=== PATIENT | female | born 1945 | race Caucasian/White ===

== ENCOUNTER 2018-03-18 20:49 | Emergency (ER) | payer OTHER ==
--- OUTSIDE RECORDS SUMMARY | 2018-03-18 20:52 | XMS REPORT | Clinical Summary ---
:1945 Author Organization [facility] Address [address] [place] [address] Care Team Providers Name Role Phone Asked, None Given Primary Care Provider Unavailable Allergies No Known Allergies Current Medications Prescription Sig. Disp. Refills Start Date End Date Status dicyclomine (BENTYL) 06/28/2015 Active 10 MG capsule HYDROcodone-acetamin Take 1 tablet by Active ophen (NORCO) 10-325 mouth 2 (two) mg per tablet times a day as needed for moderate pain. DULoxetine Take 30 mg by Active (CYMBALTA) 30 MG mouth daily. capsule pregabalin (LYRICA) Take 30 mg by Active 25 MG capsule mouth nightly. traMADol (ULTRAM) 50 Take 1 tablet 120 tablet 0 02/18/2017 03/20/2017 mg tablet (50 mg total) by mouth every 6 (six) hours for 30 days. HEPARIN Inject 1 mL 60 mL 0 02/18/2017 03/20/2017 SODIUM,PORCINE (5,000 Units (HEPARIN, PORCINE,) total) under the 5,000 unit/mL skin every 12 injection (twelve) hours for 30 days. furosemide (LASIX) Take 0.5 tablets 15 tablet 0 02/18/2017 03/20/2017 20 mg tablet (10 mg total) by mouth daily for 30 days. nystatin Apply topically 15 g 02/18/2017 03/20/2017 (MYCOSTATIN) 100,000 2 (two) times a unit/gram powder day for 30 days. Active Problems Problem Noted Date Fracture of knee prosthesis (HCC) 02/11/2017 Immunizations Name Dates Previously Given Next Due FLUCELVAX QUAD PF (0.5mL syringe) 02/18/2017 Social History Tobacco Use Types Packs/Day Years Used Date Never Smoker Alcohol Use Drinks/Week oz/Week Comments No Sex Assigned at Date Recorded Not on file Last Filed Vital Signs Not on file Plan of Treatment Health Maintenance Due Date Last Done Comments BREAST CANCER SCREENING 11/09/1997 COLON CANCER SCREENING 11/09/1997 SHINGRIX VACCINE (#1) 11/09/1997 ZOSTER VACCINE 2007 PNEUMOCOCCAL POLYSACCHARIDE VACCINE AGE 65 AND OVER 11/09/2012 PNEUMOCOCCAL-13 11/09/2012 INFLUENZA VACCINE 12/09/2017 02/18/2017 Implants Implanted Type Area Geophysical Laboratory Chief Device Expiration Model / Identifier Date Serial / Lot T2 Supracondylar Nail [id number] - [id number] IMPLANT Right: RADHA [id number] / Implanted: Qty: 1 on 02/12/2017 by Lyssa Limon MD DEVICES Knee ORTHOPEDICS / [id number] T2 F/T Locking Screw [id number] - [id number] IMPLANT Right: RADHA 1896 [id number] / Implanted: Qty: 1 on 02/12/2017 by Lyssa Limon MD DEVICES Knee ORTHOPEDICS / [id number] T2 F/T Locking Screw 5mmx42.5mm - [id number] IMPLANT Right: RADHA 1896 [id number] / Implanted: Qty: 1 on 02/12/2017 by Lyssa Limon MD DEVICES Knee ORTHOPEDICS / [id number] Cap End For T2 Scn Sys 8x4mm - [id number] Orthopedic Right: RADHA 2021 [id number] / Implanted: Qty: 1 on 02/12/2017 by Lyssa Limon MD Trauma Knee ORTHOPEDICS / Implants [id number] Screw Bone Lkng Fulthrd Ti 5x85mm - [id number] Orthopedic Right: RADHA 11/07/2021 1896 [id number] / Implanted: Qty: 1 on 02/12/2017 by Lyssa Limon MD Trauma Knee ORTHOPEDICS / Implants [id number] Screw Bone Lkng Fulthrd Ti 5x80mm - [id number] Orthopedic Right: RADHA 10/08/2021 1896 [id number] / Implanted: Qty: 1 on 02/12/2017 by Lyssa Limon MD Trauma Knee ORTHOPEDICS / Implants [id number] Screw Bone Lkng Fulthrd Ti 5x85mm - [id number] Orthopedic Right: RADHA 08/08/2021 1896 [id number] / Implanted: Qty: 1 on 02/12/2017 by Lyssa Limon MD Trauma Knee ORTHOPEDICS / Implants [id number] Screw Bone Lkng Fulthrd Ti 5x80mm - [id number] Orthopedic Right: RADHA 03/10/2021 1896 [id number] / Implanted: Qty: 1 on 02/12/2017 by Lyssa Limon MD Trauma Knee ORTHOPEDICS / Implants [id number] Immobilizer Knee Tripnl Dlx W/ Patl Strp Univl Canvas 24in - [id number] Surgical N/A: [id number] [id number] / Implanted: Qty: 1 on 02/12/2017 by Lyssa Limon MD Implants; N/A [employer] / Expanders; Extenders; Surgical Wires Wire K Optnl [id number] Strl - [id number] Temporary Right: RADHA 2021 1806 [id number] / Implanted: Qty: 1 on 02/12/2017 by Lyssa Limon MD Fixation Pin Knee ORTHOPEDICS / or Wire [id number] Procedures Procedure Name Priority Date/Time Associated Diagnosis Comments TRANSFUSE RED BLOOD Routine 01/13/2018 5:42 PM CDT CELLS TRANSFUSE RED BLOOD Routine 01/13/2018 5:42 PM CDT CELLS after 03/17/2017 Results Transfuse RBC (01/13/2018 5:42 PM)Only the most recent of2 resultswithin the time period is included.after 03/17/2017 Insurance Payer Benefit Plan / Group Subscriber ID Type Phone Address MEDICARE MEDICARE PART A AND B xxxxxxxxxx Medicare [place], [place]
--- OUTSIDE RECORDS SUMMARY | 2018-03-18 20:52 | XMS REPORT ---
:1945 Author Organization [facility] Address [address] [place] [address] Dr. Benavides[address] [place] [id number] Care Team Providers Name Role Phone Unavailable Unavailable Unavailable Problems This patient has no known problems. Allergies, Adverse Reactions, Alerts This patient has no known allergies or adverse reactions. Medications This patient has no known medications.
[2018-03-18] MEDS ORDERED: FENTANYL CITR 100 MCG/2 ML ONE (21:47)
--- NOTE | 2018-03-18 22:18 | RAD REPORT ---
EXAM DESCRIPTION: CT - Stone Protocol - 03/18/2018 9:58 pm CLINICAL HISTORY: Abdominal pain. Lower abdominal pain. Hematuria COMPARISON: 2014 TECHNIQUE: Computed axial tomography of the abdomen pelvis was obtained without oral or IV contrast. Lack of IV and oral contrast limits evaluation of solid organs, bowel, and vessels. Coronal reformat pina images were obtained and reviewed. All CT scans are performed using dose optimization technique as appropriate and may include automated exposure control or mA/KV adjustment according to patient size. FINDINGS: Bilateral ureteral stents are present. No hydronephrosis is noted. A 6 millimeter right re nal calculus is seen. Several small cystic structures are present within the right kidney. A 10 centimeter heterogeneous mass abuts the upper and mid aspect of the left kidney. Several left re nal calculi are noted. An air bubble is suspected within the bladder. Cortical thinning of the right kidney likely secondary to prior inflammation. The liver, spleen, pancreas and adrenals appear grossly normal There is no evidence of diverticulitis. A 6 x 3 centimeter fluid collection is present within the subcutaneous tissues of the left posterolat eral abdomen A stimulator device is in place IMPRESSION: 10 centimeter heterogeneous mass abutting the left kidney most likely represents a subca psular hematoma. This should be followed with ultrasounds to assess stability/resolution. 6 centimeter fluid collection within the subcutaneous tissues of the left posterolateral abdomen prob ably represents a hematoma. An abscess is another consideration but probably is less likely. Bilateral ureteral stents in place without hydronephrosis
[2018-03-18 22:59] LABS: Absolute Lymphocytes (CBC) 0.8 K/uL (0.7-4.9); Absolute Monocytes 0.5 K/uL (0.1-1.3); Absolute Neutrophil 8.5 K/uL (1.8-8.0); Basophils % 0.3 % (0-1.3); Hematocrit 26.8 % (36.0-45.0); Lymphocytes % 7.9 % (15.3-44.8); MCH 31.6 pg (27.0-35.0); MCV 94.6 fL (80-100); MPV 8.8 fL (7.6-11.3); Monocytes % 5.1 % (3.3-12.3); RBC Red Blood Cell Count 2.83 M/uL (3.86-4.86)
[2018-03-18 23:29] LABS: Blood Morphology Comment NOT SEEN (NOT SEEN); Platelet Estimate ADEQ
--- NOTE | 2018-03-18 23:45 | ER ---
Nurse's Notes [facility] Name: Dagmar Flores Age: 72 yrs Sex: Female : 1945 Arrival Date: 03/18/2018 Time: 20:52 Bed 16 Private MD: Diagnosis: Other slipping, tripping and stumbling and falls;Subcapsular Hematoma Left Kidney;Left Posterolateral Intraabdominal Hematoma Presentation: 03/18 20:54 Presenting complaint: Patient states: Lower back pain and blood in her urine since aj1 Thursday. States that she had some kidney stones broken up on Thursday. Reports chills. Reports urinary frequency. Transition of care: patient was not received from another setting of care. Onset of symptoms was March 2018. Risk Assessment: Do you want to hurt yourself or someone else? Patient reports no desire to harm self or others. Initial Sepsis Screen: Does the patient meet any 2 criteria? No. Patient's initial sepsis screen is negative. Does the patient have a suspected source of infection? Yes: Dysuria/Frequency/Urgency/UTI. Care prior to arrival: None. 20:54 Method Of Arrival: Wheelchair aj1 20:54 Acuity: JOSUE 3 aj1 Triage Assessment: 21:01 General: Appears in no apparent distress. uncomfortable, Behavior is calm, cooperative, aj1 appropriate for age. Pain: Complains of pain in back Pain currently is 9 out of 10 on a pain scale. Neuro: Level of Consciousness is awake, alert, obeys commands. Cardiovascular: Patient's skin is warm and dry. Respiratory: Airway is patent Respiratory effort is even, unlabored, Respiratory pattern is regular, symmetrical. Historical: - Allergies: 21:01 No Known Allergies; aj1 - Home Meds: 21:01 Bactrim DS Oral [Active]; Anaspaz 0.125 mg oral TbDL 1 tab 4 times per day [Active]; aj1 tramadol 50 mg Oral tab 1 tab every 6 hours [Active]; - PMHx: 21:01 Kidney stones; "Kidney problems"; Fibromyalgia; aj1 - Immunization history:: Flu vaccine is not up to date. - Social history:: Smoking status: Patient/guardian denies using tobacco. - Ebola Screening: : Patient denies travel to an Ebola-affected area in the 21 days before illness onset. Screenin:00 Abuse screen: Denies threats or abuse. Denies injuries from another. Nutritional rr5 screening: No deficits noted. Tuberculosis screening: No symptoms or risk factors identified. Fall Risk Fall in past 12 months (25 points). IV access (20 points). Ambulatory Aid- None/Bed Rest/Nurse Assist (0 pts). Gait- Weak (10 pts.). Total Alexandra Fall Scale indicates High Risk Score (45 or more points). Fall prevention measures have been instituted. Side Rails Up X 2 Family Present and informed to notify staff if the need to leave the bedside As available patient and family educated on Fall Prevention Program and Strategies. Assessment: 21:00 General: Appears in no apparent distress. uncomfortable, Behavior is calm, cooperative, rr5 appropriate for age. Pain: Complains of pain in back Pain does not radiate. Pain currently is 6 out of 10 on a pain scale. Quality of pain is described as aching, Pain began suddenly, Is intermittent, Aggravated by increased activity, repositioning. Neuro: Level of Consciousness is awake, alert, obeys commands, Oriented to person, place, time, situation. Cardiovascular: Capillary refill < 3 seconds Patient's skin is warm and dry. Respiratory: Airway is patent. GI: No signs and/or symptoms were reported involving the gastrointestinal system. Abdomen is round obese. : Reports pain on urination. EENT: No signs and/or symptoms were reported regarding the EENT system. Derm: No signs and/or symptoms reported regarding the dermatologic system. Skin is healthy with good turgor, Skin is dry, Skin is pink, warm \\T\\ dry. Musculoskeletal: Capillary refill < 3 seconds, Range of motion: intact in all extremities. 21:00 Injury Description: Bruise sustained to left lower back. rr5 22:30 Reassessment: Patient appears in no apparent distress at this time. No changes from rr5 previously documented assessment. 03/19 00:20 Reassessment: report given to EMS patient vitally stable agreed for transfer and no rr5 complaints made. Vital Signs: 03/18 21:01 BP 128 / 47; Pulse 88; Resp 18; Temp 97.5; Pulse Ox 100% on R/A; Weight 100.24 kg (R); aj1 Height 5 ft. 3 in. (160.02 cm) (R); Pain ; 03/19 00:00 BP 123 / 113; Pulse 85; Resp 17; Pulse Ox 98% on 3 lpm NC; Pain 3/10; rr5 03/18 21:01 Body Mass Index 39.15 (100.24 kg, 160.02 cm) aj1 ED Course: 03/18 20:52 Patient arrived in ED. es 20:59 Triage completed. aj1 21:00 Patient has correct armband on for positive identification. Bed in low position. Call rr5 light in reach. Side rails up X2. environmental monitoring specialist on. Pulse ox on. NIBP on. Door closed. Noise minimized. 21:01 Arm band placed on Patient placed in an exam room. aj1 21:28 Facundo Arce PA is PHCP. cp 21:28 Jerod Huffman MD is Attending Physician. cp 21:36 Maximilian Myers RN is Primary Nurse. rr5 21:[address] via wheelchair. vr 21:58 CT completed. Patient moved back from CT. nj 21:58 CT Stone Protocol In Process Unspecified. EDMS 22:30 Missed attempt(s): 20 gauge in left forearm. rr5 22:52 Initial lab(s) drawn, by me, sent to lab. Missed attempt(s): 20 gauge in left bb antecubital area. Bleeding controlled, band aid applied, catheter tip intact. 23:10 Inserted saline lock: 20 gauge in left EJ, using aseptic technique. Blood collected. by rr5 sherita BRADY. 23:34 X-ray completed. Portable x-ray completed in exam room. Patient tolerated procedure sg4 well. 23:36 XRAY Chest (1 view) In Process Unspecified. EDMS 03/19 00:00 No provider procedures requiring assistance completed. Renee cath inserted, using rr5 sterile technique, 16 Fr., by me, balloon inflated, urine specimen collected. other bloody urine drain 100ml. returned Patient tolerated well. 00:29 Patient transferred, IV remains in place. rr5 Administered Medications: 03/18 23:10 Drug: fentaNYL (PF) 50 mcg Route: IVP; Site: left jugular; rr5 03/19 00:26 Follow up: Response: No adverse reaction rr5 03/18 23:25 CANCELLED (Other Intervention Used): fentaNYL (PF) 50 mcg IM once rr5 23:26 Not Given (Other Intervention Used): fentaNYL (PF) 25 mcg IVP once rr5 03/19 00:10 Drug: NS 0.9% 250 ml Route: IV; Rate: bolus; Site: left jugular; rr5 00:25 Follow up: IV Status: Infusion continued upon transfer; IV Intake: 100ml rr5 00:26 Not Given (ongoing 250 bolus. patient is for transfer): NS 0.9% 1000 ml IV at 75 ml/hr rr5 continuous Intake: 00:25 IV: 100ml; Total: 100ml. rr5 Outcome: 03/18 23:45 ER care complete, transfer ordered by MD. briceno 03/19 00:24 Patient left the ED. rr5 00:25 Transferred by ground EMS to [facility], Transfer form completed. Note: rr5 Beryl KUO 00:25 Condition: stable 00:25 Instructed on the need for transfer, Demonstrated understanding of instructions, follow-up care. 00:35 Discharge instructions given to patient. rr5 Signatures: Dispatcher [employer] Toya Thomas, RN RN ajPatricia Leiva Brenda, RN Sandy Aleman Corey, PA PA cp Jordan, Nathan nj Garcia, Susana sgMaximilian Eli, RN RN rr5 Corrections: (The following items were deleted from the chart) 00:33 00:25 Transferred by ground EMS to [facility], Transfer form completed. rr5 rr5 00:33 00:25 Instructed on the need for transfer, Demonstrated understanding of instructions, rr5 follow-up care, rr5
--- NOTE | 2018-03-18 23:45 | EDPHYS ---
Physician Documentation [facility] Name: Dagmar Flores Age: 72 yrs Sex: Female : 1945 Arrival Date: 03/18/2018 Time: 20:52 Bed 16 Private MD: ED Physician Jerod Huffman HPI: 03/18 21:45 This 72 yrs old Female presents to ER via Wheelchair with complaints of cp Bladder pain. 21:45 The patient presents with abdominal pain in the lower abdomen. cp 21:45 Onset: The symptoms/episode began/occurred 3 day(s) ago. cp 21:45 Associated signs and symptoms: Pertinent positives: dysuria, low back pain, Pertinent cp negatives: anorexia, blood in stools, fever, headache. The symptoms are described as constant. Daughter reports patient having lithotripsy surgery for kidney stones 3 days ago. Reports stents were placed in bilateral kidneys. Daughter also reports patient fell backward onto buttocks this morning and EMS was called to assist patient back into bed. Patient has not been seen in Ed since fall. Historical: - Allergies: 21:01 No Known Allergies; aj1 - Home Meds: 21:01 Bactrim DS Oral [Active]; Anaspaz 0.125 mg oral TbDL 1 tab 4 times per day [Active]; aj1 tramadol 50 mg Oral tab 1 tab every 6 hours [Active]; - PMHx: 21:01 Kidney stones; "Kidney problems"; Fibromyalgia; aj1 - Immunization history:: Flu vaccine is not up to date. - Social history:: Smoking status: Patient/guardian denies using tobacco. - Ebola Screening: : Patient denies travel to an Ebola-affected area in the 21 days before illness onset. ROS: 22:00 Constitutional: Negative for body aches, fever, poor PO intake. cp 22:00 Eyes: Negative for injury, pain, redness, and discharge. cp 22:00 ENT: Negative for drainage from ear(s), ear pain, sore throat, difficulty swallowing, difficulty handling secretions. 22:00 Neck: Negative for pain with movement, pain at rest, stiffness, tenderness, bony tenderness. 22:00 Cardiovascular: Negative for chest pain, edema, palpitations. 22:00 Respiratory: Negative for cough, shortness of breath, wheezing. 22:00 Abdomen/GI: Positive for abdominal pain, Negative for vomiting, diarrhea, constipation, black/tarry stool, rectal bleeding. 22:00 Back: Positive for pain at rest, pain with movement, of the left flank. 22:00 : Positive for urinary symptoms. 22:00 Skin: Negative for cellulitis, rash. 22:00 Neuro: Negative for altered mental status, headache, weakness. Exam: 22:05 Constitutional: The patient appears in no acute distress, alert, awake, cp non-diaphoretic, non-toxic, well developed, well nourished, obese. 22:05 Head/Face: Normocephalic, atraumatic. Eyes: Pupils equal round and reactive to light, cp extra-ocular motions intact. Lids and lashes normal. Conjunctiva and sclera are non-icteric and not injected. Cornea within normal limits. Periorbital areas with no swelling, redness, or edema. ENT: Nares patent. No nasal discharge, no septal abnormalities noted. Tympanic membranes are normal and external auditory canals are clear. Oropharynx with no redness, swelling, or masses, exudates, or evidence of obstruction, uvula midline. Mucous membranes moist. 22:05 Neck: External neck: is normal, ROM/movement: is normal, is supple, without pain, no range of motions limitations, no nuchal rigidity. 22:05 Chest/axilla: Inspection: normal, Palpation: is normal, no crepitus, no tenderness. 22:05 Cardiovascular: Rate: normal, Rhythm: regular, Edema: is not appreciated, JVD: is not appreciated. 22:05 Respiratory: the patient does not display signs of respiratory distress, Respirations: normal, no use of accessory muscles, no retractions, no splinting, no tachypnea, labored breathing, is not present, Breath sounds: are clear throughout, no decreased breath sounds, no stridor, no wheezing. 22:05 Abdomen/GI: Inspection: obese Bowel sounds: active, all quadrants, Palpation: soft, in all quadrants, moderate abdominal tenderness, in the left upper quadrant, right lower quadrant and left lower quadrant, rebound tenderness, is not appreciated, voluntary guarding, is elicited in the left upper quadrant, right lower quadrant and left lower quadrant, involuntary guarding, is not appreciated. 22:05 Back: pain, that is moderate, of the left mid back, noted bruising and ecchymosis to left flank. 22:05 Musculoskeletal/extremity: Exam is negative for decreased range of motion, deformity. 22:05 Neuro: Orientation: to person, place \\T\\ time. Mentation: is normal, Cerebellar function: is grossly normal, Motor: moves all fours, strength is normal, Sensation: is normal. 23:59 ECG was reviewed by the Attending Physician. cp Vital Signs: 21:01 BP 128 / 47; Pulse 88; Resp 18; Temp 97.5; Pulse Ox 100% on R/A; Weight 100.24 kg (R); aj1 Height 5 ft. 3 in. (160.02 cm) (R); Pain 8/10; 03/19 00:00 BP 123 / 113; Pulse 85; Resp 17; Pulse Ox 98% on 3 lpm NC; Pain 3/10; rr5 03/18 21:01 Body Mass Index 39.15 (100.24 kg, 160.02 cm) aj1 Procedures: 03/18 23:30 Peripheral line: by aseptic technique a peripheral line was placed in the left external cp jugular vein. MDM: 21:28 Patient medically screened. cp 23:45 Data reviewed: vital signs, nurses notes, radiologic studies, CT scan, and as a result, cp I will transfer patient. 23:45 Counseling: I had a detailed discussion with the patient and/or guardian regarding: the cp historical points, exam findings, and any diagnostic results supporting the discharge/admit diagnosis, radiology results, the need to transfer to another facility, for higher level of care. 03/18 21:35 Order name: Basic Metabolic Panel; Complete Time: 23:16 cp 03/18 21:35 Order name: CBC with Diff; Complete Time: 23:30 cp 03/18 23:13 Interpretation: Normal except: RBC 2.83; HGB 8.9; HCT 26.8; MCV 94.6; MCH 31.6; PLT cp 151; RDW 16.2; CATALINA% 85.7; LYM% 7.9; NEUT A 8.5. 03/18 21:35 Order name: Creatinine for Radiology; Complete Time: 23:16 cp 03/18 21:35 Order name: Hepatic Function; Complete Time: 23:16 cp 03/18 21:35 Order name: Lipase; Complete Time: 23:16 cp 03/18 21:36 Order name: CT Stone Protocol; Complete Time: 22:20 cp 03/18 23:00 Order name: Manual Differential; Complete Time: 23:30 EDMS 03/18 23:30 Interpretation: Normal except: SEGS 81; BANDS [F] 4; LYM 9; MYELO 1. 03/18 23:12 Order name: PT-INR; Complete Time: 23:16 cp 03/18 23:54 Interpretation: Reviewed. 03/18 23:12 Order name: Ptt, Activated; Complete Time: 23:54 cp 03/18 23:54 Interpretation: Reviewed. 03/18 23:17 Order name: Type And Screen; Complete Time: 23:16 cp 03/18 23:18 Order name: XRAY Chest (1 view); Complete Time: 23:16 cp 03/19 00:15 Order name: Urine Dipstick--Ancillary (enter results); Complete Time: 23:16 mw2 03/18 21:35 Order name: IV Saline Lock; Complete Time: 23:26 03/18 21:35 Order name: Labs collected and sent; Complete Time: 23:26 cp 03/18 21:35 Order name: Urine Dipstick-Ancillary (obtain specimen); Complete Time: 00:14 cp 03/18 23:12 Order name: EKG; Complete Time: 23:12 03/18 23:12 Order name: EKG - Nurse/Tech; Complete Time: 00:12 cp 03/18 23:30 Order name: Renee; Complete Time: 00:12 cp EC:59 Rate is 87 beats/min. Rhythm is regular. AR interval is normal. QRS interval is cp prolonged at 118 msec. QT interval is normal. Interpreted by me. Reviewed by me. Administered Medications: 23:10 Drug: fentaNYL (PF) 50 mcg Route: IVP; Site: left jugular; rr5 11 00:26 Follow up: Response: No adverse reaction rr5 03/18 23:25 CANCELLED (Other Intervention Used): fentaNYL (PF) 50 mcg IM once rr5 23:26 Not Given (Other Intervention Used): fentaNYL (PF) 25 mcg IVP once rr5 03/19 00:10 Drug: NS 0.9% 250 ml Route: IV; Rate: bolus; Site: left jugular; rr5 00:25 Follow up: IV Status: Infusion continued upon transfer; IV Intake: 100ml rr5 00:26 Not Given (ongoing 250 bolus. patient is for transfer): NS 0.9% 1000 ml IV at 75 ml/hr rr5 continuous Disposition: 03/18/18 23:45 Transfer ordered to [facility]. Diagnosis are Other slipping, tripping and stumbling and falls, Subcapsular Hematoma Left Kidney, Left Posterolateral Intraabdominal Hematoma. - Reason for transfer: Higher level of care. - Accepting physician is DR Conway. - Condition is Stable. - Problem is new. - Symptoms have improved. Addendum: 03/20/2018 04:05 Co-signature as Attending Physician, Jerod Huffman MD I agree with the assessment and w a plan of care. Signatures: Dispatcher [employer] EDToya Crump RN RN aj1 Facundo Arce PA PA Jerod Loredo MD MD wa Roque, Raymond RN RN rr5 Corrections: (The following items were deleted from the chart) 03/18 23:25 22:56 fentaNYL (PF) 50 mcg IM once ordered. cp rr5 23:47 23:45 03/18/2018 23:45 Transfer ordered to [facility]. cp Diagnosis is Other slipping, tripping and stumbling and falls; Subcapsular Hematoma Left Kidney. Reason for transfer: Higher level of care. Accepting physician is DR Conway. Condition is Stable. Problem is new. Symptoms have improved. cp 03/19 00:24 03/18 23:47 03/18/2018 23:45 Transfer ordered to [facility]. rr5 Diagnosis is Other slipping, tripping and stumbling and falls; Subcapsular Hematoma Left Kidney; Left Posterolateral Intraabdominal Hematoma. Reason for transfer: Higher level of care. Accepting physician is DR Conway. Condition is Stable. Problem is new. Symptoms have improved. cp
[2018-03-18 23:53] LABS: Protime INR 1.08
[2018-03-19 00:01] LABS: Albumin 2.4 g/dL (3.4-5.0); Bilirubin Direct 0.1 mg/dL (0-0.2); Bilirubin Total 0.4 mg/dL (0.2-1.0); Protein, Total 6.6 g/dL (6.4-8.2)
[2018-03-19] MEDS ORDERED: NA CHLORIDE 0.9% 250 ML ONE (00:02)
[2018-03-19 00:59] VITALS: BP 128/47; TEMP 97.5; O2SAT 100
[2018-03-19 01:46] LABS: Urine Blood 3+ (NEG); Urine Glucose NEGATIVE (NEG); Urine Protein 3+ (NEG); Urine Specific Gravity 1.025 (1.005-1.030); Urine pH 6.5 (5.0-7.0)
--- NOTE | 2018-03-19 07:07 | EKG ---
Test Date: 2018-03-18 Test Time: 23:55:37 Spool Carrier: RR MEASUREMENT RESULTS: Intervals: Rate: 87 KS: 170 QRSD: 118 QT: 378 QTc: 454 [place]: P: 27 KS: 170 QRS: -28 T: 59 INTERPRETIVE STATEMENTS: Normal sinus rhythm Left ventricular hypertrophy with QRS widening Nonspecific T wave abnormality Abnormal ECG Compared to ECG 01/08/2015 19:30:13 T-wave abnormality now present Incomplete right bundle-branch block no longer present Electronically Signed On 03-19-18 07:06:56 [employer] by Mo Brooks
--- NOTE | 2018-03-19 08:13 | RAD REPORT ---
EXAM DESCRIPTION: Lio Single View03/18/2018 11:36 pm CLINICAL HISTORY: Chest pain COMPARISON: 2014 FINDINGS: The lungs appear clear of acute infiltrate. The heart is normal size IMPRESSION: No acute abnormalities displayed
== END 2018-03-19 00:24 | disposition short-term general hospital (02) ==
LOC: ER 20:49
PROC: 05HQ33Z Insertion of Infusion Device into Left External Jugular Vein, Percutaneous Approach (ICD-10-PCS; principal; 2018-03-19)
DX: S37.092A Other injury of left kidney, initial encounter (principal); S30.1XXA Contusion of abdominal wall, initial encounter; W01.0XXA Fall on same level from slipping, tripping and stumbling without subsequent striking against object, initial encounter; Y93.9 Activity, unspecified; Y92.9 Unspecified place or not applicable; Z87.442 Personal history of urinary calculi; Z98.890 Other specified postprocedural states
CPT/HCPCS: 36415; 36556; 51702; 71045; 74176; 76377; 80048; 80076; 81003; 83690; 85025; 85610; 85730; 86850; 86900; 86901; 93005; 96374; 96375; 99285; J3010

== ENCOUNTER 2020-03-29 05:13 | Inpatient (IN) | payer OTHER ==
--- OUTSIDE RECORDS SUMMARY | 2020-03-29 05:15 | XMS REPORT | Clinical Summary ---
:1945 Author Organization [facility] Address [address] [place] [address] Care Team Providers Name Role Phone Asked, Given Primary Care Provider Unavailable Allergies No Known Active Allergies Medications Medication Sig Dispensed Refills Start Date End Date Status dicyclomine (BENTYL) 0 06/28/2015 Active 10 MG capsule HYDROcodone-acetaminop Take 1 tablet by 0 Active hen (NORCO) 10-325 mg mouth 2 (two) per tablet times a day as needed for moderate pain. DULoxetine (CYMBALTA) Take 30 mg by 0 Active 30 MG capsule mouth daily. pregabalin (LYRICA) 25 Take 30 mg by 0 Active MG capsule mouth nightly. Active Problems Problem Noted Date Fracture of knee prosthesis 02/11/2017 Immunizations Name Administration Dates Next Due FLUCELVAX QUAD PF 02/18/2017 Surgical History Surgery Date Site/Laterality Comments SUPRAPUBIC CATHETER 2015 INSERTION ARTHROPLASTY, HIP, TOTAL 02/12/2017 Hip/Right Procedu re: ORIF RIGHT SUPRACONDYLAR AN D INRACONDYLAR FCM FX VS RIGHT TOTAL KNEE ARTHROPLASTY REV SERGIO POLY EXCHANGE) ; Hunter geon: Lyssa Limon MD; Location: [facility] 19 OR; Service: Orthopedics; La terality: Right; Medical devices from this surgery are in t he Implants section. Medical History Medical History Date Comments Joint pain UTI (urinary tract infection) Neurogenic bladder Pelvic pain in female Incomplete bladder emptying Renal insufficiency Bladder spasms Social History Tobacco Use Types Packs/Day Years Used Date Never Smoker Alcohol Use Drinks/Week oz/Week Comments No Sex Assigned at Date Recorded Not on file Last Filed Vital Signs Not on file Plan of Treatment Health Maintenance Due Date Last Done Comments BREAST CANCER SCREENING 11/09/1997 COLONOSCOPY SCREENING 11/09/1997 SHINGLES VACCINES (#1) 11/09/1997 65+ PNEUMOCOCCAL VACCINE (1 of 1 - PPSV23) 11/09/2012 INFLUENZA VACCINE 12/10/2019 02/18/2017 Implants Implanted Type Area Methods Specialist Engineer Device Shelf Model / Identifier Expiration Serial / Date Lot T2 Supracondylar Nail [id number] - [id number] IPM IMPLANT Right: STR FatimahKER 11/07/2021 [id number] / Implanted: Qty: 1 on 02/12/2017 by Lyssa Limon MD at [facility] DEVICES Knee ORTHOPEDICS / [id number] T2 F/T Locking Screw [id number] - [id number] IPM IMPLANT Right: CARLINE SOTO 10/08/2021 1896 [id number] / Implanted: Qty: 1 on 02/12/2017 by Lyssa Limon MD at [facility] DEV[employer] Knee ORTHOPEDICS / [id number] T2 F/T Locking Screw 5mmx42.5mm - [id number] IPM IMPLANT Right: OLIVIER 10/08/2021 1896 [id number] / Implanted: Qty: 1 on 02/12/2017 by Lyssa Limon MD at [facility] DEV[employer] Knee ORTHOPEDICS / [id number] Cap End For T2 Scn Sys 8x4mm - [id number] Orthopedic Right: RADHA 10/08/2021 [id number] / Implanted: Qty: 1 on 02/12/2017 by Lyssa Limon MD at [facility] Trauma Knee ORTHOPEDICS / Implants [id number] Screw Bone Lkng Fulthrd Ti 5x85mm - [id number] Orthopedic Right: S TRYKER 11/07/2021 1896 [id number] / Implanted: Qty: 1 on 02/12/2017 by Lyssa Limon MD at [facility] Trauma Knee ORTHOPEDICS / Implants [id number] Screw Bone Lkng Fulthrd Ti 5x80mm - [id number] Orthopedic Right: S TRYKER 10/08/2021 1896 [id number] / Implanted: Qty: 1 on 02/12/2017 by Lyssa Limon MD at [facility] Trauma Knee ORTHOPEDICS / Implants [id number] Screw Bone Lkng Fulthrd Ti 5x85mm - [id number] Orthopedic Right: S TRYKER 08/08/2021 1896 [id number] / Implanted: Qty: 1 on 02/12/2017 by Lyssa Limon MD at [facility] Trauma Knee ORTHOPEDICS / Implants [id number] Screw Bone Lkng Fulthrd Ti 5x80mm - [id number] Orthopedic Right: S TRYKER 03/10/2021 1896 [id number] / Implanted: Qty: 1 on 02/12/2017 by Lyssa Limon MD at [facility] Trauma Knee ORTHOPEDICS / Implants [id number] Immobilizer Knee Tripnl Dlx W/ Patl Strp Univl Canvas 24in - [id number] Surgical N/A: DEROYAL [id number] / Implanted: Qty: 1 on 02/12/2017 by Lyssa Limon MD at [facility] Implants; N/A [employer] / Expanders; Extenders; Surgical Wires Wire K Optnl [id number] Strl - [id number] Temporary Right: RADHA 12/08/2021 1806 [id number] / Implanted: Qty: 1 on 02/12/2017 by Lyssa Limon MD at [facility] Fixation Pin Knee ORTHOPEDICS / or Wire [id number] Results Not on fileafter 03/29/2019 Insurance Payer Benefit Plan / Subscriber ID Effective Dates Phone Addre ss Type Group MEDICARE MEDICARE PART A [id number] 2001-Present [facility], [place] Medicare AND B Advance Directives For more information, please contact: [phone] Type Date Recorded Patient Regulatory Attorney Explanati on Advance Directives, Living Will and Medical Power of Procedures Nurse Code Status Date Activated Date Inactivated Comments Full Code 02/14/2017 7:39 PM 02/19/2017 8:57 PM Code Status decision reached by: Patient
--- OUTSIDE RECORDS SUMMARY | 2020-03-29 05:16 | XMS REPORT | Continuity of Care Document ---
:1945 Author Organization [employer] Care Team Providers Name Role Phone [employer] Unavailable Un available Problems Problem Status Onset Classification Date Comments Sourc e Date Reported Minor contusion of 04/01/20 10/11/2018 [facility] left kidney, 18 Medical initial encounter Ce nter SUBCAPSULAR Active 03/18/20 [facility] HEMATOMA ON LEFT 18 [facility] CLOSED HEMATOMA ON Active 03/18/20 [facility] LEFT KIDNEY 18 Medical Center Metabolic 10/11/2018 [facility] encephalopathy Medic al Center Acute kidney 10/11/2018 [place] failure, Medical unspecified Center Unspecified fall, 10/11/2018 [facility] initial encounter Wy dical Center Hyperkalemia 10/11/2018 [place] [facility] Gross hematuria 10/11/2018 [facility] Center Chronic kidney 10/11/2018 [facility] [place] disease, Medical unspecified Center Adverse effect of 10/11/2018 [facility] other drugs, Medical medicaments and Cent er biological substances, initial encounter Type 2 diabetes 10/11/2018 [facility] mellitus with Medica l hyperglycemia Center Personal history 10/11/2018 [facility] of urinary (tract) edical infections 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 10/11/2018 [facility] (current) use of [facility] insulin Center MINOR CONTUSION OF Active [facility] LEFT KIDNEY, Medical INITIAL Center Medications Medication Details Route Status Patient Ordering Order Source Instructions Provider Date polyethylene PO, Daily, 0 Active [place] glycol 3350 oral Refill(s) 2018 Medic al powder for Center reconstitution Menthol 0.0044 0 Refill(s) [place] MG/MG / Zinc 2018 Medical Oxide 0.2 MG/MG [place] Topical Ointment Lidocaine 1 patch, TOP, Active [place] Hydrochloride Q24H, 0 2018 Medical 0.05 MG/MG Refill(s) [place] Transdermal Patch [Lidoderm] heparin 5,000 unit = 1 Active [facility] mL, SUB-Q, Q8H, 2018 Medical 0 Refill(s) Center Docusate Sodium 100 mg = 1 cap, Active [place] 100 MG Oral PO, BID, PRN 2018 Medical Capsule Constipation, 0 Center Refill(s) Acetaminophen 1,000 mg = 2 Active [place] 500 MG Oral tab, PO, Q6H, 0 2018 Medi kristel Tablet Refill(s) Center Tramadol Notes: Not to [place] exceed Active 2017 Medical 400mg/day. Center (Same As: Ultram) Dilaudid Notes: Same as [place] Dilaudid 2018 [facility] Center Calmoseptine Notes: (Same No Longer [place] as: Active 2017 [facility] Calmoseptine) Center heparin Notes: porcine No Longer s heparin Active [address] [place] [address] cefepime Notes: (Same No Longer [facility] As: Maxipime) Active 2017 Medical MEDICATION Center WASTE Product Size: 1000 mg Product Wasted: ___ mg Neurontin Notes: (Same No Longer [place] as: Neurontin) Active 2017 [facility] Naproxen 500 mg, Route: No Longer [place] PO, Q12H, kg, Active 2017 Medical Start date: [place] 03/21/18 9:00:00 DRAWING TENDER, Duration: 30 day, Stop date: 04/19/18 21:00:00 DRAWING TENDER Kayexalate Notes: (sodium Inactive [place] polystyrene 2017 [facility] sulfonate 15 Center gm/60 ml ROCKY) Shake well before use. (Same as: Kayexalate, SPS) gabapentin 300 mg, Route: No Longer [place] PO, Q8H, kg, Active 2017 Medical Start date: Center 03/21/18 8:00:00 DRAWING TENDER, Duration: 30 day, Stop date: 04/20/18 0:00:00 DRAWING TENDER Ciprofloxacin Notes: May Inactive [place] interfere 2018 Medical w/enteral Center feedings - Take 1 hr before or 2 hrs after antacids, dairy pdt & minerals. On empty stomach. Enoxaparin Notes: (Same No Longer [place] as: Lovenox) Active 2018 Medical Center Insulin regular 60 units) Inactive [facility] WASTE: F/P - 2018 Medical Black; E - Center Municipal Trash Bin Stable for 28 days at room temperature Expires in days from D ate d50 syringe 25 gm, 50 mL, Inactive [place] Route: IV, Drug 2017 Medical Form: INJ, Center Dosing Weight 104.091, kg, ONCE, Start date: 03/20/18 10:30:00 DRAWING TENDER, Stop date: 03/20/18 10:30:00 DRAWING TENDER Insulin regular 10 unit, Route: Inactive [facility] SUB-Q, ONCE, 2018 Medical Dosing Weight Center 104.091, kg, Start date: 03/20/18 10:30:00 DRAWING TENDER, Stop date: 03/20/18 10:30:00 DRAWING TENDER Miralax Notes: Dissolve No Longer [place] in 8 oz of Active 2018 Medical water or juice. Center (Same as: Miralax) Calcium Notes: WASTE: Inactive [place] Gluconate F/P - Sink; E - 2018 Medica l [facility] Trash Center Bin Ciprofloxacin Notes: Do not Inactive [facility] refrigerate 2018 [facility] remove patch 1 patch, Route: No Longer [facility] TOP, Q24H, Drug Active 2018 Medical form: ERFILM, Center Start date: 03/19/18 17:00:00 DRAWING TENDER, Duration: 30 day, Stop date: 04/17/18 17:00:00 DRAWING TENDER celecoxib 200 mg, Route: Inactive [place] PO, Q12H, kg, 2018 Medical For patients Center LESS than 75 years old. Hold in all patients if CrCl < 30 mL/min, Start date: 03/19/18 9:00:00 DRAWING TENDER, Duration: 48 hr, Stop date: 03/20/18 21:00:00 DRAWING TENDER Streptococcus Notes: Shake No Longer [place] pneumoniae well prior to Active 2018 Medical serotype 1 use (Same as: [place] capsular antigen Prevnar 13) diphtheria [id number] protein conjugate vaccine / Streptococcus pneumoniae serotype 14 capsular antigen diphtheria [id number] protein conjugate vaccine / Streptococcus pneumoniae serotype 18C capsular antigen d influenza virus Notes: (Same No Longer [facility] vaccine, as: Fluzone Active 2017 Medical inactivated High-Dose) For Cent er high-dose 65 years of age preservative-herson of older (0.5 e intramuscular ml IM) Shake suspension well before use Lyrica Notes: (Same No Longer [place] as: Lyrica) Active 2017 Medical Center Acetaminophen Notes: Max [place]er [place] acetaminophen Active 2017 Medical 4000 mg/day (4 Center gm/day). (Same as: Tylenol Extra Strength) Insulin regular 60 units) No Longer [place] WASTE: F/P - Active 2017 Medical Black; E - Center Municipal Trash Bin Stable for 28 days at room temperature Expires in days from D ate Dextrose 50% 25 gm, 50 mL, No Longer [place] Syringe Route: IVP, Active 2017 Medical Drug Form: INJ, Center kg, PRN, PRN Blood Glucose Results, Start date: 03/19/18 5:19:00 DRAWING TENDER, Duration: 30 day, Stop date: 04/18/18 5:18:00 DRAWING TENDER Glucagon 1 mg, Route: No Longer [place] IM, Drug form: Active 2017 Medical PDR/INJ, PRN, Center kg, PRN Blood Glucose Results, Start date: 03/19/18 5:19:00 DRAWING TENDER, Duration: 30 day, Stop date: 04/18/18 5:18:00 DRAWING TENDER PlasmaLyte A Notes: (Same No Longer [place] PH-7.4 1,000 mL as: Isolyte S Active 2017 Wy dical PH 7.4) Center Lidocaine Notes: Apply [place] Longer [place] Hydrochloride only once for Active 2017 Medi kristel 0.05 MG/MG up to 12 hours Center Transdermal in a 24-hour Patch [Lidoderm] period (12 hours on and 12 hours off). (Same as: Lidoderm) "Remove old patch before application of new patch" Zofran 4 mg, Route: Inactive [place] IVP, Drug form: 2017 Medical INJ, ONCE, kg, Center Priority: STAT, Start date: 03/19/18 4:28:00 DRAWING TENDER, Stop date: 03/19/18 4:28:00 DRAWING TENDER Morphine 4 mg, Route: Inactive [facility] IVP, ONCE, kg, 2017 Medical Priority: STAT, Center Start date: 03/19/18 4:28:00 DRAWING TENDER, Stop date: 03/19/18 4:28:00 DRAWING TENDER PlasmaLyte A Notes: (Same Inactive [facility] [place] PH-7.4 1,000 mL as: Isolyte S 2018 Me dical PH 7.4) Center Bisacodyl Notes: [facility]: Dulcolax, Active 2017 Medical Correctol) (Do Center Not Crush) "Do Not Crush" Docusate Notes: (Same No Longer [facility] as: Colace) (Do Active 2017 Medical Not Crush) Center Oxycodone Notes: (Same No Longer [facility] Hydrochloride 5 as: Roxicodone) Active 2017 Medical MG Oral Tablet Center Tramadol Notes: Not to No Longer [facility] s exceed Active 2017 Medical 400mg/day. Center (Same As: Ultram) pregabalin 100 mg, Route: Inactive [facility] [place] PO, Q8H, kg, 2017 Medical Priority: NOW, Center Start date: 03/19/18 4:06:00 DRAWING TENDER, Duration: 48 hr, Stop date: 03/21/18 0:00:00 DRAWING TENDER Allergies, Adverse Reactions, Alerts Substance Category Reaction Severity Reaction Status Date Comments S ource type Reported No Known Assertion Drug [place] Medication allergy Medic al Allergies Center Immunizations No Data Provided for This Section Results Order Name Results Value Reference Date Interpretation Comments Kami rce Range ELECTROLYTES CO2 25 24 - 32 03/24 [facility] ELECTROLYTES Calcium Lvl 7.7 8.5 - 10.5 03/[address] [place] [address] [facility] ELECTROLYTES AGAP 12.4 10.0 - 03/24 [facility] 20.[address] [facility] ELECTROLYTES eGFR 42 03/24 Result Comment: The Medical eGFR is Center calculated using the CKD-EPI formula. In most young, healthy individuals the eGFR will be >90 mL/min/1.73m2 . The eGFR declines with age. An eGFR of 60-89 may be normal in some populations, particularly the elderly, for whom the CKD-EPI formula has not been extensively validated. Use of the eGFR is not recommended in the following populations:< br/>
Isabel viduals with unstable creatinine concentration s, including patients and those with serious co-morbid conditions.<b r/>
Patie nts with extremes in muscle mass or diet.

The data above are obtained from the National Kidney Disease Education Program (NKDEP) which additionally recommends that when the eGFR is used in patients with extremes of body mass index for purposes of drug dosing, the eGFR should be multiplied by the estimated BMI. ELECTROLYTES Glucose Lvl 191 70 - 99 03/[address] [facility] ELECTROLYTES BUN 19 7 - 22 03/[address] ELECTROLYTES Creatinine 1.28 0.50 - 03/24 [facility] Lvl 1.40 [facility] ELECTROLYTES Sodium Lvl 139 135 - 145 03/24 [facility] [address] [place] [address] ELECTROLYTES Potassium Lvl 4.4 3.5 - 5.1 03/[address] ELECTROLYTES Chloride Lvl 106 95 - 109 03/24 [facility] xa [address] [place] [address] CHEM PANEL eGFR 48 03/23 [facility] Comment: The Medical eGFR is Center calculated using the CKD-EPI formula. In most young, healthy individuals the eGFR will be >90 mL/min/1.73m2 . The eGFR declines with age. An eGFR of 60-89 may be normal in some populations, particularly the elderly, for whom the CKD-EPI formula has not been extensively validated. Use of the eGFR is not recommended in the following populations:< br/>
Isabel viduals with unstable creatinine concentration s, including patients and those with serious co-morbid conditions.<b r/>
Patie nts with extremes in muscle mass or diet.

The data above are obtained from the National Kidney Disease Education Program (NKDEP) which additionally recommends that when the eGFR is used in patients with extremes of body mass index for purposes of drug dosing, the eGFR should be multiplied by the estimated BMI. CHEM PANEL BUN 21 7 - 22 03/[address] CHEM PANEL Glucose Lvl 152 70 - 99 03/[address] CHEM PANEL Sodium Lvl 138 135 - 145 03/[address] CHEM PANEL Calcium Lvl 8.1 8.5 - 10.5 03/23 [facility] CHEM PANEL CO2 27 24 - 32 03/23 [facility] CHEM PANEL AGAP 10.3 10.0 - 03/[address] [facility] CHEM PANEL Creatinine 1.16 0.50 - 03/[address] [place] [address] [facility] CHEM PANEL Potassium Lvl 4.3 3.5 - 5.1 03/23 [facility] CHEM PANEL Chloride Lvl 105 95 - 109 03/23 [facility] ELECTROLYTES AGAP 13.7 10.0 - 03/[address] [facility] ELECTROLYTES eGFR 48 03/23 [facility] Comment: The [facility] eGFR is Center calculated using the CKD-EPI formula. In most young, healthy individuals the eGFR will be >90 mL/min/1.73m2 . The eGFR declines with age. An eGFR of 60-89 may be normal in some populations, particularly the elderly, for whom the CKD-EPI formula has not been extensively validated. Use of the eGFR is not recommended in the following populations:< br/>
Isabel viduals with unstable creatinine concentration s, including patients and those with serious co-morbid conditions.<b r/>
Patie nts with extremes in muscle mass or diet.

The data above are obtained from the National Kidney Disease Education Program (NKDEP) which additionally recommends that when the eGFR is used in patients with extremes of body mass index for purposes of drug dosing, the eGFR should be multiplied by the estimated BMI. ELECTROLYTES Calcium Lvl 8.4 8.5 - 10.5 03/[address] [place] [facility] ELECTROLYTES Chloride Lvl 106 95 - 109 03/23 [facility] ELECTROLYTES CO2 23 24 - 32 03/23 [facility] ELECTROLYTES BUN 22 7 - 22 03/23 [facility] ELECTROLYTES Glucose Lvl 110 70 - 99 03/23 [facility] ELECTROLYTES Creatinine 1.16 0.50 - 03/[address] [place] [address] [facility] ELECTROLYTES Potassium Lvl 4.7 3.5 - 5.1 03/23 [facility] ELECTROLYTES Sodium Lvl 138 135 - 145 03/[address] [facility] HEMATOLOGY RBC 2.81 4.20 - 03/23 [place] 5.40 /2017 [facility] HEMATOLOGY WBC 4.3 3.7 - 10.4 03/23 [facility] HEMATOLOGY Hgb 8.8 12.0 - 03/23 [place] 16.0 Medical [place] HEMATOLOGY MCH 31.3 27.0 - 03/[address] [place] [address] [facility] HEMATOLOGY MCV 94.1 80.0 - 03/[address] [place] [address] [facility] HEMATOLOGY MCHC 33.2 32.0 - 03/[address] [place] [address] [facility] HEMATOLOGY Platelet 206 133 - 450 03/23 [facility] HEMATOLOGY RDW 16.4 11. - 03/[address] [facility] HEMATOLOGY MPV 7.3 7.4 - 10.4 03/23 [facility] HEMATOLOGY Hct 26.4 36.0 - 03/[address] [facility] HEMATOLOGY Segs 60.0 45.0 - 03/[address] [place] [address] [facility] HEMATOLOGY Lymphocytes 28.1 20.0 - 03/[address] [place] [address] [facility] HEMATOLOGY Monocytes 7.9 2.0 - 12.0 03/23 [facility] HEMATOLOGY Eosinophils 3.7 0.0 - 4.0 03/23 [facility] HEMATOLOGY Eosinophils # 0.2 0.0 - 0.5 03/[address] [facility] HEMATOLOGY Monocytes # 0.3 0.0 - 0.8 03/23 [facility] HEMATOLOGY Anisocyte 1+ None Seen 03/23 [facility] *ABN* [facility] (03/23/18 5:19 AM) Cente r HEMATOLOGY Neutrophils # 2.6 1.5 - 8.1 03/23 [facility] [facility] HEMATOLOGY Lymphocytes # 1.2 1.0 - 5.5 03/23 [facility] [facility] HEMATOLOGY Basophils 0.3 0.0 - 1.0 03/23 [facility] HEMATOLOGY RDW 16.2 11.5 - 03/[address] [facility] HEMATOLOGY Platelet 204 133 - 450 03/22 [facility] HEMATOLOGY MPV 7.6 7.4 - 10.4 03/22 [facility] HEMATOLOGY MCV 95.8 80.0 - 03/[address] [place] [address] [facility] HEMATOLOGY MCHC 32.6 32.0 - 03/[address] [place] [address] [facility] HEMATOLOGY MCH 31.2 27.0 - 03/[address] [place] [address] [facility] HEMATOLOGY Hgb 8.9 12.0 - 03/[address] [place] [address] [facility] HEMATOLOGY RBC 2.87 4.20 - 03/22 [place] 5.40 /2017 [facility] HEMATOLOGY Hct 27.5 36.0 - 03/[address] [place] [address] [facility] HEMATOLOGY WBC 5.7 3.7 - 10.4 03/22 [facility] BLOOD BANK Antibody Scrn Negative 03/21 [place] RESULTS (03/21/18 11:05 AM) /2017 [facility] BLOOD BANK ABO/Rh B POS 03/21 [place] RESULTS /2017 [facility] HEMATOLOGY Macrocyte 1+ None Seen 03/21 [place] *ABN* /2017 Medical (03/21/18 5:53 AM) Cente r HEMATOLOGY Monocytes # 0.4 0.0 - 0.8 03/[address] [place] [address] [facility] HEMATOLOGY Eosinophils # 0.2 0.0 - 0.5 03/[address] [facility] HEMATOLOGY Lymphocytes # 1.2 1.0 - 5.5 03/[address] [place] [facility] HEMATOLOGY Neutrophils # 3.6 1.5 - 8.1 03/[address] [place] [facility] HEMATOLOGY Basophils 0.4 0.0 - 1.0 03/21 [facility] HEMATOLOGY Eosinophils 3.8 0.0 - 4.0 03/[address] [place] [address] [facility] HEMATOLOGY Lymphocytes 21.9 20.0 - 03/[address] [place] [address] [facility] HEMATOLOGY Monocytes 8.2 2.0 - 12.0 03/21 [facility] HEMATOLOGY Segs 65.7 45.0 - 03/[address] [place] [address] [facility] HEMATOLOGY MPV 7.8 7.4 - 10.4 03/21 [facility] HEMATOLOGY RDW 17.0 11.5 - 03/[address] [place] [address] [facility] HEMATOLOGY Platelet 156 133 - 450 03/21 [facility] HEMATOLOGY MCHC 31.1 32.0 - 03/[address] [place] [address] [facility] HEMATOLOGY MCH 31.6 27.0 - 03/[address] [place] [address] [facility] HEMATOLOGY MCV 101.8 80.0 - 03/[address] [place] [address] [facility] HEMATOLOGY Hct 31.1 36.0 - 03/[address] [place] [address] [facility] HEMATOLOGY Hgb 9.7 12.0 - 03/[address] [place] [address] [facility] HEMATOLOGY RBC 3.05 4.20 - 03/21 [place] 5.40 /2017 [facility] HEMATOLOGY WBC 5.5 3.7 - 10.4 03/21 [facility] CHEM PANEL Phosphorus 4.0 2.5 - 4.5 03/[address] [facility] CHEM PANEL Magnesium Lvl 3.3 1.8 - 2.4 03/20 [facility] HEMATOLOGY Polychrom Slight 03/[address] [facility] HEMATOLOGY Eosinophils # 0.2 0.0 - 0.5 03/20 [facility] HEMATOLOGY Monocytes # 0.8 0.0 - 0.8 03/[address] [facility] HEMATOLOGY Lymphocytes # 1.1 1.0 - 5.5 03/20 [facility] HEMATOLOGY Eosinophils 3.2 0.0 - 4.0 03/[address] [facility] HEMATOLOGY Monocytes 10.0 2.0 - 12.0 03/20 [facility] HEMATOLOGY Neutrophils # 5.6 1.5 - 8.1 03/20 [facility] HEMATOLOGY Basophils 0.6 0.0 - 1.0 03/20 [facility] HEMATOLOGY Lymphocytes 14.1 20.0 - 03/[address] [place] [address] [facility] HEMATOLOGY Segs 72.1 45.0 - 03/[address] [place] [address] [facility] HEMATOLOGY Plt Morph Normal 03/20 [facility] (03/20/18 4:37 AM) [facility] CHEM PANEL Phosphorus 3.4 2.5 - 4.5 03/[address] [place] [address] CHEM PANEL Magnesium Lvl 3.4 1.8 - 2.4 03/19 [place] /2018 Medical Center CHEM PANEL Lactic Acid 0.7 0.5 - 2.2 03/[address] [place] [address] [facility] HEMATOLOGY G-value Rapid 10.7 5.0 - 11.6 03/[address] [place] [address] [facility] HEMATOLOGY ACT (TEG) 105 86 - 118 03/19 [facility] HEMATOLOGY [place] 0.5 03/[address] [place] [address] [facility] HEMATOLOGY R-time Rapid 0.6 0.4 - 0.7 03/[address] [place] [address] [facility] HEMATOLOGY K-time Rapid 0.8 0.6 - 2.3 03/[address] [place] [address] [facility] HEMATOLOGY Angle Rapid 80 64 - 80 03/19 [facility] HEMATOLOGY Max Amplitude 68 52 - 71 03/[address] [place] [address] [facility] HEMATOLOGY Estimated % 0.3 0.0 - 7.5 03/[address] [facility] Culture: 10,000 - 03/19 [facility] Urine 50,000 [facility] CFU/mL Center Skin [place] URINE AND UA Turbidity Slight Cloudy Clear 03/19 [facility] STOOL (03/19/18 2:33 AM) /[facility] [place] URINE AND UA Color Yellow Yellow 03/19 [facility] STOOL *NA* /2017 [facility] (03/19/18 2:33 AM) [place] URINE AND UA Spec Grav 1.020 <=1.030 03/19 [facility] URINE AND UA Nitrite Negative Negative 03/19 [facility] STOOL (03/19/18 2:33 AM) [facility] URINE AND UA pH 6.0 5.0 - 8.0 03/19 [facility] URINE AND UA Trans Epi 0-2 03/19 [facility] STOOL *ABN* /2017 Medical (03/19/18 2:33 AM) Center URINE AND UA Bacteria Few /HPF None Seen 03/19 [place] ST[place] /HPF /2017 [facility] Center URINE AND UA Sq Epi Few /LPF Few /LPF 03/19 [facility] STOOL [facility] Center URINE AND UA WBC 51-100 None Seen 03/19 [facility] STOOL /HPF /HPF /2017 [facility] URINE AND UA RBC 21-50 0 - 2 03/19 [place] STOOL /HPF /2017 Medical Center URINE AND UA WBC Cast 0-2 /LPF None Seen 03/19 [place] ST[place] /LPF /2017 [facility] URINE AND UA Ketones Trace Negative 03/19 [facility] *ABN* [facility] (03/19/18 2:33 AM) [place] URINE AND UA Glucose Negative Negative 03/19 [facility] (03/19/18 2:33 AM) /2017 Medica l Center URINE AND UA Blood Large Negative 03/19 [facility] *ABN* [facility] (03/19/18 2:33 AM) [place] URINE AND UA Bili Negative Negative 03/19 [facility] *NA* [facility] (03/19/18 2:33 AM) [place] URINE AND UA Protein 100 mg/dL Negative 03/19 [facility] mg/dL [facility] URINE AND UA Leuk Est Large Negative 03/19 [facility] *ABN* [facility] (03/19/18 2:33 AM) [place] URINE AND UA 0.2 0.1 - 1.0 03/19 [facility] Urobilinogen /2018 [facility] Pathology Reports No Data Provided for This Section Diagnostic Reports Report Value Date Source Abdomen/Pelvis wo IV EXAM: CT ABDOMEN AND PELVIS WITHOUT CONTRAS T 03/22/2018 [facility] contrast CT DATE: 03/22/2018 11:47 AM DRAWING TENDER Ce nter INDICATION: - diffuse abd pain, possible kidney stones ADDITIONAL INFORMATION: None. COMPARISON: CT chest abdomen and pelvis TECHNIQUE: Volumetric CT of the abdomen and pelvis is acquired without intravenous contrast. Axial, coronal and sagittal images are provided. IV contrast: None. Enteric contrast: None. DLP: 1340 mGy-cm FINDINGS: Lines, tubes and hardware: B ilateral double-J ureteral stents are seen in place. Lower thorax: Bibasilar subsegmental dependent a telectasis. Liver: Normal. Biliary tree: No intra- or extrahepatic biliary ductal dilation. Gallbladder: Surgically absent. Pancreas: Fatty atrophy Spleen: Normal. Adrenals: Normal. Kidneys and ureters: Redemon stration of a subcapsular hematoma of the left kidney, stable in size. Atrophic appearance of the right kidney with multiple cysts are again seen. A small calcifications are s een in the cortex of the left kidney. These are not completely characterized due to lack of IV contrast. Bladder: Normal. Reproductive organs: Uterus is surgically absent . No adnexal abnormalities. Gastrointestinal tract: Stomach: Normal. Small bowel: Small bowel oumar stomotic sutures are seen in the right lower quadrant. Colon: Uninflamed diverticula. Appendix: Not seen. No inflammation. Peritoneum, mesentery and re troperitoneum: No free air, ascites or loculated fluid. Lymph nodes: Normal. Vasculature: Aorta and branches: Vascular calcifications of the abdominal aorta is distal branches. IVC and veins: Normal. Portal vasculature: Normal. Bones: No acute abnormality. Redemonstration of intramedullary nailing of the right femur, partially visualized. Age-related degenerative findings. Soft tissues: Interval decrease in size of left flank hematoma. IMPRESSION: 1. Limited evaluation due t o lack of IV contrast. Within these limitations, no acute abnormality identified in the abdomen and pelvis. 2. No significant change to subcapsular hematom a of the left kidney. 3. Bilateral double-J urete ral stents in situ. There are small calcifications in the cortex of the left kidney which are not completely characterized due to lack of IV contrast. 4. Interval decrease in size of left flank katy stephanie. 5. Diverticulosis without CT evidence of divert iculitis. Shoulder series DX EXAM: XR RIGHT SHOULDER 3 VIEWS 03/19/2018 [facility] DATE: 03/19/2018 at 1050 hours Ce nter INDICATION: - s/p trauma with tenderness COMPARISON: Partial visualiz ation of the shoulder on the CT chest of 03/19/2018. TECHNIQUE: AP views in inter nal and external rotation, and an axillary view of the shoulder FINDINGS: A right reverse gl enohumeral arthroplasty is again identified, and unchanged in alignment, without glenohumeral dislocation. A 3.9 cm ossific fragment adjacent to the glenosphere is unchanged. No widening or offset of th e acromioclavicular joint. No new or superimposed bony abnormality is identified. IMPRESSION: Unchanged appea luann of a right reverse glenohumeral arthroplasty without acute bony abnormality. Pelvis AP DX EXAM: XR PELVIS 1 VIEW 03/19/2018 [facility] DATE: 03/19/2018 1026 hours Cente r INDICATION: - s/p trauma with tenderness COMPARISON: CT chest, abdomen, pelvis of 03/19/20 18 at 0434 hours. TECHNIQUE: Frontal pelvis, 2 images FINDINGS: No acute fracture or malalignment is identified. Intramedullary santosh is partially visualized at the right femur. Double-J ureteral stents, right- sided sacral plexus stimulator and right lower q uadrant surgical suture are again noted. Chronic deformity of the right lateral iliac wing may be posttraumatic or postsurgical in nature. No soft tissue abnormality is identified. IMPRESSION: No acute abnorm ality of the pelvis. No change compared with the CT examination. Elbow 3 views DX EXAM: XR RIGHT ELBOW 3 VIEWS 03/19/2018 [facility] DATE: 03/19/2018 at 1041 hours Ce nter INDICATION: s/p trauma with tenderness COMPARISON: None. TECHNIQUE: AP, lateral and oblique radiographs of the elbow FINDINGS: No acute fracture or malalignment is identified. A chronic, ununited right radial neck fracture is present, with the radial head remains articulating with the capitellum, and without offset o f the radial neck. The ulnotrochlear joint remai ns aligned. No elbow joint effusion is p resent. 0.3 cm metallic radiopaque foreign body is identified overlying the humerus on the lateral view, associated with the shoulder arthroplasty. Soft tissues are otherwise unremarkable. 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 No acute abnormality. Elbow 3 views DX EXAM: XR LEFT ELBOW 3 VIEWS 03/19/2018 [facility] DATE: 03/19/2018 at 1033 hours Ce nter INDICATION: - s/p trauma with tenderness COMPARISON: None. TECHNIQUE: AP, lateral and oblique radiographs of the elbow FINDINGS: No acute fracture or malalignment is identified. A chronic ununited radial neck fracture is present with the radial head fragment remaining articulating with the capitellum, and an approximat alberto 0.7 cm osseous defect. The ulnotrochlear david nt remains aligned. No elbow joint effusion is present. No soft tiss ue abnormality is identified. IMPRESSION: Chronic, ununit ed left radial neck fracture without displacement. No acute abnormality identified. Wrist complete DX EXAM: XR RIGHT WRIST 4 VIEWS 03/19/2018 [facility] DATE: 03/19/2018 at 1039 hours Ce nter INDICATION: - s/p trauma with tenderness COMPARISON: None available TECHNIQUE: PA, scaphoid, lateral and oblique ra diographs of the wrist FINDINGS: No acute fracture or malalignment is identified. An old, healed transverse right distal radius fracture is present, with residual neutral angulation of the articular surface. An ulnar styloid fracture has also healed. No widening of the di stal radioulnar joint. No soft tissue abnormality is identified. IMPRESSION: No acute abnormality. Old, healed r ight distal radius fracture. Chest/Abdomen/Pelvis EXAM: CT CHEST WITHOUT CONTRAST 03/19/2018 [facility] IV contrast CT EXAM: CT ABDOMEN AND PELVIS WITHOUT CONTRAST Center DATE: 03/19/2018 at 0434 hours INDICATION: - post chest bruising COMPARISON: Outside CT abdomen pelvis without co ntrast 03/18/2018 TECHNIQUE: Volumetric CT of the chest, abdomen and pelvis is acquired without intravenous administration of contrast. Axial, coronal and sagittal images are provided. IV contrast: None Oral contrast: None. DLP: 2215 mGy-cm UT SECTION: ER FINDINGS: Lines and tubes: Bilateral u reteral stents are again noted. Cervical spine fusion hardware is partially visualized. The patient has undergone prior intramedullary santosh fixation of right femur with hardwa re partially visualized.. A nerve stimulator seen in the right gluteal soft tissues. The patient has undergone reverse right shoulder arthroplasty. Lower Neck: Supraclavicular soft tissues are unr emarkable. Thoracic Aorta and Mediastin um: No mediastinal hematoma or thoracic aortic injury. Normal heart and pericardium. Lungs, Pleura, Diaphragm: No pulmonary contusions. The lungs are clear. No pleural effusion or pneumothorax. No diaphragmatic injury. Liver and biliary tree: Normal. No injury. No bi liary abnormality. Gallbladder: Surgically absent. Pancreas: Normal. No injury. Spleen: Normal. No injury. Adrenals: Normal. No injury. Kidneys and ureters: Again n oted is a subcapsular hematoma of the left kidney which is unchanged. The right kidney is atrophic with multiple cysts. Double-J ureteral stents are in place, unchanged. Bladder: Decompressed Renee catheter in place Reproductive organs: Uterus and adnexa are not v isualized. Gastrointestinal tract: Normal. No bowel injury. Peritoneum and retroperitoneum: No fluid collect ions or free air. Lymph nodes: Normal. Vasculature: No vascular inj ury. Atherosclerotic calcifications are present in the aorta and segmental branches. Spine/ Bones: No acute abnor mality of the spine. Degenerative disc disease is present from T7 through L3 No other bony injury. The patient has undergone prior intramedullary santosh fixation of the right fe mur with hardware partially visualized. The patient has undergone previous reverse right shoulder arthroplasty. Healed prior fracture of left seventh rib. Soft tissues: A soft tissue hematoma in the left flank is not significantly changed. IMPRESSION: 1. Stable left subcapsular perinephric hematoma . 2. The right kidney is atrophic and contain cys ts. 3. Bilateral double-J ureteral stents are in pl griffin, unchanged. 4. Stable soft tissue hemat quirino over the left flank with subcutaneous fat contusion also unchanged. 5. The patient has undergon e prior intramedullary santosh fixation of the right femur. 6. The patient has undergone prior reverse righ t shoulder arthroplasty. 7. Uterus and adnexa are not visualized. 8. There is no acute osseous abnormality identi fied. Torso-Outside Consult EXAM: CT ABDOMEN AND PELVIS WITHOUT CONTRA ST 03/19/[address] [facility] [address] DATE: 03/19/2018 2:18 AM DRAWING TENDER Cent er INDICATION: Following trauma transfer request for outside film interpretation of the abdomen and pelvis without contrast performed on 03/18/2018 at 2159 hours from [facility]. COMPARISON: None TECHNIQUE: Volumetric CT of the abdomen and pelvis is acquired without intravenous administration of contrast. Axial, coronal and sagittal images are provided. DLP: Not provided mGy-cm UT SECTION: ER FINDINGS: Lines and tubes: A battery p ack is seen at right gluteal region with a lead traversing the right hemisacrum. Lower chest: Unremarkable. Liver and biliary tree: Normal. No injury. No bi liary abnormality. Gallbladder: Surgically absent. Pancreas: Normal. No injury. Spleen: Normal. No injury. Adrenals: Normal. No injury. Kidneys and ureters: A left subcapsular renal hematoma is noted. Bilateral ureteral stents are noted. The right kidney is atrophic with multiple cysts. Bladder: Normal. No injury. Reproductive organs: No injury. Gastrointestinal tract: Normal. No bowel injury. Peritoneum and retroperitoneum: No fluid collect ions or free air. Lymph nodes: Normal. Vasculature: No vascular injury. Spine/ Bones: No acute abnor mality of the spine. Degenerative disc disease is present at T10-L2. Cortical deformities are noted of the bilateral posterior lateral 7th ribs. The patient has undergone gerri or intramedullary santosh fixati on of the right femur with a portion of the hardware seen at the inferior portion of the study. Soft tissues: A a 3.5 x 5.6 x 11.2 cm cm soft tissue hematoma is noted in the left flank with surrounding soft tissue stranding. A short segment of mesh is present at the right abdominal wall. IMPRESSION: 1. Evaluation for solid org an injury is limited due to the lack of intravenous contrast. 2. Left subcapsular renal hematoma. 3. Left flank soft tissue h ematoma measuring 3.5 x 5.6 x 11.2 cm is associated with surrounding fat contusion 4. Healed prior fractures o f the posterior lateral borders of the seventh ribs bilaterally. 5. Prior intramedullary santosh fixation of the right femur partially visualized. 6. A battery pack is presen t at right gluteal region with a lead traversing the right hemisacrum. 7. Prior cholecystectomy an d probable hernia repair by mesh at right anterior abdominal wall. 8. Degenerative disc disease at T10-L2. Consultation Notes No Data Provided for This Section Discharge Summaries No Data Provided for This Section History and Physicals No Data Provided for This Section Vital Signs Vital Sign Value Date Comments Source Systolic (mm Hg) 130 03/24/2018 [facility] Diastolic (mm Hg) 74 03/24/2018 [facility] Respitory Rate 18 03/24/2018 [facility] Heart Rate 80 03/24/2018 [facility] Respitory Rate 18 03/24/2018 [facility] Heart Rate 81 03/24/2018 [facility] Systolic (mm Hg) 123 03/24/2018 [facility] Diastolic (mm Hg) 70 03/24/2018 [facility] Temperature Oral (F) 98.1 F 03/24/2018 [facility] Heart Rate 72 03/24/2018 [facility] Systolic (mm Hg) 131 03/24/2018 [facility] Diastolic (mm Hg) 76 03/24/2018 [facility] Respitory Rate 18 03/24/2018 [facility] Temperature Oral (F) 98.2 F 03/24/2018 [facility] Temperature Oral (F) 99.2 F 03/24/2018 [facility] Weight 104.091 03/19/2018 [facility] Height 160.02 cm 03/19/2018 [facility] BMI Calculated 40.65 03/19/2018 [facility] Encounters Location Location Encounter Encounter Reason Attending ADM DC Stat us Source Details Type Number For Provider Date Date Visit [facility] [id number] Raquel 03/19 03/24 Perez Callesd /2017 [facility] Procedures Procedure Code Date Perfomer Comments Source Fluoroscopy and [id number] [facility] urethral stent [facility] Implantation of [id number] [facility] joint prosthesis of Medic al shoulder joint Center Assessment and Plan Assessment and Plan Date Source Extracted from:Title: Progress Note [facility]24[facility] [facility] Author: Micah Hightower MD Date: 03/23/18 Abdominal pain Chronic issue, d/w PCP's nurse, patient mostly calls for abx, often calls the clinic crying about her chronic abd pain. ddx "recurrent UTIs" vs functional vs c hronic cystitis. i'm leaning to functional pain Gross hematuria Patient had outpatient cystoscopy last week and has hadgross hematuria since then. Dysuria is chronic. suspect some psych issue or chronic cystitis, UA drawn in the setting of hematuria, do not suspect active urine infection. UCx negative. S top cefepime. No white count, no fevers. Urine has cleared significantly. Complicated UTI see above. Chronic kidney disease Seems like the AUGUSTO is resolved at this time. Will touch base with Dr. Melgar, PCP in [place] to get baseline labs and get a sense of what this patient is like. Per them, patient comes in infrequentl y, mostly to get abx for "recurrent UTI" . They said she has been receiving most of her care over the last year at [facility] and [facility]. Cr 1.02 in 2016. Hyperkalemia Given 1 dose of Kayexalate. resolved Closed hematoma of the left kidney No surgical intervention planned, improving on repeat scan Physical debility Pt will cont to benefit from skilled PT while in house to optimize functional mobility and independence. Metabolic encephalopathy Llikely due toingestedpain meds complicated by ongoing AUGUSTO. Improved. Closed hematoma of left kidney(S37.012A) Ordered: Admit/Condition, 03/22/18 11:58:00 CS T, Status: Inpatient, Acute, Expected LOS: 3 or [facility], Micah Hightower MD, Admit MD Review/Approve Yes, Isolation: No Isolation/Standard Precautions caitlyn Extracted from:Title: Trauma H&P Author: Alejandro Conway MD Date: 03/19/18 [facility] [place] [facility] History and Physical Date of Admission: 03/19/2018 00:23 Requesting Physician: Alejandro Conway MD Trauma Surgeon: Dr. Conway Time of evaluation: 03/19/2018 03:42 Chief Complaint: "Fall" History of Present Illness: A 72 Years yo White/ Female pr esents as Level 2 trauma after Fall, Negative LOC, Via EMS Transport for left kidney subscapular hematoma. Patient reports associated left flank tenderness, denies Neck pain. Past Medical History: 1. Diabetes mellitus Past Surgical History: 1. Right shoulder implant 2. Bilateral ureteral stents Home Medications: 1. Unknown Allergies: 1. NKDA Social History: Alcohol - None Tobacco - None Drug use - None Occupation -unemployed Marital Status -single Dominant Hand - R Family History: 1. noncontributory, denies hemophilia/thrombophilia Review of Systems: Constitutional Symptoms: no fever, no w eight loss, no weight gain, no fatigue, no malaise Head: no headache, no trauma Eyes:no visual disturbance Ears, Nose, Mouth, Throat: no dysphagia, no odynophagia, no otalgia, no deafness, no rhinorrhea Cardiovascular: no chest pain, no SOB,no palpitations Respiratory: same as CVS, no cough, no hemoptysis Gastrointestinal: no NVD, no BPR, no dark stool, no abdomina l pain Genitourinary: Endorses hematuria, no dy suria, no frequency, no urgency, no nocturia, no incontinence Musculoskeletal: no arthralgia, no myalgia, no stiffness Integumentary: (skin and/or breast): no rash, no hives, no breast pain, no mass, no nipple dc, no easy bruising Neurological: no weakness, no headache, no seizure, no dizziness, no tingling, no numbness Psychiatric: no anxiety, no depression, no insomnia Endocrine: no polyuria, no polydipsia, no fatigue, no weight loss, no weight gain, no cold or heat intolerance, no palpitations Physical Examination: ED VS: BP 130/74 HR 88 RR 16 Temp 98. 7 GCS 15 Neuro: Alert&Ox3 Head: atraumatic Eyes: atraumatic TMs: clear Nose/throat: atraumatic, no discharges Neck: atraumatic Chest: atraumatic, no tenderness, no crepitus, CTAB Abdomen: Left flank ecchymosis, tenderne ss to palpation about the left flank and left lower quadrant Pelvis: stable to compression, mild right hip tenderness to palpation Genital: atraumatic Back: Left mid thoracic lower back ecchy denilson, diffuse intermittent midline tenderness to palpation about the spine; Extremities: atraumatic Vascular: 2+ DP/PT/radial/ulnar; Labs ACT (TEG) Rapid: 105 seconds (03/19/18 03:31:00) AGAP: 14.2 mEq/L (03/19/18 02:33:00) Angle Rapid: 80 degrees (03/19/18 03:31:00) Basophils: 0.4 % (03/19/18 02:33:00) BE Samuel: -6 mMol/L Low (03/19/18 03:31:00) BUN: 69 mg/dL High (03/19/18 02:33:00) Calcium Lvl: 8.5 mg/dL (03/19/18 02:33:00) Chloride Lvl: 105 mEq/L (03/19/18 02:33:00) CO2: 22 mEq/L Low (03/19/18 02:33:00) Creatinine Lvl: 3.67 mg/dL High (03/19/18 02:33:00) eGFR: 12 mL/min/1.73m2 (03/19/18 02:33:00) Eosinophils: 1 % (03/19/18 02:33:00) Eosinophils #: 0.1 K/CMM (03/19/18 02:33:00) Estimated % Lysis Rapid: 0.3 % (03/19/18 03:31:00) G-value Rapid: 10.7 K d/sc (03/19/18 03:31:00) Glucose Lvl: 144 mg/dL High (03/19/18 02:33:00) HCO3 Samuel: 21 mMol/L Low (03/19/18 03:31:00) Hct: 26.8 % Low (03/19/18 02:33:00) Hgb: 8.8 g/dL Low (03/19/18 02:33:00) K-time Rapid: 0.8 minutes (03/19/18 03:31:00) Lactic Acid WB: 0.7 mmol/L (03/19/18 03:31:00) Lymphocytes: 8.4 % Low (03/19/18 02:33:00) Lymphocytes #: 0.8 K/CMM Low (03/19/18 02:33:00) Max Amplitude Rapid: 68 mm (03/19/18 03:31:00) MCH: 31.2 pg High (03/19/18:33:00) MCHC: 32.8 g/dL (03/19/18 02:33:00) MCV: 95.1 fL (03/19/18:33:00) Monocytes: 5.9 % (03/19/18:33:00) Monocytes #: 0.6 K/CMM (03/19/18:33:00) MPV: 8.2 fL (03/19/18:33:00) O2 Sat Samuel: 78.5 % High (03/19/18:31:00) pCO2 Samuel: 45 mmHg (03/19/18 03:31:00) pH Samuel: 7.28 (03/19/18 03:31:00) Platelet: 125 K/CMM Low (03/19/18:33:00) pO2 Samuel: 49 mmHg (03/19/18 03:31:00) Potassium Lvl: 5.2 mEq/L High (03/19/18 02:33:00) R-time Rapid: 0.6 minutes (03/19/18 03:31:00) RBC: 2.82 M/CMM Low (03/19/18:33:00) RDW: 16.3 % High (03/19/18 02:33:00) Segs: 84.3 % High (03/19/18:33:00) Segs-Bands #: 8.1 K/CMM (03/19/18:33:00) Sodium Lvl: 136 mEq/L (03/19/18 02:33:00) Split Point Rapid: 0.5 minutes (03/19/18 03:31:00) Temp Samuel: 37 DegC (03/19/18 03:31:00) UA Bacteria: Few (03/19/18 02:33:00) UA Bili: cNegative (03/19/18 02:33:00) UA Blood: cLarge Abnormal (03/19/18 02:33:00) UA Color: cYellow (03/19/18 02:33:00) UA Glucose: cNegative (03/19/18 02:33:00) UA Ketones: cTrace Abnormal (03/19/18 02:33:00) UA Leuk Est: cLarge Abnormal (03/19/18 02:33:00) UA Nitrite: cNegative (03/19/18 02:33:00) UA pH: 6 (03/19/18 02:33:00) UA Protein: c100 Abnormal (03/19/18 02:33:00) UA RBC: 21-50 Abnormal (03/19/18 02:33:00) UA Spec Grav: 1.02 (03/19/18 02:33:00) UA Sq Epi: cFew (03/19/18 02:33:00) UA Trans Epi: 0-2 Abnormal (03/19/18 02:33:00) UA Turbidity: cSlight Cloudy (03/19/18 02:33:00) UA Urobilinogen: 0.2 EU/dL (03/19/18 02:33:00) UA WBC: 51-100 Abnormal (03/19/18 02:33:00) UA WBC Cast: 0-2 Abnormal (03/19/18 02:33:00) WBC: 9.6 K/CMM (03/19/18 02:33:00) Other: FAST: intact EKG: NSR Radiology: Imaging Studies (last 36 hours) (none) CT abdomen and pelvis without contrast Impression: 1. 10 cm heterogeneous mass abutting th e left kidney most likely represents a subscapular hematoma. This should be followed with ultrasound to assess stability/resolution. 2. 6 cm fluid collection within the sub cutaneous tissue of the left posterior lateral abdomen probably represents a hematoma. An abscess is another consideration but probably is less likely. 3. Bilateral ureteral stents in place without hydronephrosi s. Signed by: Eduardo Crystal MD Signed AT: 03/18/18 [id number] Assessment and Plan: Patient is a 72 Years yo White/ Female who presents to hospital as a Level 2 trauma brought in by EMS, transferred from OSH following a fall sustaining a left subscapular hematoma, with Negativ e LOC. Upon arrival, patient had a GCS o f 15, with SBP of 130, and HR of 88. Primary survey intact. FAST was not performed. CXR was not performed. Secondary survey revealed Left flank ecchymosis, tender ness to palpation about the left flank a nd left lower quadrant, mild right hip tenderness to palpation, and Left mid thoracic lower back ecchymoses, diffuse intermittent midline tenderness to palpation about the spine; Initial imaging demons trated 10 cm subscapular hematoma.6 cm fluid collection within the subcutaneous tissue of the left posterior lateral abdomen probably represents a hematoma. Labs revealed a Hgb of 8.8, lactic acid of .7, base deficit of -6. TEG was within normal limits. 72 Years year old Female status post Fall. Injuries and p bonifacio as follows: Injuries: Consults/Plans: 1. 10 cm left subscapular hematoma 1. Will admit for observation with repeat H&H and urinary a nalysis Additionally, #Admitted to Trauma: Floor #Pain control: MMPC, MAST trial 1 #DVT Ppx: SCD/KEVIN, #S/P Trauma: SW consult #PT/OT ATTENDING ATTESTATION: I HAVE SEEN AND EXAMINED THE PATIENT WITH ON 03/19. I HAVE REVIEWED THE PATIENT'S FILMS, LABORATORY VALUES, AND VITAL SIGN TRENDS. I AGREE WITH THE ABOVE ASSESSMENT AND PL AN WITH THE FOLLOWING ADDITIONS AND EDITS. CRITICAL CARE PROBLEM LIST: 1. ACUTE HYPERGLYCEMIA. BEGIN SLIDING SC ANNIKA INSULIN ADMINISTRATION. CONTINUE SERIAL BLOOD GLUCOSE MONITORING. 2. ACUTE TRAUMA PAIN. BEGIN SERIAL BEHAV IORAL PAIN SCALE ASSESSMENTS. INITIATE MULTIMODAL PAIN THERAPY. MINIMIZE OPIATES. 3. SYSTEMIC INFLAMMATORY RESPONSE SYNDRO ME. MAINTAIN EUVOLEMIA. CONTINUE SUPPORTIVE CARE. RESUSCITATION ONGOING. 4. HYPOVOLEMIC SHOCK. CONTINUE VOLUME EX PANSION. CONSIDER INVASIVE MONITORING BASED ON FOLLOW-UP LACTATE AND BASE DEFICIT. 5. ACUTE KIDNEY INJURY IN THE SETTING OF CHRONIC KIDNEY DISEASE. PMH(+)DM WITH KIDNEY DISEASE AND BILATERAL URETERAL STENTS. WILL ACCESS MED RECORDS TO DETERMINE BASELINE. CONTINUE VOLUME SUPPORT/EXPANS ION. MONITOR RENAL FUNCTION CLOSELY. AVOID NEPHROTOXIC AGEN TS. TOTAL CRITICAL CARE TIME SPENT, EXCLUSIVE OF ANY PROCEDURES, IS 35 MINUTES. REFERRING PHYSICIAN: HILARIO ELLIS Signature Line Kosta Hannah MD Electronically Signed: 03/19/18 06:58 Alejandro Conway MD Electronically Signed: 03/20/18 13:01 Plan of Care No Data Provided for This Section Social History Social History Date Source Social History TypeResponse 03/19/2018 [facility] Substance Abuse Use: None. Alcohol Never Smoking Status Never smoker; Ready to change: No; Siria rns about tobacco use in household: No; Exposure to Tobacco Smoke None; Cigarette Smoking Last 365 Days No; Reg Smoking Cessation Counseling No entered on: 03/19/18 Family History No Data Provided for This Section Advance Directives No Data Provided for This Section Functional Status No Data Provided for This Section
--- OUTSIDE RECORDS SUMMARY | 2020-03-29 05:18 | XMS REPORT | Continuity of Care Document ---
:[address] [facility] t Address [address] [place] [address] Care Team Providers Name Role Phone Asked, Given Primary Care Physician Unavailable Sherin Daly Attending Clinician Pop Amador Admitting Clinician Problems Condition Condition Condition Status Onset Resolution Last Treating Co mments Source Name Details Category Date Date Treatment Clinician Date SUBCAPSULA Diagnosis Active 2017-052018-03-19 Memoria R HEMATOMA 108 04:22:00 l ON LEFT 00:00: Kimo KIDNEY SUBCAPSULA 00 R HEMATOMA ON LEFT KIDNEY Active 03/18/2018 [facility] CLOSED Diagnosis Active 2017-052018-08-03 Mem oria HEMATOMA 08 19:57:00 l ON LEFT CLOSED 00:00: [place] KIDNEY HEMATOMA 00 ON LEFT KIDNEY Active 03/18/2018 [facility] Renal Renal Disease Active 2017-05 Overview: calculus calculus 0-19 Added Kenny o 00:00: automatic n 00 ally from request for surgery [id number] 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 Overview : iasis iasis 0-02 Added Anderso 00:00: automatic n 00 ally from request for surgery [id number] Urinary Urinary Disease Active tract tract 12-30 Anderso infection infection 00:00: n caused by caused by 00 Enterococc Enterococc us us Numbness Numbness Disease Active of face of face 12-30 Anderso 00:00: n 00 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 00:00: n of skin of of skin of 00 cheek cheek Cellulitis Cellulitis Disease Active M D of face of face 12-25 Anderso 00:00: n 00 Chronic Chronic Disease Active kidney kidney 12-04 Anderso disease disease 00:00: n 00 Pyelonephr Pyelonephr Disease Active M D itis itis 12-04 Anderso 00:00: n 00 Bladder Bladder Disease Active Overview: muscle muscle 3-16 Added Anderso dysfunctio dysfunctio 00:00: automatic n n - n - 00 ally from overactive overactive request for surgery [id number] Fracture Fracture Disease Active 2016-05 [place] of knee of knee 0-04 Methodi prosthesis prosthesis 00:00: st 00 Chronic Chronic Disease Active pain pain 9-25 Anderso 00:00: n 00 Other Other Problem Active [facility] pain [facility] Urinary Urinary Problem Active [facility] incontinen incontinen Deidre kes - ce ce [facility] Chronic Chronic Problem Active [facility] kidney kidney [facility] - disease, disease, Memori a stage III stage III l (moderate) (moderate) Ou tpati ent Clinics Gastroesop Gastroesop Problem Active [facility] hageal hageal [facility] - reflux reflux Memoria disease, disease, l esophagiti esophagiti Ou tpati s presence s presence en t not not Clinics specified specified Degenerati Degenerati Problem Active [facility] on of on of [facility] - lumbosacra lumbosacra Me moria l l l interverte interverte Ou tpati bral disc bral disc ent Clinics Frequent Frequent Problem Active [facility] UTI UTI [facility] Irritable Irritable Problem Active [facility] Frequent Frequent Problem Active [facility] Adrenal Adrenal Problem Active [facility] gland gland [facility] - neoplasm neoplasm Memori a l Outpati ent Clinics Anemia in Anemia in Problem Active [facility] chronic chronic [facility] illness illness [facility] Kidney Kidney Problem Active [facility] stones stones [facility] - Mem[facility] l [facility] Bladder Bladder Problem Active [facility] pain pain [facility] - [facility]oria l [facility] Osteoarthr Osteoarthr Problem Active [facility] itis, itis, [facility] - multiple multiple Memori a sites sites l [facility] Clinics Controlled Controlled Problem Active [facility] type 2 type 2 [facility] - diabetes diabetes Memori a mellitus mellitus l without without Outpati complicati complicati en t on, on, Clinics without without long-term long-term current current use of use of insulin insulin Symptomati Symptomati Problem Active [facility] c [facility] - postsurgic postsurgic Me moria al al l menopause menopause Outp ati ent Clinics DJD DJD Problem Active [facility] (degenerat (degenerat Deidre kes - radha joint radha joint Feng leonela disease) disease) l [facility] Clinics Obesity Obesity Problem Active [facility] Renal Renal Problem Active [facility] disease disease [facility] - [facility] l [facility] Chronic Chronic Problem Active [facility] generalize generalize Deidre kes - d pain d pain Memoria l [facility] Clinics Unsteady Unsteady Problem Active [facility] gait gait [facility] - [facility] l [facility] Acute Acute Problem Active [facility] cystitis cystitis [facility] - with with Memoria hematuria hematuria l [facility] Clin[facility] Primary Primary Problem Active [facility] osteoarthr osteoarthr Deidre kes - itis of itis of Memoria both knees both knees l [facility] Clin[facility] Hypertensi Hypertensi Problem Active [facility] ve urgency ve urgency Deidre kes - Memoria l [facility] Clin[facility] Medicare Medicare Diagnosis Active [facility] annual annual [facility] - wellness wellness Memori a visit, visit, l subsequent subsequent Ou tpati ent Clinics Metabolic Problem 2018-10-11 Me moria encephalop 17:48:14 l athy [place] Metabolic encephalop athy 9 [facility] Acute Problem 2018-10-11 Memor ia kidney 17:48:14 l failure, Acute [place] unspecifie kidney d failure, unspecifie d 10/11/2018 [facility] Unspecifie Problem 2018-10-11 M emoria d fall, 17:48:14 l initial [place] encounter Unspecifie d fall, initial encounter 10/11/2018 [facility] Hyperkalem Problem 2018-10-11 M emoria ia 17:48:14 l Kimo Hyperkalem ia 10/11/2018 [facility] Gross Problem 2018-10-11 Memor ia hematuria 17:48:14 l Gross Kimo hematuria 10/11/2018 [facility] Chronic Problem 2018-10-11 Feng leonela kidney 17:48:14 l disease, Chronic Lisa nn unspecifie kidney d disease, unspecifie d 10/11/2018 [facility] Adverse Problem 2018-10-11 Feng leonela effect of 17:48:14 l other Adverse Kimo drugs, effect of medicament other s and drugs, biological medicament substances s and , initial biological encounter substances , initial encounter 10/11/2018 [facility] Type 2 Problem 2018-10-11 Memor ia diabetes 17:48:14 l mellitus Type 2 Tim n with diabetes hyperglyce mellitus lynsey with hyperglyce lynsey 10/11/2018 [facility] Personal Problem 2018-10-11 Mem oria history of 17:48:14 l urinary Personal Lisa nn (tract) history of infections urinary (tract) infections 10/11/2018 [facility] group home Problem 2018-10-11 Me moria (current) 17:48:14 l use of Long Kimo insulin term (current) use of insulin 10/11/2018 [facility] MINOR Diagnosis Active 2018-08-03 Mem oria CONTUSION 19:57:00 l OF LEFT MINOR [place] KIDNEY, CONTUSION INITIAL OF LEFT KIDNEY, INITIAL Active [facility] Minor Problem 2017-2018-10-11 2018-10-11 M emoria contusion - 17:48:14 17:48:14 l of left Minor 04:00: [place] kidney, contusion 46 initial of left encounter kidney, initial encounter 04/01/2018 10/11/2018 [facility] Allergies, Adverse Reactions, Alerts Allergy Allergy Status Severity Reaction(s) Onset Inactive Treating Comm ents Source Name Type Date Date Clinician No Known No Known Active Memori a Medicati Medicati l on on [place] Allergie Allergie s s Family History Family Member Diagnosis Comments Start Date Stop Date Source Natural brother Lung cancer Pedro son Natural father Lung cancer Kenny on Natural son -Head and Neck [place] on Social History Social Habit Start Date Stop Date Quantity Comments Source Sex Assigned At MD [facility] Tobacco use and 2018-06-14 2018-06-14 Never used MD [facility] on exposure 00:00:00 00:00:00 Alcohol intake 2018-06-14 2018-06-14 Current MD Katharine cee 00:00:00 00:00:00 non-drinker of alcohol (finding) Social History 2018-03-19 2018-03-19 [facility] 12:15:50 12:15:50 Smoking Status Start Date Stop Date Source Never smoker MD Fry Medications Ordered Filled Start Stop Current Ordering Indication Dosage Frequency Signature Comments Components Source Medication Medication Date Date Medication? Clinician (SIG) Name Name Marcellus Zoalexi Yes Na Melgar as [facility]06 directed [facility] - 00:00: Memoria 00 [facility] Clinics Prolia Prolia Yes Na Melgar as [facility] 5-15 directed [facility] - 00:00: Memoria 00 [facility] Clinics Bactrim DS Bactrim DS Yes Na Melgar [address] 2-14 [facility] - 00:00: Memoria 00 [facility] hyoscyamine Yes Renal .125mg Dissolve 1 MD sulfate 1-31 calculus tablet Kenny o (ANASPAZ) 00:00: (0.125 mg) n 0.125 mg 00 on the sublingual/ tongue chewable every 4 tablet (four) hours as needed for bladder spasms). oxybutynin Yes Renal 5mg Take 1 MD (DITROPAN) 1-31 calculus tablet (5 Anderso 5 mg tablet 00:00: mg) by n 00 mouth 3 (three) times a day as needed for bladder spasms. sulfamethox Yes Renal 1{tbl} Take 1 M D azole-trime 1-08 calculus tablet by Anderso thoprim 00:00: mouth n (BACTRIM 00 twice DS) 800 daily. mg-160 mg Begin per tablet 06/09/18. polyethylen 2017-05 Yes PO, Daily, Memoria e glycol 1-14 0 l 3350 oral 19:18: Refill(s) Her cordoba powder for 00 reconstitut ion Menthol 2017-05 Yes 0 Memoria 0.0044 1-14 Refill(s) l MG/MG / 19:18: [place] Zinc Oxide 00 0.2 MG/MG Topical Ointment Lidocaine 2017-05 Yes 1 patch, Feng leonela Hydrochlori 14 TOP, Q24H, l de 0.05 19:18: 0 Kimo MG/MG 00 Refill(s) Transdermal Patch [Lidoderm] heparin 2017-05 Yes 5,000 unit Feng leonela 14 = 1 mL, l 19:18: SUB-Q, Kimo 00 Q8H, 0 Refill(s) Docusate 2017-05 Yes 100 mg = 1 Mem oria Sodium 100 14 cap, PO, l MG Oral 19:18: BID, PRN Tim n Capsule 00 Constipati on, 0 Refill(s) Acetaminoph 2017-05 Yes 1,000 mg = Memoria en 500 MG 05-24 2 tab, PO, l Oral Tablet 19:18: Q6H, 0 Herm gisselle 00 Refill(s) Tramadol 2017-05 No Notes: Not Mem oria 05-22 to exceed l 17:40: 400mg/day. (Same As: Ultram) Dilaudid 2017-05 No Notes: Memoria 12 Same as l 17:31: Dilaudid Calmoseptin 2017-05 No Notes: Feng leonela e 05-22 (Same as: l 08:09: Calmosepti ne) heparin 2017-05 No Notes: Memoria 05-22 porcine l 04:00: heparin cefepime 2017-05 No Notes: Memoria 05-21 (Same As: l 22:00: Maxipime) MEDICATION WASTE Product Size: 1000 mg Product Wasted: ___ mg Neurontin 2017-05 No Notes: Memori a 11 (Same as: l 15:00: Neurontin) Naproxen 2017-05 No 500 mg, Memori a 11 Route: PO, l 15:00: Q12H, kg, [place] Start date: 03/21/18 9:00:00 [employer], Duration: 30 day, Stop date: 04/19/18 21:00:00 [employer] Kayexalate 2017-05 No Notes: Memor ia 05-21 (sodium l 14:14: polystyren e sulfonate 15 gm/60 ml ROCKY) Shake well before use. (Same as: Kayexalate , SPS) gabapentin 2017-05 No 300 mg, Feng leonela 05-21 Route: PO, l 14:00: Q8H, kg, Start date: 03/21/18 8:00:00 [employer], Duration: 30 day, Stop date: 04/20/18 0:00:00 [employer] Ciprofloxac 2017-05 No Notes: May Memoria in 05-21 interfere l 12:00: w/enteral feedings - Take 1 hr before or 2 hrs after antacids, dairy pdt & minerals. On empty stomach. Enoxaparin 2017-05 No Notes: Memor ia 05-21 (Same as: l 03:00: Lovenox) Insulin 2017-05 No 60 Memoria regular 1-10 units) l 17:20: WASTE: F/P [place] - Black; E - Municipal Trash Bin Stable for 28 days at room temperatur e Expires in days from ____Date d50 syringe 2017-05 No 25 gm, 50 M emoria 1-10 mL, Route: l 16:30: IV, Drug Form: INJ, Dosing Weight 104.091, kg, ONCE, Start date: 03/20/18 10:30:00 [employer], Stop date: 03/20/18 10:30:00 [employer] Insulin 2017-05 No 10 unit, Memori a regular 10 Route: l 16:30: SUB-Q, ONCE, Dosing Weight 104.091, kg, Start date: 03/20/18 10:30:00 [employer], Stop date: 03/20/18 10:30:00 [employer] Miralax 2017-05 No Notes: Memoria -10 Dissolve l 15:00: in 8 oz of water or juice. (Same as: Miralax) Calcium 2017-05 No Notes: Memoria Gluconate 05-20 WASTE: F/P l 14:40: - Sink; E - Municipal Trash Bin Ciprofloxac 2017-05 No Notes: Do M emoria in 1-10 not l 10:10: refrigerat [place] e remove 2017-05 No 1 patch, Memoria patch 05-19 Route: l 23:00: TOP, Q24H, [place] Drug form: ERFILM, Start date: 03/19/18 17:00:00 [employer], Duration: 30 day, Stop date: 04/17/18 17:00:00 [employer] celecoxib 2017-05 No 200 mg, Memor ia 05-19 Route: PO, l 15:00: Q12H, kg, Kimo For patients LESS than 75 years old. Hold in all patients if CrCl < 30 mL/min, Start date: 03/19/18 9:00:00 [employer], Duration: 48 hr, Stop date: 03/20/18 21:00:00 [employer] Streptococc 2017-05 No Notes: Feng leonela us 05-19 Shake well l pneumoniae 12:24: prior to Her cordoba serotype 1 45 use (Same capsular as: antigen Prevnar diphtheria 13) [id number] protein conjugate vaccine / Streptococc us pneumoniae serotype 14 capsular antigen diphtheria [id number] protein conjugate vaccine / Streptococc us pneumoniae serotype 18C capsular antigen d influenza 2017-05 No Notes: Memori a virus 05-19 (Same as: l vaccine, 12:24: Fluzone Tim n inactivated 28 High-Dose) high-dose For 65 preservativ years of e-free age of intramuscul older (0.5 ar ml IM) suspension Shake well before use Lyrica 2017-05 No Notes: Memoria 05-19 (Same as: l 12:21: Lyrica) Kimo Acetaminoph 2017-05 No Notes: Max Memoria en 05-19 acetaminop l 12:00: hen 4000 mg/day (4 gm/day). (Same as: Tylenol Extra Strength) Insulin 2017-05 No 60 Memoria regular 05-19 units) l 11:19: WASTE: F/P [place] - Black; E - Municipal Trash Bin Stable for 28 days at room temperatur e Expires in days from ____Date Dextrose 2017-05 No 25 gm, 50 Feng leonela 50% Syringe 05-19 mL, Route: l 11:19: IVP, Drug Form: INJ, kg, PRN, PRN Blood Glucose Results, Start date: 03/19/18 5:19:00 [employer], Duration: 30 day, Stop date: 04/18/18 5:18:00 [employer] Glucagon 2017-05 No 1 mg, Memoria 05-19 Route: IM, l 11:19: Drug form: Kimo 00 PDR/INJ, PRN, kg, PRN Blood Glucose Results, Start date: 03/19/18 5:19:00 [employer], Duration: 30 day, Stop date: 04/18/18 5:18:00 [employer] PlasmaLyte 2017-05 No Notes: Memor ia A PH-7.4 05-19 (Same as: l 1,000 mL 11:18: Isolyte S Herm gisselle 00 PH 7.4) Lidocaine 2017-05 No Notes: Memori a Hydrochlori 05-19 Apply only l de 0.05 11:00: once for Tim n MG/MG 00 up to 12 Transdermal hours in a Patch 24-hour [Lidoderm] period (12 hours on and 12 hours off). (Same as: Lidoderm) "Remove old patch before applicatio n of new patch" Zofran 2017-05 No 4 mg, Memoria 05-19 Route: l 10:28: IVP, Drug form: INJ, ONCE, kg, Priority: STAT, Start date: 03/19/18 4:28:00 [employer], Stop date: 03/19/18 4:28:00 [employer] Morphine 2017-05 No 4 mg, Memoria 05-19 Route: l 10:28: IVP, ONCE, [place] 00 kg, Priority: STAT, Start date: 03/19/18 4:28:00 [employer], Stop date: 03/19/18 4:28:00 [employer] PlasmaLyte 2017-05 No Notes: Memor ia A PH-7.4 05-19 (Same as: l 1,000 mL 10:10: Isolyte S Herm gisselle 00 PH 7.4) Bisacodyl 2017-05 No Notes: Memori a 05-19 (Same As: l 10:08: Dulcolax, [place] 00 Correctol) (Do Not Crush) "Do Not Crush" Docusate 2017-05 No Notes: Memoria 05-19 (Same as: l 10:08: Colace) Kimo (Do Not Crush) Oxycodone 2017-05 No Notes: Memori a Hydrochlori 05-19 (Same as: l de 5 MG 10:06: Roxicodone Herm gisselle Oral Tablet ) Tramadol 2017-05 No Notes: Not Mem oria 05-19 to exceed l 10:06: 400mg/day. Kimo (Same As: Ultram) pregabalin 2017-05 No 100 mg, Feng leonela 05-19 Route: PO, l 10:06: Q8H, kg, [place] Priority: NOW, Start date: 03/19/18 4:06:00 [employer], Duration: 48 hr, Stop date: 03/21/18 0:00:00 [employer] traMADol 2017-05 Yes Renal 50mg Take 1 MD (ULTRAM) 50 1-05 calculus tablet (50 Anderso mg tablet 00:00: mg) by n 00 mouth every 6 (six) hours as needed for moderate pain. HYDROcodone 2017-05 Yes Nephrolithi 1{tbl} Take 1 MD -acetaminop 0-11 asis tablet by And erso roseann (NORCO) 00:00: mouth n 5 mg-325 mg 00 every 6 per tablet (six) hours as needed for moderate pain. miconazole Yes Candidiasis Apply MD (MICOTIN) 8-22 of skin topically An derso 2% cream 00:00: to n 00 affected area(s) twice daily. polyethylen Yes Nausea 17g Take 17 g MD e glycol 8-04 by mouth Anderso (MIRALAX) 00:00: daily. n 17 g packet 00 HYDROcodone 2016-05 Yes 1{tbl} Q.5D Take 1 [place] -acetaminop 0-12 tablet by Met hodi hen (NORCO) 16:52: mouth 2 st 10-325 mg 22 (two) per tablet times a day as needed for moderate pain. DULoxetine 2016-05 Yes 30mg QD Take 30 mg [place] (CYMBALTA) 0-12 by mouth Metho di 30 MG 16:52: daily. st capsule 22 pregabalin 2016-05 Yes 30mg QD Take 30 mg [place] (LYRICA) 25 0-12 by mouth Meth sharda MG capsule 16:52: nightly. st 22 dicyclomine 2016-0 Yes [place] n (BENTYL) 10 2-18 Methodi MG capsule 00:00: st 00 Pantoprazol Pantoprazol Yes Na Melgar [address] [facility] e Sodium e Sodium [facility] Nystatin Nystatin Yes Na Melgar [address] [facility] [facility] applicatio [facility] - n to Memoria affected l area [facility]ics HydrALAZINE HydrALAZINE Yes Na Melgar [address] HCl [facility] Pyridium Pyridium Yes Na Melgar [address] [facility] Methocarbam Methocarbam Yes Na Melgar [address] [facility] [facility] ol ol [facility] Immunizations Ordered Immunization Filled Immunization Date Status Commen ts Source Name Name JODI US 2017-02-18 [facility] 00:00:00 Christian Vital Signs Vital Name Observation Time Observation Value Comments Source Systolic (mm Hg) 2018-03-24 18:37:00 Feng rial Kimo Diastolic (mm Hg) 2018-03-24 18:37:00 Mem orial Kimo Respitory Rate 2018-03-24 18:37:00 Memori al Kiom Heart Rate 2018-03-24 18:37:00 Memorial [place] Respitory Rate 2018-03-24 14:41:00 Memori al Kimo Heart Rate 2018-03-24 14:41:00 [facility] [place] Systolic (mm Hg) 2018-03-24 14:41:00 Feng rial [place] Diastolic (mm Hg) 2018-03-24 14:41:00 Mem orial [place] Temperature Oral (F) 2018-03-24 09:36:00 98.1 F [facility] [place] Heart Rate 2018-03-24 09:36:00 [facility] [place] Systolic (mm Hg) 2018-03-24 09:36:00 Feng rial Kimo Diastolic (mm Hg) 2018-03-24 09:36:00 Mem orial Kimo Respitory Rate 2018-03-24 09:36:00 Memori al [place] Temperature Oral (F) 2018-03-24 05:54:00 98.2 F Memorial Kimo Temperature Oral (F) 2018-03-24 01:54:00 99.2 F [facility] [place] Weight 2018-03-19 12:13:00 Catherine Malin Height 2018-03-19 12:13:00 [facility] Calculated 2018-03-19 12:13:00 [place] Procedures Procedure Date / Time Performed Performing Clinician Whitley e Fluoroscopy and urethral Nubia l Kimo stent Implantation of joint Catherine Martinez ermann prosthesis of shoulder joint Plan of Care Planned Activity Planned Date Details Comments Source Future Scheduled 2019-12-10 INFLUENZA VACCINE [place] Christian Test 00:00:00 [code = INFLUENZA VACCINE] Future Scheduled 2012-11-09 65+ PNEUMOCOCCAL [place] Christian Test 00:00:00 VACCINE (1 of 1 - PPSV23) [code = 65+ PNEUMOCOCCAL VACCINE (1 of 1 - PPSV23)] Future Scheduled 1997-11-09 BREAST CANCER [facility] thodist Test 00:00:00 SCREENING [code = BREAST CANCER SCREENING] Future Scheduled 1997-11-09 COLONOSCOPY SCREENING [facility] Christian Test 00:00:00 [code = COLONOSCOPY SCREENING] Future Scheduled 1997-11-09 SHINGLES VACCINES (#1) H bo[place]a Christian Test 00:00:00 [code = SHINGLES VACCINES (#1)] Encounters Start End Encounter Admission Attending Care Care Encounter Source Date/Time Date/Time Type Type Clinicians Facility Department ID 2019-11-18 2019-11-18 [facility] [id number] [facility] 09:00:00 09:00:00 [employer] [facility] Medicine l Medicine Outpati ent Clinics 2019-06-20 2019-06-20 [facility] [id number] 09:35:00 09:35:00 t [employer] [facility] Family Medicine l Medicine Outpati ent Clinics 2019-04-04 2019-04-04 [facility] [id number] 15:33:00 15:33:00 t [employer] [facility] Family Medicine l Medicine Outpati ent Clinics 2018-12-14 2018-12-14 [facility] [id number] 13:40:00 13:40:00 [employer] [facility] Medicine l Medicine Outpati ent Clinics 2018-09-21 2018-09-21 [facility] [id number] 10:11:00 10:11:00 t [place] [employer] - Vocab [facility] Medicine Outpati ent Clinics 2018-08-18 2018-08-18 [facility] [id number] 10:46:00 10:46:00 t [place] [employer] - Drive [facility] Medicine Outpati ent Clinics 2018-08-13 2018-08-13 [facility] [id number] 16:20:00 16:20:00 t [place] [employer] - Drive [facility] Medicine Outpati ent Clinics 2018-06-24 2018-06-24 [facility] [id number] 09:56:00 09:56:00 t [place] [employer] - Vocab [facility] Outpati ent Clinics 2018-05-06 2018-05-06 [facility] [id number] 08:30:00 08:30:00 t [facility] [employer] [facility] s - Vocab [facility] Outpati ent Clinics 2018-04-22 2018-04-22 [facility] [id number] 10:15:00 10:15:00 t [facility] Your Office Agent [facility] Outpati ent Clinics 2018-03-19 2018-03-24 Outpatient Addy [facility] [id number] 01:25:00 14:45:00 Emmy Duff Results Test Description Test Time Test Comments Results Result Comments Source ELECTROLYTES 2018-03-24 25 Memorial Her cordoba 14:50:00 ELECTROLYTES 2018-03-24 7.7 [facility] Her [place] 14:50:00 ELECTROLYTES 2018-03-24 12.4 [facility] Her [place] 14:50:00 ELECTROLYTES 2018-03-24 42 [facility] Her [place] 14:50:00 ELECTROLYTES 2018-03-24 191 [facility] Her [place] 14:50:00 ELECTROLYTES 2018-03-24 19 [facility] Her [place] 14:50:00 ELECTROLYTES 2018-03-24 1.28 [facility] Her [place] 14:50:00 ELECTROLYTES 2018-03-24 139 [facility] Her [place] 14:50:00 ELECTROLYTES 2018-03-24 4.4 [facility] Her [place] 14:50:00 ELECTROLYTES 2018-03-24 106 [facility] Her [place] 14:50:00 CHEM PANEL 2018-03-23 48 Memorial Lisa nn 15:43:00 CHEM PANEL 2018-03-23 21 Memorial Lisa nn 15:43:00 CHEM PANEL 2018-03-23 152 Memorial Lisa nn 15:43:00 CHEM PANEL 2018-03-23 138 Memorial Lisa nn 15:43:00 CHEM PANEL 2018-03-23 8.1 Memorial Lisa nn 15:43:00 CHEM PANEL 2018-03-23 27 Memorial Lisa nn 15:43:00 CHEM PANEL 2018-03-23 10.3 Memorial Lisa nn 15:43:00 CHEM PANEL 2018-03-23 1.16 Memorial Lisa nn 15:43:00 CHEM PANEL 2018-03-23 4.3 Memorial Lisa nn 15:43:00 CHEM PANEL 2018-03-23 105 Memorial Lisa nn 15:43:00 ELECTROLYTES 2018-03-23 13.7 Memorial Her [place] 11:19:00 ELECTROLYTES 2018-03-23 48 Memorial Her [place] 11:19:00 ELECTROLYTES 2018-03-23 8.4 Memorial Her [place] 11:19:00 ELECTROLYTES 2018-03-23 106 Memorial Her [place] 11:19:00 ELECTROLYTES 2018-03-23 23 Memorial Her [place] 11:19:00 ELECTROLYTES 2018-03-23 22 Memorial [facility] 11:19:00 ELECTROLYTES 2018-03-23 110 [facility] 11:19:00 ELECTROLYTES 2018-03-23 1.16 [facility] 11:19:00 ELECTROLYTES 2018-03-23 4.7 [facility] [place] 11:19:00 ELECTROLYTES 2018-03-23 138 [facility] [place] 11:19:00 HEMATOLOGY 2018-03-23 2.81 [facility] nn 11:19:00 HEMATOLOGY 2018-03-23 4.3 [facility] 11:19:00 HEMATOLOGY 2018-03-23 8.8 [facility] nn 11:19:00 HEMATOLOGY 2018-03-23 11:19:00 Test Item Value Reference Range Interpretation Comme nts MCH (test code = MCH) 31.3 pg 27.0-31.0 [facility] NtuxgfrJOMLPTDPKA8608-25-15 11:19:0094.1[facility]Y 2018-03-23 11:19:0033.2[facility] LggrjwnTNSSKHBEUD8930-92-54 11:19:84965Lyzlattr NwpgpnwVJPUFMGCAD6444-55-93 11:19:0016.4[facility] EibpivkWVAOUTGYGA8364-72-02 11:19:007.3[facility] DqbytteRGNNOPKMEZ9382-45-21 11:19:0026.4[facility] Ikmo ZHQGIYIKOL6234-43-24 11:19:0060.0[facility] RykpqaqLDXAMAKOEM9054-55-60 11:19:00 28.1[facility] FttqkuoJWGIGMDEFU4957-19-71 11:19:007.9[facility]annHEMATOLOGY 2018-03-23 11:19:003.7[facility] NwfhuqmKTIWUQWAVY3542-10-68 11:19:000.2[facility] OxsaoddHKIEXASKHG2609-06-90 11:19:000.3[facility] SmrgogoJFJLMWFOQK9236-08-70 11:19:001+ *ABN*(03/23/18 5:19 AM)[facility] QzbdewhJPBLKXAVER2275-56-05 11:19:00 2.6[facility] CtwgbubFPJZGAXOZS4256-75-44 11:19:001.2[facility]annHEMATOLOGY 2018-03-23 11:19:000.3[facility] TnnvtuzVOAXMYOAAB9892-32-85 12:58:0016.2[facility] HaqoyeiOMUURGOAWQ4977-97-61 12:58:45463Oaeuyrfo LcsjeqpUZMFKALRRQ4703-35-13 12:58:007.6[facility] McolyjqTNRBXYEZKM3817-47-88 12:58:0095.8[facility] UMTVOXOREJ8653-56-95 12:58:0032.6[facility] FxiboemIXZHESPFHH9095-34-75 12:58:00 Test Item Value Reference Range Interpretation Comments MCH (test code = MCH) 31.2 pg 27.0-31.0 [facility] MhyvcttIBFJUGABKB1983-50-60 12:58:008.9[facility]Y 2018-03-22 12:58:002.87[facility] OjdzcvfRZQSSQUNCO0731-90-08 12:58:0027.5[facility] GhwvcojWPSESIFOKU7727-61-29 12:58:005.7[facility]annBLOOD BANK RESULTS 2018-03-21 17:05:00Negative (03/21/18 11:05 AM)[facility] 2018-03-21 11:53:001+ *ABN*(03/21/18 5:53 AM)[facility] 2018-03-21 11:53:000.4[facility] ImycmkrRMPQFUMAWA7626-62-88 11:53:000.2[facility] MlnstglEDMLCEXYHA9188-51-45 11:53:001.2[facility] AxlgdjjDMFYMQNZBZ5444-15-27 11:53:003.6[facility] LktjddoXPPPHDZYWI9336-54-47 11:53:000.4[facility] DGYMHYZVGS0977-51-14 11:53:003.8[facility] NvythkyIBJMJDTDGI7135-46-93 11:53:00 21.9[facility] JzrjhgeLHAZNPUHCG1150-00-13 11:53:008.2[facility]annHEMATOLOGY 2018-03-21 11:53:0065.7[facility] YxyjovtWBFNSIRJDI2265-84-47 11:53:007.8[facility] RlozkwyEKUOKTXWOF9599-74-92 11:53:0017.0[facility] TtvveirMBNPUFUULM8268-42-61 11:53:11584Skpbkuve VrdtgldADLUTCQVOH4609-80-85 11:53:0031.1[facility] VDDHNWUFUW9825-43-46 11:53:00 Test Item Value Reference Range Interpretation Comments MCH (test code = MCH) 31.6 pg 27.0-31.0 [facility] VwstkyhFLRNJVFLVW3085-13-53 11:53:12314.8[facility]annHEMATOLOGY 2018-03-21 11:53:0031.1[facility] IszowgwJYLLMOHZQG6771-90-17 11:53:009.7[facility] ZtjoftyMOBIXEGAGD7537-97-80 11:53:003.05[facility] EjocddkNAVFUXVRCH5562-09-88 11:53:005.5[facility] HermannCHEM PLOWY7632-86-40 10:37:004.0[facility] HermannCHEM ZUDAT0236-54-87 10:37:003.3[facility] WuwyuotCKOONHKMAG2413-23-68 10:37:000.2 [facility] BhbgushTGLQZSVJZD1613-09-03 10:37:000.8[facility]annHEMATOLOGY 2018-03-20 10:37:001.1[facility] FwwewtbJEPXWSTCTD8260-76-54 10:37:003.2[facility] JklajhvZUVWAHMKVQ8628-11-00 10:37:0010.0[facility] EgtsyelCLQSCANDWY8321-07-96 10:37:005.6[facility] ZstzlxeKXAWSWHRSU3537-68-32 10:37:000.6[facility] LCLIMIZDNM9345-64-39 10:37:0014.1[facility] AtpevjcMPFEQWFYEH8430-14-50 10:37:00 72.1[facility] KxmjviqDWTELDMUVE9163-34-12 10:37:00Normal (03/20/18 4:37 AM) [facility] HermannCHEM LFKGQ8271-74-23 17:45:003.4[facility] HermannCHEM PANEL 2018-03-19 17:45:003.4[facility] HermannCHEM HYVVE7915-99-49 09:31:000.7[facility] RkdxjppUURSRYQLAB5705-06-41 09:31:0010.7[facility] VvavqrsZAJCUSJXBA2097-98-25 09:31:00 Test Item Value Reference Range Interpretation Comments ACT (TEG) Rapid (test code = ACT (TEG) 105 s 86-118 Rapid) [facility]uezbmRWNJQJSVCQ6020-19-35 09:31:00 Test Item Value Reference Range Interpretation Comments Split Point Rapid (test code = Split 0.5 min Point Rapid) [facility] RegionLwknrfvMSHOFSIVWB3717-28-45 09:31:00 Test Item Value Reference Range Interpretation Comments R-time Rapid (test code = R-time 0.6 min 0.4-0.7 Rapid) [facility] RegionUyeqcjcFFSCAXLCLI7557-54-10 09:31:00 Test Item Value Reference Range Interpretation Comments K-time Rapid (test code = K-time 0.8 min 0.6-2.3 Rapid) [facility] RegionPwmjsofXLCCXBHDNE0482-91-13 09:31:00 Test Item Value Reference Range Interpretation Comments Angle Rapid (test code = Angle 80 degrees 64-80 Rapid) [facility] RegionAqgizdnMKLUJGIFJV1978-01-75 09:31:00 Test Item Value Reference Range Interpretation Comments Max Amplitude Rapid (test code = Max 68 mm 52-71 Amplitude Rapid) [facility] OkfwugjCAJYEUMPOT4576-05-56 09:31:000.3[facility]annURINE AND STOOL 2018-03-19 08:33:00Slight Cloudy (03/19/18 2:33 AM)[facility] AQILX1871-51-29 08:33:00Yellow *NA*(03/19/18 2:33 AM)[facility] IDPFD2454-69-63 08:33:00 Test Item Value Reference Range Interpretation Comments UA Spec Grav (test code = UA Spec 1.020 1 Grav) [facility] LZUHO5989-70-53 08:33:00Negative (03/19/18 2:33 AM) [facility] ITKBU4313-43-47 08:33:00 Test Item Value Reference Range Interpretation Comments UA pH (test code = UA pH) 6.0 1 5.0-8.0 [facility] KJHYX3839-12-56 08:33:000-2 *ABN*(03/19/18 2:33 AM) [facility] HQURE2362-30-27 08:33:00Trace *ABN*(03/19/18 2:33 AM) [facility] ZNZSM7177-43-18 08:33:00Negative (03/19/18 2:33 AM) [facility] RYAZD7175-97-51 08:33:00Large *ABN*(03/19/18 2:33 AM) [facility] SFJKK8735-69-20 08:33:00Negative *NA*(03/19/18 2:33 AM) [facility] JLHBU7953-07-20 08:33:00Large *ABN*(03/19/18 2:33 AM) [facility] BTPPV7863-73-67 08:33:000.2[facility]
[2020-03-29 06:03] LABS: Absolute Lymphocytes (CBC) 1.7 K/uL (0.7-4.9); Basophils % 0.5 % (0-1.3); Hematocrit 37.7 % (36.0-45.0); Lymphocytes % 27.8 % (15.3-44.8); RBC Red Blood Cell Count 3.92 M/uL (3.86-4.86)
[2020-03-29 06:05] LABS: Protime INR 1.03
[2020-03-29] MEDS ORDERED: ONDANSETRON 4 MG (ODT) TAB ONE (06:06)
[2020-03-29 06:22] LABS: ALT/SGPT 20 U/L (12-78); AST/SGOT 14 U/L (15-37); Alkaline Phosphatase 84 U/L (45-117); BUN Blood Urea Nitrogen 30 mg/dL (7-18); Bicarbonate 19 mmol/L (21-32); Bilirubin Direct < 0.1 mg/dL (0-0.2); Bilirubin Total 0.5 mg/dL (0.2-1.0); Glucose Level 252 mg/dL (74-106); Lipase 94 U/L (73-393); Magnesium 1.8 mg/dL (1.8-2.4); NT PRO-BNP 939 pg/mL (<125); Potassium 3.9 mmol/L (3.5-5.1); Protein, Total 8.4 g/dL (6.4-8.2); Sodium Level 138 mmol/L (136-145); Troponin (Emerg Dept Use Only) < 0.02 ng/mL (0.0-0.045)
[2020-03-29 06:27] LABS: Urine Bacteria >50 /HPF (<20); Urine RBC 20-50 /HPF (NONE SEEN)
[2020-03-29] MEDS ORDERED: NA CHLORIDE 0.9% 1,000 ML ONE (06:27)
[2020-03-29] MEDS ORDERED: METHYLPREDNISOLONE 125 MG INJ ONE (06:27)
[2020-03-29 06:28] LABS: Urine Blood 2+ (NEG); Urine Glucose NEGATIVE (NEG); Urine Protein 2+ (NEG); Urine Specific Gravity 1.015 (1.005-1.030); Urine Urothelial Cells <5 /HPF (NONE SEEN)
--- NOTE | 2020-03-29 07:48 | RAD REPORT ---
EXAM DESCRIPTION: RAD - Chest Single View - 03/29/2020 6:07 am CLINICAL HISTORY: CHEST PAIN COMPARISON: Portable March 2018 TECHNIQUE: AP portable chest image was obtained 03/29/2020 6:07 am . FINDINGS: Lung volumes are low. No focal lung parenchymal process. Heart and vasculature are normal. No measurable pleural effusion and no pneumothorax. No acute bone process. Right shoulder joint pros thesis in place. No acute aortic findings suspected. IMPRESSION: No acute cardiopulmonary process. No significant change from comparison study.
--- NOTE | 2020-03-29 08:13 | ER ---
Nurse's Notes [facility] Name: Dagmar Flores Age: 74 yrs Sex: Female : 1945 Arrival Date: 03/29/2020 Time: 05:16 Bed 6 Private MD: Diagnosis: Urinary tract infection, site not specified;Acute tubulo-interstitial nephritis;Influenza due to other identified influenza virus-influenza b;Weakness;Unspecified kidney failure-chronic Presentation: 03/29 05:35 Chief complaint: Patient states: chest tightness, nausea, lower back pain and pain on rr5 urination started yesterday. Coronavirus screen: cough unrelated to allergies, fever, Client presents with at least one sign or symptom that may indicate coronavirus-19. Ebola Screen: Patient negative for fever greater than or equal to 101.5 degrees Fahrenheit, and additional compatible Ebola Virus Disease symptoms Patient denies exposure to infectious person. Patient denies travel to an Ebola-affected area in the 21 days before illness onset. Initial Sepsis Screen: Does the patient meet any 2 criteria? No. Patient's initial sepsis screen is negative. Does the patient have a suspected source of infection? Yes: Dysuria/Frequency/Urgency/UTI. Risk Assessment: Do you want to hurt yourself or someone else? Patient reports no desire to harm self or others. Onset of symptoms was March 28, 2020. 05:35 Method Of Arrival: Wheelchair rr5 05:35 Acuity: JOSUE 3 rr5 Historical: - Allergies: 05:38 No Known Allergies; rr5 - Home Meds: 05:38 hemp oil [Active]; rr5 - PMHx: 05:38 "Kidney problems"; Fibromyalgia; Kidney stones; rr5 - PSHx: 05:38 Hysterectomy; bladder surgery; intestine surgery; back surgery; rr5 - Immunization history:: Adult Immunizations up to date. - Social history:: Smoking status: unknown Patient/guardian denies using alcohol, street drugs, tobacco products. Screenin:39 Abuse screen: Denies threats or abuse. Denies injuries from another. Nutritional rr5 screening: No deficits noted. Tuberculosis screening: No symptoms or risk factors identified. Fall Risk IV access (20 points). Total Alexandra Fall Scale indicates No Risk (0-24 pts). Assessment: 05:59 General: Appears uncomfortable, Behavior is appropriate for age. Pain: Complains of ea pain in pain with urination. Neuro: Level of Consciousness is awake, alert, obeys commands, Oriented to person, place, time, situation. Cardiovascular: Patient's skin is warm and dry. Derm: Skin is dry, Skin is pale, Skin temperature is warm. 07:00 Reassessment: Patient and/or family updated on plan of care and expected duration. Pain ll2 level reassessed. Patient is alert, oriented x 3, equal unlabored respirations, skin warm/dry/pink. 22g in Rt AC iv inserted by AYAAN solis. 08:14 Reassessment: Patient and/or family updated on plan of care and expected duration. Pain ll2 level reassessed. Patient is alert, oriented x 3, equal unlabored respirations, skin warm/dry/pink. 10:09 Reassessment: Patient and/or family updated on plan of care and expected duration. Pain ll2 level reassessed. Patient is alert, oriented x 3, equal unlabored respirations, skin warm/dry/pink. pt states nausea returned, ERD notified, verbal order obtained for meds. 11:00 Reassessment: pt states she is less nauseated and not in any pain currently. updated on ll2 wait time. 12:00 Reassessment: Patient and/or family updated on plan of care and expected duration. Pain ll2 level reassessed. Patient is alert, oriented x 3, equal unlabored respirations, skin warm/dry/pink. 12:53 Reassessment: lab results received and family updated on wait time. ll2 13:07 Reassessment: report given to AYAAN Bocanegra. ll2 Vital Signs: 05:35 BP 182 / 59; Pulse 99; Resp 19; Temp 98.5; Pulse Ox 99% ; Weight 102.06 kg; Height 5 rr5 ft. 3 in. (160.02 cm); 06:10 BP 173 / 78; Pulse 89; Resp 18; Pulse Ox 99% ; rr5 08:00 BP 161 / 69; Pulse 73; Resp 18; Pulse Ox 100% on R/A; ll2 09:00 BP 101 / 69; Pulse 72; Resp 18; Pulse Ox 100% ; ll2 10:00 BP 123 / 78; Pulse 76; Resp 22; Pulse Ox 100% on R/A; ll2 11:00 BP 157 / 84; Pulse 78; Resp 17; Pulse Ox 95% on R/A; ll2 05:35 Body Mass Index 39.86 (102.06 kg, 160.02 cm) rr5 ED Course: 05:16 Patient arrived in ED. cl3 05:26 Alexander Knapp MD is Attending Physician. pkl 05:27 Yvrose Piedra, AYAAN is Primary Nurse. ea 05:37 Triage completed. rr5 05:39 Arm band placed on right wrist. rr5 05:39 Patient has correct armband on for positive identification. Bed in low position. Call rr5 light in reach. Side rails up X2. surveillance monitor on. Pulse ox on. NIBP on. 06:00 EKG done, by ED staff, reviewed by Alexander Knapp MD. rr5 06:08 XRAY Chest (1 view) In Process Unspecified. EDMS 06:35 Missed attempt(s): 22 gauge in left forearm. rr5 06:35 Flu and/or RSV swab sent to lab. covid. rr5 07:08 Notified ED physician of a critical lab result(s). Flu B positive per Guilherme in outside sg lab. 07:11 Attending Physician role handed off by Alexander Knapp MD roderick 07:11 Facundo Fry MD is Attending Physician. roderick 08:00 Initial lab(s) drawn, by az, sent to lab. Inserted saline lock: 22 gauge in left iw forearm, using aseptic technique. 08:11 Cam Galvin MD is Hospitalizing Provider. roderick 13:41 No provider procedures requiring assistance completed. Patient admitted, IV remains in ll2 place. Administered Medications: 05:58 Drug: Zofran (Ondansetron) 4 mg Route: PO; ea 07:00 Follow up: Response: No adverse reaction ll2 08:00 Drug: SOLU-Medrol 125 mg Route: IVP; Site: left forearm; ll2 08:30 Follow up: Response: No adverse reaction ll2 08:45 Drug: NS 0.9% 1000 ml Route: IV; Rate: 100 ml/hr; Site: left forearm; ll2 10:00 Follow up: Response: No adverse reaction; IV Status: Completed infusion; IV Intake: ll2 1000ml 10:01 Drug: Tamiflu 75 mg Route: PO; ll2 10:28 Follow up: Response: No adverse reaction ll2 10:01 Drug: Lovenox 1 mg/kg Route: Sub-Q; Site: abdomen; ll2 10:19 Follow up: Response: No adverse reaction ll2 10:02 Drug: Rocephin 1 grams Route: IV; Rate: per protocol; Site: right antecubital; ll2 10:19 Follow up: Response: No adverse reaction; IV Intake: 10ml ll2 10:06 Drug: Zofran (Ondansetron) 4 mg Route: IVP; Site: right antecubital; ll2 10:19 Follow up: Response: No adverse reaction; Nausea is decreased ll2 Intake: 10:00 IV: 1000ml; Total: 1000ml. ll2 10:19 IV: 10ml; Total: 1010ml. ll2 Outcome: 08:12 Decision to Hospitalize by Provider. roderick 13:41 Admitted to Med/surg accompanied by tech, via stretcher, Report called to AYAAN bocanegra ll2 13:41 Condition: stable 13:41 Instructed on the need for admit. 13:42 Patient left the ED. ll2 Signatures: Dispatcher [employer] EDMS Hero Serna RN RN sg Anderson, Corey, MD MD cha Lam, Pin, MD MD pkl Williams, Irene, RN RN iw Antunez, Elena, RN RN ea Roque, Raymond, RN RN rr5 Lewis, Charde cl3 Bertha Cruz RN RN ll2 Corrections: (The following items were deleted from the chart) 10:29 10:02 Response: No adverse reaction; IV Status: Completed infusion ll2 ll2 13:27 08:50 Response: No adverse reaction ll2 ll2 13:30 13:27 Response: No adverse reaction; IV Status: Completed infusion; IV Intake: 1000ml ll2 ll2
--- NOTE | 2020-03-29 08:13 | EDPHYS ---
Physician Documentation [facility] Name: Dagmar Flores Age: 74 yrs Sex: Female : 1945 Arrival Date: 03/29/2020 Time: 05:16 Bed 6 Private MD: YANELIS Physician Facundo Fry HPI: 03/29 06:00 This 74 yrs old Female presents to ER via Wheelchair with complaints of Chest pkl Congestion, Pain With Urination. 06:00 The patient or guardian reports chest pain that is located primarily in the substernal pkl area. Onset: yesterday. The pain does not radiate. Associated signs and symptoms: Pertinent positives: cough, nausea, back pain, dysuria. The chest pain is described as tightness. Historical: - Allergies: 05:38 No Known Allergies; rr5 - Home Meds: 05:38 hemp oil [Active]; rr5 - PMHx: 05:38 "Kidney problems"; Fibromyalgia; Kidney stones; rr5 - PSHx: 05:38 Hysterectomy; bladder surgery; intestine surgery; back surgery; rr5 - Immunization history:: Adult Immunizations up to date. - Social history:: Smoking status: unknown Patient/guardian denies using alcohol, street drugs, tobacco products. ROS: 06:03 Eyes: Negative for injury, pain, redness, and discharge, ENT: Negative for injury, pkl pain, and discharge, Neck: Negative for injury, pain, and swelling. 06:03 Cardiovascular: Positive for chest pain, of the substernal. 06:03 Respiratory: Positive for cough, with white sputum, shortness of breath. 06:03 Abdomen/GI: Negative for nausea. 06:03 Back: Positive for pain at rest, of the lower back. 06:03 : Positive for urinary symptoms, burning with urination. 06:03 MS/extremity: Negative for acute changes. 06:03 Skin: Negative for rash. 06:03 Neuro: Negative for altered mental status, loss of consciousness. Exam: 06:03 Head/Face: Normocephalic, atraumatic. Eyes: Pupils equal round and reactive to light, pkl extra-ocular motions intact. Lids and lashes normal. Conjunctiva and sclera are non-icteric and not injected. Cornea within normal limits. Periorbital areas with no swelling, redness, or edema. ENT: Nares patent. No nasal discharge, no septal abnormalities noted. Tympanic membranes are normal and external auditory canals are clear. Oropharynx with no redness, swelling, or masses, exudates, or evidence of obstruction, uvula midline. Mucous membranes moist. Neck: Trachea midline, no thyromegaly or masses palpated, and no cervical lymphadenopathy. Supple, full range of motion without nuchal rigidity, or vertebral point tenderness. No Meningismus. Chest/axilla: Normal chest wall appearance and motion. Nontender with no deformity. No lesions are appreciated. Cardiovascular: Regular rate and rhythm with a normal S1 and S2. No gallops, murmurs, or rubs. Normal PMI, no JVD. No pulse deficits. 06:03 ECG was reviewed by the Attending Physician. 06:03 Respiratory: the patient does not display signs of respiratory distress, Respirations: normal, Breath sounds: bronchial sounds, that are mild, are scattered, rhonchi, that are mild, are scattered. 06:03 Abdomen/GI: Bowel sounds: normal, Palpation: abdomen is soft and non-tender, in all quadrants. 06:03 Back: pain, that is moderate, of the lower back, Straight leg raises: of both lower extremities does not illicit pain. 06:03 Musculoskeletal/extremity: Exam is negative for acute changes. pkl 06:03 Skin: Exam negative for rash. 06:03 Neuro: Orientation: is normal, Mentation: is normal, Cranial nerves: grossly normal, Motor: is normal. 08:15 ECG was reviewed by the Attending Physician. roderick Vital Signs: 05:35 BP 182 / 59; Pulse 99; Resp 19; Temp 98.5; Pulse Ox 99% ; Weight 102.06 kg; Height 5 rr5 ft. 3 in. (160.02 cm); 06:10 BP 173 / 78; Pulse 89; Resp 18; Pulse Ox 99% ; rr5 08:00 BP 161 / 69; Pulse 73; Resp 18; Pulse Ox 100% on R/A; ll2 09:00 BP 101 / 69; Pulse 72; Resp 18; Pulse Ox 100% ; ll2 10:00 BP 123 / 78; Pulse 76; Resp 22; Pulse Ox 100% on R/A; ll2 11:00 BP 157 / 84; Pulse 78; Resp 17; Pulse Ox 95% on R/A; ll2 05:35 Body Mass Index 39.86 (102.06 kg, 160.02 cm) rr5 MDM: 05:26 Patient medically screened. pkl 08:09 Differential diagnosis: abnormal EKG, costochondritis, pericarditis, pneumonia, stable roderick angina, unstable angina. HEART Score: History: Slightly Suspicious (0), ECG: Normal (0), Age: > or = 65 years (2), Risk Factors: 1 or 2 risk factors (1), [Hypertension] [Obesity] Troponin: < or = 1 x Normal Limit (0). The patient was given aspirin in the Emergency Department. The patient's deep vein thrombosis risk score was calculated as follows: Total Score: 0. This patient was found to be at low risk for a deep vein thrombosis by using the Well's assessment criteria. The patient's pulmonary embolism risk score was calculated as follows: Total Score: 0-2 points. This patient was found to be at low risk for a pulmonary embolism by using the Well's assessment criteria. MADYSON Risk Score: 1 - patient's age is greater or equal to 65 years, TOTAL SCORE = 1. Data reviewed: vital signs, nurses notes, lab test result(s), EKG, radiologic studies, plain films. Data interpreted: shelter monitor: rate is 89 beats/min, rhythm is regular, Pulse oximetry: on room air is 99 %. Test interpretation: by ED physician or midlevel provider: ECG, plain radiologic studies. 03/29 05:40 Order name: Basic Metabolic Panel; Complete Time: 06:24 rr5 03/29 05:40 Order name: CBC with Diff; Complete Time: 06:24 rr5 03/29 05:40 Order name: LFT's; Complete Time: 06:24 rr5 03/29 05:40 Order name: Magnesium; Complete Time: 06:24 rr5 03/29 05:40 Order name: NT PRO-BNP; Complete Time: 06:24 rr5 03/29 05:40 Order name: PT-INR; Complete Time: 06:24 rr5 03/29 05:40 Order name: Troponin (emerg Dept Use Only); Complete Time: 06:24 rr5 03/29 05:53 Order name: COVID-19 pkl 03/29 05:53 Order name: Blood Culture Adult (2) pk 03/29 05:53 Order name: Lactate; Complete Time: 09:55 pkl 03/29 05:57 Order name: Flu; Complete Time: 08:06 pkl 03/29 05:59 Order name: Urine Microscopic Only; Complete Time: 06:47 ds4 03/29 06:00 Order name: Lipase; Complete Time: 06:24 EDMS 03/29 05:40 Order name: XRAY Chest (1 view); Complete Time: 08:06 5 03/29 06:00 Order name: Urine Dipstick--Ancillary (enter results); Complete Time: 06:47 ds4 03/29 06:03 Order name: D-Dimer; Complete Time: 09:55 pkl 03/29 06:06 Order name: Urine Culture 03/29 08:34 Order name: Comprehensive Metabolic Panel [facility] 03/29 08:34 Order name: Comprehensive Metabolic Panel [facility] 03/29 08:34 Order name: Lactate [facility] 03/29 08:34 Order name: Lactate [facility] 03/29 08:34 Order name: Procalcitonin [facility] 03/29 08:34 Order name: Procalcitonin; Complete Time: 09:55 EDMS 03/29 08:35 Order name: CBC with Automated Diff [facility] 03/29 08:35 Order name: CBC with Automated Diff [facility] 03/29 12:40 Order name: SARS-COV-2 RT PCR; Complete Time: 19:06 [facility] 03/29 05:40 Order name: EKG; Complete Time: 05:41 5 03/29 05:40 Order name: Cardiac monitoring; Complete Time: 05:59 [facility] 03/29 05:40 Order name: EKG - Nurse/Tech; Complete Time: 05:58 5 03/29 05:40 Order name: IV Saline Lock; Complete Time: 11:15 5 03/29 05:40 Order name: Labs collected and sent; Complete Time: 05:59 5 03/29 05:40 Order name: O2 Per Protocol; Complete Time: 11:15 5 03/29 05:40 Order name: O2 Sat Monitoring; Complete Time: 13:28 5 03/29 08:34 Order name: CONS Pharmacy Consult [facility] 03/29 08:35 Order name: Regular EDMS EC:15 Rate is 89 beats/min. Rhythm is regular. QRS [place] is Normal. MI interval is normal. QRS roderick interval is normal. QT interval is normal. No Q waves. T waves are Normal. No ST changes noted. Clinical impression: NSR w/ Non-specific ST/T Changes and No evidence of ischemia. Interpreted by me. Reviewed by me. Administered Medications: 05:58 Drug: Zofran (Ondansetron) 4 mg Route: PO; ea 07:00 Follow up: Response: No adverse reaction ll2 08:00 Drug: SOLU-Medrol 125 mg Route: IVP; Site: left forearm; ll2 08:30 Follow up: Response: No adverse reaction ll2 08:45 Drug: NS 0.9% 1000 ml Route: IV; Rate: 100 ml/hr; Site: left forearm; ll2 10:00 Follow up: Response: No adverse reaction; IV Status: Completed infusion; IV Intake: ll2 1000ml 10:01 Drug: Tamiflu 75 mg Route: PO; ll2 10:28 Follow up: Response: No adverse reaction ll2 10:01 Drug: Lovenox 1 mg/kg Route: Sub-Q; Site: abdomen; ll2 10:19 Follow up: Response: No adverse reaction ll2 10:02 Drug: Rocephin 1 grams Route: IV; Rate: per protocol; Site: right antecubital; ll2 10:19 Follow up: Response: No adverse reaction; IV Intake: 10ml ll2 10:06 Drug: Zofran (Ondansetron) 4 mg Route: IVP; Site: right antecubital; ll2 10:19 Follow up: Response: No adverse reaction; Nausea is decreased ll2 Disposition: 03/29/20 08:12 Hospitalization ordered by Cam Galvin for Inpatient Admission. Preliminary diagnosis are Urinary tract infection, site not specified, Acute tubulo-interstitial nephritis, Influenza due to other identified influenza virus - influenza b, Weakness, Unspecified kidney failure - chronic. - Bed requested for Telemetry/MedSurg (Inpatient). - Status is Inpatient Admission. ll2 - Condition is Stable. - Problem is new. - Symptoms have improved. Signatures: Dispatcher [employer] Deepa Reynaga RN RN dw Anderson, Corey, MD MD cha Lam, Pin, MD MD pkl Williams, Irene, RN RN iw Antunez, Elena, RN RN ea Roque, Maximilian, RN RN rr5 Bertha Cruz, RN RN ll2 Corrections: (The following items were deleted from the chart) 05:59 05:54 LIPASE+C.LAB.BRZ ordered. EDRI EDRI 08:14 08:12 Hospitalization Ordered by Cam Galvin MD for Inpatient Admission. Preliminary roderick diagnosis is Urinary tract infection, site not specified; Acute tubulo-interstitial nephritis; Influenza due to other identified influenza virus - influenza b; Weakness. Bed requested for Telemetry/MedSurg (Inpatient). Status is Inpatient Admission. Condition is Stable. Problem is new. Symptoms have improved. roderick 12:59 08:14 03/29/2020 08:12 Hospitalization Ordered by Cam Galvin MD for Inpatient dw Admission. Preliminary diagnosis is Urinary tract infection, site not specified; Acute tubulo-interstitial nephritis; Influenza due to other identified influenza virus - influenza b; Weakness; Unspecified kidney failure - chronic. Bed requested for Telemetry/MedSurg (Inpatient). Status is Inpatient Admission. Condition is Stable. Problem is new. Symptoms have improved. roderick 13:42 12:59 03/29/2020 08:12 Hospitalization Ordered by Cam Galvin MD for Inpatient ll2 Admission. Preliminary diagnosis is Urinary tract infection, site not specified; Acute tubulo-interstitial nephritis; Influenza due to other identified influenza virus - influenza b; Weakness; Unspecified kidney failure - chronic. Bed requested for Telemetry/MedSurg (Inpatient). Status is Inpatient Admission. Condition is Stable. Problem is new. Symptoms have improved. dw
[2020-03-29] MEDS ORDERED: ACETAMINOPHEN 500 MG TAB PO PRN (08:29)
[2020-03-29] MEDS ORDERED: IPRATROPIUM BROM 0.5MG/2.5ML NEB PRN (08:47)
[2020-03-29] MEDS ORDERED: HYDROCODONE/CHLORPHEN 5 ML/OSYR PO PRN (08:47)
[2020-03-29] MEDS ORDERED: ALBUTEROL 2.5 MG/3 ML NEB SOL NEB PRN (08:47)
[2020-03-29] MEDS ORDERED: BENZONATATE 100 MG CAP PO PRN (08:47)
[2020-03-29] MEDS ORDERED: CEFTRIAXONE 1 GM/NS 50 ML 1 GM/50 ML BAG IV SCH (09:00)
[2020-03-29] MEDS ORDERED: NA CHLORIDE 0.9% 1,000 ML IV SCH (09:00)
[2020-03-29] MEDS ORDERED: CEFTRIAXONE/SWI 1gm 1 GM/10 ML SYR IV SCH (09:00)
[2020-03-29] MEDS: METHYLPREDNISOLONE 40 MG INJ IV SCH ×2 (09:00→16:55)
[2020-03-29] MEDS ORDERED: CEFTRIAXONE/SWI 1gm 1 GM/10 ML SYR ONE (09:37)
[2020-03-29] MEDS ORDERED: OSELTAMIVIR 75 MG CAP ONE (09:37)
[2020-03-29] MEDS ORDERED: ENOXAPARIN 100 MG/ML SYR SQ ONE (09:37)
[2020-03-29] MEDS ORDERED: ONDANSETRON 4 MG/2 ML VIAL ONE (10:04)
[2020-03-29 13:59] VITALS: BMI 42.9
--- NOTE | 2020-03-29 17:17 | P.HP ---
Certification for Inpatient Patient admitted to: Observation With expected LOS: <2 Midnights Patient will require the following post-hospital care: None Practitioner: I am a practitioner with admitting privileges, knowledge of patient current condition, hospital course, and medical plan of care. Services: Services provided to patient in accordance with Admission requirements found in Title 42 Section 412.3 of the Code of Federal Regulations Patient History Date of Service: 03/29/20 Reason for admission: Shortness of breath History of Present Illness: Patient is a 74-year-old female came in with shortness of breath. Patient was slightly hypoxic in came into the emergency room because she was having a hard time taking a deep breath. She has a family history of family members who have smoked including her mother and father and her and son. She is been around secondhand smoke her whole life. She came into the ER and there was concern that she may have COPD. She also has history of chronic kidney disease. She has had elevated BNPs. She lives at home with family member. She was evaluated in the emergency room and she was actually found to be positive for the influenza pneumonia. She will be admitted to the hospital for further evaluation. Allergies No Known Drug Allergies Allergy (Verified 06/07/14 15:02) Unknown Home Medications: NK [No Home Meds] 03/29/20 - Past Medical/Surgical History Has patient received pneumonia vaccine in the past: No Diabetic: Yes -: Chronic UTI's -: Nephrolithiasis -: DM -: Arthritis -: Dehydration -: malnutrition -: Neurogenic bladder -: Renal Failure -: Right shoulder prosthesis -: Back surgery -: bladder augmentation -: appendectomy -: cholecystectomy -: hysterectomy -: kidney stents -: suprapubic catheter - Family History Sister Medical History: Cancer Notes: - colon cancer Father Medical History: Cancer Notes: Lung cancer, heavy smoker Mother Medical History: Lung disease Notes: Heavy smoker; Emphysema Brother Medical History: Cancer Notes: 3 Brothers of lung cancer - Social History Smoking Status: Never smoker Alcohol use: No CD- Drugs: No Caffeine use: No Place of Residence: Home Review of Systems 10-point ROS is otherwise unremarkable Physical Examination - Vital Signs Temperature: 97.7 F Blood Pressure: 161/71 Pulse: 72 Respirations: 18 Pulse Ox (%): 94 - Physical Exam General: Alert, In no apparent distress, Oriented x3 HEENT: Atraumatic, PERRLA, Mucous membr. moist/pink, EOMI, Sclerae nonicteric Neck: Supple, 2+ carotid pulse no bruit, No LAD, Without JVD or thyroid abnormality Respiratory: Diminished, Crackles/rales, Expiratory wheezes Cardiovascular: Regular rate/rhythm, Normal S1 S2, No murmurs Gastrointestinal: Normal bowel sounds, Soft and benign, Non-distended, No tenderness Musculoskeletal: No clubbing, No tenderness, Swelling Integumentary: No rashes Neurological: Normal speech, Normal tone, Sensation intact, Cranial nerves 3-12 intact, Normal affect, Abnormal gait, Abnormal strength Lymphatics: No axilla or inguinal lymphadenopathy - Studies Laboratory Data (last 24 hrs) 03/29/20 05:53: Lipase Cancelled 03/29/20 05:40: PT 12.2, INR 1.03 03/29/20 05:40: WBC 6.1, Hgb 12.4, Hct 37.7, Plt Count 220 03/29/20 05:40: Sodium 138, Potassium 3.9, BUN 30 H, Creatinine 1.75 H, Glucose 252 H, Magnesium 1.8, Total Bilirubin 0.5, AST 14 L, ALT 20, Alkaline Phosphatase 84, Lipase 94 Microbiology Data (last 24 hrs): 03/29/20 06:30 Nasopharnyx Influenza Type A Antigen Screen - Final 03/29/20 06:30 Nasopharnyx Influenza Type B Antigen Screen - Final Assessment & Plan - Problems (Diagnosis) (1) Influenzal pneumonia Current Visit: Yes Status: Acute (2) History of chronic kidney disease Current Visit: Yes Status: Acute (3) History of second hand smoke exposure Current Visit: Yes Status: Acute (4) Morbid obesity with BMI of 40.0-44.9, adult Current Visit: Yes Status: Acute (5) Debility Onset Date: 06/08/14 Current Visit: No Status: Acute (6) Diabetes mellitus type II, non insulin dependent Onset Date: 06/08/14 Current Visit: No Status: Acute - Plan 1. Continue with IV anti viral therapy 2. Cough medication and monitor respiratory status closely 3. Continue with nebs as needed 4. O2 per protocol 5. Continue with gentle hydration 6. Repeat labs including CBC and renal function in a.m. 7. GI and DVT prophylaxis Discharge Plan: Home Plan to discharge in: 24 Hours - Advance Directives Does patient have a Living Will: No Does patient have a Durable POA for Healthcare: Yes - Code Status/Comfort Care Code Status Assessed: Yes Code Status: Full Code Critical Care: No Time Spent Managing PTS Care (In Minutes): 45
[2020-03-29] MEDS: OSELTAMIVIR 75 MG CAP PO SCH ×2 (17:28→23:20)
[2020-03-29] MEDS: ONDANSETRON 4 MG/2 ML VIAL IV PRN (17:37)
[2020-03-29] MEDS ORDERED: FUROSEMIDE 40 MG/4 ML VIAL IV ONE (18:00)
[2020-03-30] MEDS: ONDANSETRON 4 MG/2 ML VIAL IV PRN ×2 (00:21→16:04)
[2020-03-30] MEDS: METHYLPREDNISOLONE 40 MG INJ IV SCH (00:21)
[2020-03-30] MEDS: MORPHINE 2 MG/ML SYR IV PRN (04:19)
[2020-03-30 06:09] LABS: Absolute Lymphocytes (CBC) 0.5 K/uL (0.7-4.9); Basophils % 0.3 % (0-1.3); Lymphocytes % 12.6 % (15.3-44.8); MPV 8.7 fL (7.6-11.3); RBC Red Blood Cell Count 3.84 M/uL (3.86-4.86)
[2020-03-30 06:58] LABS: Albumin 3.1 g/dL (3.4-5.0); Bilirubin Total 0.3 mg/dL (0.2-1.0); Potassium 5.2 mmol/L (3.5-5.1); Protein, Total 8.5 g/dL (6.4-8.2)
[2020-03-30] MEDS ORDERED: NA CHLORIDE 0.9% 500 ML IV ONE ×2 (07:23→12:30)
[2020-03-30] MEDS ORDERED: D50W 25 GM/50 ML SYRINGE IV PRN ×3 (07:23→18:17)
[2020-03-30] MEDS ORDERED: GLUCAGON 1 MG/VIAL IM PRN ×3 (07:23→18:17)
[2020-03-30] MEDS ORDERED: INSULIN 70/30 100 UNITS/ML SQ ONE ×2 (07:24→10:23)
[2020-03-30] MEDS: NA CHLORIDE 0.9% 1,000 ML IV SCH ×2 (07:31→16:09)
[2020-03-30 08:21] LABS: Blood Morphology Comment NOT SEEN (NOT SEEN); Platelet Estimate ADEQ; White Blood Cell Scan OK (OK)
[2020-03-30] MEDS: OSELTAMIVIR 75 MG CAP PO SCH (08:23)
[2020-03-30] MEDS ORDERED: PNEUMOCOCCAL VACCINE 0.5 ML IMVAC ONE (10:00)
[2020-03-30] MEDS: INSULIN -REGULAR HUMAN 50 UNIT/0.5 ML ML SQ SCH ×2 (18:36→20:44)
[2020-03-31] MEDS: ONDANSETRON 4 MG/2 ML VIAL IV PRN ×2 (00:42→23:30)
[2020-03-31] MEDS: MORPHINE 2 MG/ML SYR IV PRN ×2 (00:52→07:57)
[2020-03-31] MEDS: NA CHLORIDE 0.9% 1,000 ML IV SCH (06:27)
[2020-03-31] MEDS: INSULIN -REGULAR HUMAN 50 UNIT/0.5 ML ML SQ SCH ×4 (07:30→21:03)
[2020-03-31] MEDS: CEFTRIAXONE/SWI 1gm 1 GM/10 ML SYR IV SCH ×2 (08:03→21:03)
--- NOTE | 2020-03-31 08:52 | P.PN ---
Subjective Date of Service: 03/31/20 Patient blood sugars are better. Patient abdominal pain is still present. CT of the abdomen without contrast pending. CT scan becomes unremarkable then possible discharge home later today or possibly in the morning. Review of Systems 10-point ROS is otherwise unremarkable Physical Examination - Vital Signs Temperature: 96.9 F Blood Pressure: 147/65 Pulse: 56 Respirations: 17 Pulse Ox (%): 96 - Physical Exam General: Alert, In no apparent distress, Oriented x3, Obese Respiratory: Clear to auscultation bilaterally, Normal air movement Cardiovascular: Regular rate/rhythm, Normal S1 S2, No murmurs Gastrointestinal: Normal bowel sounds, Soft and benign, Non-distended, No tenderness Musculoskeletal: No clubbing, No swelling, No tenderness Neurological: Sensation intact, Cranial nerves 3-12 intact Lymphatics: No axilla or inguinal lymphadenopathy - Studies Laboratory Data (last 24 hrs) 03/30/20 10:31: Glucose 766 H* Microbiology Data (last 24 hrs): 03/29/20 06:00 Clean Catch Urine [place] Count - Final >100,000 CFU/ML. 03/29/20 06:00 Clean Catch Urine - Final Klebsiella Pneumoniae Medications List Reviewed: Yes Assessment & Plan - Problems (Diagnosis) (1) Influenzal pneumonia Status: Acute (2) History of chronic kidney disease Status: Acute (3) History of second hand smoke exposure Status: Acute (4) Morbid obesity with BMI of 40.0-44.9, adult Status: Acute (5) Debility Onset Date: 06/08/14 Status: Acute (6) Diabetes mellitus type II, non insulin dependent Onset Date: 06/08/14 Status: Acute (7) Diabetic hyperosmolar non-ketotic state Status: Acute (8) Acute kidney injury Status: Acute - Plan 1. Continue with Tamiflu b.i.d. 2. Normal saline and strict blood sugar monitoring 3. Continue with nebs as needed 4. O2 per protocol 5. Continue with gentle hydration 6. Check hemoglobin A1c level 7. CT scan of the abdomen and pelvis are pending 8. The knee for oral hypoglycemics at this time. Blood sugars are better without IV steroids 9. GI and DVT prophylaxis Discharge Plan: Home - Advance Directives Does patient have a Living Will: No Does patient have a Durable POA for Healthcare: Yes - Code Status/Comfort Care Code Status: Full Code Critical Care: No Time Spent Managing PTS Care (In Minutes): 35
--- NOTE | 2020-03-31 08:52 | P.PN ---
Subjective Date of Service: 03/30/20 Patient became more hyperglycemic yesterday and had blood sugars of 700. This was probably related somewhat to the steroids but also concern that this could be related to poorly-controlled diabetes. Will check a hemoglobin A1c level. Renal function has also worsened. Will repeat renal function in a.m.. Continue encouraging patient to get out of bed and ambulate. Respiratory status is somewhat improved. Review of Systems 10-point ROS is otherwise unremarkable Physical Examination - Vital Signs Temperature: 96.9 F Blood Pressure: 147/65 Pulse: 56 Respirations: 17 Pulse Ox (%): 96 - Physical Exam General: Alert, In no apparent distress, Oriented x3 Respiratory: Clear to auscultation bilaterally, Normal air movement Cardiovascular: Regular rate/rhythm, Normal S1 S2, No murmurs Gastrointestinal: Normal bowel sounds, Soft and benign, Non-distended, No tenderness Musculoskeletal: No clubbing, No swelling, No tenderness Integumentary: No rashes Neurological: Normal strength at 5/5 x4 extr, Normal tone, Sensation intact, Cranial nerves 3-12 intact - Studies Laboratory Data (last 24 hrs) 03/30/20 10:31: Glucose 766 H* Microbiology Data (last 24 hrs): 03/29/20 06:00 Clean Catch Urine [place] Count - Final >100,000 CFU/ML. 03/29/20 06:00 Clean Catch Urine - Final Klebsiella Pneumoniae Medications List Reviewed: Yes Assessment & Plan - Problems (Diagnosis) (1) Influenzal pneumonia Current Visit: Yes Status: Acute (2) History of chronic kidney disease Current Visit: Yes Status: Acute (3) History of second hand smoke exposure Current Visit: Yes Status: Acute (4) Morbid obesity with BMI of 40.0-44.9, adult Current Visit: Yes Status: Acute (5) Debility Onset Date: 06/08/14 Current Visit: No Status: Acute (6) Diabetes mellitus type II, non insulin dependent Onset Date: 06/08/14 Current Visit: No Status: Acute (7) Diabetic hyperosmolar non-ketotic state Current Visit: Yes Status: Acute (8) Acute kidney injury Current Visit: Yes Status: Acute - Plan 1. Continue with Tamiflu b.i.d. 2. Normal saline and strict blood sugar monitoring 3. Continue with nebs as needed 4. O2 per protocol 5. Continue with gentle hydration 6. Check hemoglobin A1c level 7. GI and DVT prophylaxis Discharge Plan: Home Plan to discharge in: Greater than 2 days - Advance Directives Does patient have a Living Will: No Does patient have a Durable POA for Healthcare: Yes - Code Status/Comfort Care Code Status: Full Code Critical Care: No Time Spent Managing PTS Care (In Minutes): 35
[2020-03-31] MEDS ORDERED: CEFTRIAXONE 1 GM/NS 50 ML 1 GM/50 ML BAG IV SCH (09:00)
[2020-03-31] MEDS: OSELTAMIVIR PHOSPHATE 30 MG/5 ML SUSPENSION UD PO SCH (09:35)
[2020-03-31] MEDS ORDERED: PHENAZOPYRIDINE 100MG TAB PO ONE (11:55)
[2020-03-31 14:29] LABS: Absolute Lymphocytes (CBC) 2.6 K/uL (0.7-4.9); Basophils % 0.7 % (0-1.3); Hematocrit 37.9 % (36.0-45.0); MPV 8.5 fL (7.6-11.3); RBC Red Blood Cell Count 3.89 M/uL (3.86-4.86)
[2020-03-31 14:55] LABS: Blood Morphology Comment NOT SEEN (NOT SEEN); Platelet Estimate ADEQ; White Blood Cell Scan OK (OK)
[2020-03-31 15:13] LABS: Albumin 2.4 g/dL (3.4-5.0); Bilirubin Total 0.1 mg/dL (0.2-1.0); Folic Acid, (Folate) 5.2 ng/mL (3.1-17.5); Phosphorus 3.4 mg/dL (2.5-4.9); Protein, Total 6.8 g/dL (6.4-8.2)
[2020-03-31 15:34] LABS: Magnesium 1.7 mg/dL (1.8-2.4); Potassium 4.5 mmol/L (3.5-5.1)
--- NOTE | 2020-03-31 17:13 | RAD REPORT ---
EXAM DESCRIPTION: CT - Abdomen Pelvis Wo Contrast - 03/31/2020 4:34 pm CLINICAL HISTORY: Abdominal pain COMPARISON: 2018 TECHNIQUE: Computed axial tomography of the abdomen and pelvis was obtained. IV and oral contrast we re not requested. All CT scans are performed using dose optimization technique as appropriate and may include automated exposure control or mA/KV adjustment according to patient size. FINDINGS: The evaluation of solid organs, vessels, appendix and bowel is limited secondary to the l ack of contrast administration. 22 millimeter calculus left kidney. 5 millimeter calculus right kidney. No hydronephrosis. Small righ t renal cysts. A ureteral calculus is not seen. No bladder calculus. Renal cortical thinning likely r elated to prior inflammation The liver, spleen, pancreas, and adrenal appear grossly normal. Hysterectomy. No adnexal mass. There is no evidence of diverticulitis. Neurostimulator device in place IMPRESSION: Nonobstructing renal calculi
[2020-04-01] MEDS: CEFTRIAXONE/SWI 1gm 1 GM/10 ML SYR IV SCH (08:16)
[2020-04-01] MEDS: OSELTAMIVIR PHOSPHATE 30 MG/5 ML SUSPENSION UD PO SCH (08:17)
[2020-04-01] MEDS: INSULIN -REGULAR HUMAN 50 UNIT/0.5 ML ML SQ SCH ×2 (08:17→11:52)
[2020-04-01 08:24] VITALS: O2SAT 95
--- NOTE | 2020-04-01 10:47 | P.DS ---
Discharge Date: 04/01/20 Disposition: ROUTINE DISCHARGE Discharge Condition: GOOD Reason for Admission: Shortness of breath - Problems (1) Influenzal pneumonia Status: Acute (2) History of chronic kidney disease Status: Acute (3) History of second hand smoke exposure Status: Acute (4) Morbid obesity with BMI of 40.0-44.9, adult Status: Acute (5) Debility Onset Date: 06/08/14 Status: Acute (6) Diabetes mellitus type II, non insulin dependent Onset Date: 06/08/14 Status: Acute (7) Diabetic hyperosmolar non-ketotic state Status: Acute (8) Acute kidney injury Status: Acute Brief History of Present Illness: Patient is a 74-year-old female came in with shortness of breath. Patient was slightly hypoxic in came into the emergency room because she was having a hard time taking a deep breath. She has a family history of family members who have smoked including her mother and father and her and son. She is been around secondhand smoke her whole life. She came into the ER and there was concern that she may have COPD. She also has history of chronic kidney disease. She has had elevated BNPs. She lives at home with family member. She was evaluated in the emergency room and she was actually found to be positive for the influenza pneumonia. She will be admitted to the hospital for further evaluation. Hospital Course: Patient did well during hospital stay. Patient respiratory status improved. However patient did develop some abdominal pain in her blood sugars became elevated. Which Dr. PITTS steroids her blood sugars came back to normal. She will check her blood sugars at home with a with cava under in if her blood sugars remain elevated she will notify her PCP. I have also asked her to call me and we can get her started on on oral hypoglycemic agent until she follows up. He is to continue to monitor her weight. She does have nephrolithiasis on her CT scan. Cultures are positive as well for Klebsiella pneumonia. With her having nephrolithiasis she could have persistent infection. She needs to follow with her urologist in [facility]. Patient will continue Tamiflu for 3 more days. Patient will follow-up with PCP and Urology in 1-2 weeks. Vital Signs/Physical Exam: Temp Pulse Resp BP Pulse Ox 97.0 F 63 18 134/75 99 04/01/20 08:00 04/01/20 08:00 04/01/20 08:00 04/01/20 08:00 04/01/20 08:00 General: Alert, In no apparent distress, Oriented x3 Laboratory Data at Discharge: WBC 7.9 K/uL (4.3-10.9) D 03/31/20 13:53 Hgb 12.2 g/dL (12.0-15.0) 03/31/20 13:53 Hct 37.9 % (36.0-45.0) 03/31/20 13:53 Plt Count 183 K/uL (152-406) 03/31/20 13:53 PT 12.2 SECONDS (9.5-12.5) 03/29/20 05:40 INR 1.03 03/29/20 05:40 Sodium 136 mmol/L (136-145) 03/31/20 13:53 Potassium 4.5 mmol/L (3.5-5.1) 03/31/20 13:53 BUN 39 mg/dL (7-18) H 03/31/20 13:53 Creatinine 1.83 mg/dL (0.55-1.3) H 03/31/20 13:53 Glucose 261 mg/dL (74-106) H 03/31/20 13:53 Phosphorus 3.4 mg/dL (2.5-4.9) 03/31/20 13:53 Magnesium 1.7 mg/dL (1.8-2.4) L 03/31/20 13:53 Total Bilirubin 0.1 mg/dL (0.2-1.0) L 03/31/20 13:53 AST 20 U/L (15-37) 03/31/20 13:53 ALT 17 U/L (12-78) 03/31/20 13:53 Alkaline Phosphatase 69 U/L (45-117) 03/31/20 13:53 Lipase Cancelled 03/29/20 05:53 Home Medications: Benzonatate [Tessalon Perle*] 200 mg PO TID PRN #20 cap 04/01/20 Cefdinir [Omnicef] 300 mg PO BID #24 capsule 04/01/20 Oseltamivir Phosphate [Tamiflu] 75 mg PO BID #6 capsule 04/01/20 Phenazopyrididine [Pyridium] 100 mg PO TID PRN #30 tab 04/01/20 New Medications: Cefdinir [Omnicef] 300 mg PO BID #24 capsule Phenazopyrididine [Pyridium] 100 mg PO TID PRN #30 tab PRN Reason: DYSURIA Oseltamivir Phosphate [Tamiflu] 75 mg PO BID #6 capsule Benzonatate [Tessalon Perle*] 200 mg PO TID PRN #20 cap PRN Reason: Cough Patient Discharge Instructions: OK TO DC IV AND DC HOME. FOLLOW-UP WITH PRIMARY CARE PROVIDER IN 1-2 WEEKS. FOLLOW-UP WITH UROLOGY IN 1-2 WEEKS. RETURN TO THE ER IF SYMPTOMS WORSEN. CALL or TEXT DR. ACEVES AT [phone] IF ANY QUESTIONS REGARDING HOSPITAL STAY. PLEASE CALL THE FLOOR AT [phone] IF ANY MEDICATION OR NURSING QUESTIONS. Diet: ADA Activity: Fall precautions Followup: Farideh Melgar DO [Primary Care Provider] - Time spent managing pt's care (in minutes): 35
[2020-04-01 12:35] VITALS: TEMP 96.9
[2020-04-01 16:25] VITALS: BP 147/65
== END 2020-04-01 12:50 | disposition home or self-care (01) | DRG 193 ==
LOC: ER 05:13 → ERHOLD 08:31 → 4TH 13:15 → OBSVTOIN 03-30 14:15
PROVIDERS: ADMIT Hospitalist; ATTEND Hospitalist
DX: J10.00 Influenza due to other identified influenza virus with unspecified type of pneumonia (principal); E11.00 Type 2 diabetes mellitus with hyperosmolarity without nonketotic hyperglycemic-hyperosmolar coma (NKHHC); Z68.41 Body mass index [BMI] 40.0-44.9, adult; N17.9 Acute kidney failure, unspecified; E66.01 Morbid (severe) obesity due to excess calories; E11.65 Type 2 diabetes mellitus with hyperglycemia; N18.9 Chronic kidney disease, unspecified; E11.22 Type 2 diabetes mellitus with diabetic chronic kidney disease; N20.0 Calculus of kidney; B96.1 Klebsiella pneumoniae [K. pneumoniae] as the cause of diseases classified elsewhere; Z90.49 Acquired absence of other specified parts of digestive tract; Z90.710 Acquired absence of both cervix and uterus; Z79.899 Other long term (current) drug therapy; Z20.828 Contact with and (suspected) exposure to other viral communicable diseases
CPT/HCPCS: 36415; 71045; 74176; 80048; 80053; 80076; 81003; 81015; 82607; 82746; 82947; 83036; 83605; 83690; 83735; 83880; 84100; 84145; 84484; 85025; 85379; 85610; 87040; 87077; 87086; 87088; 87186; 87804; 93005; 96372; 99285; G0378; J0696; J1650; J1815; J1940; J2270; J2405; J2920; J2930; J7030; J7040; U0003

== ENCOUNTER 2020-04-23 12:05 | Inpatient (IN) | payer OTHER ==
--- OUTSIDE RECORDS SUMMARY | 2020-04-23 12:07 | XMS REPORT | Clinical Summary ---
:1945 Author Organization [facility] Address [address] [place] [address] Care Team Providers Name Role Phone Asked, [...] ; Hunter geon: Lyssa Limon MD; Location: [facility] 19 OR; Service: Orthopedics; La [...] VACCINE 12/10/2019 02/18/2017 Implants Implanted Type Area Analyst Business Analysis Device Shelf Model / Identifier Expiration Serial / Date Lot T2 Supracondylar Nail [id number] - [id number] IMPLANT Right: STR FatimahKER 11/07/2021 [id number] / Implanted: Qty: 1 on 02/12/2017 by Lyssa Limon MD at [facility] DEVICES Knee ORTHOPEDICS / [id number] T2 F/T Locking Screw [id number] - [id number] IMPLANT Right: CARLINE SOTO 10/08/2021 1896 [id number] / Implanted: Qty: 1 on 02/12/2017 by Lyssa Limon MD at [facility] DEVICES Knee ORTHOPEDICS / [id number] T2 F/T Locking Screw 5mmx42.5mm - [id number] [id number] IMPLANT Right: OLIVIER 10/08/2021 1896 [id number] / Implanted: Qty: 1 on 02/12/2017 by Lyssa Limon MD at [facility] DEVICES Knee ORTHOPEDICS / [id number] Cap End For T2 Scn Sys 8x4mm - [id number] Orthopedic Right: RADHA 10/08/2021 [id number] / Implanted: Qty: 1 on 02/12/2017 by Lyssa Limon MD at [facility] Trauma Knee ORTHOPEDICS / Implants [id number] Screw Bone Lkng Fulthrd Ti 5x85mm - [id number] Orthopedic Right: S TRYKER 11/07/2021 1896 [id number] / Implanted: Qty: 1 on 02/12/2017 by Lyssa Limon MD at [facility] Trauma Knee ORTHOPEDICS / Implants [id number] Screw Bone Lkng Fulthrd Ti 5x80mm - [id number] Orthopedic Right: S TRYKER 10/08/2021 1896 [id number] / Implanted: Qty: 1 on 02/12/2017 by Lyssa Limon MD at [facility] Trauma Knee ORTHOPEDICS / Implants [id number] Screw Bone Lkng Fulthrd Ti 5x85mm - [id number] Orthopedic Right: S TRYKER 08/08/2021 1896 [id number] / Implanted: Qty: 1 on 02/12/2017 by Lyssa Limon MD at [facility] Trauma Knee ORTHOPEDICS / Implants [id number] Screw Bone Lkng Fulthrd Ti 5x80mm - [id number] Orthopedic Right: S TRYKER 03/10/2021 1896 [id number] / Implanted: Qty: 1 on 02/12/2017 by Lyssa Limon MD at [facility] Trauma Knee ORTHOPEDICS / Implants [id number] Immobilizer Knee Tripnl Dlx W/ Patl Strp Univl Canvas 24in - [id number] Surgical N/A: DEROYAL [id number] / Implanted: Qty: 1 on 02/12/2017 by Lyssa Limon MD at [facility] Implants; N/A [employer] / Expanders; Extenders; Surgical Wires Wire K Optnl [id number] Strl - [id number] Temporary Right: RADHA 12/08/2021 1806 [id number] / Implanted: Qty: 1 on 02/12/2017 by Lyssa Limon MD at [facility] Fixation Pin Knee ORTHOPEDICS / or Wire [id number] Results Not on fileafter 04/23/2019 Insurance Payer Benefit Plan / Subscriber ID Effective Dates Phone Addre ss Type Group MEDICARE MEDICARE PART A [id number] 2001-Present [facility] [place] Medicare AND B Advance Directives For more information, please contact: [phone] Type Date 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
--- OUTSIDE RECORDS SUMMARY | 2020-04-23 12:08 | XMS REPORT | Continuity of Care Document ---
:1945 Author Organization [facility] Care Team Providers Name Role Phone Conergy Unavailable Un available Problems Problem Status Onset Classification Date Comments Sourc e Date Reported Minor contusion of 04/01/20 10/11/2018 [facility] left kidney, 18 Medical initial encounter Ce nter SUBCAPSULAR Active 03/18/20 [facility] HEMATOMA ON LEFT 18 [facility] CLOSED HEMATOMA ON Active 03/18/20 [facility] LEFT KIDNEY 18 Medical Center Metabolic 10/11/2018 [facility] encephalopathy Medic al Center Acute kidney 10/11/2018 [place] failure, Medical unspecified Center Unspecified fall, 10/11/2018 [facility] initial encounter Ia dical Center Hyperkalemia 10/11/2018 [place] [facility] Gross hematuria 10/11/2018 [facility] Center Chronic kidney 10/11/2018 [facility] [place] disease, Medical unspecified Center Adverse effect of 10/11/2018 [facility] other drugs, Medical medicaments and Cent er biological substances, initial encounter Type 2 diabetes 10/11/2018 [facility] mellitus with Medica l hyperglycemia Center Personal history 10/11/2018 [facility] of urinary (tract) edical infections Center long term 10/11/2018 [facility] (current) use of [facility] insulin Center MINOR CONTUSION OF Active [facility] LEFT KIDNEY, Medical INITIAL Center Medications Medication Details Route Status Patient Ordering Order Source Instructions Provider Date polyethylene PO, Daily, 0 Active [place] glycol 3350 oral Refill(s) 2018 Medic al powder for Center reconstitution Menthol 0.0044 0 Refill(s) [place] MG/MG / Zinc 2018 Medical Oxide 0.2 MG/MG [place] Topical Ointment Lidocaine 1 patch, TOP, Active [place] Hydrochloride Q24H, 0 2018 Medical 0.05 MG/MG Refill(s) [place] Transdermal Patch [Lidoderm] heparin 5,000 unit = 1 Active [facility] mL, SUB-Q, Q8H, 2018 Medical 0 [...] Same as [place] Dilaudid 2018 [facility] Calmoseptine Notes: (Same No Longer [place] as: Active 2017 [facility] Calmoseptine) Center heparin Notes: porcine No Longer s heparin Active [address] [place] [address] cefepime Notes: (Same No Longer [facility] As: Maxipime) Active 2017 Medical MEDICATION Center WASTE Product Size: 1000 mg Product Wasted: ___ mg Neurontin Notes: (Same [place] Longer [place] as: Neurontin) Active 2017 [facility] Naproxen 500 mg, Route: No Longer [place] PO, Q12H, kg, Active 2017 Medical Start date: [place] 03/21/18 9:00:00 GENERAL EDUCATION PROFESSOR, Duration: 30 day, Stop date: 04/19/18 21:00:00 GENERAL EDUCATION PROFESSOR Kayexalate Notes: (sodium Inactive [place] polystyrene 2017 [facility] sulfonate 15 Center gm/60 ml ROCKY) Shake well before use. (Same as: Kayexalate, SPS) gabapentin 300 mg, Route: No Longer [place] PO, Q8H, kg, Active 2017 Medical Start date: Center 03/21/18 8:00:00 GENERAL EDUCATION PROFESSOR, Duration: 30 day, Stop date: 04/20/18 0:00:00 GENERAL EDUCATION PROFESSOR Ciprofloxacin Notes: May Inactive [place] interfere 2018 Medical w/enteral Center feedings - Take 1 hr before or 2 hrs after antacids, dairy pdt & minerals. On empty stomach. Enoxaparin Notes: (Same No Longer [place] as: Lovenox) Active 2018 Medical Center Insulin regular 60 units) Inactive [facility] WASTE: F/P - 2018 Medical Black; E - Center Municipal Trash Bin Stable for 28 days at room temperature Expires in days from D ate d50 syringe 25 gm, 50 mL, Inactive [place] Route: IV, Drug 2017 Medical Form: INJ, Center Dosing Weight 104.091, kg, ONCE, Start date: 03/20/18 10:30:00 GENERAL EDUCATION PROFESSOR, Stop date: 03/20/18 10:30:00 GENERAL EDUCATION PROFESSOR Insulin regular 10 unit, Route: Inactive [facility] SUB-Q, ONCE, 2018 Medical Dosing Weight Center 104.091, kg, Start date: 03/20/18 10:30:00 GENERAL EDUCATION PROFESSOR, Stop date: 03/20/18 10:30:00 GENERAL EDUCATION PROFESSOR Miralax Notes: Dissolve No Longer [place] in 8 oz of Active 2018 Medical water or juice. Center (Same as: Miralax) Calcium Notes: WASTE: Inactive [place] Gluconate F/P - Sink; E - 2018 Medica l [facility] Trash Center Bin Ciprofloxacin Notes: Do not Inactive [facility] refrigerate 2018 [facility] remove patch 1 patch, Route: No Longer [facility] TOP, Q24H, Drug Active 2018 Medical form: ERFILM, Center Start date: 03/19/18 17:00:00 GENERAL EDUCATION PROFESSOR, Duration: 30 day, Stop date: 04/17/18 17:00:00 GENERAL EDUCATION PROFESSOR celecoxib 200 mg, Route: Inactive [place] PO, Q12H, kg, 2018 Medical For patients Center LESS than 75 years old. Hold in all patients if CrCl < 30 mL/min, Start date: 03/19/18 9:00:00 GENERAL EDUCATION PROFESSOR, Duration: 48 hr, Stop date: 03/20/18 21:00:00 GENERAL EDUCATION PROFESSOR Streptococcus Notes: Shake No Longer [place] pneumoniae well prior to Active 2018 Medical serotype 1 use (Same as: [place] capsular antigen Prevnar 13) diphtheria [id number] protein conjugate vaccine / Streptococcus pneumoniae serotype 14 capsular antigen diphtheria [id number] protein conjugate vaccine / Streptococcus pneumoniae serotype 18C capsular antigen d influenza virus Notes: (Same No Longer [facility] vaccine, as: Fluzone Active 2017 Medical inactivated High-Dose) For Cent er high-dose 65 years of age preservative-herson of older (0.5 e intramuscular ml IM) Shake suspension well before use Lyrica Notes: (Same No Longer [place] as: Lyrica) Active 2017 Medical Center Acetaminophen Notes: Max [place] Longer [place] acetaminophen Active 2017 Medical 4000 mg/day (4 Center gm/day). (Same as: Tylenol Extra Strength) Insulin regular 60 units) No Longer [place] WASTE: F/P - Active 2017 Medical Black; E - Center Municipal Trash Bin Stable for 28 days at room temperature Expires in days from D ate Dextrose 50% 25 gm, 50 mL, No Longer [place] Syringe Route: IVP, Active 2017 Medical Drug Form: INJ, Center kg, PRN, PRN Blood Glucose Results, Start date: 03/19/18 5:19:00 GENERAL EDUCATION PROFESSOR, Duration: 30 day, Stop date: 04/18/18 5:18:00 GENERAL EDUCATION PROFESSOR Glucagon 1 mg, Route: No Longer [place] IM, Drug form: Active 2017 Medical PDR/INJ, PRN, Center kg, PRN Blood Glucose Results, Start date: 03/19/18 5:19:00 GENERAL EDUCATION PROFESSOR, Duration: 30 day, Stop date: 04/18/18 5:18:00 GENERAL EDUCATION PROFESSOR PlasmaLyte A Notes: (Same No Longer [place] PH-7.4 1,000 mL as: Isolyte S Active 2017 Ia dical PH 7.4) Center Lidocaine Notes: Apply [place] Longer [place] Hydrochloride only once for Active 2017 Medi kristel 0.05 MG/MG up to 12 hours Center Transdermal in a 24-hour Patch [Lidoderm] period (12 hours on and 12 hours off). (Same as: Lidoderm) "Remove old patch before application of new patch" Zofran 4 mg, Route: Inactive [place] IVP, Drug form: 2017 Medical INJ, ONCE, kg, Center Priority: STAT, Start date: 03/19/18 4:28:00 GENERAL EDUCATION PROFESSOR, Stop date: 03/19/18 4:28:00 GENERAL EDUCATION PROFESSOR Morphine 4 mg, Route: Inactive [facility] IVP, ONCE, kg, 2017 Medical Priority: STAT, Center Start date: 03/19/18 4:28:00 GENERAL EDUCATION PROFESSOR, Stop date: 03/19/18 4:28:00 GENERAL EDUCATION PROFESSOR PlasmaLyte A Notes: (Same Inactive [facility] [place] PH-7.4 1,000 mL as: Isolyte S 2018 Me dical PH 7.4) Center Bisacodyl Notes: ([facility] As: Dulcolax, Active 2017 Medical Correctol) (Do Center Not Crush) "Do Not Crush" Docusate Notes: (Same No Longer [facility] as: Colace) (Do Active 2017 Medical Not Crush) Center Oxycodone Notes: (Same No Longer [facility] Hydrochloride 5 as: Roxicodone) Active 2017 Medical MG Oral Tablet Center Tramadol Notes: Not to No Longer [facility] s exceed Active 2017 Medical 400mg/day. Center (Same As: Ultram) pregabalin 100 mg, Route: Inactive [facility] [place] PO, Q8H, kg, 2017 Medical Priority: NOW, Center Start date: 03/19/18 4:06:00 GENERAL EDUCATION PROFESSOR, Duration: 48 hr, Stop date: 03/21/18 0:00:00 GENERAL EDUCATION PROFESSOR Allergies, Adverse Reactions, Alerts Substance Category Reaction Severity Reaction Status Date Comments S ource type Reported No Known Assertion Drug [place] Medication allergy Medic al Allergies Center Immunizations No Data Provided for This Section Results Order Name Results Value Reference Date Interpretation Comments Kami rce Range ELECTROLYTES CO2 25 24 - 32 03/24 [facility] ELECTROLYTES Calcium Lvl 7.7 8.5 - 10.5 03/24 [place] [facility] ELECTROLYTES AGAP 12.4 10.0 - 03/24 [facility] 20.0 [facility] ELECTROLYTES eGFR 42 03/24 Result Comment: The [...] Glucose Lvl 191 70 - 99 03/24 [facility] ELECTROLYTES BUN 19 7 - 22 03/[address] ELECTROLYTES Creatinine 1.28 0.50 - 03/24 [facility] Lvl 1.40 [facility] ELECTROLYTES Sodium Lvl 139 135 - 145 03/24 [facility] [address] [place] [address] ELECTROLYTES Potassium Lvl 4.4 3.5 - 5.1 03/[address] ELECTROLYTES Chloride Lvl 106 95 - 109 03/24 [facility] [place] [address] [place] [address] CHEM PANEL eGFR 48 03/23 [facility] Comment: The Medical eGFR is Center calculated [...] PANEL BUN 21 7 - 22 03/[address] CHEM PANEL Glucose Lvl 152 70 - 99 03/[address] CHEM PANEL Sodium Lvl 138 135 - 145 03/[address] CHEM PANEL Calcium Lvl 8.1 8.5 - 10.5 03/23 [facility] CHEM PANEL CO2 27 24 - 32 03/23 [facility] CHEM PANEL AGAP 10.3 10.0 - 03/23 . [facility] CHEM PANEL Creatinine 1.16 0.50 - 03/23 [place] Lvl 1.40 [facility] CHEM PANEL Potassium Lvl 4.3 3.5 - 5.1 03/23 [facility] CHEM PANEL Chloride Lvl 105 95 - 109 03/23 [facility] ELECTROLYTES AGAP 13.7 10.0 - 03/23 . [facility] ELECTROLYTES eGFR 48 03/23 [facility] Comment: The [facility] eGFR is Center calculated using the CKD-EPI [...] 8.4 8.5 - 10.5 03/23 [place] [facility] ELECTROLYTES Chloride Lvl 106 95 - 109 03/23 [facility] ELECTROLYTES CO2 23 24 - 32 03/23 [facility] ELECTROLYTES BUN 22 7 - 22 03/23 [facility] ELECTROLYTES Glucose Lvl 110 70 - 99 03/23 [facility] ELECTROLYTES Creatinine 1.16 0.50 - 03/23 [place] Lvl 1.40 [facility] ELECTROLYTES Potassium Lvl 4.7 3.5 - 5.1 03/23 [facility] ELECTROLYTES Sodium Lvl 138 135 - 145 03/23 as [facility] HEMATOLOGY RBC 2.81 4.20 - 03/23 [place] 5.40 /2017 [facility] HEMATOLOGY WBC 4.3 3.7 - 10.4 03/23 [facility] HEMATOLOGY Hgb 8.8 12.0 - 03/23 [place] 16.0 Medical [place] HEMATOLOGY MCH 31.3 27.0 - 03/23 [place] 31.0 [facility] HEMATOLOGY MCV 94.1 80.0 - 03/23 [place] 98.0 [facility] HEMATOLOGY MCHC 33.2 32.0 - 03/23 [place] 36.0 [facility] HEMATOLOGY Platelet 206 133 - 450 03/23 [facility] HEMATOLOGY RDW 16.4 11. - 03/23 14. [facility] HEMATOLOGY MPV 7.3 7.4 - 10.4 03/23 [facility] HEMATOLOGY Hct 26.4 36.0 - 03/23 48.0 [facility] HEMATOLOGY Segs 60.0 45.0 - 03/23 [place] 75.0 [facility] HEMATOLOGY Lymphocytes 28.1 20.0 - 03/23 [place] 40.0 [facility] HEMATOLOGY Monocytes 7.9 2.0 - 12.0 03/23 [facility] HEMATOLOGY Eosinophils 3.7 0.0 - 4.0 03/23 [facility] HEMATOLOGY Eosinophils # 0.2 0.0 - 0.5 03/23 [facility] HEMATOLOGY Monocytes # 0.3 0.0 - 0.8 03/23 [facility] HEMATOLOGY Anisocyte 1+ None Seen 03/23 [facility] *ABN* [facility] (03/23/18 5:19 AM) Cente r HEMATOLOGY Neutrophils # 2.6 1.5 - 8.1 03/23 [facility] [place] [facility] HEMATOLOGY Lymphocytes # 1.2 1.0 - 5.5 03/23 [facility] [place] [facility] HEMATOLOGY Basophils 0.3 0.0 - 1.0 03/23 [facility] HEMATOLOGY RDW 16.2 11.5 - 03/22 14.5 [facility] HEMATOLOGY Platelet 204 133 - 450 03/22 [facility] HEMATOLOGY MPV 7.6 7.4 - 10.4 03/22 [facility] HEMATOLOGY MCV 95.8 80.0 - 03/22 [place] 98.0 [facility] HEMATOLOGY MCHC 32.6 32.0 - 03/22 [place] 36.0 [facility] HEMATOLOGY MCH 31.2 27.0 - 03/22 [place] 31.0 [facility] HEMATOLOGY Hgb 8.9 12.0 - 03/22 [place] 16.0 [facility] HEMATOLOGY RBC 2.87 4.20 - 03/22 [place] 5.40 /2017 [facility] HEMATOLOGY Hct 27.5 36.0 - 03/22 [place] 48.0 [facility] HEMATOLOGY WBC 5.7 3.7 - 10.4 03/22 [facility] BLOOD BANK Antibody Scrn Negative 03/21 [place] RESULTS (03/21/18 11:05 AM) /2017 [facility] BLOOD BANK ABO/Rh B POS 03/21 [place] RESULTS /2017 [facility] HEMATOLOGY Macrocyte 1+ None Seen 03/21 [place] *ABN* /2017 Medical (03/21/18 5:53 AM) Cente r HEMATOLOGY Monocytes # 0.4 0.0 - 0.8 03/21 [place] [facility] HEMATOLOGY Eosinophils # 0.2 0.0 - 0.5 03/21 [place] [facility] HEMATOLOGY Lymphocytes # 1.2 1.0 - 5.5 03/21 [place] [facility] HEMATOLOGY Neutrophils # 3.6 1.5 - 8.1 03/21 [place] [facility] HEMATOLOGY Basophils 0.4 0.0 - 1.0 03/21 [facility] HEMATOLOGY Eosinophils 3.8 0.0 - 4.0 03/21 [place] [facility] HEMATOLOGY Lymphocytes 21.9 20.0 - 03/21 [place] 40.0 [facility] HEMATOLOGY Monocytes 8.2 2.0 - 12.0 03/21 [facility] HEMATOLOGY Segs 65.7 45.0 - 03/21 [place] 75.0 [facility] HEMATOLOGY MPV 7.8 7.4 - 10.4 03/21 [facility] HEMATOLOGY RDW 17.0 11.5 - 03/21 [place] 14.5 [facility] HEMATOLOGY Platelet 156 133 - 450 03/21 [facility] HEMATOLOGY MCHC 31.1 32.0 - 03/21 [place] 36.0 [facility] HEMATOLOGY MCH 31.6 27.0 - 03/21 [place] 31.0 [facility] HEMATOLOGY MCV 101.8 80.0 - 03/21 [place] 98.0 [facility] HEMATOLOGY Hct 31.1 36.0 - 03/21 [place] 48.0 [facility] HEMATOLOGY Hgb 9.7 12.0 - 03/21 [place] 16.0 [facility] HEMATOLOGY RBC 3.05 4.20 - 03/21 [place] 5.40 /2017 [facility] HEMATOLOGY WBC 5.5 3.7 - 10.4 03/21 [facility] CHEM PANEL Phosphorus 4.0 2.5 - 4.5 03/20 2017 [facility] CHEM PANEL Magnesium Lvl 3.3 1.8 - 2.4 03/20 [facility] HEMATOLOGY Polychrom Slight 03/20 [facility] HEMATOLOGY Eosinophils # 0.2 0.0 - 0.5 03/20 [facility] HEMATOLOGY Monocytes # 0.8 0.0 - 0.8 03/20 [facility] HEMATOLOGY Lymphocytes # 1.1 1.0 - 5.5 03/20 [facility] HEMATOLOGY Eosinophils 3.2 0.0 - 4.0 03/20 [facility] HEMATOLOGY Monocytes 10.0 2.0 - 12.0 03/20 [facility] HEMATOLOGY Neutrophils # 5.6 1.5 - 8.1 03/20 [facility] HEMATOLOGY Basophils 0.6 0.0 - 1.0 03/20 [facility] HEMATOLOGY Lymphocytes 14.1 20.0 - 03/20 [place] 40.0 [facility] HEMATOLOGY Segs 72.1 45.0 - 03/20 [place] 75.0 [facility] HEMATOLOGY Plt Morph Normal 03/20 [facility] (03/20/18 4:37 AM) [facility] CHEM PANEL Phosphorus 3.4 2.5 - 4.5 03/[address] [place] [address] CHEM PANEL Magnesium Lvl 3.4 1.8 - 2.4 03/19 [facility] [place] /2018 [facility] CHEM PANEL Lactic Acid 0.7 0.5 - 2.2 03/19 [place] [facility] HEMATOLOGY G-value Rapid 10.7 5.0 - 11.6 03/19 [place] [facility] HEMATOLOGY ACT (TEG) 105 86 - 118 03/19 [facility] Rapid [facility] HEMATOLOGY [place] 0.5 03/19 [place] Rapid [facility] HEMATOLOGY R-time Rapid 0.6 0.4 - 0.7 03/19 [place] [facility] HEMATOLOGY K-time Rapid 0.8 0.6 - 2.3 03/19 [place] [facility] HEMATOLOGY Angle Rapid 80 64 - 80 03/19 [facility] HEMATOLOGY Max Amplitude 68 52 - 71 03/19 [place] Rapid [facility] HEMATOLOGY Estimated % 0.3 0.0 - 7.5 03/19 [place] L[place] [facility] Culture: 10,000 - 03/19 [facility] Urine 50,000 [facility] CFU/mL Center Skin [place] URINE AND UA Turbidity Slight Cloudy Clear 03/19 [facility] STOOL (03/19/18 2:33 AM) /[facility] [place] URINE AND UA Color Yellow Yellow 03/19 [facility] STOOL *NA* /2017 [facility] (03/19/18 2:33 AM) [place] URINE AND UA Spec Grav 1.020 <=1.030 03/19 [facility] STOOL [facility] URINE AND UA Nitrite Negative Negative 03/19 [facility] STOOL (03/19/18 2:33 AM) [facility] URINE AND UA pH 6.0 5.0 - 8.0 03/19 [facility] STOOL [facility] URINE AND UA Trans Epi 0-2 03/19 [facility] STOOL *ABN* /2017 Medical (03/19/18 2:33 AM) Center URINE AND UA Bacteria Few /HPF None Seen 03/19 [place] ST[place]OL /HPF /2017 [facility] Center URINE AND UA Sq Epi Few /LPF Few /LPF 03/19 [facility] STOOL [facility] Center URINE AND UA WBC 51-100 None Seen 03/19 [facility] STOOL /HPF /HPF /2017 [facility] URINE AND UA RBC 21-50 0 - 2 03/19 [place] STOOL /HPF /2017 Medical Center URINE AND UA WBC Cast 0-2 /LPF None Seen 03/19 [place] ST[place]OL /LPF /2017 [facility] URINE AND UA Ketones Trace Negative 03/19 [facility] *ABN* [facility] (03/19/18 2:33 AM) [place] URINE AND UA Glucose Negative Negative 03/19 [facility] (03/19/18 2:33 AM) /2017 Medica l Center URINE AND UA Blood Large Negative 03/19 [facility] *ABN* [facility] (03/19/18 2:33 AM) [place] URINE AND UA Bili Negative Negative 03/19 [facility] *NA* [facility] (03/19/18 2:33 AM) [place] URINE AND UA Protein 100 mg/dL Negative 03/19 [facility] mg/dL [facility] URINE AND UA Leuk Est Large Negative 03/19 [facility] *ABN* [facility] (03/19/18 2:33 AM) [place] URINE AND UA 0.2 0.1 - 1.0 03/19 [facility] Urobilinogen /2018 [facility] Pathology Reports No Data Provided for This Section Diagnostic Reports Report Value Date Source Abdomen/Pelvis wo IV EXAM: CT ABDOMEN AND PELVIS WITHOUT CONTRAS T 03/22/2018 [facility] [place] [facility] contrast CT DATE: 03/22/2018 11:47 AM GENERAL EDUCATION PROFESSOR Ce nter INDICATION: - diffuse abd pain, [...] EXAM: XR RIGHT SHOULDER 3 VIEWS 03/19/2018 [facility] [place] [facility] DATE: 03/19/2018 at 1050 hours Ce [...] DX EXAM: XR PELVIS 1 VIEW 03/19/2018 [facility] [place] [facility] DATE: 03/19/2018 1026 hours Cente r [...] EXAM: XR RIGHT ELBOW 3 VIEWS 03/19/2018 [facility] DATE: 03/19/2018 at 1041 hours Ce [...] EXAM: XR LEFT ELBOW 3 VIEWS 03/19/2018 [facility] [place] [facility] DATE: 03/19/2018 at 1033 hours Ce [...] EXAM: XR RIGHT WRIST 4 VIEWS 03/19/2018 [facility] DATE: 03/19/2018 at 1039 hours Ce nter [...] Chest/Abdomen/Pelvis EXAM: CT CHEST WITHOUT CONTRAST 03/19/2018 [facility] IV contrast CT EXAM: CT ABDOMEN AND [...] ABDOMEN AND PELVIS WITHOUT CONTRA ST 03/19/2018 [facility] CT DATE: 03/19/2018 2:18 AM GENERAL EDUCATION PROFESSOR Cent er INDICATION: Following trauma transfer request for outside film interpretation of the abdomen and pelvis without contrast performed on 03/18/2018 at 2159 hours from [facility]. COMPARISON: None TECHNIQUE: Volumetric CT of the [...] Comments Source Systolic (mm Hg) 130 03/24/2018 [facility] Diastolic (mm Hg) 74 03/24/2018 [facility] Respitory Rate 18 03/24/2018 [facility] Heart Rate 80 03/24/2018 [facility] Respitory Rate 18 03/24/2018 [facility] Heart Rate 81 03/24/2018 [facility] Systolic (mm Hg) 123 03/24/2018 [facility] Diastolic (mm Hg) 70 03/24/2018 [facility] Temperature Oral (F) 98.1 F 03/24/2018 [facility] [place] Heart Rate 72 03/24/2018 [facility] Systolic (mm Hg) 131 03/24/2018 [facility] Diastolic (mm Hg) 76 03/24/2018 [facility] Respitory Rate 18 03/24/2018 [facility] Temperature Oral (F) 98.2 F 03/24/2018 [facility] [place] Temperature Oral (F) 99.2 F 03/24/2018 [facility] [place] Weight 104.091 03/19/2018 [facility] Height 160.02 cm 03/19/2018 [facility] BMI Calculated 40.65 03/19/2018 [facility] Encounters Location Location Encounter Encounter Reason Attending ADM DC Stat us Source Details Type Number For Provider Date Date Visit [facility] [id number] Raquel 03/19 03/24 Perez Callesd /2017 [facility] Procedures Procedure Code Date Perfomer Comments Source Fluoroscopy and [id number] [facility] urethral stent [facility] Implantation of [id number] [facility] joint prosthesis of Medic al shoulder joint Center Assessment and Plan Assessment and Plan Date Source Extracted from:Title: Progress Note [facility] Author: Micah Hightower MD Date: 03/23/18 Abdominal [...] touch base with Dr. Melgar, PCP in [place] to get baseline labs and get a sense of what this patient is like. Per them, patient comes in infrequentl y, mostly to get abx for "recurrent UTI" . They said she has been receiving most of her care over the last year at [facility] and [facility]. Cr 1.02 in 2016. Hyperkalemia Given 1 [...] H&P Author: Alejandro Conway MD Date: 03/19/18 [facility] History and Physical Date of [...] by: Eduardo Crystal MD Signed AT: 03/18/18 6407 Assessment and Plan: Patient is a 72 [...] History Date Source Social History TypeResponse 03/19/2018 [facility] Substance Abuse Use: None. Alcohol Never Smoking [...]
--- OUTSIDE RECORDS SUMMARY | 2020-04-23 12:09 | XMS REPORT ---
:1945 Author Organization [facility] Address [address] [place] [place] [address] Care Team Providers Name Role Phone Melgar Unavailable [phone] PROBLEMS Type Condition ICD9-CM [id number] Onset Condition SNOMED Code Notes Code Code Dates Status Problem Anemia in chronic D63.8 Active 617283091 illness Problem Unsteady gait R26.81 Active 37479103 Problem Renal disease N28.9 Active 15173167 Problem Osteoarthritis, M15.9 Active 609430867 multiple sites Problem Adrenal gland D49.7 Active 714052644 neoplasm Problem Degeneration of M51.37 Active 59497751 lumbosacral intervertebral disc Problem Other chronic pain G89.29 Active 53979327 Problem DJD (degenerative M19.90 Active 686558773 joint disease) Problem Urinary R32 Active 668311474 incontinence Problem Chronic kidney N18.3 Active 579921103 disease, stage III (moderate) Problem Symptomatic E89.41 Active 354235751 postsurgical menopause Problem Controlled type 2 E11.9 Active 967586189 diabetes mellitus without complication, without long-term current use of insulin Problem Irritable bladder N32.89 Active 444719004 Problem Bladder pain R39.89 Active 53551470 Problem Kidney stone N20.0 Active 96725521 Problem Frequent UTI N39.0 Active 877135517 Problem Kidney stones N20.0 Active 76706500 Problem Acute cystitis with N30.01 Active 24372917 hematuria Problem Obesity E66.9 Active 674997152 Problem Nephrolithiasis N20.0 Active 15397834 Problem Chronic generalized R52 Active 17726521 pain Problem Diabetes E11.9 Active 551114152 Problem Frequent falls R29.6 Active 646202261 Problem Gastroesophageal K21.9 Active 292913774 reflux disease, esophagitis presence not specified Problem Hypertensive I16.0 Active 054199043 urgency Problem Primary M17.0 Active 318035403 osteoarthritis of both knees ALLERGIES No Known Allergies ENCOUNTERS from 1945 to 2020-04-22 Encounter Location Date Provider Diagnosis [facility] [address] [facility] Apr, Farideh Ortiz pital discharge Family Medicine [address], follow- up Z09 ; [place] [id number] Influenzal pne umonia J11.00 ; Acute bronchitis due to other sp ecified organisms J20.8 ; Nephrolithiasis N20.0 and Chronic kidney disease, stage III (mode rate) N18.3 IMMUNIZATIONS No Information SOCIAL HISTORY Tobacco Use: Social History Observation Description Date Details (start date - stop date) Never Smoker Sex Assigned At : Social History Observation Description Sex Assigned At Unknown Tobacco Use/Smoking Question Answer Notes Are you a never smoker REASON FOR REFERRAL No Information VITAL SIGNS No information MEDICATIONS Medication SIG (Take, Route, Notes Start Date End Date Status Frequency, Duration) Pantoprazole Sodium 40 1 tablet Orally Once a Active MG day for 90 day(s) Pyridium 100 MG 2 tablets Orally Three Active times a day after meals for 2 day(s) Nystatin 384797 UNIT/GM 1 application to Unknown affected area Externally Twice a day Methocarbamol 500 MG 1 tablet Orally every Unknown 8 hrs Bactrim DS 800-160 MG 1 tablet Orally Twice 14 Jun, 2018 Active a day for 7 days Benzonatate 200 MG 1 capsule as needed Apr,Apr Active Orally two times a day prn cough for 15 days HydrALAZINE HCl 25 MG 1 tablet with food Active Orally Three times a day ( hold if BP less 150/90 for 30 day(s) Albuterol Sulfate HFA 2 puffs Inhalation Apr, Active 108 (90 Base) MCG/ACT every 6 hours prn sob for 30 days Zofran 4 MG as directed Orally Dec, Act radha Twice a day for 10 days Pantoprazole Sodium 40 1 tablet Orally Once a Active day for 30 days HydrALAZINE HCl 25 1 tablet with food Active Orally Three times a day ( hold if BP less 150/90 for 30 Prolia 60 MG/ML as directed September, Active Subcutaneous every 6 months PROCEDURES No Information RESULTS No Results REASON FOR VISIT Hospital f/u. [facility]. [phone]. , Telephone Only Visit MEDICAL (GENERAL) HISTORY Type Description Date Medical History Diabetes Medical History Obesity Medical History Osteoarthritis, multiple sites Medical History Chronic generalized pain Medical History DJD (degenerative joint disease) Medical History Degeneration of lumbosacral intervertebr al disc Medical History Anemia in chronic illness Medical History Symptomatic postsurgical menopause Medical History Bladder pain Medical History Renal disease Medical History Urinary incontinence Medical History Irritable bladder Medical History UTI (lower urinary tract infection) Surgical History back surgery Surgical History breast augmentation Surgical History appendectomy Surgical History cholecystectomy Surgical History hysterectomy Surgical History complicated bladder surgery Goals Section No Information Health Concerns No Information MEDICAL EQUIPMENT No Information MENTAL STATUS No Information FUNCTIONAL STATUS No Information ASSESSMENTS Encounter Date Diagnosis Assessment Treatment Notes Treatment Notes Clinical Notes Apr, Hospital discharge hospital /previous follow-up (ICD-10 - labs/ records Z09) reviewed labs imaging and plan discussed with patient all questions answered to best of my knowledge. medications reviewed, documented and reconciled. Apr, Influenzal pneumonia -The flu is very (ICD-10 - J11.00) contagiuos so take every precaution to prevent the spread of illnes s. - You remain contagious until you start geting better and if you have fever you are still contagious until is is gone for 24 hours no on tylenol or ibuprofen. As you are getting better, your immune systems has cleared the virus , and the rest is your body healing. The last symptoms to resolve are cough and fatigue. -Make sure to take Tamiflu as prescribed. Treat your symptoms or any fever with otc medications as directed. Get plenty of rest and stay well hydrated with fluids. . - recommend annual flu vaccine in --- completed course of tamiflu if any worsening symptoms or dev of sob please go to ER, wear a mask, social distancing and good hand washing hygiene Apr, Acute bronchitis due Take any cough to other specified medications given organisms (ICD-10 - as prescribed. J20.8) Take otc mucinex to help loosen an chest congestion and take with plenty of water. Use cool mist vaporizer/inhaler/ or nebulizer as directed. See educational handout . Apr, Nephrolithiasis increase water (ICD-10 - N20.0) intake stay hydrated continue f/u with urology / nephrology Apr, Chronic kidney will monitor disease, stage III kidney function. - (moderate) (ICD-10 - Avoid NSAIDs ( N18.3) such as ibuprofen, motrin, aleive) - Hydrate your kidneys by drinking plenty of water. Apr, Other -- Medications Total time sp ent reviewed and by provider updated. -- during this Dietary and telephone visit Lifestyle was 21 minutes . modifications Also, time was discussed with spent group counselor ing patient regarding and coordi nating low fat low salt care includ ing diet diet, but not limited exercise and to discussion o f weight management. test resu lts, -- Treatment diagnostic or options, risks and treatment benefits, side recommendatio ns, effects reviewed prognosis, risks in detail. Patient and benef its of accepts risk. -- management Advised on options, signs/symptoms to instructio ns, monitor and when education, to call clinic compliance an d or and/or visit the risk reduct ion. nearest ER. Patient verbalized understanding and agreed with plan. counseling and coordinating care including but not limited to discussion of test results, diagnostic or treatment recommendations, prognosis, risks and benefits of management options, instructions, education, compliance and or risk reduction. PLAN OF TREATMENT Medication Medication Name Sig Start Date Stop Date Benzonatate 200 MG 1 capsule as needed Orally Apr, Apr, two times a day prn cough for 15 days Albuterol Sulfate HFA 108 (90 2 puffs Inhalation every 6 Apr, Base) MCG/ACT hours prn sob for 30 days Treatment Notes Assessment Notes Clinical Notes Hospital discharge follow-up hospital /previous labs/ record s reviewed labs imaging and plan discussed with patient all questions answered to best of my knowledge. medications reviewed, documented and reconciled. Influenzal pneumonia -The flu is very contagiuos so take every precaution to prevent the spread of illness.- You remain contagious until you start geting better and if you have fever you are still contagious until is is gone for 24 hours no on tylenol or ibuprofen. As you are getting better, your immune systems has cleared the virus , and the rest is your body healing. The last symptoms to resolve are cough and fatigue.-Make sure to take Tamiflu as prescribed.Treat your symptoms or any fever with otc medications as directed. Get plenty of rest and stay well hydrated with fluids. .- recommend annual flu vaccine in --- completed course of tamiflu if any worsening symptoms or dev of sob please go to ER, wear a mask, social distancing and good hand washing hygiene Acute bronchitis due to other Take any cough medications giv en specified organisms as prescribed. Take otc mucinex to help loosen an chest congestion and take with plenty of water. Use cool mist vaporizer/inhaler/or nebulizer as directed.See educational handout . Nephrolithiasis increase water intake stay hydrated continue f/u with urology / nephrology Chronic kidney disease, stage III will monitor kidney functi on. - (moderate) Avoid NSAIDs ( such as ibuprofen, motrin, aleive) - Hydrate your kidneys by drinking plenty of water. Next Appt Details 2 Weeks prn TA visit Reason: Insurance Providers Payer Name Payer Address Payer Insured Patient Coverage Cover age End Phone Name Relationship to Start Date Ricardo e Insured [employer] [address] [address] [phone] Parisa Flores self 2019 [employer] [address] [phone]
--- OUTSIDE RECORDS SUMMARY | 2020-04-23 12:09 | XMS REPORT | Continuity of Care Document ---
:1945 Author Organization [facility] t Address [address] [place] [address] Care Team Providers Name Role Phone Asked, Given Primary Care Physician Unavailable Sherin Daly Attending Clinician Pop Amador Admitting Clinician Problems Condition Condition Condition Status Onset Resolution Last Treating Co mments Source Name Details Category Date Date Treatment Clinician Date SUBCAPSULA Diagnosis Active 2017-052018-03-19 Memoria R HEMATOMA 08 04:22:00 l ON LEFT 00:00: Kimo KIDNEY SUBCAPSULA 00 R HEMATOMA ON LEFT KIDNEY Active 03/18/2018 [facility] CLOSED Diagnosis Active 2017-052018-08-03 Mem oria HEMATOMA 08 19:57:00 l ON LEFT CLOSED 00:00: [place] KIDNEY HEMATOMA 00 ON LEFT KIDNEY Active 03/18/2018 [facility] Renal Renal Disease Active 2017-05 Overview: calculus calculus 0-19 Added Kenny o 00:00: automatic n 00 ally from request for surgery [id number] 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 Overview : iasis iasis 0-02 Added Anderso 00:00: automatic n 00 ally from request for surgery [id number] Urinary Urinary Disease Active tract tract 8-22 Anderso infection infection 00:00: n caused by caused by 00 Enterococc Enterococc us us Numbness Numbness Disease Active MD of face of face 8-22 Anderso 00:00: n 00 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 00:00: n of skin of of skin of 00 cheek cheek Cellulitis Cellulitis Disease Active M D of face of face 8-17 Anderso 00:00: n 00 Chronic Chronic Disease Active kidney kidney 7-27 Anderso disease disease 00:00: n 00 Pyelonephr Pyelonephr Disease Active M D itis itis 7- Anderso 00:00: n 00 Bladder Bladder Disease Active Overview: muscle muscle 3-16 Added Anderso dysfunctio dysfunctio 00:00: automatic n n - n - 00 ally from overactive overactive request for surgery [id number] Fracture Fracture Disease Active 2016-05 [place] on of knee of knee 0-04 Methodi prosthesis prosthesis 00:00: st 00 Chronic Chronic Disease Active pain pain 9-25 Anderso 00:00: n 00 Metabolic Problem 2018-10-11 Me moria encephalop 17:48:14 l athy [place] Metabolic encephalop athy 9 [facility] Acute Problem 2018-10-11 Memor ia kidney 17:48:14 l failure, Acute Kimo unspecifie kidney d failure, unspecifie d 10/11/2018 [facility] Unspecifie Problem 2018-10-11 M emoria d fall, 17:48:14 l initial [place] encounter Unspecifie d fall, initial encounter 10/11/2018 [facility] Hyperkalem Problem 2018-10-11 M emoria ia 17:48:14 l Kimo Hyperkalem ia 10/11/2018 [facility] Gross Problem 2018-10-11 Memor ia hematuria 17:48:14 l Gross [place] hematuria 10/11/2018 [facility] Chronic Problem 2018-10-11 Feng leonela kidney 17:48:14 l disease, Chronic Lisa nn unspecifie kidney d disease, unspecifie d 10/11/2018 [facility] Adverse Problem 2018-10-11 Feng leonela effect of 17:48:14 l other Adverse [place] drugs, effect of medicament other s and drugs, biological medicament substances s and , initial biological encounter substances , initial encounter 10/11/2018 [facility] Type 2 Problem 2018-10-11 Memor ia diabetes 17:48:14 l mellitus Type 2 Tim n with diabetes hyperglyce mellitus lynsey with hyperglyce lynsey 10/11/2018 [facility] Personal Problem 2018-10-11 Mem oria history of 17:48:14 l urinary Personal Lisa nn (tract) history of infections urinary (tract) infections 10/11/2018 [facility] 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 Me moria (current) 17:48:14 l use of Long Kimo insulin term (current) use of insulin 10/11/2018 [facility] MINOR Diagnosis Active 2018-08-03 Mem oria CONTUSION 19:57:00 l OF LEFT MINOR [place] KIDNEY, CONTUSION INITIAL OF LEFT KIDNEY, INITIAL Active [facility] Minor Problem 2017-052018-10-11 2018-10-11 M emoria contusion 06-01 17:48:14 17:48:14 l of left Minor 04:00: Kimo kidney, contusion 46 initial of left encounter kidney, initial encounter 04/01/2018 10/11/2018 [facility] Allergies, Adverse Reactions, Alerts Allergy Allergy Status Severity Reaction(s) Onset Inactive Treating Comm ents Source Name Type Date Date Clinician No Known No Known Active Memori a Medicati Medicati l on on Kimo Allergie Allergie s s Family History Family Member Diagnosis Comments Start Date Stop Date Source Natural brother Lung cancer MD Vasquez son Natural father Lung cancer MD Cox on Natural son -Head and Neck MD Cox on Social History Social Habit Start Date Stop Date Quantity Comments Source Sex Assigned At MD [facility] on Tobacco use and 2018-06-14 2018-06-14 Never used MD Cox on exposure 00:00:00 00:00:00 Alcohol intake 2018-06-14 2018-06-14 Current MD Katharine cee 00:00:00 00:00:00 non-drinker of alcohol (finding) Social History 2018-03-19 2018-03-19 [facility] 12:15:50 12:15:50 Smoking Status Start Date Stop Date Source Never smoker MD Fry Medications Ordered Filled Start Stop Current Ordering Indication Dosage Frequency Signature Comments Components Source Medication Medication Date Date Medication? Clinician (SIG) Name Name Marcellus Germain Yes Na Melgar [facility] l [facility] Clinics Prolia Prolia Yes Na Melgar as [facility] 00:[facility]: Memoria 00 l [facility] Clinics Bactrim DS Bactrim DS Yes Na Melgar [address] [facility]14 [facility] - 00:00: Memoria 00 l [facility] hyoscyamine Yes Renal .125mg Dissolve 1 MD [...] 2017-05 Yes PO, Daily, Memoria e glycol 14 0 l 3350 oral 19:18: Refill(s) Her cordoba powder for 00 reconstitut ion Menthol 2017-05 Yes 0 Memoria 0.0044 14 Refill(s) l MG/MG / 19:18: Kimo Zinc Oxide 00 0.2 MG/MG Topical Ointment Lidocaine 2017-05 Yes 1 patch, Feng leonela Hydrochlori 14 TOP, Q24H, l de 0.05 19:18: 0 Kimo MG/MG 00 Refill(s) Transdermal Patch [Lidoderm] heparin 2017-05 Yes 5,000 unit Feng leonela 14 = 1 mL, l 19:18: SUB-Q, [place] 00 Q8H, 0 Refill(s) Docusate 2017-05 Yes 100 mg = 1 Mem oria Sodium 100 05-24 cap, PO, l MG Oral 19:18: BID, PRN Tim n Capsule 00 Constipati on, 0 Refill(s) Acetaminoph 2017-05 Yes 1,000 mg = Memoria en 500 MG 05-24 2 tab, PO, l Oral Tablet 19:18: Q6H, 0 Herm gisselle 00 Refill(s) Tramadol 2017-05 No Notes: Not Mem oria 05-22 to exceed l 17:40: 400mg/day. [place] 00 (Same As: Ultram) Dilaudid 2017-05 No Notes: Memoria 05-22 Same as l 17:31: Dilaudid Calmoseptin 2017-05 No Notes: Feng leonela e 05-22 (Same as: l 08:09: Calmosepti ne) heparin 2017-05 No Notes: Memoria 05-22 porcine l 04:00: heparin cefepime 2017-05 No Notes: Memoria 05-21 (Same As: l 22:00: Maxipime) MEDICATION WASTE Product Size: 1000 mg Product Wasted: ___ mg Neurontin 2017-05 No Notes: Memori a 05-21 (Same as: l 15:00: Neurontin) Naproxen 2017-05 No 500 mg, Memori a 05-21 Route: PO, l 15:00: Q12H, kg, [place] 00 Start date: 03/21/18 9:00:00 RESEARCH AND DEVELOPMENT TECHNICIAN, Duration: 30 day, Stop date: 04/19/18 21:00:00 RESEARCH AND DEVELOPMENT TECHNICIAN Kayexalate 2017-05 No Notes: Memor ia 05-21 (sodium l 14:14: polystyren e sulfonate 15 gm/60 ml ROCKY) Shake well before use. (Same as: Kayexalate , SPS) gabapentin 2017-05 No 300 mg, Feng leonela 05-21 Route: PO, l 14:00: Q8H, kg, Start date: 03/21/18 8:00:00 RESEARCH AND DEVELOPMENT TECHNICIAN, Duration: 30 day, Stop date: 04/20/18 0:00:00 RESEARCH AND DEVELOPMENT TECHNICIAN Ciprofloxac 2017-05 No Notes: May Memoria in 1-11 interfere l 12:00: w/enteral feedings - Take 1 hr before or 2 hrs after antacids, dairy pdt & minerals. On empty stomach. Enoxaparin 2017-05 No Notes: Memor ia 05-21 (Same as: l 03:00: Lovenox) Insulin 2017-05 No 60 Memoria regular 1-10 units) l 17:20: WASTE: F/P Kimo 00 - Black; E - Municipal Trash Bin Stable for 28 days at room temperatur e Expires in days from ____Date d50 syringe 2017-05 No 25 gm, 50 M emoria 1-10 mL, Route: l 16:30: IV, Drug Form: INJ, Dosing Weight 104.091, kg, ONCE, Start date: 03/20/18 10:30:00 RESEARCH AND DEVELOPMENT TECHNICIAN, Stop date: 03/20/18 10:30:00 RESEARCH AND DEVELOPMENT TECHNICIAN Insulin 2017-05 No 10 unit, Memori a regular 05-20 Route: l 16:30: SUB-Q, ONCE, Dosing Weight 104.091, kg, Start date: 03/20/18 10:30:00 RESEARCH AND DEVELOPMENT TECHNICIAN, Stop date: 03/20/18 10:30:00 RESEARCH AND DEVELOPMENT TECHNICIAN Miralax 2017-05 No Notes: Memoria -10 Dissolve l 15:00: in 8 oz of water or juice. (Same as: Miralax) Calcium 2017-05 No Notes: Memoria Gluconate 05-20 WASTE: F/P l 14:40: - Sink; E - Municipal Trash Bin Ciprofloxac 2017-05 No Notes: Do M emoria in -10 not l 10:10: refrigerat Kimo 00 e remove 2017-05 No 1 patch, Memoria patch 05-19 Route: l 23:00: TOP, Q24H, Drug form: ERFILM, Start date: 03/19/18 17:00:00 RESEARCH AND DEVELOPMENT TECHNICIAN, Duration: 30 day, Stop date: 04/17/18 17:00:00 RESEARCH AND DEVELOPMENT TECHNICIAN celecoxib 2017-05 No 200 mg, Memor ia 05-19 Route: PO, l 15:00: Q12H, kg, [place] For patients LESS than 75 years old. Hold in all patients if CrCl < 30 mL/min, Start date: 03/19/18 9:00:00 RESEARCH AND DEVELOPMENT TECHNICIAN, Duration: 48 hr, Stop date: 03/20/18 21:00:00 RESEARCH AND DEVELOPMENT TECHNICIAN Streptococc 2017-05 No Notes: Feng leonela us 05-19 Shake well l pneumoniae 12:24: prior to Her cordoba serotype 1 45 use (Same capsular as: antigen Prevnar diphtheria 13) [id number] protein conjugate vaccine / Streptococc us pneumoniae serotype 14 capsular antigen diphtheria [id number] protein conjugate vaccine / Streptococc us pneumoniae serotype 18C capsular antigen d influenza 2017-05 No Notes: Memori a virus 05-19 (Same as: l vaccine, 12:24: Fluzone Tim n inactivated 28 High-Dose) high-dose For 65 preservativ years of e-free age of intramuscul older (0.5 ar ml IM) suspension Shake well before use Lyrica 2017-05 No Notes: Memoria 05-19 (Same as: l 12:21: Lyrica) [place] 00 Acetaminoph 2017-05 No Notes: Max Memoria en 05-19 acetaminop l 12:00: hen 4000 [place] 00 mg/day (4 gm/day). (Same as: Tylenol Extra Strength) Insulin 2017-05 No 60 Memoria regular 05-19 units) l 11:19: WASTE: F/P [place] 00 - Black; E - Municipal Trash Bin Stable for 28 days at room temperatur e Expires in days from ____Date Dextrose 2017-05 No 25 gm, 50 Feng leonela 50% Syringe 05-19 mL, Route: l 11:19: IVP, Drug Kimo 00 Form: INJ, kg, PRN, PRN Blood Glucose Results, Start date: 03/19/18 5:19:00 RESEARCH AND DEVELOPMENT TECHNICIAN, Duration: 30 day, Stop date: 04/18/18 5:18:00 RESEARCH AND DEVELOPMENT TECHNICIAN Glucagon 2017-05 No 1 mg, Memoria 05-19 Route: IM, l 11:19: Drug form: Kimo 00 PDR/INJ, PRN, kg, PRN Blood Glucose Results, Start date: 03/19/18 5:19:00 RESEARCH AND DEVELOPMENT TECHNICIAN, Duration: 30 day, Stop date: 04/18/18 5:18:00 RESEARCH AND DEVELOPMENT TECHNICIAN PlasmaLyte 2017-05 No Notes: Memor ia A [...] Memoria 05-19 Route: l 10:28: IVP, Drug [place] form: INJ, ONCE, kg, Priority: STAT, Start date: 03/19/18 4:28:00 RESEARCH AND DEVELOPMENT TECHNICIAN, Stop date: 03/19/18 4:28:00 RESEARCH AND DEVELOPMENT TECHNICIAN Morphine 2017-05 No 4 mg, Memoria 05-19 Route: l 10:28: IVP, ONCE, [place] 00 kg, Priority: STAT, Start date: 03/19/18 4:28:00 RESEARCH AND DEVELOPMENT TECHNICIAN, Stop date: 03/19/18 4:28:00 RESEARCH AND DEVELOPMENT TECHNICIAN PlasmaLyte 2017-05 No Notes: Memor ia A PH-7.4 05-19 (Same as: l 1,000 mL 10:10: Isolyte S Herm gisselle 00 PH 7.4) Bisacodyl 2017-05 No Notes: Memori a 05-19 (Same As: l 10:08: Dulcolax, [place] 00 Correctol) (Do Not Crush) "Do Not Crush" Docusate 2017-05 No Notes: Memoria 05-19 (Same as: l 10:08: Colace) Kimo 00 (Do Not Crush) Oxycodone 2017-05 No Notes: Memori a Hydrochlori 05-19 (Same as: l de 5 MG 10:06: Roxicodone Herm gisselle Oral Tablet 00 ) Tramadol 2017-05 No Notes: Not Mem oria 05-19 to exceed l 10:06: 400mg/day. Kimo 00 (Same As: Ultram) pregabalin 2017-05 No 100 mg, Fegn leonela 05-19 Route: PO, l 10:06: Q8H, kg, [place] 00 Priority: NOW, Start date: 03/19/18 4:06:00 RESEARCH AND DEVELOPMENT TECHNICIAN, Duration: 48 hr, Stop date: 03/21/18 0:00:00 RESEARCH AND DEVELOPMENT TECHNICIAN traMADol 2017-05 Yes Renal 50mg Take 1 MD (ULTRAM) 50 1-05 calculus tablet (50 Anderso mg tablet 00:00: mg) by n 00 mouth every 6 (six) hours as needed for moderate pain. HYDROcodone 2017-05 Yes Nephrolithi 1{tbl} Take 1 MD -acetaminop 0-11 asis tablet by And erso roseann (LoopMe) 00:00: mouth n 5 mg-325 mg 00 [...] [place] -acetaminop 0-12 tablet by Met hodi roseann (LoopMe) 16:52: mouth 2 st 10-325 mg 22 [...] MG capsule 16:52: nightly. st 22 dicyclomine Yes [place] (BENTYL) 10 2-18 Methodi MG capsule 00:00: st 00 Pantoprazol Pantoprazol Yes Na Melgar [address] [facility] e Sodium e Sodium [facility] Nystatin Nystatin Yes Na Melgar [address] [facility] affected [facility] HydrALAZINE HydrALAZINE Yes Na Melgar [address] [facility] [facility] HCl HCl with food [facility] Pyridium Pyridium Yes Na Melgar [address] [facility] Methocarbam Methocarbam Yes Na Melgar [address] [facility] Immunizations Ordered Immunization Filled Immunization Date Status Commen ts Source Name Name JODI GARDNER 2017-02-18 Completed [place] 00:00:00 [facility] Vital Signs Vital Name Observation Time Observation Value Comments Source Systolic (mm Hg) 2018-03-24 18:37:00 Feng rial Kim[place] Diastolic (mm Hg) 2018-03-24 18:37:00 Mem orial [place] Respitory Rate 2018-03-24 18:37:00 Memori al [place] Heart Rate 2018-03-24 18:37:00 [facility] [place] Respitory Rate 2018-03-24 14:41:00 Memori al [place] Heart Rate 2018-03-24 14:41:00 Memorial [place] Systolic (mm Hg) 2018-03-24 14:41:00 Feng rial [place] Diastolic (mm Hg) 2018-03-24 14:41:00 Mem orial [place] Temperature Oral (F) 2018-03-24 09:36:00 98.1 F Memorial [place] Heart Rate 2018-03-24 09:36:00 [facility] [place] Systolic (mm Hg) 2018-03-24 09:36:00 Feng rial [place] Diastolic (mm Hg) 2018-03-24 09:36:00 Mem orial [place] Respitory Rate 2018-03-24 09:36:00 Memori al [place] Temperature Oral (F) 2018-03-24 05:54:00 98.2 F Memorial Kim[place] Temperature Oral (F) 2018-03-24 01:54:00 99.2 F [facility] [place] Weight 2018-03-19 12:13:00 [facility] [place] Height 2018-03-19 12:13:00 160.02 cm Memorial [place] BMI Calculated 2018-03-19 12:13:00 Memori al [place] Procedures Procedure Date / Time Performed Performing Clinician [facility] e Fluoroscopy and urethral Memoria l [place] stent Implantation of joint [facility] ermann prosthesis of shoulder joint Plan of Care Planned Activity Planned Date Details Comments Source Future Scheduled 2019-12-10 INFLUENZA VACCINE [place] [facility] Test 00:00:00 [code = INFLUENZA VACCINE] Future Scheduled 2012-11-09 65+ PNEUMOCOCCAL [place] [facility] Test 00:00:00 VACCINE (1 of 1 - PPSV23) [code = 65+ PNEUMOCOCCAL VACCINE (1 of 1 - PPSV23)] Future Scheduled 1997-11-09 BREAST CANCER [place] Al [facility]odist Test 00:00:00 SCREENING [code = BREAST CANCER SCREENING] Future Scheduled 1997-11-09 COLONOSCOPY SCREENING [place] [facility] Test 00:00:00 [code = COLONOSCOPY SCREENING] Future Scheduled 1997-11-09 SHINGLES VACCINES (#1) H bozena [facility] Test 00:00:00 [code = SHINGLES VACCINES (#1)] Encounters Start End Encounter Admission Attending Care Care Encounter Source Date/Time Date/Time Type Type Clinicians Facility Department ID 2020-04-18 2020-04-18 Outpatient [facility] [id number] [facility]00 [facility] Outpat[facility] ent Clinics 2019-11-18 2019-11-18 [facility] [id number] [address] 09:00:00 09:00:00 t Biomonde s - [facility] l Medicine Outpati ent Clinics 2019-06-20 2019-06-20 [facility] [id number] 09:35:00 09:35:00 t Propeller LuSunrise s - [facility] l Medicine Outpati ent Clinics 2019-04-04 2019-04-04 [facility] [id number] 15:33:00 15:33:00 t [place]ames[place] [employer] Smart[employer] Physical Luke s - [facility] Family [facility] l Medicine Outpati ent Clinics 2018-12-14 2018-12-14 [facility] [id number] 13:40:00 13:40:00 t [place] [employer] Smart[employer] Physical LuSunrise s - Drive [facility] Family [facility] l Medicine Outpati ent Clinics 2018-09-21 2018-09-21 [facility] [id number] 10:11:00 10:11:00 t [place] [employer] Smartphone Physical LuSunrise s - [facility] Medicine l Medicine Outpati ent Clinics 2018-08-18 2018-08-18 [facility] [id number] 10:46:00 10:46:00 t [place] [employer] Smartphone Physical LuSunrise s - Drive [facility] Family Medicine l Medicine Outpati ent Clinics 2018-08-13 2018-08-13 [facility] [id number] 16:20:00 16:20:00 t [place] SkyeTek s - Drive [facility] Medicine Outpati ent Clinics 2018-06-24 2018-06-24 [facility] [id number] 09:56:00 09:56:00 t [place] [employer]ek s - Drive [facility] Medicine Outpati ent Clinics 2018-05-06 2018-05-06 [facility] [id number] 08:30:00 08:30:00 t Biomonde s - Drive [facility] l Medicine Outpati ent Clinics 2018-04-22 2018-04-22 [facility] [id number] 10:15:00 10:15:00 t Biomonde s - Drive [facility] Medicine Outpati ent Clinics 2018-03-19 2018-03-24 Outpatient [facility] [id number] 01:25:00 14:45:00 Emmy Duff Results Test [...] code = MCH) 31.3 pg 27.0-31.0 Memorial NzlutsdLYEXVJMVZL2244-44-95 11:19:0094.1[facility] HermannHEMATOLOGY 2018-03-23 11:19:0033.2[facility] VnfxluqATCWQSXUKN7100-48-27 11:19:40360Yakjowgs OeymapkNYESVOLKOM2046-16-28 11:19:0016.4[facility] TwcmilcKDXZQGVFPK6546-36-19 11:19:007.3[facility] XffocvqGCRDXWIWZZ8491-10-28 11:19:0026.4[facility] Kimo AMYNQTHXPY9580-95-46 11:19:0060.0[facility] PxsjmsbITQTEHXVDL8609-79-63 11:19:00 28.1[facility] ZydfxehKHOWHWRCKD1677-62-95 11:19:007.9[facility] HermannHEMATOLOGY 2018-03-23 11:19:003.7[facility] ZmgppqhUAOBXSNIDT7948-07-87 11:19:000.2[facility] XuaqdyiZYWFBKUGWY3339-10-36 11:19:000.3[facility] McfkvxfEKLEKYMAVU8820-96-46 11:19:001+ *ABN*(03/23/18 5:19 AM)[facility] BgjzmtsCKUVUMULCI4816-34-90 11:19:00 2.6[facility] KuheowrXJNTGCVMWZ2074-45-73 11:19:001.2[facility] HermannHEMATOLOGY 2018-03-23 11:19:000.3[facility] VfyuasnQMBZGXCHOY2423-96-72 12:58:0016.2[facility] UzmvoltLVRBTTELYT5899-63-28 12:58:83594Jxgmtrtd BpbwajqUCXRTXOUGC2316-78-00 12:58:007.6[facility] OwpbowaZQAHWFUTCE3331-41-89 12:58:0095.8[facility] Kimo FPUHKIHTDZ2126-04-45 12:58:0032.6[facility] QbuqxscIYIEUOPVIL6657-91-00 12:58:00 Test Item Value Reference Range Interpretation Comments MCH (test code = MCH) 31.2 pg 27.0-31.0 Memorial HqelbfgTEINMOPITB5035-85-99 12:58:008.9[facility] HermannHEMATOLOGY 2018-03-22 12:58:002.87[facility] CkikghbFRZHYGTSOT1954-51-57 12:58:0027.5[facility] OwesdwgBKPXBXMDLZ0404-50-38 12:58:005.7[facility] HermannBLOOD BANK RESULTS 2018-03-21 17:05:00Negative (03/21/18 11:05 AM)[facility]annHEMATOLOGY 2018-03-21 11:53:001+ *ABN*(03/21/18 5:53 AM)[facility]ann[facility]MATOLOGY 2018-03-21 11:53:000.4[facility] ZnjanksYZUJNMQXDS5829-35-15 11:53:000.2[facility] AplgglkMDDNSOMWOD0860-95-86 11:53:001.2[facility] BleauulOZWZUYTRYE4473-85-73 11:53:003.6[facility] NynpyxeCSJQSZHMOE3274-39-87 11:53:000.4[facility] [place] VBWNDKQSIQ9691-71-68 11:53:003.8[facility] HimipjaUSBOYVZNUZ9898-96-80 11:53:00 21.9[facility] MdhclamFENTGCUVWG6908-96-61 11:53:008.2[facility] HermannHEMATOLOGY 2018-03-21 11:53:0065.7[facility] QbvxisgHADJGGYHBH9639-06-46 11:53:007.8[facility] AbydahsZDLWHNUGSA7544-86-32 11:53:0017.0[facility] MiqsgudIVXIYUFLQC0034-66-66 11:53:31157Hbhkcvcg WqemzgsJYCKDKPWPG7448-06-27 11:53:0031.1[facility] [place] THBLMZCWUM0621-51-25 11:53:00 Test Item Value Reference Range Interpretation Comments MCH (test code = MCH) 31.6 pg 27.0-31.0 Memorial AfpxayeMULTWJNWSA2900-37-28 11:53:11416.8[facility] HermannHEMATOLOGY 2018-03-21 11:53:0031.1[facility] RegowriSOXRTXJTCS8782-62-37 11:53:009.7[facility] RkehnmeWMTRAIICAQ3668-09-22 11:53:003.05[facility] VqgxyvyDCAUAOESTZ2520-70-60 11:53:005.5[facility] HermannCHEM LTZMH6357-19-87 10:37:004.0[facility] HermannCHEM NNZRT3692-88-05 10:37:003.3[facility] TmldqadOHBHWOEIQZ1688-60-03 10:37:000.2 Memorial HafbgihHBZRAPEPKV5344-18-71 10:37:000.8[facility] HermannHEMATOLOGY 2018-03-20 10:37:001.1[facility] FnmlabmQMVAHPVKZM4710-15-42 10:37:003.2[facility] UagsccrCJNSUICGJO1188-85-87 10:37:0010.0[facility] HdyazaeKOKVPDSQCG9975-52-50 10:37:005.6[facility] HnugozaKWLJFHOQID4330-71-61 10:37:000.6[facility]o TEDBZWKMXM7427-56-96 10:37:0014.1[facility] TdwmjshIRNFMQDQFI4123-21-48 10:37:00 72.1[facility] DlmtofdIAVJPYDMRK7037-85-30 10:37:00Normal (03/20/18 4:37 AM) [facility] HermannCHEM JQCQC8678-97-41 17:45:003.4[facility] HermannCHEM PANEL 2018-03-19 17:45:003.4[facility] HermannCHEM QFXVY6349-23-82 09:31:000.7[facility] NunnbllMUWQRYPKTH3788-04-96 09:31:0010.7[facility] SzhbrkgLNWNRSVZKZ6739-05-27 09:31:00 Test Item Value Reference Range Interpretation Comments ACT (TEG) Rapid (test code = ACT (TEG) 105 s 86-118 Rapid) [facility]hcmffnGGVXTTOIBK0076-18-76 09:31:00 Test Item Value Reference Range Interpretation Comments Split Point Rapid (test code = Split 0.5 min Point Rapid) [facility] SouthZbjylpyHFORTSGJCE2658-39-92 09:31:00 Test Item Value Reference Range Interpretation Comments R-time Rapid (test code = R-time 0.6 min 0.4-0.7 Rapid) [facility] SouthUzygtfjSNGAIOHCVC8907-73-50 09:31:00 Test Item Value Reference Range Interpretation Comments K-time Rapid (test code = K-time 0.8 min 0.6-2.3 Rapid) [facility] SouthXxyeazcNCPLEHSZFS4987-53-18 09:31:00 Test Item Value Reference Range Interpretation Comments Angle Rapid (test code = Angle 80 degrees 64-80 Rapid) [facility] SouthNvkewxmWPOAFIWYZH3763-76-61 09:31:00 Test Item Value Reference Range Interpretation Comments Max Amplitude Rapid (test code = Max 68 mm 52-71 Amplitude Rapid) [facility] SouthVowoxwmQQGNBDUXLR2486-32-34 09:31:000.3[facility] HermannURINE AND STOOL 2018-03-19 08:33:00Slight Cloudy (03/19/18 2:33 AM)[facility]annURINE AND GLUVN0433-91-40 08:33:00Yellow *NA*(03/19/18 2:33 AM)[facility]ann[facility] AND UFWTA4101-96-08 08:33:00 Test Item Value Reference Range Interpretation Comments UA Spec Grav (test code = UA Spec 1.020 1 Grav) [facility] [id number] 08:33:00Negative (03/19/18 2:33 AM) [facility] EGEMM0844-00-06 08:33:00 Test Item Value Reference Range Interpretation Comments UA pH (test code = UA pH) 6.0 1 5.0-8.0 [facility] AND GHXWF7426-87-84 08:33:000-2 *ABN*(03/19/18 2:33 AM) [facility] AND BOGZR7726-76-84 08:33:00Trace *ABN*(03/19/18 2:33 AM) [facility] MUISE1022-76-32 08:33:00Negative (03/19/18 2:33 AM) [facility] LFGTV8149-69-26 08:33:00Large *ABN*(03/19/18 2:33 AM) [facility] AAYTB8057-65-30 08:33:00Negative *NA*(03/19/18 2:33 AM) [facility] OGWFH1323-43-56 08:33:00Large *ABN*(03/19/18 2:33 AM) [facility]ann[facility] AND NPOTL2031-07-03 08:33:000.2[facility] Kimo
[2020-04-23 14:13] LABS: Absolute Lymphocytes (CBC) 1.7 K/uL (0.7-4.9); Basophils % 0.9 % (0-1.3); Hematocrit 39.9 % (36.0-45.0); Lymphocytes % 21.9 % (15.3-44.8); MPV 8.3 fL (7.6-11.3); RBC Red Blood Cell Count 4.18 M/uL (3.86-4.86)
[2020-04-23 14:16] LABS: Arterial Blood Carboxyhemoglob 1.4 % (0-1.5)
[2020-04-23 14:23] LABS: Urine Blood 2+ (NEG); Urine Glucose 1+ (NEG); Urine Protein 2+ (NEG); Urine Specific Gravity 1.015 (1.005-1.030)
[2020-04-23] MEDS ORDERED: NA CHLORIDE 0.9% 500 ML ONE ×2 (14:24→16:12)
--- NOTE | 2020-04-23 14:47 | RAD REPORT ---
EXAM DESCRIPTION: RAD - Chest Single View - 04/23/2020 2:34 pm CLINICAL HISTORY: weakness Chest pain. COMPARISON: Chest Single View dated 03/29/2020; Chest Single View dated 03/18/2018; CHEST SINGLE VIEW dated 01/08/2015; CHEST SINGLE VIEW dated 09/01/2014 FINDINGS: Portable technique limits examination quality. The lungs are grossly clear. The heart is normal in size. Right total shoulder arthroplasty. Hardware plate is present in the cervical spine. IMPRESSION: No acute intrathoracic process suspected.
[2020-04-23 15:57] LABS: ALT/SGPT 10 U/L (12-78); AST/SGOT 9 U/L (15-37); Albumin 2.8 g/dL (3.4-5.0); Alkaline Phosphatase 90 U/L (45-117); BUN Blood Urea Nitrogen 52 mg/dL (7-18); Bicarbonate 21 mmol/L (21-32); Bilirubin Direct 0.1 mg/dL (0-0.2); Bilirubin Total 0.3 mg/dL (0.2-1.0); Glucose Level 373 mg/dL (74-106); Magnesium 2.2 mg/dL (1.8-2.4); NT PRO-BNP 891 pg/mL (<125); Potassium 3.9 mmol/L (3.5-5.1); Protein, Total 8.5 g/dL (6.4-8.2); Sodium Level 133 mmol/L (136-145); Troponin (Emerg Dept Use Only) < 0.02 ng/mL (0.0-0.045)
[2020-04-23 16:05] LABS: Protime INR 1.03
[2020-04-23] MEDS ORDERED: ONDANSETRON 4 MG/2 ML VIAL ONE ×2 (16:12→17:46)
[2020-04-23] MEDS ORDERED: CEFTRIAXONE/SWI 1gm 1 GM/10 ML SYR ONE (17:46)
--- NOTE | 2020-04-23 18:06 | EDPHYS ---
Physician Documentation [facility] Name: Dagmar Flores Age: 74 yrs Sex: Female : 1945 Arrival Date: 04/23/2020 Time: 12:07 Bed 13 Private MD: ED Physician Lui Vanegas HPI: 04/23 13:07 This 74 yrs old Female presents to ER via Wheelchair with complaints of High jmm Blood Sugar. 13:07 The patient or guardian reports hyperglycemia, polydipsia, polyuria. Onset: The jmm symptoms/episode began/occurred gradually. Associated signs and symptoms: Pertinent positives:. Current symptoms: In the emergency department the patient's symptoms are unchanged from the initial presentation. This is a 74 year old female with a history of ckd, fibromyalgia that presents to the ED with complaints of nausea, vomiting, dysuria. Patient was recently discharged for similar symptoms. . Historical: - Allergies: 12:51 No Known Allergies; em - PMHx: 12:51 "Kidney problems"; Fibromyalgia; Kidney stones; em - PSHx: 12:51 Hysterectomy; bladder surgery; intestine surgery; back surgery; right shoulder; em - Immunization history:: Adult Immunizations up to date. - Social history:: Smoking status: Patient denies any tobacco usage or history of. ROS: 13:07 Cardiovascular: Negative for chest pain, palpitations, and edema, Respiratory: Negative jmm for shortness of breath, cough, wheezing, and pleuritic chest pain. 13:07 Back: Negative for injury and pain, MS/Extremity: Negative for injury and deformity, Skin: Negative for injury, rash, and discoloration, Neuro: Negative for headache, weakness, numbness, tingling, and seizure, Psych: Negative for depression, anxiety, suicide ideation, homicidal ideation, and hallucinations. 13:07 Constitutional: Positive for body aches, chills, fatigue. 13:07 Abdomen/GI: Positive for nausea and vomiting. 13:07 All other systems are negative. Exam: 13:07 Head/Face: atraumatic. Eyes: EOMI, no conjunctival erythema appreciated ENT: Moist jmm Mucus Membranes Neck: Trachea midline, Supple Chest/axilla: Normal chest wall appearance and motion. Cardiovascular: Regular rate and rhythm. No edema appreciated Respiratory: Normal respirations, no respiratory distress appreciated Abdomen/GI: Non distended, soft Back: Normal ROM Skin: General appearance color normal 13:07 Constitutional: The patient appears alert, awake, anxious, uncomfortable. 13:07 Musculoskeletal/extremity: ROM: intact in all extremities. 13:07 Skin: Appearance: Color: normal in color. 13:07 Neuro: Orientation: is normal, Mentation: is normal, Memory: is normal. 13:07 Psych: Behavior/mood is pleasant, cooperative. Vital Signs: 12:48 BP 144 / 68; Pulse 77; Resp 18; Temp 97.9; Pulse Ox 99% on R/A; Weight 99.79 kg; Height em 5 ft. 3 in. (160.02 cm); Pain 0/10; 16:00 BP 116 / 65; Pulse 75; Resp 20; Pulse Ox 97% on R/A; zb 17:00 BP 125 / 65; Pulse 74; Resp 18; Pulse Ox 98% on R/A; zb 18:16 BP 159 / 89; Pulse 74; Resp 20; Pulse Ox 97% on R/A; zb 12:48 Body Mass Index 38.97 (99.79 kg, 160.02 cm) em MDM: 13:07 Patient medically screened. [facility] 18:00 Data reviewed: vital signs, nurses notes. Counseling: I had a detailed discussion with [facility] the patient and/or guardian regarding: the historical points, exam findings, and any diagnostic results supporting the discharge/admit diagnosis, lab results, the need for further work-up and treatment in the hospital. ED course: I discussed the patient with Omar Bruno whom accepted the patient to Dr. Diez's service. . 04/23 13:17 Order name: Basic Metabolic Panel; Complete Time: 16:24 iw 04/23 13:17 Order name: CBC with Diff; Complete Time: 14:33 iw 04/23 13:17 Order name: LFT's; Complete Time: 16:24 iw 04/23 13:17 Order name: Magnesium; Complete Time: 16:24 iw 04/23 13:17 Order name: NT PRO-BNP; Complete Time: 16:24 iw 04/23 13:17 Order name: PT-INR; Complete Time: 16:24 iw 04/23 13:17 Order name: Troponin (emerg Dept Use Only); Complete Time: 16:24 iw 04/23 13:17 Order name: XRAY Chest (1 view); Complete Time: 14:48 iw 04/23 13:17 Order name: ABG; Complete Time: 16:24 iw 04/23 14:09 Order name: Urine Dipstick--Ancillary (enter results); Complete Time: 14:33 bd 04/23 14:11 Order name: Urine Culture bd 04/23 18:40 Order name: Lactate; Complete Time: 20:52 [facility] 04/23 19:20 Order name: COVID-19 jr8 04/23 13:17 Order name: EKG; Complete Time: 13:17 iw 04/23 13:17 Order name: Cardiac monitoring; Complete Time: 14:47 iw 04/23 13:17 Order name: EKG - Nurse/Tech; Complete Time: 14:47 iw 04/23 13:17 Order name: IV Saline Lock; Complete Time: 14:11 iw 04/23 13:17 Order name: Labs collected and sent; Complete Time: 14:11 iw 04/23 13:17 Order name: O2 Per Protocol; Complete Time: 15:13 iw 04/23 18:52 Order name: CONS Physician Consult [facility] 04/23 13:17 Order name: O2 Sat Monitoring; Complete Time: 15:13 iw 04/23 14:26 Order name: Labs - recollect needed: all labs; Complete Time: 16:55 iw Administered Medications: 14:15 Drug: NS 0.9% 500 ml Route: IV; Rate: calculated rate; Site: left forearm; zb 16:07 Drug: Zofran (Ondansetron) 4 mg Route: IVP; Site: left forearm; zb 16:45 Follow up: Response: No adverse reaction; Nausea is decreased zb 16:07 Drug: NS 0.9% 500 ml Route: IV; Rate: bolus; Site: left forearm; zb 17:07 Follow up: Response: No adverse reaction; IV Status: Completed infusion; IV Intake: zb 500ml 17:44 Drug: Rocephin 1 grams Route: IV; Rate: calculated rate; Site: left hand; zb 19:45 Follow up: Response: No adverse reaction; IV Status: Completed infusion zb 17:45 Drug: Zofran (Ondansetron) 4 mg Route: IVP; Site: left forearm; zb 18:00 Follow up: Response: No adverse reaction zb 18:09 Drug: NS 0.9% 250 ml Route: IV; Rate: calculated rate; Site: left forearm; zb 19:00 Follow up: Response: No adverse reaction; IV Status: Completed infusion; IV Intake: zb 250ml 18:09 Drug: Pepcid 20 mg Route: IVP; Site: left forearm; zb 19:45 Follow up: Response: No adverse reaction zb 18:10 Drug: Reglan 10 mg Route: IVP; Site: left femoral; zb 19:44 Follow up: Response: No adverse reaction zb 19:37 Drug: NS 0.9% 1000 ml Route: IV; Rate: 75 ml/hr; Site: right wrist; ll2 19:51 Drug: Potassium Chloride 20 mEq Route: PO; ll2 Disposition: 04/23/20 18:05 Hospitalization ordered by Maximilian Diez for Observation. Preliminary diagnosis are Hyperglycemia, unspecified, Acute Kidney Injury, Urinary tract infection, site not specified. - Bed requested for Telemetry/MedSurg (observation). - Status is Observation. dm5 - Condition is Stable. - Problem is new. - Symptoms are unchanged. Addendum: 05/12/2020 13:30 Co-signature as Attending Physician, Lui Vanegas MD Available for consultation at p s1 all times. Did not see patient unless otherwise noted. Signature is for administrative purposes and not an endorsement of care. . Signatures: Dispatcher [employer] Nathaly Paredes RN RN dm5 Rakesh Vitale PA PA Iván Bell RN RN Jackie Pollard RN RN Omar Bruno PA PA jr8 Lui Vanegas MD MD ps1 [place], MyKena mw2 Bertha Cruz RN RN ll2 Desiree Vargas RN RN zb Corrections: (The following items were deleted from the chart) 04/23 20:39 18:05 Hospitalization Ordered by Maximilian Diez MD for Observation. Preliminary mw2 diagnosis is Hyperglycemia, unspecified; Acute Kidney Injury; Urinary tract infection, site not specified. Bed requested for Telemetry/MedSurg (observation). Status is Observation. Condition is Stable. Problem is new. Symptoms are unchanged. sherry 21:07 20:39 04/23/2020 18:05 Hospitalization Ordered by Maximilian Diez MD for Observation. dm5 Preliminary diagnosis is Hyperglycemia, unspecified; Acute Kidney Injury; Urinary tract infection, site not specified. Bed requested for Telemetry/MedSurg (observation). Status is Observation. Condition is Stable. Problem is new. Symptoms are unchanged. mw2
--- NOTE | 2020-04-23 18:06 | ER ---
Nurse's Notes [facility] Name: Dagmar Flores Age: 74 yrs Sex: Female : 1945 Arrival Date: 04/23/2020 Time: 12:07 Bed 13 Private MD: Diagnosis: Hyperglycemia, unspecified;Acute Kidney Injury;Urinary tract infection, site not specified Presentation: 04/23 12:48 Chief complaint: Patient's son or daughter states: was here 3 weeks ago for the flu, em they gave her steroids for her symptoms, today at 1130 BGL 412 today, called PCP and was told to come to the ER, denies any other symptoms. Coronavirus screen: Client denies travel out of the [place] in the last 14 days. Ebola Screen: Patient negative for fever greater than or equal to 101.5 degrees Fahrenheit, and additional compatible Ebola Virus Disease symptoms Patient denies exposure to infectious person. Patient denies travel to an Ebola-affected area in the 21 days before illness onset. No symptoms or risks identified at this time. Initial Sepsis Screen: Does the patient meet any 2 criteria? No. Patient's initial sepsis screen is negative. Does the patient have a suspected source of infection? No. Patient's initial sepsis screen is negative. Risk Assessment: Do you want to hurt yourself or someone else? Patient reports no desire to harm self or others. Onset of symptoms was April 23, 2020. 12:48 Method Of Arrival: Wheelchair em 12:48 Acuity: JOSUE 3 em Historical: - Allergies: 12:51 No Known Allergies; em - PMHx: 12:51 "Kidney problems"; Fibromyalgia; Kidney stones; em - PSHx: 12:51 Hysterectomy; bladder surgery; intestine surgery; back surgery; right shoulder; em - Immunization history:: Adult Immunizations up to date. - Social history:: Smoking status: Patient denies any tobacco usage or history of. Screenin:17 Abuse screen: Denies threats or abuse. Denies injuries from another. Nutritional iw screening: No deficits noted. Tuberculosis screening: No symptoms or risk factors identified. Fall Risk None identified. Assessment: 13:16 General: Appears in no apparent distress. uncomfortable, Behavior is calm, cooperative, iw appropriate for age. Pain: Denies pain. Neuro: Level of Consciousness is awake, alert, obeys commands, Oriented to person, place, time, situation. Cardiovascular: Heart tones S1 S2 present Capillary refill < 3 seconds in bilateral Patient's skin is warm and dry. Respiratory: Airway is patent Respiratory effort is even, unlabored, Respiratory pattern is regular. GI: Abdomen is non-distended, obese, Bowel sounds present X 4 quads. Abd is soft and non tender in left upper quadrant, right lower quadrant and left lower quadrant Abdomen is tender to palpation in epigastric area and right upper quadrant Reports nausea. : No signs and/or symptoms were reported regarding the genitourinary system. EENT: No signs and/or symptoms were reported regarding the EENT system. Derm: Skin is intact, is healthy with good turgor, Skin is normal. Musculoskeletal: Capillary refill < 3 seconds, in bilateral Range of motion: intact in all extremities. 14:16 Reassessment: Patient appears in no apparent distress at this time. Patient and/or zb family updated on plan of care and expected duration. Pain level reassessed. family at bedside. pt resting in bed. denies pain. states that she still feels weak, but pt is able to ambulated to the restroom with assistance. 15:55 Reassessment: pt actively vomiting notified ECP. medication ordered/given . covers zb changed. pt reposition. 17:48 Reassessment: pt c/o nausea. alert ECP, medication order. Reassessment: Patient appears zb in no apparent distress at this time. Patient and/or family updated on plan of care and expected duration. Pain level reassessed. family at the bedside. 18:31 Reassessment: Patient appears in no apparent distress at this time. Patient and/or zb family updated on plan of care and expected duration. Pain level reassessed. hospitalist discussing POC w/ patient . pt states she still experiencing some nausea. 19:20 Reassessment: Patient and/or family updated on plan of care and expected duration. Pain ll2 level reassessed. Patient is alert, oriented x 3, equal unlabored respirations, skin warm/dry/pink. aided pt to bedpan. 20:45 Reassessment: Patient and/or family updated on plan of care and expected duration. Pain ll2 level reassessed. Patient is alert, oriented x 3, equal unlabored respirations, skin warm/dry/pink. pt notified of room number assignment attempted to give report, placed on hold for greater than 5 minutes. 20:49 Reassessment: report given to AYAAN Luong. ll2 Vital Signs: 12:48 BP 144 / 68; Pulse 77; Resp 18; Temp 97.9; Pulse Ox 99% on R/A; Weight 99.79 kg; Height em 5 ft. 3 in. (160.02 cm); Pain 0/10; 16:00 BP 116 / 65; Pulse 75; Resp 20; Pulse Ox 97% on R/A; zb 17:00 BP 125 / 65; Pulse 74; Resp 18; Pulse Ox 98% on R/A; zb 18:16 BP 159 / 89; Pulse 74; Resp 20; Pulse Ox 97% on R/A; zb 12:48 Body Mass Index 38.97 (99.79 kg, 160.02 cm) em ED Course: 12:07 Patient arrived in ED. as 12:50 Triage completed. em 12:51 Arm band placed on. em 12:52 Rakesh Vitale PA is PHCP. [facility] 12:52 Lui Vanegas MD is Attending Physician. jmm 13:06 Jackie Pollard RN is Primary Nurse. iw 13:18 Patient has correct armband on for positive identification. Bed in low position. Call iw light in reach. Side rails up X 1. Adult w/ patient. Pulse ox on. NIBP on. Door closed. Noise minimized. Warm blanket given. 13:20 Missed attempt(s): 22 gauge in left antecubital area. zb 14:05 Inserted saline lock: 22 gauge in left wrist, using aseptic technique. ,using aseptic sv technique. diffusics Blood collected. Flushed left with 5 ml normal saline. 14:34 XRAY Chest (1 view) In Process Unspecified. EDMS 16:26 Desiree Vargas, AYAAN is Primary Nurse. zb 18:02 Maximilian Diez MD is Hospitalizing Provider. m 20:49 COVID-19 Sent. ll2 Administered Medications: 14:15 Drug: NS 0.9% 500 ml Route: IV; Rate: calculated rate; Site: left forearm; zb 16:07 Drug: Zofran (Ondansetron) 4 mg Route: IVP; Site: left forearm; zb 16:45 Follow up: Response: No adverse reaction; Nausea is decreased zb 16:07 Drug: NS 0.9% 500 ml Route: IV; Rate: bolus; Site: left forearm; zb 17:07 Follow up: Response: No adverse reaction; IV Status: Completed infusion; IV Intake: zb 500ml 17:44 Drug: Rocephin 1 grams Route: IV; Rate: calculated rate; Site: left hand; zb 19:45 Follow up: Response: No adverse reaction; IV Status: Completed infusion zb 17:45 Drug: Zofran (Ondansetron) 4 mg Route: IVP; Site: left forearm; zb 18:00 Follow up: Response: No adverse reaction zb 18:09 Drug: NS 0.9% 250 ml Route: IV; Rate: calculated rate; Site: left forearm; zb 19:00 Follow up: Response: No adverse reaction; IV Status: Completed infusion; IV Intake: zb 250ml 18:09 Drug: Pepcid 20 mg Route: IVP; Site: left forearm; zb 19:45 Follow up: Response: No adverse reaction zb 18:10 Drug: Reglan 10 mg Route: IVP; Site: left femoral; zb 19:44 Follow up: Response: No adverse reaction zb 19:37 Drug: NS 0.9% 1000 ml Route: IV; Rate: 75 ml/hr; Site: right wrist; ll2 19:51 Drug: Potassium Chloride 20 mEq Route: PO; ll2 Intake: 17:07 IV: 500ml; Total: 500ml. zb 19:00 IV: 250ml; Total: 750ml. zb Outcome: 18:05 Decision to Hospitalize by Provider. [facility] 21:07 Patient left the ED. dm5 Signatures: Dispatcher [employer] Nathaly Paredes RN RN dm5 Marah Swanson RN Rakesh Grant PA PA [facility] Iván Mullen, Valencia Orellana RN, Irene, RN RN iw [place], Lacie, RN RN ll2 Desiree Vargas RN RN zb Corrections: (The following items were deleted from the chart) 17:50 15:55 Reassessment: pt actively vomiting notified ECP. medication ordered/given . zb covers changed. pt reposition. malcolm :[birth year] 19:00 Response: No adverse reaction; IV Intake: 250ml malcolm fowler 19:48 18:31 Reassessment: hospitalist discussing POC w/ patient malcolm fowler
[2020-04-23] MEDS ORDERED: METOCLOPRAMIDE 10 MG/2mL INJ ONE (18:14)
[2020-04-23] MEDS ORDERED: NA CHLORIDE 0.9% 250 ML ONE (18:15)
[2020-04-23] MEDS ORDERED: FAMOTIDINE 20 MG/2 ML VIAL IV ONE (18:15)
[2020-04-23] MEDS ORDERED: POTASSIUM CL SA 10 MEQ TAB PO ONE (19:58)
[2020-04-23] MEDS ORDERED: GLUCAGON 1 MG/VIAL IM PRN (21:42)
[2020-04-23] MEDS: NA CHLORIDE 0.9% 1,000 ML IV SCH (21:42)
[2020-04-23] MEDS ORDERED: MORPHINE 2 MG/ML SYR IV PRN (21:42)
[2020-04-23] MEDS ORDERED: D50W 25 GM/50 ML SYRINGE IV PRN (21:42)
[2020-04-23 22:03] VITALS: BMI 42.5
[2020-04-23] MEDS: INSULIN -REGULAR HUMAN 50 UNIT/0.5 ML ML SQ SCH (22:09)
--- NOTE | 2020-04-24 00:04 | P.HP ---
Certification for Inpatient Patient admitted to: Inpatient With expected LOS: >2 Midnights Patient will require the following post-hospital care: None Practitioner: I am a practitioner with admitting privileges, knowledge of patient current condition, hospital course, and medical plan of care. Services: Services provided to patient in accordance with Admission requirements found in Title 42 Section 412.3 of the Code of Federal Regulations <Bobo Bruno - Last Filed: 04/23/20 23:59> Patient History Date of Service: 04/23/20 Primary Care Provider: Dr. Melgar Reason for admission: Acute Renal Failure, Acidosis, Dehydration History of Present Illness: This is a 74-year-old female with presenting symptoms of polydipsia, polyuria, general weakness, nausea and vomiting that has been gradual but progressive over the last week. Patient stated that she is also having urinary complaints. Patient was recently admitted and discharged about 3 weeks ago or less for similar symptoms. Patient was brought in to the emergency room for further evaluation today and was worked up and found to have another urinary tract infection with increased glucose at 373 and impaired renal function worse than what she has had in the past with a be you and of 52 and a creatinine of 2.43. Patient also was found to have a bicarb of 17.6 and a pH is 7.28 on ABG. Medicine was consulted at that time for admission. Upon further assessment in the emergency room patient clinically does look dehydrated and appears very weak. Home medications list reviewed: Yes - Past Medical/Surgical History Has patient received pneumonia vaccine in the past: Yes Diabetic: Yes -: Chronic UTI's -: Nephrolithiasis -: DM -: Arthritis -: Dehydration -: malnutrition -: Neurogenic bladder -: Renal Failure Past Surgical History: Reviewed- Non-Contributory -: Right shoulder prosthesis -: Back surgery -: bladder augmentation -: appendectomy -: cholecystectomy -: hysterectomy -: kidney stents -: suprapubic catheter - Family History Family History: Reviewed- Non-Contributory - Family History Sister -: Cancer Notes: - colon cancer Father -: Cancer Notes: Lung cancer, heavy smoker Mother -: Lung disease Notes: Heavy smoker; Emphysema Brother -: Cancer Notes: 3 Brothers of lung cancer - Social History Smoking Status: Never smoker Smoking therapy provided: No Alcohol use: No CD- Drugs: No Caffeine use: No Place of Residence: Home <Bobo Bruno - Last Filed: 04/23/20 23:59> Date of Service: 04/24/20 <chase pollard - Last Filed: 04/24/20 14:56> Allergies No Known Drug Allergies Allergy (Verified 06/07/14 15:02) Unknown Home Medications: Albuterol Sulfate [Albuterol Sulfate Hfa] 2 puff IH Q6HP PRN 04/23/20 Benzonatate [Tessalon Perle*] 200 mg PO BID PRN 04/23/20 Cholecalciferol (Vitamin D3) [Vitamin D 400 IU TAB] 400 unit PO DAILY 04/23/20 Nystatin Powder [Mycostatin (Powder)*] 1 pretty TOP BID 04/23/20 Vitamin B Complex [B-Complex Vitamin] 1 cap PO DAILY 04/23/20 Review of Systems General: Weakness, Malaise Eyes: Unremarkable ENT: Unremarkable Respiratory: SOB with Excertion Cardiovascular: Unremarkable Gastrointestinal: Nausea, Vomiting Genitourinary: Dysuria, Frequency, Urgency Musculoskeletal: Unremarkable Integumentary: Unremarkable Neurological: Weakness Lymphatics: Unremarkable Other: polyuria, polydipsia <Bobo Bruno - Last Filed: 04/23/20 23:59> Physical Examination - Vital Signs Temperature: 96.9 F Blood Pressure: 128/71 Pulse: 67 Respirations: 18 Pulse Ox (%): 98 - Physical Exam General: Alert, In no apparent distress, Oriented x3, Cooperative HEENT: PERRLA, Other (mucous membranes dry), EOMI Neck: Supple, 2+ carotid pulse no bruit, JVD not distended, No Thyromegaly Respiratory: Clear to auscultation bilaterally, Normal air movement Cardiovascular: No edema, Normal pulses, Regular rate/rhythm, Normal S1 S2, No gallops, No rubs, No murmurs Capillary refill: <2 Seconds Gastrointestinal: Normal bowel sounds, Soft and benign, Non-distended, No ascites, No tenderness, No masses, No rebound, No guarding Musculoskeletal: No clubbing, No swelling, No contractures, No erythema, No tenderness, No warmth Integumentary: No rashes, No breakdown, No significant lesion, No tenderness/swelling, No erythema, No warmth, No cyanosis Neurological: Normal speech, Normal strength at 5/5 x4 extr, Normal tone, Sensation intact, Cranial nerves 3-12 intact, Normal affect Lymphatics: No axilla or inguinal lymphadenopathy - Studies Laboratory Data (last 24 hrs) 04/23/20 15:25: PT 12.1, INR 1.03 04/23/20 15:25: Sodium 133 L, Potassium 3.9, BUN 52 H, Creatinine 2.43 H, Glucose 373 H, Magnesium 2.2 D, Total Bilirubin 0.3, AST 9 L, ALT 10 L, Alkaline Phosphatase 90 04/23/20 14:05: WBC 7.7, Hgb 13.0, Hct 39.9, Plt Count 295 <Bobo Bruno - Last Filed: 04/23/20 23:59> - Studies Laboratory Data (last 24 hrs) 04/23/20 15:25: PT 12.1, INR 1.03 04/23/20 15:25: Sodium 133 L, Potassium 3.9, BUN 52 H, Creatinine 2.43 H, Glucose 373 H, Magnesium 2.2 D, Total Bilirubin 0.3, AST 9 L, ALT 10 L, Alkaline Phosphatase 90 <chase pollard - Last Filed: 04/24/20 14:56> Assessment and Plan - Problems (Diagnosis) (1) Acidosis Onset Date: ~04/24/20 Current Visit: Yes Status: Acute Plan: The patient had a pH is 7.28 with a bicarb of 17.6. This is most likely secondary to dehydration. Will continue to hydrate patient and check an ABG tomorrow along with her other chemistries to ensure that things are moving in the right direction and that she is not getting more acidotic. (2) Dehydration Onset Date: ~04/24/20 Current Visit: Yes Status: Active Plan: Patient will continue on hydration at 100 mL/hour of normal saline. We will continue to monitor electrolytes and renal function. (3) Diabetes mellitus type 2 Onset Date: Unknown Current Visit: Yes Status: Chronic Plan: Patient has been put on a sliding scale for her diabetes to control blood sugars. Will adjust as needed. Will check A1c is well. (4) Morbid obesity Onset Date: Unknown Current Visit: Yes Status: Chronic (5) Urinary tract infectious disease Onset Date: ~04/24/20 Current Visit: Yes Status: Acute Plan: Patient appears to have another urinary tract infection upon admission. Will culture her urine for sensitivity. In the meantime will be placed on antibiotics Rocephin twice daily will adjust as needed. Will continue to monitor for signs of sepsis or worsening in condition. (6) Acute kidney injury Onset Date: ~04/24/20 Current Visit: Yes Status: Acute Plan: Patient has impaired renal function but worse upon this admission with a creatinine of 2.43 and a BUN of 52. This is most likely secondary to dehydration from her nausea vomiting that she has had along with being slightly acidotic. We will continue to hydrate this patient via IV and will monitor can miss trees for improvement. Nephrology has also been consulted and agrees with the current plan. We will wait further orders by nephrology. Discharge Plan: Home Plan to discharge in: Greater than 2 days - Advance Directives Does patient have a Living Will: No Does patient have a Durable POA for Healthcare: No - Code Status/Comfort Care Code Status Assessed: No Critical Care: No Time Spent Managing Pts Care (In Minutes): 80 <Bobo Bruno - Last Filed: 04/23/20 23:59> - Problems (Diagnosis) (1) Urinary tract infection Current Visit: Yes Status: Acute (2) GERD (gastroesophageal reflux disease) Current Visit: Yes Status: Acute (3) Acute renal failure Current Visit: Yes Status: Acute (4) Metabolic acidosis Current Visit: Yes Status: Acute (5) Morbid obesity Onset Date: Unknown Current Visit: Yes Status: Chronic (6) Diabetes mellitus type II, non insulin dependent Onset Date: 06/08/14 Current Visit: No Status: Acute Physician Review: Patient Assessed, Agree with Above Assessment and Plan Physician Review Additional Text: UTI Metabolic acidosis DM with hyperglycemia Plan: IV Rocephin IV hydration Follow urine culture Anticipating metabolic acidosis resolved with IV hydration. <chase pollard - Last Filed: 04/24/20 14:56>
[2020-04-24] MEDS: ACETAMINOPHEN 500 MG TAB PO PRN ×2 (01:19→19:43)
[2020-04-24] MEDS: ONDANSETRON 4 MG/2 ML VIAL IV PRN ×2 (01:19→21:49)
[2020-04-24 03:55] LABS: Absolute Lymphocytes (CBC) 1.6 K/uL (0.7-4.9); Basophils % 0.6 % (0-1.3); Hematocrit 33.5 % (36.0-45.0); Lymphocytes % 21.2 % (15.3-44.8); MPV 7.9 fL (7.6-11.3); RBC Red Blood Cell Count 3.54 M/uL (3.86-4.86)
[2020-04-24] MEDS: INSULIN -REGULAR HUMAN 50 UNIT/0.5 ML ML SQ SCH ×4 (08:57→21:58)
[2020-04-24] MEDS: CEFTRIAXONE/SWI 1gm 1 GM/10 ML SYR IV SCH ×2 (08:57→19:43)
[2020-04-24] MEDS ORDERED: CEFTRIAXONE 1 GM/NS 50 ML 1 GM/50 ML BAG IV SCH (09:00)
[2020-04-24 10:54] LABS: Arterial Blood Carboxyhemoglob 1.4 % (0-1.5); Blood Gas Oxyhemoglobin 94.2 % (94-97); Blood O2 Saturation 96.6 % (92-98.5)
[2020-04-24] MEDS ORDERED: MAGNES/ALUMIN/SIMET 30ML UCUP PO PRN (11:35)
[2020-04-24] MEDS ORDERED: NA CHLORIDE 0.9% 500 ML IV ONE ×2 (12:59→14:00)
--- NOTE | 2020-04-24 14:47 | P.PN ---
Date of Service: 04/24/20 Advanced directive discussed with the patient. Patient stated she has completed therapy for MPOA. She was encouraged to complete documentation for POLST. She is currently full code. Daughter is the medical power of catering truck driver. Time spent discussing advanced directive was about 18 minutes.
--- NOTE | 2020-04-24 14:54 | P.PN ---
Subjective Date of Service: 04/24/20 Primary Care Provider: Dr. Melgar Chief Complaint: Acute Renal Failure, Acidosis, Dehydration Patient is complaining of heartburn, loss of appetite and reduced oral intake. She also complains of intermittent epigastric pain. Blood sugar readings are high. Physical Examination - Vital Signs Temperature: 97.2 F Blood Pressure: 133/75 Pulse: 73 Respirations: 16 Pulse Ox (%): 94 - Physical Exam General: Alert, In no apparent distress, Obese HEENT: Mucous membr. moist/pink, Sclerae nonicteric Neck: Supple, JVD not distended Respiratory: Clear to auscultation bilaterally, Normal air movement Cardiovascular: No edema, Regular rate/rhythm, Normal S1 S2 Capillary refill: <2 Seconds Gastrointestinal: Normal bowel sounds, Soft and benign, Non-distended, Tenderness (Epigastrium) Musculoskeletal: No swelling, No tenderness Integumentary: No rashes, No erythema Neurological: Normal speech, Normal strength at 5/5 x4 extr - Studies Laboratory Data (last 24 hrs) 04/23/20 15:25: PT 12.1, INR 1.03 04/23/20 15:25: Sodium 133 L, Potassium 3.9, BUN 52 H, Creatinine 2.43 H, Glucose 373 H, Magnesium 2.2 D, Total Bilirubin 0.3, AST 9 L, ALT 10 L, Alkaline Phosphatase 90 Assessment And Plan - Current Problems (Diagnosis) (1) Urinary tract infection Current Visit: Yes Status: Acute (2) GERD (gastroesophageal reflux disease) Current Visit: Yes Status: Acute (3) Acute renal failure Current Visit: Yes Status: Acute (4) Metabolic acidosis Current Visit: Yes Status: Acute (5) Morbid obesity Onset Date: Unknown Current Visit: Yes Status: Chronic (6) Diabetes mellitus type II, non insulin dependent Onset Date: 06/08/14 Current Visit: No Status: Acute - Plan Urine culture is growing Gram negative rods. Continue IV hydration. Continue IV Rocephin Follow urine culture Patient started on Protonix and Maalox for GERD. Metabolic acidosis has improved with IV hydration. Renal function is improving with IV fluid. Hemoglobin A1c is 11. Was start Lantus insulin. Continue insulin sliding scale.
--- NOTE | 2020-04-24 15:13 | CON ---
Date of Consultation: 04/24/2020 Reason For Consultation: Elevated BUN and creatinine. History Of Present Illness: This is a pleasant 74-year-old female, well known to me from the office with significant past medical history of diabetes complicated with neuropathy and nephropathy, hypertension, hyperlipidemia, nephrolithiasis status post lithotripsy, chronic kidney disease, baseline creatinine of 1.8 with GFR off 27 secondary to diabetes nephropathy, hypertension, hyperlipidemia, neurogenic bladder, the patient came to the hospital that for the last 3 weeks started feeling weak, nausea, decreased intake, upon arrival to the hospital found elevation in creatinine 2.4 with acidotic and contraction alkalosis. For that reason, the patient was admitted. The patient also found to have UTI. The patient denied taking any nonsteroidal, no recent change in her medications. The patient recently was admitted to the hospital also. Past Medical History: Includes; 1. Recurrent UTI. 2. Nephrolithiasis. 3. Diabetes complicated with neuropathy and neurogenic bladder. 4. Malnourished. 5. Chronic kidney disease, stage 3. Baseline creatinine 1.8. Past Surgical History: Includes right shoulder surgery, back surgery, bladder augmentation, appendectomy, cholecystectomy, hysterectomy, kidney stents, suprapubic catheter. Allergies: NO KNOWN DRUGS ALLERGY. Home Medications: Include ergocalciferol, nystatin, B complex, albuterol. Family History: Positive for hypertension. Social History: Lives with family. Denied smoking. Denied drinking. Denied drug abuse. Review of Systems: Head and Neck: No red eye. No ear pain. GI: Has nausea. No vomiting. : No polyuria. No dysuria. Has nocturia. Editor Book: No vaginal discharge. Respiratory: No shortness of breath. Cardiovascular: No chest pain. Endocrine: No polydipsia. Skin: No rash. Neuro: Has generalized fatigue and weakness. Musculoskeletal: Low back pain. Physical Examination: General: When I saw the patient, patient lying in bed, feeling weak. Vital Signs: Blood pressure 122/55, pulse of 77, afebrile. No documentation of significant low blood pressure. Chest: Clear to auscultation. Heart: S1, S2. Regular. Abdomen: Soft. Tenderness on the right flank. Extremities: Trace edema. Neurologic: Alert. No focality. Laboratory Data: Sodium 140, potassium 4, bicarb 20, BUN 46, creatinine 1.9, GFR 25, calcium 8.6. Lactic acid 0.9. TSH 3.6. WBC 7.4, H and H 11.1/33.5. ABG; pH 7.29, CO2 35, O2 78, base access -8. Upon arrival to the hospital yesterday; creatinine 2.4, GFR of 20, blood sugar 373. Urinalysis positive for infection, specific gravity 1.015, +2 protein. Current Medications: In the hospital include; 1. IV fluid. 2. Lovenox. 3. Ceftriaxone. 4. Zofran. 5. Pantoprazole. 6. Insulin. Assessment And Plan: 1. Acute kidney injury secondary to prerenal, secondary to diuresis, superimposed with toxic acute tubular necrosis secondary to the urinary tract infection. I agree with hydration. I am going to give the patient extra dose of bolus of normal saline and we will follow up the patient. I agree with insulin sliding scale for the time being and hold all blood pressure medications. 2. Urinary tract infection. Continue ceftriaxone. We will follow up culture. 3. Acidosis. High anion gap metabolic acidosis with contraction alkalosis, on the recovery. We will continue aggressive hydration. 4. hyper NA secondary to hyperglycemia. Corrected sodium within normal limit. 5. Urinary tract infection as by primary. 6. Diabetes as by primary. Thank you Dr. Smiley for allowing us to participate in the care of your patient. time spend exam the patient face to face , place order , discussed the case with other garment steamer hospitalist and other consulatant 45 min. RACHEL Voice ID: [id number] Report ID: [id number] KRISTIE
[2020-04-24] MEDS: NA CHLORIDE 0.9% 1,000 ML IV SCH ×2 (16:33→17:42)
[2020-04-24] MEDS: PANTOPRAZOLE 40MG TABLET PO SCH (16:33)
[2020-04-24] MEDS: ENOXAPARIN 30 MG/0.3 ML SQ SCH (16:33)
[2020-04-24] MEDS ORDERED: ENOXAPARIN 40 MG/0.4 ML SQ SCH (17:00)
[2020-04-24 18:57] LABS: Urine Protein/Creatinine Ratio 1.18 ratio (<0.15)
--- NOTE | 2020-04-24 19:34 | EKG ---
Test Date: 2020-04-23 Test Time: 14:20:56 Surgical Aide: TINO MEASUREMENT RESULTS: Intervals: Rate: 74 SD: 188 QRSD: 124 QT: 406 QTc: 450 [place]: P: 58 SD: 188 QRS: -30 T: 92 INTERPRETIVE STATEMENTS: Normal sinus rhythm Left axis deviation Left ventricular hypertrophy with QRS widening and repolarization abnormality Abnormal ECG Compared to ECG 03/29/2020 05:37:31 No significant changes Electronically Signed On 04-24-20 19:32:33 [facility] by Mo Brooks
[2020-04-25] MEDS: PROMETHAZINE INJ 25 MG/ML AMP IV PRN ×3 (01:05→20:41)
[2020-04-25] MEDS: NA CHLORIDE 0.9% 1,000 ML IV SCH ×3 (02:11→23:42)
[2020-04-25] MEDS: ONDANSETRON 4 MG/2 ML VIAL IV PRN (03:42)
[2020-04-25 03:50] LABS: Albumin 2.2 g/dL (3.4-5.0); Phosphorus 2.7 mg/dL (2.5-4.9); Potassium 4.3 mmol/L (3.5-5.1)
[2020-04-25] MEDS: PANTOPRAZOLE 40MG TABLET PO SCH ×2 (08:56→17:06)
[2020-04-25] MEDS: CEFTRIAXONE/SWI 1gm 1 GM/10 ML SYR IV SCH ×2 (08:56→20:41)
[2020-04-25] MEDS: INSULIN -REGULAR HUMAN 50 UNIT/0.5 ML ML SQ SCH ×4 (08:56→21:00)
[2020-04-25] MEDS: INSULIN GLARGINE 100 UNITS/ML SQ SCH (08:59)
--- NOTE | 2020-04-25 13:04 | P.PN ---
Subjective Date of Service: 04/25/20 Primary Care Provider: Dr. Melgar Chief Complaint: Acute Renal Failure, Acidosis, Dehydration Patient states she feels better today. She gave a history decreased mobility over months. Also reports history of intermittent diarrhea. Physical Examination - Vital Signs Temperature: 97.6 F Blood Pressure: 142/65 Pulse: 60 Respirations: 18 Pulse Ox (%): 97 - Physical Exam General: Alert, In no apparent distress HEENT: Mucous membr. moist/pink Respiratory: Clear to auscultation bilaterally, Normal air movement Cardiovascular: No edema, Regular rate/rhythm, Normal S1 S2 Gastrointestinal: Normal bowel sounds, Soft and benign, No tenderness Musculoskeletal: No swelling, No tenderness Integumentary: No rashes, No erythema Neurological: Normal speech, Normal strength at 5/5 x4 extr - Studies Microbiology Data (last 24 hrs): 04/23/20 13:45 Clean Catch Urine [place] Count - Final >100,000 CFU/ML. 04/23/20 13:45 Clean Catch Urine - Final Klebsiella Pneumoniae Assessment And Plan - Current Problems (Diagnosis) (1) Urinary tract infection Current Visit: Yes Status: Acute (2) GERD (gastroesophageal reflux disease) Current Visit: Yes Status: Acute (3) Acute renal failure Current Visit: Yes Status: Acute (4) Metabolic acidosis Current Visit: Yes Status: Acute (5) Morbid obesity Onset Date: Unknown Current Visit: Yes Status: Chronic (6) Diabetes mellitus type II, non insulin dependent Onset Date: 06/08/14 Current Visit: No Status: Acute - Plan Urine culture is growing Klebsiella Continue IV hydration. Continue IV Rocephin Continue Protonix and Maalox for GERD. Nephrology is following. Hemoglobin A1c is 11. Titrate Lantus insulin. Continue insulin sliding scale. PT to evaluate.
[2020-04-25] MEDS ORDERED: ENSURE HIGH PROTEIN 237 ML CAN PO PRN (16:58)
[2020-04-25] MEDS: ENOXAPARIN 30 MG/0.3 ML SQ SCH (17:06)
[2020-04-25] MEDS ORDERED: LIDOCAINE 1% MPF 5 ML VIAL ONE (17:48)
--- NOTE | 2020-04-26 00:25 | PN ---
Date of Progress Note: 04/25/2020 Subjective: The patient was admitted with acute kidney injury secondary to glucose diuresis, prerenal. The patient is still feeling dehydrated. The patient is with poor intake. Objective: Vital Signs: When I saw the patient, blood pressure 135/55, pulse of 66, afebrile. The patient had urine output of 500. Chest: Central to bilateral base. Heart: S1, S2. Regular. Systolic murmur. Abdomen: Soft, nontender. Extremities: No edema. Neurologic: Alert. No focal. Laboratory Data: WBC 7.4, H and H 11.1/35.5, platelets 250. Sodium 140, potassium 4.3 bicarb 18, chloride 114, BUN 36, creatinine 2.2, GFR of 21, blood sugar still elevated on the 200, calcium 7.5, phosphorus 2.7, albumin 2.2. Current Medications: The patient on include; 1. Ceftriaxone. 2. Promethazine. 3. Lovenox. 4. Tylenol. 5. Zofran. 6. Insulin. 7. Normal saline. Assessment And Plan: 1. Acute kidney injury, secondary to prerenal, secondary to glucose diuresis, still on the dry side. I am going to continue hydration for the patient and we will continue to monitor. 2. Hypertension, controlled, optimal. Keep holding any MIL inhibitor or ARB. 3. Acidosis, high anion gap metabolic acidosis, currently normal. Anion gap metabolic acidosis, mostly induced with hyperchloremic IV fluid. I am going to continue hydration. 4. Continue sliding scale. 5. Contraction alkalosis with non-anion gap metabolic acidosis. Continue IV fluid. I am going to send for urine electrolytes to evaluate if there is any renal tubular acidosis. 6. Diabetes, not controlled. Continue sliding scale. 7. Bronchitis/pneumonia. Continue current antibiotic. time spend exam the patient face to face , place order , discussed the case with other cylinder steamer hospitalist and other consulatant 45 min. RACHEL Voice ID: [id number] Report ID: [id number] KRISTIE
[2020-04-26 01:29] LABS: Urine Appearance CLEAR; Urine Bilirubin NEGATIVE (NEG); Urine Blood TRACE (NEG); Urine Color YELLOW; Urine Glucose NEGATIVE (NEG); Urine Protein TRACE (NEG); Urine Urobilinogen 0.2 mg/dL (0.2-1.0); Urine pH 6.5 (5.0-7.0)
[2020-04-26 01:37] LABS: Urine Microscopic Reflex ORDER UMIC
[2020-04-26 02:07] LABS: Urine Bacteria <20 /HPF (<20); Urine RBC <5 /HPF (NONE SEEN)
[2020-04-26] MEDS: NA CHLORIDE 0.9% 1,000 ML IV SCH ×3 (03:48→19:42)
[2020-04-26 04:53] LABS: Albumin 2.2 g/dL (3.4-5.0); Potassium 4.8 mmol/L (3.5-5.1)
[2020-04-26] MEDS: CEFTRIAXONE/SWI 1gm 1 GM/10 ML SYR IV SCH ×2 (08:32→20:25)
[2020-04-26] MEDS: INSULIN GLARGINE 100 UNITS/ML SQ SCH (08:33)
[2020-04-26] MEDS: PANTOPRAZOLE 40MG TABLET PO SCH ×2 (08:33→16:15)
[2020-04-26] MEDS: INSULIN -REGULAR HUMAN 50 UNIT/0.5 ML ML SQ SCH ×4 (09:08→20:25)
--- NOTE | 2020-04-26 11:41 | PN ---
Date of Progress Note: 04/26/2020 Subjective: The patient was admitted with acute kidney injury secondary to glucose diuresis, dehydration, prerenal. The patient was maintained on IV fluid. Today, the patient is much better. Objective: Vital Signs: Blood pressure 123/65, pulse of 69, afebrile. The patient had good urine output, voiding 4 times. Chest: Clear to auscultation. Heart: S1, S2. Systolic murmur. Abdomen: Obese, could not appreciate any organomegaly. Extremities: No edema. Neurologic: Alert, oriented x3. No focal. Laboratory Data: WBC 7.4, H and H 11.1/33.5. Sodium 140, potassium 4.8, bicarb 15, chloride 19, BUN 31, creatinine of 2, calcium of 8, phosphorus 3, albumin 2.2, corrected calcium 9.6. Urinalysis; specific gravity of 1.010. Urine sodium of 100, urine potassium of 14, PC ratio 1.1. Medications: Current medications the patient is on includes: 1. Ceftriaxone. 2. Promethazine. 3. Tylenol. 4. Ensure. 5. Pantoprazole. 6. Insulin. 7. Normal saline at 100 per hour. Assessment And Plan: 1. Acute kidney injury secondary to prerenal, on the recovery phase. This looked to me still on the dry side. I am going to continue hydration for another 24 hours. 2. Non-anion gap metabolic acidosis, mostly secondary to RTA. Still waiting for the urine electrolyte and followup serum protein electrophoresis. 3. Proteinuria, nonnephrotic secondary to diabetes. Follow up serum protein electrophoresis. 4. Diabetes, not controlled. The patient currently blood sugar on the 200. I am going to go ahead and adjust her Lantus to 14 and we will follow up with primary. Continue sliding scale. 5. Urinary tract infection. Continue current antibiotic. Culture is growing Klebsiella pneumonia. Okay from the renal standpoint to switch the patient to Levaquin upon discharge given the kidney function. The appropriate dose is going to be 500 daily to complete full 2 weeks. time spend exam the patient face to face , place order , discussed the case with other produce service team member hospitalist and other consulatant 45 min. MITCHEL/EZIO Voice ID: [id number] Report ID: [id number] [facility]
--- NOTE | 2020-04-26 11:41 | P.PN ---
Subjective Date of Service: 04/26/20 Primary Care Provider: Dr. Melgar Chief Complaint: Acute Renal Failure, Acidosis, Dehydration Patient seen up in a chair. She reports feeling much better today. Physical Examination - Vital Signs Temperature: 98.2 F Blood Pressure: 123/65 Pulse: 69 Respirations: 20 Pulse Ox (%): 99 - Physical Exam General: Alert, In no apparent distress Neck: JVD not distended Respiratory: Clear to auscultation bilaterally, Normal air movement Cardiovascular: No edema, Regular rate/rhythm, Normal S1 S2 Gastrointestinal: Normal bowel sounds, Soft and benign, No tenderness Musculoskeletal: No swelling, No tenderness Integumentary: No rashes, No erythema Neurological: Normal strength at 5/5 x4 extr - Studies Microbiology Data (last 24 hrs): 04/23/20 13:45 Clean Catch Urine [place] Count - Final >100,000 CFU/ML. 04/23/20 13:45 Clean Catch Urine - Final Klebsiella Pneumoniae Assessment And Plan - Current Problems (Diagnosis) (1) Urinary tract infection Current Visit: Yes Status: Acute (2) GERD (gastroesophageal reflux disease) Current Visit: Yes Status: Acute (3) Acute renal failure Current Visit: Yes Status: Acute (4) Metabolic acidosis Current Visit: Yes Status: Acute (5) Morbid obesity Onset Date: Unknown Current Visit: Yes Status: Chronic (6) Diabetes mellitus type II, non insulin dependent Onset Date: 06/08/14 Current Visit: No Status: Acute - Plan Continue IV Rocephin. Renal function is improving with IV hydration. Nephrology is following Continue Protonix and Maalox for GERD. Titrate Lantus insulin. Continue insulin sliding scale. Continue PT. Disposition to home with home health.
[2020-04-26] MEDS: ONDANSETRON 4 MG/2 ML VIAL IV PRN (12:36)
[2020-04-26] MEDS: ENOXAPARIN 30 MG/0.3 ML SQ SCH (17:38)
[2020-04-27] MEDS: NA CHLORIDE 0.9% 1,000 ML IV SCH (05:25)
[2020-04-27 06:09] LABS: Albumin 2.2 g/dL (3.4-5.0); Phosphorus 2.6 mg/dL (2.5-4.9); Potassium 4.6 mmol/L (3.5-5.1)
[2020-04-27] MEDS: PANTOPRAZOLE 40MG TABLET PO SCH (07:54)
[2020-04-27] MEDS: CEFTRIAXONE/SWI 1gm 1 GM/10 ML SYR IV SCH (07:55)
[2020-04-27] MEDS: INSULIN -REGULAR HUMAN 50 UNIT/0.5 ML ML SQ SCH ×2 (07:55→11:30)
[2020-04-27] MEDS ORDERED: INSULIN GLARGINE 100 UNITS/ML SQ SCH (09:00)
--- NOTE | 2020-04-27 10:55 | P.DS ---
Admission Date: 04/23/20 Discharge Date: 04/27/20 Primary Care Provider: Dr. Melgar Disposition: DC HOME/HOME HEALTH CARE Discharge Condition: FAIR Reason for Admission: Acute Renal Failure, Acidosis, Dehydration - Problems (1) Urinary tract infection Current Visit: Yes Status: Acute (2) GERD (gastroesophageal reflux disease) Current Visit: Yes Status: Acute (3) Acute renal failure Current Visit: Yes Status: Acute (4) Metabolic acidosis Current Visit: Yes Status: Acute (5) Morbid obesity Onset Date: Unknown Current Visit: Yes Status: Chronic (6) Diabetes mellitus type II, non insulin dependent Onset Date: 06/08/14 Current Visit: No Status: Acute Brief History of Present Illness: 74-year-old woman with a history of diabetes mellitus type 2 presented to the emergency department with a complaint of progressive polyuria and polydipsia. Workup in the emergency department with revealed urinary tract infection, acute renal failure and metabolic acidosis. Patient was admitted for further management. Hospital Course: Patient admitted to the medical floor and treated for UTI with IV Rocephin. She was put on IV fluids to treat acute renal failure. Her urine culture grew Klebsiella pneumoniae which is sensitive to fluoroquinolones and cephalosporins. Her serum creatinine gradually improved with treatment. Serum creatinine level on the day of discharge was 1.8. She was complaining of heartburn and acid reflux which was managed with protonix. Her blood sugar was elevated during the hospital stay. Her hemoglobin A1c was 11. Blood glucose was managed with Lantus insulin and insulin sliding scale. She is discharged with insulin therapy for glucose management. She was seen by physical therapy. Patient was able to ambulate with minimal assistance. Patient has clinically improved with treatment and deemed clinically stable for discharge. She is discharged with Levaquin to continue treatment for the UTI. Vital Signs/Physical Exam: Temp Pulse Resp BP Pulse Ox 97.0 F 63 16 125/64 95 04/27/20 08:00 04/27/20 10:18 04/27/20 08:00 04/27/20 10:18 04/27/20 08:00 General: Alert, In no apparent distress, Obese Neck: JVD not distended Respiratory: Clear to auscultation bilaterally, Normal air movement Cardiovascular: No edema, Regular rate/rhythm, Normal S1 S2 Gastrointestinal: Normal bowel sounds, Soft and benign, No tenderness Musculoskeletal: No swelling Integumentary: No rashes Neurological: Normal strength at 5/5 x4 extr Laboratory Data at Discharge: WBC 7.4 K/uL (4.3-10.9) 04/24/20 03:08 Hgb 11.1 g/dL (12.0-15.0) L 04/24/20 03:08 Hct 33.5 % (36.0-45.0) L D 04/24/20 03:08 Plt Count 250 K/uL (152-406) 04/24/20 03:08 PT 12.1 SECONDS (9.5-12.5) 04/23/20 15:25 INR 1.03 04/23/20 15:25 Sodium 145 mmol/L (136-145) 04/27/20 05:14 Potassium 4.6 mmol/L (3.5-5.1) 04/27/20 05:14 BUN 25 mg/dL (7-18) H 04/27/20 05:14 Creatinine 1.85 mg/dL (0.55-1.3) H 04/27/20 05:14 Glucose 223 mg/dL (74-106) H 04/27/20 05:14 Phosphorus 2.6 mg/dL (2.5-4.9) 04/27/20 05:14 Magnesium 2.2 mg/dL (1.8-2.4) D 04/23/20 15:25 Total Bilirubin 0.3 mg/dL (0.2-1.0) 04/23/20 15:25 AST 9 U/L (15-37) L 04/23/20 15:25 ALT 10 U/L (12-78) L 04/23/20 15:25 Alkaline Phosphatase 90 U/L (45-117) 04/23/20 15:25 Home Medications: Albuterol Sulfate [Albuterol Sulfate Hfa] 2 puff IH Q6HP PRN 04/23/20 Cholecalciferol (Vitamin D3) [Vitamin D 400 IU TAB*] 400 unit PO DAILY 04/23/20 Nystatin Powder [Mycostatin (Powder)*] 1 pretty TOP BID 04/23/20 Vitamin B Complex [Vitamin B Complex*] 1 cap PO DAILY 04/23/20 Alcohol Antiseptic Pads [Alcohol Prep Pads] 1 each TP TID #100 med..pad 04/27/20 Blood-Glucose Meter [Contour] 1 each MC TID #1 kit 04/27/20 Insulin Glargine Human [Lantus*] 14 units SQ DAILY #10 ml 04/27/20 Lancets [Lancets Thin] 1 each MC TID #100 each 04/27/20 Pantoprazole [Protonix Tab*] 40 mg PO BIDAC #60 tab 04/27/20 Syring-Needl,Disp,Insul,0.3 ml [Insulin Syringe] 1 each MC TID #100 disp.syrin 04/27/20 levoFLOXacin [Levaquin] 500 mg PO DAILY #10 tab 04/27/20 New Medications: Alcohol Antiseptic Pads [Alcohol Prep Pads] 1 each TP TID #100 med..pad Blood-Glucose Meter [Contour] 1 each MC TID #1 kit Syring-Needl,Disp,Insul,0.3 ml [Insulin Syringe] 1 each MC TID #100 disp.syrin Lancets [Lancets Thin] 1 each MC TID #100 each Insulin Glargine Human [Lantus*] 14 units SQ DAILY #10 ml levoFLOXacin [Levaquin] 500 mg PO DAILY #10 tab Pantoprazole [Protonix Tab*] 40 mg PO BIDAC #60 tab Diet: ADA Activity: Ad akash Followup: Mary Lau MD [ACTIVE - CAN ADMIT] - 1-2 Weeks (Call to make an appointment. ) Farideh Melgar DO [Primary Care Provider] - Time spent managing pt's care (in minutes): 40
--- NOTE | 2020-04-27 11:03 | P.PN ---
Subjective Date of Service: 04/27/20 Primary Care Provider: Dr. Melgar Chief Complaint: Acute Renal Failure, Acidosis, Dehydration Subjective Ptr with Hx of DM, CKD , nephrology consulted for AUGUSTO , cr 2.3 on admission , now down to 1.8 Today Cr improving off IVF can be discharged from nephrology point of view to follow [facility] in 2-3 wsk Review of Systems: Head and Neck: No red eye. No ear pain. GI: No nausea, no vomiting. : No polyuria, no dysuria, no hematuria. Inspector Barrel: Not applicable. Respiratory: No shortness of breath, have leg swelling Cardiovascular: No chest pain. Endocrine: No polydipsia. Skin: No rash. Neuro: Has neuropathy. Musculoskeletal: No back pain . Physical exam general: AAOX3, NAD Neck; Supple, No elevated JVD hear: RRR, normal S1,2 no murmur or rub Chest: CTAB, no rlaes or wheezes Abdomen: Soft , Nt Extremities mild swelling Acute kidney injury secondary to prerenal, Cr improving can be discharged from nephrology point of view avoid NSAID HAGMA resolved due to AUGUSTO DM as per primary team HN cont current meds UTI Culture is growing Klebsiella pneumonia Cont Abx total time pent 25min Physical Examination - Vital Signs Temperature: 97.0 F Blood Pressure: 125/64 Pulse: 63 Respirations: 16 Pulse Ox (%): 95 Assessment And Plan Physician Review: Patient Assessed, Agree with Above Assessment and Plan
[2020-04-27 11:51] VITALS: O2SAT 96
[2020-04-27 14:25] VITALS: BP 130/69; TEMP 96.9
[2020-04-29 23:59] LABS: Albumin, (SPE) 2.5 g/dL (3.8-4.8); Alpha-1-Globulins 0.3 g/dL (0.2-0.3); Alpha-2-Globulins 0.8 g/dL (0.5-0.9); Gamma Globulins 1.1 g/dL (0.8-1.7); INTERPRETATION REPORT
== END 2020-04-27 14:10 | disposition home health service (06) | DRG 682 ==
LOC: ER 12:05 → ERHOLD 18:51 → 4TH 20:50 → 2ND 04-25 14:47
PROVIDERS: ADMIT Hospitalist; ATTEND Internal Medicine
DX: N17.0 Acute kidney failure with tubular necrosis (principal); J18.9 Pneumonia, unspecified organism; N39.0 Urinary tract infection, site not specified; E87.2 Acidosis; Z68.41 Body mass index [BMI] 40.0-44.9, adult; E66.01 Morbid (severe) obesity due to excess calories; E86.0 Dehydration; K21.9 Gastro-esophageal reflux disease without esophagitis; E11.65 Type 2 diabetes mellitus with hyperglycemia; J40 Bronchitis, not specified as acute or chronic; E78.5 Hyperlipidemia, unspecified; I12.9 Hypertensive chronic kidney disease with stage 1 through stage 4 chronic kidney disease, or unspecified chronic kidney disease; N18.30 Chronic kidney disease, stage 3 unspecified; E11.40 Type 2 diabetes mellitus with diabetic neuropathy, unspecified; E11.22 Type 2 diabetes mellitus with diabetic chronic kidney disease; B96.1 Klebsiella pneumoniae [K. pneumoniae] as the cause of diseases classified elsewhere; Z90.710 Acquired absence of both cervix and uterus; Z90.49 Acquired absence of other specified parts of digestive tract; Z20.828 Contact with and (suspected) exposure to other viral communicable diseases; Z79.4 Long term (current) use of insulin; Z79.899 Other long term (current) drug therapy
CPT/HCPCS: 36415; 71045; 80048; 80069; 80076; 81003; 81015; 82435; 82570; 82805; 82947; 83036; 83605; 83735; 83880; 83970; 84132; 84156; 84165; 84300; 84484; 85025; 85610; 87077; 87086; 87088; 87186; 93005; 97110; 97116; 97161; 97530; 99284; J0696; J1650; J1815; J2270; J2405; J2550; J2765; J7030; J7040; J7050; U0003

== ENCOUNTER 2021-03-04 08:38 | Emergency (ER) | payer OTHER ==
--- NOTE | 2021-03-04 09:51 | RAD REPORT ---
EXAM DESCRIPTION: CT - Abdomen Pelvis Wo Contrast - 03/04/2021 9:43 am CLINICAL HISTORY: Abdominal pain. FLANK PAIN COMPARISON: Abdomen Pelvis Wo Contrast dated 03/31/2020 TECHNIQUE: CT imaging of the abdomen and pelvis was performed without contrast. Solid organ, bowel a nd vascular assessment is limited due to lack of IV and oral contrast. All CT scans are performed using dose optimization technique as appropriate and may include automated exposure control or mA/KV adjustment according to patient size. FINDINGS: The lower lung oleary are clear. Mild fatty liver is suspected.Cholecystectomy. The spleen, pancreas and adrenal glands are normal. Calcifications involving both kidneys appear unchanged since prior study. Right renal cysts are prese nt. No bowel obstruction, free air, free fluid or abscess. Postsurgical changes are present involving the right lower quadrant bowel. Diverticulosis coli without diverticulitis. The appendix is not identifi ed as a discrete structure, however, no secondary findings of appendicitis are identified. Mild lower lumbar degenerative changes are present.Hardware is present in the right femur. IMPRESSION: No acute intra-abdominal or pelvic findings. A limited non-contrast examination was performed as detailed.
[2021-03-04 10:41] LABS: Protime INR 1.07
[2021-03-04 10:49] LABS: Absolute Lymphocytes (CBC) 1.3 K/uL (0.7-4.9); Basophils % 0.4 % (0-1.3); Hematocrit 42.9 % (36.0-45.0); Lymphocytes % 22.1 % (15.3-44.8); MPV 7.7 fL (7.6-11.3); RBC Red Blood Cell Count 4.33 M/uL (3.86-4.86)
--- NOTE | 2021-03-04 10:52 | RAD REPORT ---
EXAM DESCRIPTION: RAD - Chest Single View - 03/04/2021 9:42 am CLINICAL HISTORY: MALAISE Chest pain. COMPARISON: Chest Single View dated 04/23/2020; Chest Single View dated 03/29/2020; Chest Single Vie w dated 03/18/2018; CHEST SINGLE VIEW dated 01/08/2015 FINDINGS: Portable technique limits examination quality. The lungs are grossly clear. The heart is normal in size. No displaced fractures.Right shoulder arthr oplasty noted. Cervical spine hardware present. IMPRESSION: No acute intrathoracic process suspected.
[2021-03-04 11:17] LABS: Urine Blood 2+ (Negative); Urine Glucose 1+ (Negative); Urine Protein 2+ (Negative); Urine Specific Gravity 1.015 (1.005-1.030)
[2021-03-04 11:49] LABS: ALT/SGPT 11 U/L (12-78); AST/SGOT 9 U/L (15-37); Albumin 2.8 g/dL (3.4-5.0); Alkaline Phosphatase 102 U/L (45-117); Bicarbonate 17 mmol/L (21-32); Bilirubin Direct 0.1 mg/dL (0-0.2); Magnesium 1.9 mg/dL (1.8-2.4); Potassium 4.3 mmol/L (3.5-5.1); Protein, Total 9.1 g/dL (6.4-8.2); Sodium Level 137 mmol/L (136-145)
[2021-03-04 12:13] LABS: BUN Blood Urea Nitrogen 37 mg/dL (7-18); Bilirubin Total 0.3 mg/dL (0.2-1.0)
[2021-03-04 12:25] LABS: NT PRO-BNP 1646 pg/mL (<125); Troponin (Emerg Dept Use Only) < 0.02 ng/mL (0.0-0.045)
[2021-03-04 12:26] LABS: Urine Appearance TURBID (Clear); Urine Bilirubin NEGATIVE (Negative); Urine Blood 2+ (Negative); Urine Color YELLOW (Yellow); Urine Glucose 2+ (Negative); Urine Protein 2+ (Negative); Urine Urobilinogen 0.2 mg/dL (0.2-1.0)
[2021-03-04] MEDS ORDERED: ONDANSETRON 4 MG/2 ML VIAL ONE (12:26)
[2021-03-04 12:28] LABS: Glucose Level 410 mg/dL (74-106)
[2021-03-04 12:43] LABS: Urine Microscopic Reflex NO UMIC
[2021-03-04 12:53] LABS: Urine Bacteria >50 /HPF (<20)
--- NOTE | 2021-03-04 13:30 | EDPHYS ---
Physician Documentation [facility] Name: Dagmar Flores Age: 75 yrs Sex: Female : 1945 Arrival Date: 03/04/2021 Time: 08:40 Bed 7 Private MD: ED Physician Maged Limon HPI: 03/04 09:39 This 75 yrs old Female presents to ER via Wheelchair with complaints of sp3 Urinary Problem. 09:39 5-year-old female with history of fibromyalgia, frequent UTIs including pyelonephritis, sp3 and for multiple kidney stones in her past presents with dysuria, urinary frequency, lower abdominal pain consistent with prior UTI infections. Patient denies any flank pain at this time. Symptoms have been occurring for approximately 3 to 4 days and she also states that she has had increased diarrhea over the last few days as well which she thinks may have contaminated her urethra. On ROS, patient denies headache, fever, neck pain, chest pain, shortness of breath, upper abdominal pain, neuro symptoms, rash, any other symptoms at this time. Remainder of ROS is negative.. Historical: - Allergies: 08:55 No Known Drug Allergies; bp - PMHx: 08:55 "Kidney problems"; Fibromyalgia; Kidney stones; bp - Immunization history:: Adult Immunizations up to date, Client reports having NOT received the Covid vaccine. - Social history:: Smoking status: Patient denies any tobacco usage or history of. ROS: 09:40 Constitutional: Negative for fever, chills, and weight loss, Eyes: Negative for injury, sp3 pain, redness, and discharge, ENT: Negative for injury, pain, and discharge, Neck: Negative for injury, pain, and swelling, Cardiovascular: Negative for chest pain, palpitations, and edema, Respiratory: Negative for shortness of breath, cough, wheezing, and pleuritic chest pain, Abdomen/GI: Negative for abdominal pain, nausea, vomiting, diarrhea, and constipation, Back: Negative for injury and pain, MS/Extremity: Negative for injury and deformity, Skin: Negative for injury, rash, and discoloration, Neuro: Negative for headache, weakness, numbness, tingling, and seizure, Allergy/Immunology: Negative for hives, rash, and allergies, Endocrine: Negative for neck swelling, polydipsia, polyuria, polyphagia, and marked weight changes, Hematologic/Lymphatic: Negative for swollen nodes, abnormal bleeding, and unusual bruising. 09:40 All other systems are negative. Exam: 09:40 Constitutional: This is a well developed, well nourished patient who is awake, alert, sp3 and in no acute distress. Head/Face: Normocephalic, atraumatic. Eyes: Pupils equal round and reactive to light, extra-ocular motions intact. Lids and lashes normal. Conjunctiva and sclera are non-icteric and not injected. Cornea within normal limits. Periorbital areas with no swelling, redness, or edema. ENT: Nares patent. No nasal discharge, no septal abnormalities noted. External auditory canals are clear. Oropharynx with no redness, swelling, or masses, exudates, or evidence of obstruction, uvula midline. Mucous membranes moist. Neck: Trachea midline, no thyromegaly or masses palpated, and no cervical lymphadenopathy. Supple, full range of motion without nuchal rigidity, or vertebral point tenderness. No Meningismus. Chest/axilla: Normal chest wall appearance and motion. Nontender with no deformity. No lesions are appreciated. Cardiovascular: Regular rate and rhythm with a normal S1 and S2. No gallops, murmurs, or rubs. Normal PMI, no JVD. No pulse deficits. Respiratory: Lungs have equal breath sounds bilaterally, clear to auscultation and percussion. No rales, rhonchi or wheezes noted. No increased work of breathing, no retractions or nasal flaring. Back: No spinal tenderness. No costovertebral tenderness. Full range of motion. MS/ Extremity: Pulses equal, no cyanosis. Neurovascular intact. Full, normal range of motion. Neuro: Awake and alert, GCS 15, oriented to person, place, time, and situation. Cranial nerves II-XII grossly intact. Motor strength 5/5 in all extremities. Sensory grossly intact. Cerebellar exam normal. Normal gait. Psych: Awake, alert, with orientation to person, place and time. Behavior, mood, and affect are within normal limits. 09:40 Abdomen/GI: Inspection: Patient abdomen is soft with mild tenderness in the lower abdomen above the bladder. No rebound tenderness or guarding is noted. Bowel sounds are present. No peritoneal signs noted.. Vital Signs: 08:52 BP 160 / 80; Pulse 71; Resp 18 S; Temp 97.4(TE); Pulse Ox 100% on R/A; Weight 104.33 kg aa5 (R); Height 5 ft. 3 in. (160.02 cm) (R); 10:35 BP 151 / 54; Pulse 62; Resp 15; Pulse Ox 99% ; jl7 11:56 BP 123 / 69; Pulse 60; Resp 17; Pulse Ox 100% ; bp 13:00 BP 109 / 89; Pulse 70; Resp 16; Pulse Ox 92% ; bp 14:00 BP 125 / 81; Pulse 76; Resp 17; Temp 97.5; Pulse Ox 96% ; bp 08:52 Body Mass Index 40.74 (104.33 kg, 160.02 cm) aa5 MDM: 09:00 Patient medically screened. sp3 09:41 Data reviewed: vital signs, nurses notes. ED course: 75-year-old female with likely sp3 bladder infection with possible pyelonephritis and/or kidney stone. Will obtain labs, UA, CT scan of the abdomen pelvis and treat with antibiotics as indicated. At this time I am not suspicious of AAA, acute coronary syndrome, pulmonary embolism, sepsis, shock, any other critical findings at this time.. 13:27 ED course: Reviewed patient results with family. Patient has creatinine level of 2.6 sp3 which per family is baseline in the 2.5-3 range. She has an obvious bladder infection for which admission was offered but they elected to stay with outpatient treatment. We will give Rocephin 1 g IV and discharge patient on Bactrim p.o. which may also treat the infectious diarrhea she may have. She has been on Cipro in the past and due to likely resistance will not use that medication at this time. Patient to follow-up with her PCP and vp digital marketing as needed and they also know to return here at any time if they change her mind on admission or for further symptoms.. 03/04 09:21 Order name: Basic Metabolic Panel sp3 03/04 09:21 Order name: CBC with Diff sp3 03/04 09: Order name: LFT's; Complete Time: 13:02 sp3 03/04 09:21 Order name: Magnesium; Complete Time: 13:02 sp3 03/04 09:21 Order name: NT PRO-BNP; Complete Time: 13:02 sp3 03/04 09:21 Order name: PT-INR; Complete Time: 13:02 sp3 03/04 09:21 Order name: Troponin (emerg Dept Use Only); Complete Time: 13:02 sp3 03/04 09:21 Order name: UA; Complete Time: 13:02 sp3 03/04 09:22 Order name: Basic Metabolic Panel; Complete Time: 13:02 EDMS 03/04 09:22 Order name: CBC with Automated Diff; Complete Time: 13:02 EDMS 03/04 09:44 Order name: Urine Microscopic Only; Complete Time: 13:02 bp 03/04 11:00 Order name: Glucose, Ancillary Testing; Complete Time: 13:02 EDMS 03/04 11:17 Order name: Urine Dipstick-Ancillary; Complete Time: 13:02 EDMS 03/04 12:54 Order name: Urine Culture EDMS 03/04 09:21 Order name: XRAY Chest (1 view); Complete Time: 13:02 sp3 03/04 09:21 Order name: EKG; Complete Time: 09:23 sp3 03/04 09:21 Order name: Cardiac monitoring; Complete Time: 09:44 sp3 03/04 09:21 Order name: EKG - Nurse/Tech; Complete Time: 10:27 sp3 03/04 09:21 Order name: IV Saline Lock; Complete Time: 10:27 sp3 03/04 09:21 Order name: Labs collected and sent; Complete Time: 10:27 sp3 03/04 09:21 Order name: O2 Per Protocol; Complete Time: 09:44 sp3 03/04 09:21 Order name: O2 Sat Monitoring; Complete Time: 09:44 sp3 03/04 09:21 Order name: Urine Dipstick-Ancillary (obtain specimen); Complete Time: 11:32 sp3 03/04 09:21 Order name: CT Abd/Pelvis - Without Contrast; Complete Time: 13:02 sp3 Administered Medications: 12:03 Drug: Zofran (Ondansetron) 4 mg Route: IVP; Site: left forearm; bp 12:03 Follow up: Response: No adverse reaction bp 13:46 Drug: Rocephin - (cefTRIAXone) 1 grams Route: IVPB; Infused Over: 30 mins; Site: left jl7 forearm; 14:16 Follow up: Response: No adverse reaction; IV Status: Completed infusion jl7 14:22 Follow up: IV Status: Completed infusion; IV Intake: 100ml bp Disposition Summary: 03/04/21 13:30 Discharge Ordered Location: Home sp3 Condition: Stable sp3 Diagnosis - UTI/ Urinary tract infection, site not specified sp3 Followup: sp3 - With: Private Physician - When: - Reason: Continuance of care Discharge Instructions: - Discharge Summary Sheet sp3 - Urinary Tract Infection, Adult sp3 Forms: - Medication Reconciliation Form sp3 - Thank You Letter sp3 - Antibiotic Education sp3 - Prescription Opioid Use sp3 Prescriptions: - Bactrim DS 800-160 mg Oral Tablet - take 1 tablet by ORAL route every 12 hours for 10 days; 20 tablet; Refills: 0, sp3 Product Selection Permitted Signatures: Dispatcher [employer] Deisi Mai, RN RN aa5 Katie Easton RN RN jl7 Donnell Finn, RN RN Maged Maria MD MD sp3
--- NOTE | 2021-03-04 13:30 | ER ---
Nurse's Notes [facility] Name: Dagmar Flores Age: 75 yrs Sex: Female : 1945 Arrival Date: 03/04/2021 Time: 08:40 Bed 7 Private MD: Diagnosis: UTI/ Urinary tract infection, site not specified Presentation: 03/04 08:52 Chief complaint: diarrhea x 2 weeks ago, burning with urination, and back pain. Pt aa5 states "I've been taking antibiotics for a UTI for like 4 months now". 08:52 Coronavirus screen: At this time, the client does not indicate any symptoms associated aa5 with coronavirus-19. Ebola Screen: No symptoms or risks identified at this time. Initial Sepsis Screen: Does the patient meet any 2 criteria? No. Patient's initial sepsis screen is negative. Does the patient have a suspected source of infection? Yes: Dysuria/Frequency/Urgency/UTI. Risk Assessment: Do you want to hurt yourself or someone else? Patient reports no desire to harm self or others. Onset of symptoms was February 2021. 08:52 Acuity: JOSUE 3 aa5 08:52 Method Of Arrival: Wheelchair aa5 Triage Assessment: 09:00 General: Appears in no apparent distress. comfortable, obese, Behavior is cooperative, bp appropriate for age, anxious. Pain: Complains of pain in back Pain currently is 8 out of 10 on a pain scale. EENT: No deficits noted. Neuro: No deficits noted. Level of Consciousness is awake, alert, obeys commands, Oriented to Appropriate for age. Neuro: Moves all extremities. Cardiovascular: No deficits noted. Respiratory: No deficits noted. GI: Reports diarrhea. : Reports burning with urination. Derm: No deficits noted. Musculoskeletal: Reports CHRONIC JOINT AND BACK PAIN. Historical: - Allergies: 08:55 No Known Drug Allergies; bp - PMHx: 08:55 "Kidney problems"; Fibromyalgia; Kidney stones; bp - Immunization history:: Adult Immunizations up to date, Client reports having NOT received the Covid vaccine. - Social history:: Smoking status: Patient denies any tobacco usage or history of. Screenin:00 Abuse screen: Denies threats or abuse. Denies injuries from another. Nutritional bp screening: No deficits noted. Tuberculosis screening: No symptoms or risk factors identified. Fall Risk None identified. Assessment: 09:00 General: SEE TRIAGE NOTE. bp 11:00 Reassessment: No changes from previously documented assessment. Patient and/or family bp updated on plan of care and expected duration. Pain level reassessed. 11:57 Reassessment: No changes from previously documented assessment. ALL CURRENT ORDERS bp COMPLETE. 13:54 Reassessment: Pt will be discharged after medication is done infusing. jl7 14:20 Reassessment: PT D/C HOME VIA W/C WITH FAMILY, DX WITH UTI. bp Vital Signs: 08:52 BP 160 / 80; Pulse 71; Resp 18 S; Temp 97.4(TE); Pulse Ox 100% on R/A; Weight 104.33 kg aa5 (R); Height 5 ft. 3 in. (160.02 cm) (R); 10:35 BP 151 / 54; Pulse 62; Resp 15; Pulse Ox 99% ; jl7 11:56 BP 123 / 69; Pulse 60; Resp 17; Pulse Ox 100% ; bp 13:00 BP 109 / 89; Pulse 70; Resp 16; Pulse Ox 92% ; bp 14:00 BP 125 / 81; Pulse 76; Resp 17; Temp 97.5; Pulse Ox 96% ; bp 08:52 Body Mass Index 40.74 (104.33 kg, 160.02 cm) aa5 ED Course: 08:40 Patient arrived in ED. as 08:52 Donnell Finn, RN is Primary Nurse. bp 08:52 Arm band placed on Patient placed in an exam room, on a stretcher. aa5 08:59 Maged Limon MD is Attending Physician. sp3 09:00 Triage completed. aa5 09:00 Patient has correct armband on for positive identification. Bed in low position. Call bp light in reach. Side rails up X2. 09:42 XRAY Chest (1 view) In Process Unspecified. EDMS 09:43 CT Abd/Pelvis - Without Contrast In Process Unspecified. EDMS 10:28 Basic Metabolic Panel Sent. bp 10:28 CBC with Diff Sent. bp 11:14 Straight cath inserted, using sterile technique, 16 Fr. Specimen obtained. bp 14:21 No provider procedures requiring assistance completed. IV discontinued, intact, bp bleeding controlled, No redness/swelling at site. Pressure dressing applied. Administered Medications: 12:03 Drug: Zofran (Ondansetron) 4 mg Route: IVP; Site: left forearm; bp 12:03 Follow up: Response: No adverse reaction bp 13:46 Drug: Rocephin - (cefTRIAXone) 1 grams Route: IVPB; Infused Over: 30 mins; Site: left jl7 forearm; 14:16 Follow up: Response: No adverse reaction; IV Status: Completed infusion jl7 14:22 Follow up: IV Status: Completed infusion; IV Intake: 100ml bp Intake: 14:22 IV: 100ml; Total: 100ml. bp Outcome: 13:30 Discharge ordered by sp3 14:21 Discharged to home via wheelchair, with family. bp 14:21 Condition: stable 14:21 Discharge instructions given to patient, family, Instructed on discharge instructions, follow up and referral plans. medication usage, Demonstrated understanding of instructions, follow-up care, medications, Prescriptions given X 1. 14:23 Patient left the ED. bp Signatures: Dispatcher [employer] EDMS Valencia Mariano Audri, RN RN aa5 Katie Easton RN RN jl7 Donnell Finn, AYAAN RN bp Maged Limon MD MD sp3
[2021-03-04] MEDS ORDERED: CEFTRIAXONE 1000 MG/VIAL ONE (14:01)
[2021-03-04] MEDS ORDERED: NA CHLORIDE 0.9% 100 ML ONE (14:02)
[2021-03-04 15:03] VITALS: BP 125/81; TEMP 97.5; O2SAT 96
--- NOTE | 2021-03-05 12:16 | EKG ---
Test Date: 2021-03-04 Test Time: 10:08:23 Underground Conduit Installer: PAM MEASUREMENT RESULTS: Intervals: Rate: 68 MA: 194 QRSD: 122 QT: 424 QTc: 450 [place]: P: 66 MA: 194 QRS: -28 T: -41 INTERPRETIVE STATEMENTS: Sinus rhythm with occasional premature ventricular complexes Left ventricular hypertrophy with QRS widening Nonspecific ST and T wave abnormality Abnormal ECG Compared to ECG 04/23/2020 14:20:56 Ventricular premature complex(es) now present ST (T wave) deviation now present Left-axis deviation no longer present Early repolarization no longer present Electronically Signed On 03-05-21 12:13:09 CDT by Mo Brooks
== END 2021-03-04 14:23 | disposition home or self-care (01) ==
LOC: ER 08:38
DX: N39.0 Urinary tract infection, site not specified (principal); R10.30 Lower abdominal pain, unspecified; Z87.442 Personal history of urinary calculi
CPT/HCPCS: 96365; 93005; 87088; 85025; 87086; 80048; 36415; 83735; 85610; 82947; 80076; 84484; 83880; 74176; 71045; 51702; 96375; 99284; J2405; 81003; 81015; 87077; 87186

== ENCOUNTER 2021-03-13 16:26 | Inpatient (IN) | payer OTHER ==
[2021-03-13] MEDS ORDERED: ACETAMINOPHEN 500 MG TAB PO PRN (18:13)
[2021-03-13] MEDS ORDERED: MORPHINE 2 MG/ML SYR IV PRN (18:13)
--- NOTE | 2021-03-13 18:25 | P.HP ---
Certification for Inpatient Patient admitted to: Inpatient With expected LOS: >2 Midnights Patient will require the following post-hospital care: None Practitioner: I am a practitioner with admitting privileges, knowledge of patient current condition, hospital course, and medical plan of care. Services: Services provided to patient in accordance with Admission requirements found in Title 42 Section 412.3 of the Code of Federal Regulations Patient History History of Present Illness: Patient is a 75-year-old female who came into the hospital a week ago with dysuria up. Patient was found have lower abdominal pain and a urinary tract infection. Patient also had acute renal insufficiency with a metabolic acidosis. Patient was hydrated and given antibiotics. Patient is not really improved. Patient was seen by Nephrology and by car was down to 14. Renal function was worsening. Patient was brought into the hospital for direct admission. Patient will be admitted and we will go ahead and do a renal ultrasound and continue with aggressive IV fluids with a bicarb drip. Patient will be admitted for further evaluation. Allergies No Known Drug Allergies Allergy (Verified 06/07/14 15:02) Unknown Home Medications: Albuterol Sulfate [Albuterol Sulfate Hfa] 2 puff IH Q6HP PRN 04/23/20 Cholecalciferol (Vitamin D3) [Vitamin D 400 IU TAB*] 400 unit PO DAILY 04/23/20 Nystatin Powder [Mycostatin (Powder)*] 1 pretty TOP BID 04/23/20 Vitamin B Complex [Vitamin B Complex*] 1 cap PO DAILY 04/23/20 Alcohol Antiseptic Pads [Alcohol Prep Pads] 1 each TP TID #100 med..pad 04/27/20 Blood-Glucose Meter [Contour] 1 each MC TID #1 kit 04/27/20 Insulin Glargine Human [Lantus*] 14 units SQ DAILY #10 ml 04/27/20 Lancets [Lancets Thin] 1 each MC TID #100 each 04/27/20 Pantoprazole [Protonix Tab*] 40 mg PO BIDAC #60 tab 04/27/20 Syring-Needl,Disp,Insul,0.3 ml [Insulin Syringe] 1 each MC TID #100 disp.syrin 04/27/20 levoFLOXacin [Levaquin] 500 mg PO DAILY #10 tab 04/27/20 - Past Medical/Surgical History Diabetic: Yes -: Chronic UTI's -: Nephrolithiasis -: DM -: Arthritis -: Dehydration -: malnutrition -: Neurogenic bladder -: Renal Failure -: Right shoulder prosthesis -: Back surgery -: bladder augmentation -: appendectomy -: cholecystectomy -: hysterectomy -: kidney stents -: suprapubic catheter - Family History Sister Medical History: Cancer Notes: - colon cancer Father Medical History: Cancer Notes: Lung cancer, heavy smoker Mother Medical History: Lung disease Notes: Heavy smoker; Emphysema Brother Medical History: Cancer Notes: 3 Brothers of lung cancer - Social History Smoking Status: Never smoker Alcohol use: No CD- Drugs: No Caffeine use: No Review of Systems 10-point ROS is otherwise unremarkable Physical Examination - Vital Signs Temperature: 98 F Blood Pressure: 140/70 Pulse: 88 Respirations: 18 Pulse Ox (%): 99 - Physical Exam General: Alert, In no apparent distress, Oriented x3 HEENT: Atraumatic, PERRLA, Mucous membr. moist/pink, EOMI, Sclerae nonicteric Neck: Supple, 2+ carotid pulse no bruit, No LAD, Without JVD or thyroid abnormality Respiratory: Clear to auscultation bilaterally, Normal air movement Cardiovascular: Regular rate/rhythm, Normal S1 S2 Gastrointestinal: Normal bowel sounds, Soft and benign, Non-distended, No tenderness, No rebound, No guarding Musculoskeletal: No clubbing, No swelling, No tenderness Integumentary: No rashes Neurological: Normal gait, Normal speech, Normal strength at 5/5 x4 extr, Normal tone, Sensation intact, Cranial nerves 3-12 intact, Normal affect Lymphatics: No axilla or inguinal lymphadenopathy Assessment & Plan - Problems (Diagnosis) (1) AUGUSTO (acute kidney injury) Current Visit: Yes Status: Acute (2) Dehydration Onset Date: ~04/24/20 Current Visit: No Status: Active (3) Abdominal pain Current Visit: No Status: Acute (4) GERD (gastroesophageal reflux disease) Current Visit: No Status: Acute (5) History of chronic kidney disease Current Visit: No Status: Acute (6) Influenzal pneumonia Current Visit: No Status: Acute (7) Kidney stones Onset Date: 06/08/14 Current Visit: No Status: Acute (8) Metabolic acidosis Current Visit: No Status: Acute (9) Morbid obesity with BMI of 40.0-44.9, adult Current Visit: No Status: Acute (10) Diabetes mellitus type 2 Onset Date: Unknown Current Visit: No Status: Chronic (11) Morbid obesity Onset Date: Unknown Current Visit: No Status: Chronic - Plan Plan: 1. Continue with IV fluids 2. Monitor renal function 3. Renal ultrasound 4. Nephrology consultation 5. 1/2 normal saline with bicarb drip 6. Check lab stat 7. UA with microscopy 8. Antibiotic therapy 9. GI and DVT prophylaxis Discharge Plan: Home Plan to discharge in: Greater than 2 days - Advance Directives Does patient have a Living Will: No Does patient have a Durable POA for Healthcare: No - Code Status/Comfort Care Code Status Assessed: Yes Code Status: Full Code Critical Care: No Time Spent Managing PTS Care (In Minutes): 45
[2021-03-13] MEDS ORDERED: NA CHLORIDE 0.9% 1,000 ML IV SCH (19:00)
[2021-03-13] MEDS ORDERED: NACHLORIDE 0.45% 0 ML IV ONE (19:35)
[2021-03-13] MEDS: FAMOTIDINE 20 MG TAB PO SCH (20:13)
[2021-03-13] MEDS: NACHLORIDE 0.45% 1,000 ML with NA BICARB 8.4% 50 MEQ IV SCH ×2 (20:13)
[2021-03-13] MEDS: ONDANSETRON 4 MG/2 ML VIAL IV PRN (20:13)
[2021-03-13 20:37] LABS: Absolute Lymphocytes (CBC) 1.3 K/uL (0.7-4.9); Basophils % 0.3 % (0-1.3); Hematocrit 38.7 % (36.0-45.0); Lymphocytes % 16.2 % (15.3-44.8); MPV 6.7 fL (7.6-11.3); RBC Red Blood Cell Count 3.95 M/uL (3.86-4.86)
[2021-03-13 20:56] LABS: ALT/SGPT 14 U/L (12-78); AST/SGOT 12 U/L (15-37); Albumin 2.8 g/dL (3.4-5.0); Alkaline Phosphatase 105 U/L (45-117); BUN Blood Urea Nitrogen 37 mg/dL (7-18); Bicarbonate 18 mmol/L (21-32); Bilirubin Total 0.2 mg/dL (0.2-1.0); Glucose Level 298 mg/dL (74-106); Magnesium 2.2 mg/dL (1.8-2.4); NT PRO-BNP 537 pg/mL (<125); Potassium 4.3 mmol/L (3.5-5.1); Protein, Total 8.1 g/dL (6.4-8.2); Sodium Level 139 mmol/L (136-145); Troponin I < 0.02 ng/mL (0.0-0.045); Uric Acid 5.5 mg/dL (2.6-6.0)
[2021-03-13 21:58] VITALS: BMI 40.2
[2021-03-13] MEDS ORDERED: FAMOTIDINE 20 MG/2 ML VIAL IV ONE (23:06)
[2021-03-14] MEDS: ONDANSETRON 4 MG/2 ML VIAL IV PRN ×5 (03:05→22:46)
[2021-03-14 04:30] LABS: Urine Appearance TURBID (Clear); Urine Bilirubin NEGATIVE (Negative); Urine Blood 2+ (Negative); Urine Color YELLOW (Yellow); Urine Glucose NEGATIVE (Negative); Urine Protein 2+ (Negative); Urine Urobilinogen 0.2 mg/dL (0.2-1.0); Urine pH 6.5 (5.0-7.0)
[2021-03-14] MEDS: NACHLORIDE 0.45% 1,000 ML with NA BICARB 8.4% 50 MEQ IV SCH ×2 (05:35)
[2021-03-14 05:38] LABS: Urine Bacteria <20 /HPF (<20); Urine RBC <5 /HPF (NONE SEEN); Urine Yeast PRESENT (NONE SEEN); Urine Yeast with Hyphae PRESENT
[2021-03-14 06:00] LABS: Absolute Lymphocytes (CBC) 2.2 K/uL (0.7-4.9); Basophils % 0.4 % (0-1.3); Hematocrit 36.4 % (36.0-45.0); Lymphocytes % 35.8 % (15.3-44.8); MPV 6.9 fL (7.6-11.3); RBC Red Blood Cell Count 3.67 M/uL (3.86-4.86)
[2021-03-14 06:15] LABS: Albumin 2.6 g/dL (3.4-5.0); Bilirubin Total 0.3 mg/dL (0.2-1.0); Potassium 4.1 mmol/L (3.5-5.1); Protein, Total 7.5 g/dL (6.4-8.2)
--- NOTE | 2021-03-14 08:01 | RAD REPORT ---
EXAM DESCRIPTION: US - Renal Ultrasound-Complete - 03/14/2021 12:45 am CLINICAL HISTORY: Acute renal failure COMPARISON: February 2021 FINDINGS: Examination is limited secondary to body habitus and patient being in pain. The right kidney measures 10 cm with a normal echotexture. The left kidney measures 9 cm with a normal echotexture. Small bilateral renal cysts. Small bilateral renal calculi Hydronephrosis is not seen. No gross abnormality of bladder IMPRESSION: No acute abnormality is displayed
[2021-03-14] MEDS: FAMOTIDINE 20 MG TAB PO SCH (09:21)
[2021-03-14] MEDS ORDERED: Levofloxacin 750mg IV 750 MG/150 ML BAG IV ONE (11:00)
[2021-03-14] MEDS: NACHLORIDE 0.45% 1,000 ML with NA BICARB 8.4% 75 MEQ IV SCH ×2 (11:02)
[2021-03-14] MEDS ORDERED: NA CHLORIDE 0.9% 1,000 ML IV ONE (12:11)
--- NOTE | 2021-03-14 13:07 | CON ---
Date of Consultation: 03/14/2021 Reason For Consultation: Elevated BUN and creatinine, acidosis, UTI. History Of Present Illness: This is a pleasant 75-year-old female with significant past medical hist ory of diabetes since 1999, complicated with neuropathy and nephropathy, no retinopathy, hypertension since 2018, nephrolithiasis with multiple procedures, chronic kidney disease stage 3B/4, normal size kidney 02/18 with multiple cysts on the right side, baseline creatinine 1.4 to 1.7, status post acut e kidney injury secondary to obstructive uropathy secondary to hematoma, resolved. The patient came to the office yesterday complaining from nausea, decreased energy. Apparently, the patient visited t he ER a few days ago, at that time found to have UTI, placed on Bactrim, repeated lab. The patient s till has UTI with E coli with severe acidosis, bicarb down to the 14, and elevation in BUN and creati nine. Creatinine was 2.7 with GFR of 16. For that reason, we sent her to the hospital. The patient complaining also from nausea and vomiting with diarrhea for the last 3 weeks. The patient denied an y fever or chills. Over the night, we started her on bicarb drip. Acidosis started being improved, but the patient still has diarrhea. Her intake has still been limited. Past Medical History: Includes; 1.Hypertension. 2.Hyperlipidemia. 3.Nephrolithiasis. 4.Diabetes complicated with neuropathy and nephropathy. 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 Baseline creatinine 1.4 to 2.7. Home Medications: Include cholecalciferol, albuterol, insulin, pantoprazole, Levaquin. Allergies: NO KNOWN DRUGS ALLERGY. Family History: Positive for cancer and CAD. Social History: Denied smoking. Denied drinking. Denied drug abuse. Review of Systems: Head and Neck: No red eye. No ear pain. GI: Has nausea, vomiting. Has diarrhea. : No polyuria. No hematuria. Has dysuria. 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 Respiratory: No shortness of breath. Cardiovascular: No chest pain. Endocrine: No polydipsia. Skin: No rash. Neuro: Has neuropathy. Musculoskeletal: Has low back pain. Physical Examination: General: When I saw the patient; the patient is lying in bed. Vital Signs: Blood pressure 126/58, pulse of 71, afebrile. Chest: Clear to auscultation. Heart: S1, S2. Regular. Abdomen: Soft, nontender. No guarding or rebound. Extremities: No edema. Neurologic: Alert. No focality. Laboratory Data: WBC 6.2, H and H 11.6/36.4. Sodium 140, potassium 4.1, bicarb 18, BUN 37, creatini ne 2.3, GFR of 20, calcium 10.2, albumin 2.6. Urinalysis positive for infection. Current Medications: The patient on is sodium bicarb drip with half normal at rate of 50 with 50 mEq of bicarb, Pepcid. Assessment And Plan: 1.Acute kidney injury secondary to prerenal, looked to me still on the dry side. I am going to go a head and bolus the patient again with 1 L of normal saline. I am going to go ahead and decrease the bicarb drip with increase concentration to 75 and increase the rate to 75, and we will continue to mo nitor the patient. Mostly, the acute kidney injury is multifactorial secondary to prerenal, dehydrat ion secondary to GI loss, superimposed with toxic ATN secondary to urinary tract infection/gastroente ritis. As above, we will start hydration and we will follow up. I am going to keep holding blood pr essure medications as blood pressure on the lower side currently. 2.Acidosis, non-anion gap metabolic acidosis, mostly secondary to renal failure and GI loss. I am g oing to adjust the bicarb drip to half normal with 75 mEq to increase the rate to 75, and we will mon itor the patient closely. 3.Urinary tract infection. Given the acute kidney injury and previous renal cyst, we will repeat ul trasound to rule out any complicated urinary tract infection. We will start the patient on Levaquin. 4.Gastroenteritis. Start the patient on Flagyl, IV fluid, and Levaquin. We will send for Clostridi um difficile and we will follow up. 5.Diabetes as by primary. 6.Hypertension with the presence of acute kidney injury. We will avoid using any nonsteroidal or an y MIL inhibitor or ARB. We will hold blood pressure medications for the time being given the margina l low blood pressure and we will follow up. Time spent examining the patient, placing ordered, examining the patient [id number], reviewing the data, lab and radiology, discussing the case with the patient [id number], discussing the case with nut steamer including nursing, discussing the case with other subspecialists including hospitalist 65 minutes. RACHEL Voice ID: [id number] Report ID: [id number]
[2021-03-14] MEDS: METRONIDAZOLE 500mg IVPB 500 MG/100 ML BAG IV SCH ×2 (14:31→20:38)
[2021-03-14] MEDS ORDERED: DIPHENHYDRAMINE 25 MG TAB/CAP PO ONE (19:48)
[2021-03-15] MEDS ORDERED: D50W 25 GM/50 ML SYRINGE IV PRN (02:56)
[2021-03-15] MEDS ORDERED: GLUCAGON 1 MG/VIAL IM PRN (02:56)
--- NOTE | 2021-03-15 02:59 | P.PN ---
Subjective Date of Service: 03/14/21 Patient is feeling a little bit better. Clinically improving. Still having chronic pain. Get physical therapy evaluation as well. Review of Systems 10-point ROS is otherwise unremarkable Physical Examination - Vital Signs Temperature: 98 F Blood Pressure: 140/70 Pulse: 88 Respirations: 18 Pulse Ox (%): 99 - Physical Exam General: Alert, In no apparent distress, Oriented x3 HEENT: Atraumatic, PERRLA, EOMI Neck: Supple, JVD not distended Respiratory: Clear to auscultation bilaterally, Normal air movement Cardiovascular: Regular rate/rhythm, Normal S1 S2 Gastrointestinal: Normal bowel sounds, Soft and benign, Non-distended, No tenderness Neurological: Sensation intact, Cranial nerves 3-12 intact, Abnormal strength - Studies Laboratory Data (last 24 hrs) 03/14/21 05:36: Sodium 140, Potassium 4.1, BUN 37 H, Creatinine 2.35 H, Glucose 203 H, Total Bilirubin 0.3, AST 14 L, ALT 15, Alkaline Phosphatase 87 03/14/21 05:36: WBC 6.20 D, Hgb 11.6 L, Hct 36.4, Plt Count 283 Medications List Reviewed: Yes Assessment & Plan - Problems (Diagnosis) (1) AUGUSTO (acute kidney injury) Current Visit: Yes Status: Acute (2) Dehydration Onset Date: ~04/24/20 Current Visit: No Status: Active (3) Abdominal pain Current Visit: No Status: Acute (4) GERD (gastroesophageal reflux disease) Current Visit: No Status: Acute (5) History of chronic kidney disease Current Visit: No Status: Acute (6) Influenzal pneumonia Current Visit: No Status: Acute (7) Kidney stones Onset Date: 06/08/14 Current Visit: No Status: Acute (8) Metabolic acidosis Current Visit: No Status: Acute (9) Morbid obesity with BMI of 40.0-44.9, adult Current Visit: No Status: Acute (10) Diabetes mellitus type 2 Onset Date: Unknown Current Visit: No Status: Chronic (11) Morbid obesity Onset Date: Unknown Current Visit: No Status: Chronic - Plan Plan: Continue with plan of care as mentioned below: 1. Continue with IV fluids; as mentioned below 2. Monitor renal function; no significant changes 3. Renal ultrasound with no significant abnormalities 4. Nephrology consultation appreciated 5. 1/2 normal saline with bicarb drip 6. Continue monitoring renal function closely 7. UA with microscopy reviewed 8. continue with Levaquin 9. GI and DVT prophylaxis Discharge Plan: Home Plan to discharge in: Greater than 2 days - Advance Directives Does patient have a Living Will: No Does patient have a Durable POA for Healthcare: No - Code Status/Comfort Care Code Status: Full Code Critical Care: No Time Spent Managing PTS Care (In Minutes): 45
--- NOTE | 2021-03-15 03:00 | P.PN ---
Date of Service: 03/15/21 Subjective Patient continues to improve. Patient's strength is getting better. Renal function in acidosis have improved as well. Anticipate discharge home in the morning if okay with Nephrology. Close outpatient follow with therapy and with ceramic coater machine as well as neurology consultation. Review of Systems 10-point ROS is otherwise unremarkable Physical Examination - Vital Signs Reviewed - Physical Exam General: Alert, In no apparent distress, Oriented x3 Respiratory: Clear to auscultation bilaterally, Normal air movement Cardiovascular: Regular rate/rhythm, Normal S1 S2 Gastrointestinal: Normal bowel sounds, Soft and benign, Non-distended, No tenderness Neurological: Sensation intact, Cranial nerves 3-12 intact, Abnormal strength Assessment & Plan - Problems (Diagnosis) (1) AUGUSTO (acute kidney injury) Current Visit: Yes Status: Acute (2) Dehydration Onset Date: ~04/24/20 Current Visit: No Status: Active (3) Abdominal pain Current Visit: No Status: Acute (4) GERD (gastroesophageal reflux disease) Current Visit: No Status: Acute (5) History of chronic kidney disease Current Visit: No Status: Acute (6) Influenzal pneumonia Current Visit: No Status: Acute (7) Kidney stones Onset Date: 06/08/14 Current Visit: No Status: Acute (8) Metabolic acidosis Current Visit: No Status: Acute (9) Morbid obesity with BMI of 40.0-44.9, adult Current Visit: No Status: Acute (10) Diabetes mellitus type 2 Onset Date: Unknown Current Visit: No Status: Chronic (11) Morbid obesity Onset Date: Unknown Current Visit: No Status: Chronic - Plan Continue with plan of care as mentioned below: 1. Continue with IV hydration; continue with bicarb 2. Monitor renal function; no significant changes 3. Renal ultrasound with no significant abnormalities 4. Nephrology consultation appreciated 5. 1/2 normal saline with bicarb drip 6. Continue monitoring renal function closely 7. UA with microscopy reviewed 8. Spoke with Nephrology and they want do Flagyl for 2 weeks. May use Questran later on if diarrhea is persistent 9. GI and DVT prophylaxis
[2021-03-15] MEDS: NACHLORIDE 0.45% 1,000 ML with NA BICARB 8.4% 75 MEQ IV SCH ×6 (03:37→19:39)
[2021-03-15] MEDS: ONDANSETRON 4 MG/2 ML VIAL IV PRN ×5 (03:39→21:54)
[2021-03-15 07:24] LABS: Albumin 2.1 g/dL (3.4-5.0); Phosphorus 2.3 mg/dL (2.5-4.9); Uric Acid 6.2 mg/dL (2.6-6.0)
[2021-03-15 07:26] LABS: Potassium 4.2 mmol/L (3.5-5.1)
--- NOTE | 2021-03-15 08:25 | P.PN ---
Subjective Date of Service: 03/16/21 Subjective: Other (She reports still having loose stools.) Physical Examination - Vital Signs Temperature: 98.5 F Blood Pressure: 151/60 Pulse: 69 Respirations: 14 Pulse Ox (%): 94 - Physical Exam General: In no apparent distress HEENT: Atraumatic, Normocephalic Neck: Supple, JVD not distended Respiratory: Other (Symmetric chest expansion) Cardiovascular: No rubs, No murmurs Gastrointestinal: Soft and benign, Non-distended Musculoskeletal: No clubbing Integumentary: Other (Normal temp) Neurological: Normal speech, Normal tone Urinary: Other (No bladder distention) External genitalia: Deferred Rectal: Deferred - Studies Laboratory Data (last 24 hrs) 03/15/21 06:44: Sodium 143, Potassium 4.2, BUN 32 H, Creatinine 2.33 H, Glucose 235 H, Uric Acid 6.2 H, Phosphorus 2.3 L Medications List Reviewed: Yes Assessment And Plan - Plan # AUGUSTO 2/2 prerenal state SCr improving Cont IV fluid [place] po fluid intake Monitor renal panel # Chronic diarrhea Hx of gallstones Empiric abx per primary team Imodiium prn Restrict lactose & gluten in diet if needed May trial Questran +/- Creon if above not enough # Acidosis Cont IV bicarb # UTI On abx F/u UCx # Htn BP at goal Not on BP meds Monitor # DM2 Mngt per primary team
[2021-03-15] MEDS: METRONIDAZOLE 500mg IVPB 500 MG/100 ML BAG IV SCH ×3 (08:53→19:39)
[2021-03-15] MEDS: VITAMIN B COMPLEX 1 CAP PO SCH (08:53)
[2021-03-15] MEDS: VITAMIN D 400 UNIT TAB PO SCH (08:53)
[2021-03-15] MEDS: PANTOPRAZOLE 40MG TABLET PO SCH ×2 (08:59→17:41)
[2021-03-15] MEDS ORDERED: INSULIN GLARGINE 100 UNITS/ML SQ SCH (09:00)
[2021-03-15] MEDS ORDERED: POTASS/SODIUM PHOSPHATE 1 PKT POWD.PACK PO ONE (13:44)
[2021-03-15] MEDS ORDERED: DIPHENOX/ATROP SULF 1 TAB PO ONE (18:00)
[2021-03-15] MEDS ORDERED: CEFTRIAXONE 1 GM/NS 50 ML 1 GM/50 ML BAG IV ONE (18:00)
[2021-03-15] MEDS ORDERED: INSULIN 70/30 100 UNITS/ML SQ ONE (19:00)
[2021-03-15] MEDS ORDERED: ALBUMIN HUMAN 25% 100 ML IV ONE (19:00)
[2021-03-16] MEDS: ONDANSETRON 4 MG/2 ML VIAL IV PRN ×5 (01:52→23:45)
[2021-03-16 06:10] LABS: Albumin 2.7 g/dL (3.4-5.0); Phosphorus 2.7 mg/dL (2.5-4.9); Potassium 3.6 mmol/L (3.5-5.1)
[2021-03-16] MEDS: PANTOPRAZOLE 40MG TABLET PO SCH ×2 (07:35→16:59)
--- NOTE | 2021-03-16 08:46 | P.PN ---
Subjective Date of Service: 03/16/21 Today Cr improving complaining of bitter mouth test will add sucralafte Bicarb 23, will cont IVF for now and conisder to stop tomorrow or switch to ringer lactate Physical exam general: AAOX3, NAD , obese Neck; Supple, No elevated JVD hear: RRR, normal S1,2 no murmur or rub Chest: CTAB, no rales or wheezes Abdomen: Soft , Nt Extremities : No edema # AUG[place]O 2/2 prerenal state SCr improving Cont IV fluid [place] po fluid intake Monitor renal panel # Chronic diarrhea Hx of gallstones Empiric abx per primary team Imodiium prn Restrict lactose & gluten in diet if needed # Acidosis Cont IV bicarb # UTI On abx F/u UCx # Htn BP at goal Not on BP meds Monitor # DM2 Mngt per primary team Physical Examination - Vital Signs Temperature: 98.5 F Blood Pressure: 151/60 Pulse: 69 Respirations: 14 Pulse Ox (%): 94 - Studies Laboratory Data (last 24 hrs) 03/16/21 05:16: Magnesium 1.7 L D 03/16/21 05:16: Sodium 144, Potassium 3.6, BUN 30 H, Creatinine 2.15 H, Glucose 112 H, Phosphorus 2.7 Medications List Reviewed: Yes
[2021-03-16] MEDS: VITAMIN B COMPLEX 1 CAP PO SCH (08:51)
[2021-03-16] MEDS: VITAMIN D 400 UNIT TAB PO SCH (08:51)
[2021-03-16] MEDS: METRONIDAZOLE 500mg IVPB 500 MG/100 ML BAG IV SCH (08:51)
[2021-03-16] MEDS: CEFTRIAXONE 1 GM/NS 50 ML 1 GM/50 ML BAG IV SCH ×2 (08:51→19:37)
[2021-03-16] MEDS: INSULIN GLARGINE 100 UNITS/ML SQ SCH (08:52)
[2021-03-16] MEDS ORDERED: Levofloxacin500mg IV 500 MG/100 ML BAG IV SCH (11:00)
[2021-03-16] MEDS: SUCRALFATE 1 GM TABLET PO SCH ×2 (11:22→19:38)
--- NOTE | 2021-03-16 13:30 | P.PN ---
Date of Service: 03/16/21 Subjective Patient is doing well. However, still weak. Have encouraged her to continue get out of bed and ambulate. Still complaining of diarrhea. It has improved. Continue with Lomotil. Continue with probiotic. Stool studies pending. Anticipate discharge over the next 48 hr Review of Systems 10-point ROS is otherwise unremarkable Physical Examination - Vital Signs Reviewed - Physical Exam General: Alert, In no apparent distress, Oriented x3 Respiratory: Clear to auscultation bilaterally, Normal air movement Cardiovascular: Regular rate/rhythm, Normal S1 S2 Gastrointestinal: Normal bowel sounds, Soft and benign, Non-distended, No tenderness Neurological: Sensation intact, Cranial nerves 3-12 intact, Abnormal strength Assessment & Plan - Problems (Diagnosis) (1) AUGUSTO (acute kidney injury) Current Visit: Yes Status: Acute (2) Dehydration Onset Date: ~04/24/20 Current Visit: No Status: Active (3) Abdominal pain Current Visit: No Status: Acute (4) GERD (gastroesophageal reflux disease) Current Visit: No Status: Acute (5) History of chronic kidney disease Current Visit: No Status: Acute (6) Influenzal pneumonia Current Visit: No Status: Acute (7) Kidney stones Onset Date: 06/08/14 Current Visit: No Status: Acute (8) Metabolic acidosis Current Visit: No Status: Acute (9) Morbid obesity with BMI of 40.0-44.9, adult Current Visit: No Status: Acute (10) Diabetes mellitus type 2 Onset Date: Unknown Current Visit: No Status: Chronic (11) Morbid obesity Onset Date: Unknown Current Visit: No Status: Chronic - Plan Continue with plan of care as mentioned below: 1. May Hep-Lock IV in the morning 2. Renal function improving 3. Renal ultrasound with no significant abnormalities 4. Nephrology consultation appreciated 5. Hep-Lock IV in a.m. 6. Continue monitoring renal function closely 7. UA with microscopy reviewed 8. Spoke with Nephrology and they want do Flagyl for 2 weeks. May use Questran later on if diarrhea is persistent 9. GI and DVT prophylaxis
[2021-03-16] MEDS: NACHLORIDE 0.45% 1,000 ML with NA BICARB 8.4% 75 MEQ IV SCH ×4 (14:12→23:45)
[2021-03-16] MEDS: LACTOBACILLUS/ACIDOPHILUS TAB PO SCH ×2 (14:12→19:38)
[2021-03-16] MEDS: metroNIDAZOLE 500 MG TABLET PO SCH ×2 (14:12→19:38)
[2021-03-16] MEDS: METHYLPREDNISOLONE 125 MG INJ IV SCH ×3 (14:12→23:45)
[2021-03-16] MEDS: CHOLESTYRAMINE/ASP 4 GM/PKT PO SCH (17:00)
[2021-03-16] MEDS ORDERED: INSULIN -REGULAR HUMAN 50 UNIT/0.5 ML ML SQ ONE (20:32)
[2021-03-16] MEDS: MELATONIN 5 MG TABLET PO PRN (20:55)
[2021-03-17] MEDS: ONDANSETRON 4 MG/2 ML VIAL IV PRN ×5 (03:39→22:20)
[2021-03-17 06:02] LABS: ALT/SGPT 15 U/L (12-78); AST/SGOT 12 U/L (15-37); Albumin 2.7 g/dL (3.4-5.0); Alkaline Phosphatase 71 U/L (45-117); BUN Blood Urea Nitrogen 25 mg/dL (7-18); Bicarbonate 23 mmol/L (21-32); Glucose Level 320 mg/dL (74-106); Magnesium 1.6 mg/dL (1.8-2.4); NT PRO-BNP 3100 pg/mL (<125); Phosphorus 2.2 mg/dL (2.5-4.9); Potassium 4.1 mmol/L (3.5-5.1); Protein, Total 7.3 g/dL (6.4-8.2); Sodium Level 141 mmol/L (136-145)
[2021-03-17 06:05] LABS: Bilirubin Total < 0.1 mg/dL (0.2-1.0)
[2021-03-17 06:07] LABS: Albumin 2.7 g/dL (3.4-5.0); Phosphorus 2.2 mg/dL (2.5-4.9); Potassium 4.2 mmol/L (3.5-5.1)
[2021-03-17 06:09] LABS: Absolute Lymphocytes (CBC) 0.6 K/uL (0.7-4.9); Basophils % 0.4 % (0-1.3); Hematocrit 35.4 % (36.0-45.0); Lymphocytes % 14.9 % (15.3-44.8); MPV 7.3 fL (7.6-11.3); RBC Red Blood Cell Count 3.62 M/uL (3.86-4.86)
[2021-03-17] MEDS: PANTOPRAZOLE 40MG TABLET PO SCH ×2 (07:49→16:39)
[2021-03-17] MEDS ORDERED: SODIUM PHOSPHATE 30 MM in NA CHLORIDE 0.9% 500 ML IV SCH (08:00)
[2021-03-17] MEDS: VITAMIN B COMPLEX 1 CAP PO SCH (08:17)
[2021-03-17] MEDS: metroNIDAZOLE 500 MG TABLET PO SCH ×3 (08:17→20:26)
[2021-03-17] MEDS: SUCRALFATE 1 GM TABLET PO SCH ×2 (08:17→20:25)
[2021-03-17] MEDS: CHOLESTYRAMINE/ASP 4 GM/PKT PO SCH ×2 (08:17→16:39)
[2021-03-17] MEDS: CEFTRIAXONE 1 GM/NS 50 ML 1 GM/50 ML BAG IV SCH ×2 (08:17→20:27)
[2021-03-17] MEDS: LACTOBACILLUS/ACIDOPHILUS TAB PO SCH ×3 (08:17→20:26)
[2021-03-17] MEDS: VITAMIN D 400 UNIT TAB PO SCH (08:18)
[2021-03-17] MEDS ORDERED: MAGNESIUM 50% 3 GM in NA CHLORIDE 0.9% 100 ML IV ONE (08:30)
[2021-03-17] MEDS ORDERED: NA CHLORIDE 0.9% 1,000 ML IV SCH (10:00)
[2021-03-17] MEDS: INSULIN GLARGINE 100 UNITS/ML SQ SCH (10:36)
[2021-03-17] MEDS: POTASS/SODIUM PHOSPHATE 1 PKT POWD.PACK PO SCH ×4 (10:36→20:26)
--- NOTE | 2021-03-17 21:09 | P.PN ---
Subjective Date of Service: 03/17/21 Today Cr improving feels better cont IVF Cont current management possible discharge in 1-2 days Physical exam general: AAOX3, NAD , obese Neck; Supple, No elevated JVD hear: RRR, normal S1,2 no murmur or rub Chest: CTAB, no rales or wheezes Abdomen: Soft , Nt Extremities : No edema # [place]O 2/2 prerenal state SCr improving Cont IV fluid [place] po fluid intake Monitor renal panel # Chronic diarrhea Hx of gallstones Empiric abx per primary team Imodiium prn Restrict lactose & gluten in diet if needed # Acidosis Cont IV bicarb # UTI On abx F/u UCx # Htn BP at goal Not on BP meds Monitor # DM2 Mngt per primary team Physical Examination - Vital Signs Temperature: 97.9 F Blood Pressure: 144/65 Pulse: 66 Respirations: 20 Pulse Ox (%): 94 - Studies Laboratory Data (last 24 hrs) 03/17/21 11:24: Magnesium 2.8 H D 03/17/21 05:57: WBC 4.00 L D, Hgb 11.2 L, Hct 35.4 L, Plt Count 195 D 03/17/21 05:31: Sodium 141, Potassium 4.1, BUN 25 H, Creatinine 2.07 H, Glucose 320 H, Phosphorus 2.2 L, Magnesium 1.6 L, Total Bilirubin < 0.1 L, AST 12 L, ALT 15, Alkaline Phosphatase 71 03/17/21 05:31: Sodium 142, Potassium 4.2, BUN 25 H, Creatinine 2.10 H, Glucose 324 H, Phosphorus 2.2 L Microbiology Data (last 24 hrs): 03/14/21 03:15 Clean Catch Urine [place] Count - Final >100,000 CFU/ML. 03/14/21 03:15 Clean Catch Urine - Final Enterococcus Faecalis Medications List Reviewed: Yes
[2021-03-17] MEDS: MELATONIN 5 MG TABLET PO PRN (22:20)
--- NOTE | 2021-03-18 00:06 | P.PN ---
Date of Service: 03/17/21 Subjective Patient continues to remain stable. Patient is been on Questran. Diarrhea is minimal. Appetite is still diminished. Still with some nausea. Renal function is stable. Anticipate discharge in a.m. if okay with Nephrology. Review of Systems 10-point ROS is otherwise unremarkable Physical Examination - Vital Signs Reviewed - Physical Exam General: Alert, In no apparent distress, Oriented x3 Respiratory: Clear to auscultation bilaterally, Normal air movement Cardiovascular: Regular rate/rhythm, Normal S1 S2 Gastrointestinal: Normal bowel sounds, Soft and benign, Non-distended, No tenderness Neurological: Sensation intact, Cranial nerves 3-12 intact, Abnormal strength Assessment & Plan - Problems (Diagnosis) (1) AUGUSTO (acute kidney injury) Current Visit: Yes Status: Acute (2) Dehydration Current Visit: Yes Status: Active (3) Abdominal pain Current Visit: Yes Status: Acute (4) GERD (gastroesophageal reflux disease) Current Visit: No Status: Chronic (5) History of chronic kidney disease Current Visit: No Status: Chronic (6) Diarrhea Current Visit: Yes Status: Acute (7) Nephrolithiasis Onset Date: 06/08/14 Current Visit: No Status: chronic (8) Metabolic acidosis Current Visit: Yes Status: Acute (9) Morbid obesity with BMI of 40.0-44.9, adult Current Visit: Yes Status: Chronic (10) Diabetes mellitus type 2 Onset Date: Unknown Current Visit: Yes Status: Chronic (11) Morbid obesity Onset Date: Unknown Current Visit: Yes Status: Chronic - Plan Continue with plan of care as mentioned below: 1. Hep-Lock IV in the morning 2. Renal function improving 3. Renal ultrasound with no significant abnormalities 4. Nephrology consultation appreciated 5. Outpatient home health 6. GI follow-up; continue with Questran along with antiemetics 7. UA with microscopy reviewed 8. GI and DVT prophylaxis
[2021-03-18 05:52] LABS: Magnesium 2.2 mg/dL (1.8-2.4); Potassium 3.5 mmol/L (3.5-5.1)
[2021-03-18 06:30] LABS: Absolute Lymphocytes (CBC) 2.3 K/uL (0.7-4.9); Basophils % 0.6 % (0-1.3); Hematocrit 31.8 % (36.0-45.0); Lymphocytes % 26.6 % (15.3-44.8); MPV 7.8 fL (7.6-11.3); RBC Red Blood Cell Count 3.25 M/uL (3.86-4.86)
[2021-03-18 07:00] LABS: Blood Morphology Comment NOT SEEN (NOT SEEN); Platelet Estimate ADEQ
[2021-03-18] MEDS: INSULIN GLARGINE 100 UNITS/ML SQ SCH (09:00)
[2021-03-18] MEDS: VITAMIN B COMPLEX 1 CAP PO SCH (09:35)
[2021-03-18] MEDS: levoFLOXacin 500 MG TAB PO SCH (09:35)
[2021-03-18] MEDS: LACTOBACILLUS/ACIDOPHILUS TAB PO SCH ×3 (09:36→20:12)
[2021-03-18] MEDS: PANTOPRAZOLE 40MG TABLET PO SCH ×2 (09:36→16:46)
[2021-03-18] MEDS: VITAMIN D 400 UNIT TAB PO SCH (09:36)
[2021-03-18] MEDS: POTASS/SODIUM PHOSPHATE 1 PKT POWD.PACK PO SCH ×4 (09:37→20:13)
[2021-03-18] MEDS: metroNIDAZOLE 500 MG TABLET PO SCH ×2 (09:37→13:33)
[2021-03-18] MEDS: SUCRALFATE 1 GM TABLET PO SCH ×2 (09:37→20:12)
--- NOTE | 2021-03-18 10:36 | RAD REPORT ---
EXAM DESCRIPTION: RAD - Lumbar Spine 3 Views - 03/18/2021 10:31 am CLINICAL HISTORY: Back pain FINDINGS: No fracture or dislocation seen. Moderate spondylosis involves the distal thoracic/upper lumbar spine consisting disc space narrowing, subchondral sclerosis and osteophytes. Mild scoliosis involves thoraco lumbar spine.
[2021-03-18] MEDS: CHOLESTYRAMINE/ASP 4 GM/PKT PO SCH ×2 (11:59→16:46)
--- NOTE | 2021-03-18 13:51 | P.PN ---
Subjective Date of Service: 03/18/21 Subjective: Other (Patient reports no significant vomiting. Still with poor appetite. Mild nausea noted. Diarrhea improved.) Physical Examination - Vital Signs Temperature: 97.6 F Blood Pressure: 133/63 Pulse: 58 Respirations: 16 Pulse Ox (%): 96 - Studies Laboratory Data (last 24 hrs) 03/18/21 06:14: WBC 8.70 D, Hgb 10.5 L, Hct 31.8 L, Plt Count 212 03/18/21 05:25: Sodium 145, Potassium 3.5, BUN 25 H, Creatinine 1.92 H, Glucose 133 H, Magnesium 2.2 D 03/18/21 05:00: Sodium Cancelled, Potassium Cancelled, BUN Cancelled, Creatinine Cancelled, Glucose Cancelled, Phosphorus Cancelled Medications List Reviewed: Yes Assessment & Plan Discharge Plan: Home Plan to discharge in: 24 Hours Physician Review Additional Text: COVID: negative Lumbar spine: FINDINGS: No fracture or dislocation seen. Moderate spondylosis involves the distal thoracic/upper lumbar spine consisting disc space narrowing, subchondral sclerosis and osteophytes. Mild scoliosis involves thoraco lumbar spine. Renal US: COMPARISON: February 2021 FINDINGS: Examination is limited secondary to body habitus and patient being in pain. The right kidney measures 10 cm with a normal echotexture. The left kidney measures 9 cm with a normal echotexture. Small bilateral renal cysts. Small bilateral renal calculi Hydronephrosis is not seen. No gross abnormality of bladder IMPRESSION: No acute abnormality is displayed Physical Exam: GENERAL: The patient is a well-developed, well-nourished, in no apparent distress. Alert and oriented x3. VITAL SIGNS: Reviewed HEENT: Head is normocephalic and atraumatic. Extraocular muscles are intact. Pupils are equal, round, and reactive to light and accommodation. Nares appeared normal. Mouth is well hydrated and without lesions. Mucous membranes are moist. NECK: Supple. No carotid bruits. No lymphadenopathy or thyromegaly. LUNGS: Clear to auscultation. No crackles or wheezes are heard. HEART: Regular rate and rhythm, no appreciable gallops, rubs, murmurs or extra heart sounds ABDOMEN: Soft, nontender, and nondistended. Positive bowel sounds. No hepatosplenomegaly was noted. EXTREMITIES: Without any cyanosis, clubbing, rash, lesions or peripheral edema. NEUROLOGIC: The patient is oriented to person, place and time. Strength and sensation are grossly intact. Face is symmetric. SKIN: Normal color, turgor and temperature. No ulcerations or rashes noted. Impression: Nausea, vomiting with diarrhea with UTI urine culture positive for Enterococcus Acute on chronic renal disease stage 4 with metabolic acidosis GERD Diabetes mellitus type 2 Back pain with noted scoliosis and spondylosis of the lumbar spine Plan: Nausea, vomiting with diarrhea with UTI urine culture positive for Enterococcus: Continue Levaquin. Discontinue Flagyl. Overall improved. Encourage oral intake. If taking good oral intake will discontinue IV fluids. Patient remains on Questran. Will start lactobacillus. Nephrology recommended GI consultation to further evaluate. GI to evaluate. Due to her nausea and poor appetite GI plans for EGD. This will be done tomorrow. Continue to evaluate. Anticipate discharge likely tomorrow. Acute on chronic renal disease stage 4 with metabolic acidosis: Overall improved. Continue IV fluids. GERD: Continue Protonix and sucralfate. Nephrology recommended GI consultation. GI to evaluate patient with EGD tomorrow. Diabetes mellitus type 2: Discontinue Lantus. Will check A1c. Continue sliding scale Back pain with noted scoliosis and spondylosis of the lumbar spine: Provide medication for pain Code Status: Full Code DVT prophylaxis: Heparin Advanced Care Planning-30 minutes: Home at discharge Time Spent Managing Pts Care (In Minutes): 55
[2021-03-18] MEDS ORDERED: TRAMADOL HCL 50 MG TAB PO PRN (13:57)
[2021-03-18] MEDS ORDERED: NACHLORIDE 0.45% 1,000 ML IV SCH (16:00)
[2021-03-18] MEDS: INSULIN -REGULAR HUMAN 50 UNIT/0.5 ML ML SQ SCH ×2 (16:21→20:13)
[2021-03-18] MEDS: ONDANSETRON 4 MG/2 ML VIAL IV PRN (16:46)
[2021-03-18] MEDS: HEPARIN 5000 UNIT/ML 1 ML VIAL SQ SCH (20:12)
[2021-03-18] MEDS: MELATONIN 5 MG TABLET PO PRN (20:14)
--- NOTE | 2021-03-19 00:48 | PN ---
Date of Progress Note: 03/18/2021 Chief Complaint: Acute kidney injury, nonoliguric. History Of Present Illness: Serum creatinine improved. Patient is on IV fluids, and she tolerates I V hydration. Review of Systems: The patient is complaining of nausea, and she does not tolerate p.o. intake. Physical Examination: Lungs: Clear to auscultation bilaterally. Heart: S1, S2. Abdomen: Soft, benign. Extremities: No edema. Impression And Plan: 1.Acute kidney injury secondary to prerenal state, nonoliguric, acute tubular necrosis. Continue IV fluids. Patient is to advance p.o. intake. Patient will be medicated with Zofran for nausea. Berenice ent may need a GI workup during this hospitalization. 2.Chronic diarrhea. History of gallstone. Patient is on antibiotics and Imodium. 3.Acidosis. The patient is on bicarbonate replacement. 4.Urinary tract infection. Continue antibiotic and follow up on culture. 5.Diabetes mellitus with renal manifestation. Monitor proteinuria. Avoid MIL inhibitor and angiote nsin receptor parker when patient has acute kidney injury. EB/MODL Voice ID: [id number] Report ID: [id number]
[2021-03-19] MEDS: ONDANSETRON 4 MG/2 ML VIAL IV PRN (02:35)
[2021-03-19 03:46] LABS: Absolute Lymphocytes (CBC) 1.8 K/uL (0.7-4.9); Basophils % 0.4 % (0-1.3); Hematocrit 30.8 % (36.0-45.0); Lymphocytes % 32.5 % (15.3-44.8); MPV 7.4 fL (7.6-11.3); RBC Red Blood Cell Count 3.12 M/uL (3.86-4.86)
[2021-03-19 04:11] LABS: Albumin 2.2 g/dL (3.4-5.0); Bilirubin Total 0.2 mg/dL (0.2-1.0); Magnesium 1.9 mg/dL (1.8-2.4); Potassium 3.9 mmol/L (3.5-5.1); Protein, Total 5.8 g/dL (6.4-8.2)
[2021-03-19 04:19] LABS: Thyroid Stimulating Hormone 5.98 uIU/mL (0.360-3.740)
--- NOTE | 2021-03-19 06:11 | P.PN ---
Subjective Date of Service: 03/19/21 Subjective: Improving, Doing well Physical Examination - Vital Signs Temperature: 98.2 F Blood Pressure: 127/57 Pulse: 58 Respirations: 16 Pulse Ox (%): 94 - Studies Laboratory Data (last 24 hrs) 03/19/21 03:05: Sodium 143, Potassium 3.9, BUN 25 H, Creatinine 1.98 H, Glucose 136 H, Magnesium 1.9, Total Bilirubin 0.2, AST 12 L, ALT 12, Alkaline Phosphatase 49 03/19/21 03:05: WBC 5.50 D, Hgb 9.9 L, Hct 30.8 L, Plt Count 180 03/18/21 06:14: WBC 8.70 D, Hgb 10.5 L, Hct 31.8 L, Plt Count 212 Medications List Reviewed: Yes Assessment & Plan Discharge Plan: Home Plan to discharge in: 24 Hours Physician Review Additional Text: COVID: negative Lumbar spine: FINDINGS: No fracture or dislocation seen. Moderate spondylosis involves the distal thoracic/upper lumbar spine consisting disc space narrowing, subchondral sclerosis and osteophytes. Mild scoliosis involves thoraco lumbar spine. Renal US: COMPARISON: February 2021 FINDINGS: Examination is limited secondary to body habitus and patient being in pain. The right kidney measures 10 cm with a normal echotexture. The left kidney measures 9 cm with a normal echotexture. Small bilateral renal cysts. Small bilateral renal calculi Hydronephrosis is not seen. No gross abnormality of bladder IMPRESSION: No acute abnormality is displayed Physical Exam: GENERAL: The patient is a well-developed, well-nourished, in no apparent distress. Alert and oriented x3. VITAL SIGNS: Reviewed HEENT: Head is normocephalic and atraumatic. Extraocular muscles are intact. Pupils are equal, round, and reactive to light and accommodation. Nares appeared normal. Mouth is well hydrated and without lesions. Mucous membranes are moist. NECK: Supple. No carotid bruits. No lymphadenopathy or thyromegaly. LUNGS: Clear to auscultation. No crackles or wheezes are heard. HEART: Regular rate and rhythm, no appreciable gallops, rubs, murmurs or extra heart sounds ABDOMEN: Soft, nontender, and nondistended. Positive bowel sounds. No hepatosplenomegaly was noted. EXTREMITIES: Without any cyanosis, clubbing, rash, lesions or peripheral edema. NEUROLOGIC: The patient is oriented to person, place and time. Strength and sensation are grossly intact. Face is symmetric. SKIN: Normal color, turgor and temperature. No ulcerations or rashes noted. Impression: Nausea, vomiting with diarrhea with UTI urine culture positive for Enterococcus Acute on chronic renal disease stage 4 with metabolic acidosis GERD Diabetes mellitus type 2 Back pain with noted scoliosis and spondylosis of the lumbar spine Plan: Nausea, vomiting with diarrhea with UTI urine culture positive for Enterococcus: Patient doing well. We will plan for discharge after EGD today. Continue with Levaquin for 3 more days. Continue with Questran and lactobacillus. Await recommendations from GI. Case discussed with nephrology. Nephrology will continue with bicarbonate at discharge. Acute on chronic renal disease stage 4 with metabolic acidosis: Overall improved. Continue with bicarbonate at discharge. GERD: EGD to be done today. Await GI recommendations and findings. Continue Protonix and sucralfate. Diabetes mellitus type 2: A1c 11.0. We will continue with home medication at discharge. Will adjust accordingly. Back pain with noted scoliosis and spondylosis of the lumbar spine: Continue with medication for pain Code Status: Full Code DVT prophylaxis: Heparin Advanced Care Planning-30 minutes: Home at discharge Time Spent Managing Pts Care (In Minutes): 55
[2021-03-19] MEDS: INSULIN -REGULAR HUMAN 50 UNIT/0.5 ML ML SQ SCH ×4 (07:30→21:00)
[2021-03-19] MEDS: PANTOPRAZOLE 40MG TABLET PO SCH ×2 (07:30→17:41)
[2021-03-19] MEDS: CHOLESTYRAMINE/ASP 4 GM/PKT PO SCH ×2 (08:00→17:00)
[2021-03-19] MEDS: LACTOBACILLUS/ACIDOPHILUS TAB PO SCH ×3 (09:00→21:21)
[2021-03-19] MEDS: SUCRALFATE 1 GM TABLET PO SCH ×2 (09:00→21:20)
[2021-03-19] MEDS: POTASS/SODIUM PHOSPHATE 1 PKT POWD.PACK PO SCH ×4 (09:00→21:59)
[2021-03-19] MEDS: HEPARIN 5000 UNIT/ML 1 ML VIAL SQ SCH (09:00)
--- NOTE | 2021-03-19 09:35 | RAD REPORT ---
EXAM DESCRIPTION: CT - Stone Protocol - 03/19/2021 7:37 am CLINICAL HISTORY: Flank pain. kidney stone COMPARISON: Abdomen Pelvis Wo Contrast dated 03/04/2021; Renal Ultrasound-Complete dated 03/14/2021 ; Abdomen Pelvis Wo Contrast dated 03/31/2020; Stone Protocol dated 03/18/2018 TECHNIQUE: Axial images were obtained without oral or IV contrast. Lack of contrast limits solid org an and vascular assessment. The [id number] spans the entirety of the system partially obscuring uppermost abdomen and lung bases. Coronal reformatted images were obtained and reviewed. All CT scans are performed using dose optimization technique as appropriate and may include automated exposure control or mA/KV adjustment according to patient size. FINDINGS: The lower lung oleary are clear. Cholecystectomy. Imaged portions of the liver and spleen show no suspicious findings on non-contrast imaging. The panc reas and adrenal glands are normal. No pathologic lymphadenopathy in the abdomen or pelvis. Calcifications are seen in the cortex of both kidneys. No hydronephrosis is present. Small cysts are present in the cortex of the right kidney. 4.8 cm area of soft tissue fullness along the anterior mid pole left kidney is unchanged but incompletely assessed due to lack of contrast material. No bowel obstruction, free air, free fluid or abscess. Postsurgical changes involving the bowel is id entified.The appendix is not identified as a discrete structure, however, no secondary findings of ap pendicitis are identified. Sigmoid diverticulosis without diverticulitis. Mild lumbosacral degenerative changes. IMPRESSION: No new or progressive abnormality seen since 03/04/2021. Bilateral renal calcifications are stable. No hydronephrosis evident.
--- NOTE | 2021-03-19 10:10 | P.DS ---
Admission Date: 03/13/21 Discharge Date: 03/20/21 Primary Care Provider: Dr. Melgar; Nephrology-Dr. Lau Disposition: ID HOME/HOME HEALTH CARE Discharge Condition: GOOD Consultations: Nephrology-Dr. Lau GI-Dr. Craft Procedures: COVID: negative Lumbar spine: FINDINGS: No fracture or dislocation seen. Moderate spondylosis involves the distal thoracic/upper lumbar spine consisting disc space narrowing, subchondral sclerosis and osteophytes. Mild scoliosis involves thoraco lumbar spine. Renal US: COMPARISON: February 2021 FINDINGS: Examination is limited secondary to body habitus and patient being in pain. The right kidney measures 10 cm with a normal echotexture. The left kidney measures 9 cm with a normal echotexture. Small bilateral renal cysts. Small bilateral renal calculi Hydronephrosis is not seen. No gross abnormality of bladder IMPRESSION: No acute abnormality is displayed EGD: Small hiatal hernia Colonoscopy: 1 cm pedunculated polyp in the ascending colon; polypectomy was performed using snare cautery; the wound at the site was closed by placing hemoclips 5 mm sessile polyp in the ascending colon; polypectomy was performed with a cold snare 6 mm pedunculated polyp in the ascending colon; polypectomy was performed using snare cautery 2 sessile polyps ranging between 3 to 5 mm in size were found in the proximal transverse colon 5 mm pedunculated polyp in the descending colon; polypectomy was performed using snare cautery 7 mm sessile polyp in the sigmoid colon; polypectomy was performed using snare cautery Mild diverticulosis throughout the entire colon Moderate size internal hemorrhoids Intubation to cecum Biopsies obtained. Avoid NSAIDs for the next 2 weeks. Medical Problem List: Nausea, vomiting with diarrhea with UTI urine culture positive for Enterococcus Acute on chronic renal disease stage 4 with metabolic acidosis GERD with small hiatal hernia Diabetes mellitus type 2 Back pain with noted scoliosis and spondylosis of the lumbar spine Multiple colon polyps with mild diverticulosis and moderate-sized internal hemorrhoids noted by colonoscopy Brief History of Present Illness: 75-year-old female presented to emergency room with dysuria. Patient reported lower abdominal pain. Patient found to have UTI with acute renal insufficiency and metabolic acidosis. Patient was admitted for treatment. Nephrology consulted. Hospital Course: Patient presented with nausea, vomiting and diarrhea secondary to UTI. This was further complicated with acute on chronic renal disease stage IV with metabolic acidosis. The patient received IV fluids with antibiotic therapy. Urine culture was positive for Enterococcus. Nephrology was consulted. Her condition improved. At discharge for her UTI patient will continue with Levaquin 500 mg e very 48 hours for 2 more doses. UTI prevention provided. Recommend follow-up with her PCP in 1 week to follow-up his hospitalization. For the patient's acute on chronic renal disease stage IV with metabolic acidosis. Patient now back to her baseline. Patient was seen and evaluated by nephrology. Nephrology recommends to continue bicarbonate 650 mg 1 pill twice daily. Recommend to recheck labCMP in 1 week to monitor progress. No further use of nonsteroidal anti-inflammatories. Future medications may need to be renally dosed. Recommend follow-up with nephrology in 1 to 2 weeks to follow-up his hospitalization. Patient also had poor appetite with GERD. Patient was started on Protonix and Carafate. Patient was seen and evaluated by GI. GI recommended EGD. EGD performed showed small hiatal hernia with nonulcer dyspepsia. GI also recommended colonoscopy to further evaluate due to her chronic issues. Colonoscopy performed. Multiple colon polyps noted. Some were removed with snare cautery. Biopsies obtained. Patient will need colonoscopy in 1 year to further address and monitor. At discharge patient will continue with Protonix 40 mg 1 pill twice daily. This can be weaned down to once daily after 2 to 4 weeks. Patient will also continue with Carafate 1 g twice daily. Patient was also given Questran 4 mg 1 pill twice daily for her diarrhea. This can be discontinued once diarrhea resolved. Patient also given lactobacillus 1 pill 3 times a day for the duration of her taking antibiotic therapy. Recommend follow-up with GI as an outpatient to further address. Patient with diabetes mellitus type 2. Hemoglobin A1c 11.0. Due to her poor intake Lantus was adjusted. At discharge she will decrease her Lantus to 5 units subcu daily. Recommend to monitor blood sugars at least twice daily. Hold Lantus if blood sugar less than 100. Maintain blood sugar less than 140 fasting and less than 200 after meals. Further adjustment in her medication can be done by her PCP. Recommend to recheck hemoglobin A1c every 3 months to monitor progress. Recommend follow-up with her PCP in 1 week to monitor progress. Patient with chronic pain. Patient with scoliosis and spondylosis to the lumbar spine. Patient may take Tylenol as needed for pain. Patient will continue with her other medications including vitamin D 400 units daily and vitamin B complex daily. Vital Signs/Physical Exam: Temp Pulse Resp BP Pulse Ox 98.2 F 58 16 127/57 L 94 03/19/21 10:07 03/19/21 10:07 03/19/21 10:07 03/19/21 10:07 03/19/21 10:07 General: Alert, In no apparent distress, Oriented x3, Cooperative HEENT: Atraumatic Neck: Supple Respiratory: Clear to auscultation bilaterally, Normal air movement Cardiovascular: Normal pulses, Regular rate/rhythm Gastrointestinal: Normal bowel sounds, No ascites, No tenderness, No masses, No rebound, No guarding Musculoskeletal: No erythema, No tenderness, No warmth Integumentary: No tenderness/swelling Neurological: Normal speech, Normal strength at 5/5 x4 extr, Normal tone, Normal affect Laboratory Data at Discharge: WBC 5.50 K/uL (4.3-10.9) D 03/19/21 03:05 Hgb 9.9 g/dL (12.0-15.0) L 03/19/21 03:05 Hct 30.8 % (36.0-45.0) L 03/19/21 03:05 Plt Count 180 K/uL (152-406) 03/19/21 03:05 Sodium 143 mmol/L (136-145) 03/19/21 03:05 Potassium 3.9 mmol/L (3.5-5.1) 03/19/21 03:05 BUN 25 mg/dL (7-18) H 03/19/21 03:05 Creatinine 1.98 mg/dL (0.55-1.3) H 03/19/21 03:05 Glucose 136 mg/dL (74-106) H 03/19/21 03:05 Uric Acid 6.2 mg/dL (2.6-6.0) H 03/15/21 06:44 Phosphorus Cancelled 03/18/21 05:00 Magnesium 1.9 mg/dL (1.8-2.4) 03/19/21 03:05 Total Bilirubin 0.2 mg/dL (0.2-1.0) 03/19/21 03:05 AST 12 U/L (15-37) L 03/19/21 03:05 ALT 12 U/L (12-78) 03/19/21 03:05 Alkaline Phosphatase 49 U/L (45-117) 03/19/21 03:05 Troponin I < 0.02 ng/mL (0.0-0.045) 03/13/21 20:22 Home Medications: Cholecalciferol (Vitamin D3) [Vitamin D 400 IU TAB*] 400 unit PO DAILY 04/23/20 Vitamin B Complex [Vitamin B Complex*] 1 cap PO DAILY 04/23/20 Pantoprazole [Protonix Tab*] 40 mg PO BIDAC #60 tab 04/27/20 Cholestyramine/Asp [Questran Light*] 4 gm PO BIDWM #14 packet 03/19/21 Insulin Glargine Human [Lantus*] 5 units SQ DAILY #1 vial 03/19/21 Lactobacillus Acidophilus [Acidophilus Lactobacilli] 1 each PO TID #30 capsule 03/19/21 Sodium Bicarbonate 650 mg PO BID #60 tablet 03/19/21 Sucralfate [Carafate*] 1 gm PO BID #60 tab 03/19/21 levoFLOXacin [Levaquin*] 500 mg PO Q48H #2 tab 03/19/21 New Medications: Lactobacillus Acidophilus [Acidophilus Lactobacilli] 1 each PO TID #30 capsule Sucralfate [Carafate*] 1 gm PO BID #60 tab Insulin Glargine Human [Lantus*] 5 units SQ DAILY #1 vial levoFLOXacin [Levaquin*] 500 mg PO Q48H #2 tab Cholestyramine/Asp [Questran Light*] 4 gm PO BIDWM #14 packet Sodium Bicarbonate 650 mg PO BID #60 tablet Physician Discharge Instructions: Patient presented with nausea, vomiting and diarrhea secondary to UTI. This was further complicated with acute on chronic renal disease stage IV with metabolic acidosis. The patient received IV fluids with antibiotic therapy. Urine culture was positive for Enterococcus. Nephrology was consulted. Her condition improved. At discharge for her UTI patient will continue with Levaquin 500 mg every 48 hours for 2 more doses. UTI prevention provided. Recommend follow-up with her PCP in 1 week to follow-up his hospitalization. For the patient's acute on chronic renal disease stage IV with metabolic acidosis. Patient now back to her baseline. Patient was seen and evaluated by nephrology. Nephrology recommends to continue bicarbonate 650 mg 1 pill twice daily. Recommend to recheck labCMP in 1 week to monitor progress. No further use of nonsteroidal anti-inflammatories. Future medications may need to be renally dosed. Recommend follow-up with nephrology in 1 to 2 weeks to follow-up his hospitalization. Patient also had poor appetite with GERD. Patient was started on Protonix and Carafate. Patient was seen and evaluated by GI. GI recommended EGD. EGD performed showed small hiatal hernia with nonulcer dyspepsia. GI also recommended colonoscopy to further evaluate due to her chronic issues. Colonoscopy performed. Multiple colon polyps noted. Some were removed with snare cautery. Biopsies obtained. Patient will need colonoscopy in 1 year to further address and monitor. At discharge patient will continue with Protonix 40 mg 1 pill twice daily. This can be weaned down to once daily after 2 to 4 weeks. Patient will also continue with Carafate 1 g twice daily. Patient was also given Questran 4 mg 1 pill twice daily for her diarrhea. This can be discontinued once diarrhea resolved. Patient also given lactobacillus 1 pill 3 times a day for the duration of her taking antibiotic therapy. Recommend follow-up with GI as an outpatient to further address. Patient with diabetes mellitus type 2. Hemoglobin A1c 11.0. Due to her poor intake Lantus was adjusted. At discharge she will decrease her Lantus to 5 units subcu daily. Recommend to monitor blood sugars at least twice daily. Hold Lantus if blood sugar less than 100. Maintain blood sugar less than 140 fasting and less than 200 after meals. Further adjustment in her medication can be done by her PCP. Recommend to recheck hemoglobin A1c every 3 months to monitor progress. Recommend follow-up with her PCP in 1 week to monitor progress. Patient with chronic pain. Patient with scoliosis and spondylosis to the lumbar spine. Patient may take Tylenol as needed for pain. Patient will continue with her other medications including vitamin D 400 units daily and vitamin B complex daily. Diet: Renal Activity: Fall precautions Time spent managing pt's care (in minutes): 55
[2021-03-19] MEDS ORDERED: NA CHLORIDE 0.9% 1,000 ML ONE (13:15)
--- NOTE | 2021-03-19 14:03 | PN ---
Date of Progress Note: 03/19/2021 Subjective: The patient was admitted with acute kidney injury secondary to prerenal, secondary to GI loss complicated with acidosis. The patient planned for EGD today. Patient also found to have UTI, recurrent secondary to E coli. Physical Examination: Vital Signs: When I saw the patient; blood pressure 123/54, pulse of 56, afebrile. General: The patient urinating very well, tolerating her diet. Chest: Clear to auscultation. Heart: S1, S2. Regular. Abdomen: Soft, nontender. No guarding or rebound. Extremities: No edema Neurologic: Alert. No focality. Laboratory Data: WBC 5.5, H and H 9.9/30.8. Sodium 143, potassium 3.9, bicarb 23, BUN 25, creatinin e 1.9, GFR of 25, calcium 8.3, magnesium 1.9, albumin 2.2, corrected calcium is 9.8. Current Medications: The patient on include: 1.Levaquin 500 every 48 hours. 2.Cholestyramine. 3.Heparin. 4.Sodium bicarb drip. 5.Carafate. 6.Melatonin. Assessment And Plan: 1.Acute kidney injury secondary to prerenal, secondary to GI loss, recovered, resolved, currently cl ose to her baseline. I am going to go ahead and discontinue IV fluid. 2.Gastroenteritis. The patient is going to have EGD today. We will follow up with GI. 3.Acidosis, non anion gap metabolic acidosis secondary to renal failure and GI loss. I am going to discontinue bicarb drip and place the patient on oral bicarb 650 b.i.d. and we will monitor. 4.Urinary tract infection secondary to E coli, multidrug resistant. The patient was started on Leva kolby dose appropriate for her kidney function. We will continue Levaquin 500 every 48 hours and we w ill follow up with the primary. The patient cleared from the renal standpoint for discharge planning to follow up in the office in 2-3 weeks. RACHEL Voice ID: [id number] Report ID: [id number]
[2021-03-19] MEDS ORDERED: propofoL 200 MG/20 ML VIAL IV ONE (14:29)
--- NOTE | 2021-03-19 14:47 | ENDO RPT ---
[address], [address] EGD PROCEDURE REPORT EXAM DATE: 03/19/2021 PATIENT NAME: Dagmar Flores MR#: [id number] BIRTHDATE: 1945 ATTENDING: Jerod Berrios Dr STATUS: inpatient - [facility] DIRECTOR: Rosi Martinez RN and Dede Wilson RN INDICATIONS: The patient is a 75 yr old Female here for an EGD due to nausea and vomiting, mid epigastric abdominal pain, right upper quadrant abdominal pain, left upper quadrant abdominal pain, and anemia PROCEDURE PERFORMED: EGD with biopsy MEDICATIONS: Per Anesthesia. TOPICAL ANESTHETIC: none CONSENT: The patient understands the risks and benefits of the procedure and understands that these risks include, but are not limited to: sedation, allergic reaction, infection, perforation and/or bleeding. Alternative means of evaluation and treatment include, among others: physical exam, x-rays, and/or surgical intervention. The patient elects to proceed with this endoscopic procedure. DESCRIPTION OF PROCEDURE: During intra-op preparation period all mechanical medical equipment was checked for proper function. Hand hygiene and appropriate measures for infection prevention was taken. Procedure, possible complications, and alternatives including but not limited to the possibility of bleeding, perforation, tear, infection, sepsis, need for surgery, need for blood transfusion, and anesthesia related complications were explained to the patient. After the risks, benefits and alternatives of the procedure were thoroughly explained, Informed consent was verified, confirmed and timeout was successfully executed by the treatment team. The patient was placed in the left lateral position. The patient was anesthetized with topical anesthesia. Through the anesthetized oropharyngeal area, the scope was passed without any difficulty. The EG-[id number] ([id number]) endoscope was introduced through the mouth and advanced to the third portion of the duodenum. Retroflexed views revealed a small hiatal hernia. The gastroscope was then slowly withdrawn and removed. A small hiatal hernia was found. Gastric biopsies obtained for non-ulcer dyspepsia. Multiple biopsies were obtained and sent to pathology. ADVERSE EVENTS: There were no complications. IMPRESSIONS: 1. Small hiatal hernia 2. Gastric biopsies obtained for non-ulcer dyspepsia RECOMMENDATIONS: 1. await biopsy results 2. acid suppression therapy REPEAT EXAM: Jerod Berrios Dr eSigned: Jerod Berrios Dr 03/19/2021 2:46 PM cc: Corey Ayala CPT CODES: ICD9 CODES: PATIENT NAME: Dagmar Flores MR#: [id number]
[2021-03-19] MEDS ORDERED: BISACODYL E.C. 5 MG TAB PO ONE (14:55)
[2021-03-19] MEDS: METOCLOPRAMIDE 10 MG/2mL INJ IV SCH ×2 (16:33→17:37)
[2021-03-19] MEDS: SODIUM BICARB 325 MG TAB PO SCH ×2 (16:33→21:20)
[2021-03-19] MEDS: VITAMIN D 400 UNIT TAB PO SCH (16:33)
[2021-03-19] MEDS: VITAMIN B COMPLEX 1 CAP PO SCH (16:33)
[2021-03-19] MEDS: GOLYTELY 4000 ML PO SCH (16:34)
[2021-03-20 04:14] LABS: Thyroid Stimulating Hormone 4.03 uIU/mL (0.360-3.740)
[2021-03-20] MEDS: METOCLOPRAMIDE 10 MG/2mL INJ IV SCH ×2 (06:00)
--- NOTE | 2021-03-20 06:06 | P.PN ---
Subjective Date of Service: 03/20/21 Primary Care Provider: Dr. Melgar; Nephrology-Dr. Lau Subjective: Doing well (Patient to have colonoscopy today.) Physical Examination - Vital Signs Temperature: 98.0 F Blood Pressure: 145/58 Pulse: 68 Respirations: 16 Pulse Ox (%): 96 - Studies Medications List Reviewed: Yes Assessment & Plan Discharge Plan: Home Plan to discharge in: 24 Hours Physician Review Additional Text: COVID: negative Lumbar spine: FINDINGS: No fracture or dislocation seen. Moderate spondylosis involves the distal thoracic/upper lumbar spine consisting disc space narrowing, subchondral sclerosis and osteophytes. Mild scoliosis involves thoraco lumbar spine. Renal US: COMPARISON: February 2021 FINDINGS: Examination is limited secondary to body habitus and patient being in pain. The right kidney measures 10 cm with a normal echotexture. The left kidney measures 9 cm with a normal echotexture. Small bilateral renal cysts. Small bilateral renal calculi Hydronephrosis is not seen. No gross abnormality of bladder IMPRESSION: No acute abnormality is displayed EGD: Small hiatal hernia Biopsies obtained for non ulcer dyspepsia Physical Exam: GENERAL: The patient is a well-developed, well-nourished, in no apparent distress. Alert and oriented x3. VITAL SIGNS: Reviewed HEENT: Head is normocephalic and atraumatic. Extraocular muscles are intact. Pupils are equal, round, and reactive to light and accommodation. Nares appeared normal. Mouth is well hydrated and without lesions. Mucous membranes are moist. NECK: Supple. No carotid bruits. No lymphadenopathy or thyromegaly. LUNGS: Clear to auscultation. No crackles or wheezes are heard. HEART: Regular rate and rhythm, no appreciable gallops, rubs, murmurs or extra heart sounds ABDOMEN: Soft, nontender, and nondistended. Positive bowel sounds. No hepatosplenomegaly was noted. EXTREMITIES: Without any cyanosis, clubbing, rash, lesions or peripheral edema. NEUROLOGIC: The patient is oriented to person, place and time. Strength and sensation are grossly intact. Face is symmetric. SKIN: Normal color, turgor and temperature. No ulcerations or rashes noted. Impression: Nausea, vomiting with diarrhea with UTI urine culture positive for Enterococcus Acute on chronic renal disease stage 4 with metabolic acidosis GERD Diabetes mellitus type 2 Back pain with noted scoliosis and spondylosis of the lumbar spine Plan: Nausea, vomiting with diarrhea with UTI urine culture positive for Enterococcus: Patient doing well. Patient had EGD yesterday showing small hiatal hernia. Patient to have colonoscopy today. Await findings from colonoscopy. Continue with Levaquin for 3 more days at discharge. Continue with Questran and lactobacillus. Await recommendations from GI. Case discussed with nephrology. Nephrology will continue with bicarbonate at discharge. Anticipate discharge after colonoscopy. Acute on chronic renal disease stage 4 with metabolic acidosis: Overall improve d. Continue with bicarbonate at discharge. GERD: EGD showed small hiatal hernia. Patient will have colonoscopy today. Await GI recommendations and findings. Continue Protonix and sucralfate. Diabetes mellitus type 2: A1c 11.0. We will continue with home medication at discharge. Will adjust accordingly. Back pain with noted scoliosis and spondylosis of the lumbar spine: Continue with medication for pain Code Status: Full Code DVT prophylaxis: Heparin Advanced Care Planning-30 minutes: Home at discharge Time Spent Managing Pts Care (In Minutes): 55
[2021-03-20] MEDS: INSULIN -REGULAR HUMAN 50 UNIT/0.5 ML ML SQ SCH ×2 (07:30→11:30)
[2021-03-20] MEDS: PANTOPRAZOLE 40MG TABLET PO SCH (07:30)
[2021-03-20] MEDS ORDERED: NA CHLORIDE 0.9% 1,000 ML ONE (07:34)
[2021-03-20] MEDS: CHOLESTYRAMINE/ASP 4 GM/PKT PO SCH (08:00)
[2021-03-20] MEDS: LACTOBACILLUS/ACIDOPHILUS TAB PO SCH ×2 (08:26→14:27)
[2021-03-20] MEDS: levoFLOXacin 500 MG TAB PO SCH (08:26)
[2021-03-20] MEDS: SODIUM BICARB 325 MG TAB PO SCH (08:26)
[2021-03-20] MEDS: POTASS/SODIUM PHOSPHATE 1 PKT POWD.PACK PO SCH ×2 (08:26→14:27)
[2021-03-20] MEDS: SUCRALFATE 1 GM TABLET PO SCH (08:26)
[2021-03-20] MEDS: VITAMIN B COMPLEX 1 CAP PO SCH (08:26)
[2021-03-20] MEDS: VITAMIN D 400 UNIT TAB PO SCH (08:26)
[2021-03-20] MEDS ORDERED: propofoL 200 MG/20 ML VIAL IV ONE ×2 (08:46→08:47)
[2021-03-20] MEDS ORDERED: LIDOCAINE 1% MPF 5 ML VIAL ONE (08:47)
[2021-03-20] MEDS ORDERED: KETOROLAC 30 MG/ML INJ ONE (09:38)
--- NOTE | 2021-03-20 09:43 | ENDO RPT ---
[address], [address] COLONOSCOPY PROCEDURE REPORT EXAM DATE: 03/20/2021 PATIENT NAME: Dagmar Flores MR #: [id number] BIRTHDATE: 1945 ATTENDING: Jerod Berrios Dr STATUS: inpatient INFORMATION RESOURCE CONSULTANT: Rosi Martinez RN and Deann Hinkle INDICATIONS: The patient is a 75 yr old Female here for a colonoscopy due to generalized abdominal pain, anemia, and family history of colon cancer - sister PROCEDURE PERFORMED: Colonoscopy with snare polypectomy and Colon w/ endoclip MEDICATIONS: Per Anesthesia. ESTIMATED BLOOD LOSS: None CONSENT: The patient understands the risks and benefits of the procedure and understands that these risks include, but are not limited to: sedation, allergic reaction, infection, perforation and/or bleeding. Alternative means of evaluation and treatment include, among others: physical exam, x-rays, and/or surgical intervention. The patient elects to proceed with this endoscopic procedure. DESCRIPTION OF PROCEDURE: During intra-op preparation period all mechanical medical equipment was checked for proper function. Hand hygiene and appropriate measures for infection prevention was taken. Procedure, possible complications, alternatives including, but not limited to possibility of bleeding, perforation, tear, infection, sepsis, need for surgery, need for blood transfusion, were explained to the patient. After the risks, benefits and alternatives of the procedure were thoroughly explained, Informed consent was verified, confirmed and timeout was successfully executed by the treatment team. The patient was placed in the left lateral position. A digital rectal exam was performed and revealed no abnormalities of the rectum. After appropriate level of anesthesia, the scope was passed. The EC-[id number] ([id number]) endoscope was introduced through the anus and advanced to the cecum, which was identified by both the appendix and ileocecal valve. The quality of the prep was fair. The instrument was then slowly withdrawn as the colon was fully examined. Scope withdrawal time was 9 minutes. COLON FINDINGS: A polypoid shaped pedunculated polyp measuring 1 cm in size was found in the ascending colon. A polypectomy was performed using snare cautery. The resection was complete, the polyp tissue was completely retrieved and sent to histology. The wound at the site was closed by placing hemoclips. One (1) placement was made. There was minimal blood loss from maneuver subsiding by end of procedure. One (1) placement was made. There was minimal blood loss from maneuver subsiding by end of procedure. A smooth sessile polyp measuring 5 mm in size was found in the ascending colon. A polypectomy was performed with a cold snare. The resection was complete, the polyp tissue was completely retrieved and sent to histology. A smooth pedunculated polyp measuring 6 mm in size was found in the ascending colon. A polypectomy was performed using snare cautery. The resection was complete, the polyp tissue was completely retrieved and sent to histology. Two smooth sessile polyps ranging between 3-5mm in size were found in the proximal transverse colon. A smooth pedunculated polyp measuring 5 mm in size was found in the descending colon. A polypectomy was performed using snare cautery. The resection was complete, the polyp tissue was completely retrieved and sent to histology. A smooth sessile polyp measuring 7 mm in size was found in the sigmoid colon. A polypectomy was performed using snare cautery. The resection was complete, the polyp tissue was completely retrieved and sent to histology. Mild diverticulosis was noted throughout the entire examined colon. No bleeding was noted from the diverticulosis. Moderate sized internal hemorrhoids were found. Retroflexed views revealed medium hemorrhoids. The scope was then completely withdrawn from the patient and the procedure terminated. ADVERSE EVENTS: There were no complications. IMPRESSIONS: 1. 1 cm pedunculated polyp in the ascending colon; polypectomy was performed using snare cautery; the wound at the site was closed by placing hemoclips 2. 5 mm sessile polyp in the ascending colon; polypectomy was performed with a cold snare 3. 6 mm pedunculated polyp in the ascending colon; polypectomy was performed using snare cautery 4. Two sessile polyps ranging between 3-5mm in size were found in the proximal transverse colon 5. 5 mm pedunculated polyp in the descending colon; polypectomy was performed using snare cautery 6. 7 mm sessile polyp in the sigmoid colon; polypectomy was performed using snare cautery 7. Mild diverticulosis throughout the entire examined colon 8. Moderate sized internal hemorrhoids 9. Intubation to cecum RECOMMENDATIONS: 1. await biopsy results 2. avoid NSAIDS for 2 weeks RECALL: Return in 1 year(s) for Colonoscopy. Jerod Berrios Dr eSigned: Jerod Berrios Dr 03/20/2021 9:42 AM cc: Corey Ayala CPT CODES: ICD9 CODES: 211.3 Benign neoplasm of colon PATIENT NAME: Dagmar Flores MR#: [id number]
[2021-03-20 12:25] VITALS: BP 170/84; TEMP 97
--- NOTE | 2021-03-20 12:39 | CON ---
Date of Consultation: 03/19/2021 Reason For Consultation: Persistent nausea and vomiting despite therapy. History Of Present Illness: The patient is a 75-year-old white female with history of chronic kidney disease, nephrolithiasis, arthritis, urinary tract infections recurrent, obesity, diabetes, neurogen ic bladder, appendectomy, cholecystectomy, hysterectomy, kidney stone. The patient presented to the hospital due to lower abdominal pain, dysuria with urinary tract infection, urosepsis, and acute mariajose l insufficiency with metabolic acidosis. Nephrology was consulted, and the patient slowly improved w ith renal failure, improving since admission. UTI was diagnosed and treated. The patient has genera lized abdominal pain, worse in the midepigastric area, upper abdominal, but also in the right and lef t lower quadrant areas as well. This patient has persistent nausea and vomiting. She says _think improved. Her hemoglobin has decreased from 12.3 down to 9.9 most recently, and she has a sis ter with a history of colon cancer, and the patient today states she has never had a colonoscopy. Past Medical History: Significant for diabetes, chronic kidney disease, status post recurrent urinar y tract infections and chronic urinary tract infection, nephrolithiasis, arthritis, dehydration, maln utrition, neurogenic bladder, renal failure, right shoulder prosthesis with surgery, back surgery, bl adder augmentation, appendectomy, cholecystectomy, hysterectomy, kidney stent, suprapubic catheter. Social History: She is a . at the age of 59 from esophageal cancer. She has 3 ch ildren. One son of esophageal cancer at age 49. She has 4 brothers who of esophageal/lung cancer as well. She denies any tobacco or alcohol. Family History: Father of lung cancer and esophageal cancer. Mother of COPD and asthma. Sister of colon cancer, and the patient states she has never had a colonoscopy as stated above. Review of Systems: The patient has nausea, vomiting, generalized abdominal pain, worse in the upper abdominal. She is f rail, cannot move out of bed well status post right shoulder surgery and multiple musculoskeletal com plaints she reports. She denies any melena, hematochezia, hematemesis, coffee-grounds emesis, hematu leonela, dysuria, polydipsia, seizures, syncope, chest pain, shortness of breath. She does have muscle a ches, joint aches, however. Physical Examination: Vital Signs: The patient is 5 feet, 220 pounds. BMI of 40.2 kg/sq m. She has a temperature of 97.6 degrees Fahrenheit, pulse 56, respirations 20, blood pressure 152/71, O2 saturation 100%. General: She is an obese female, lying in bed, in no acute distress. HEENT: Normocephalic, atraumatic. Extraocular movements are intact. Pupils equal, round, and react radha to light. Anicteric. Oropharynx clear. Neck: Supple. No masses. Respirations: Clear to auscultation bilaterally. Cardiac: Regular rate and rhythm. No gallops or rubs. Abdomen: Positive bowel sounds, hypoactive. Obese. Generalized pain, guarding, but no peritoneal o r Harvey sign. No rebound. Extremities: No clubbing, cyanosis. There is some mild edema and obesity extremities. Neuro: Alert and oriented x3. Able to move all extremities. Laboratory Data: The patient's white count is 5.5, down from 7.2 on admission; hemoglobin 9.9, down from 12.3 on admission; hematocrit 30.8; MCV of 99; platelet count of 180, down from 279 on admission ; polys of 59%, lymphocytes 33%, monocytes 6%, eosinophils 3%. The patient has a sodium 143, potassi um 3.9, chloride 113, bicarb 23, BUN 25, creatinine of 1.98, glucose 136, calcium 8.3, magnesium 1.9, total bilirubin 0.2, AST of 12, ALT of 12, alkaline phosphatase 49, total protein 5.8, albumin 2.2. TSH of 5.98, free T4 of 1.29. She had a urine with 2+ blood, 3+ leukocyte esterase, greater than 50 white blood cells, less than 5 squamous epithelial cells. COVID-[address] abdome n and pelvis revealed no new or progressive abnormalities since 03/04/2021. Bilateral renal calcific ations are stable. No hydronephrosis noted. Impression: 1.Persistent nausea and vomiting, abdominal pain, anemia, renal failure, improving. I am going to i nvestigate with esophagogastroduodenoscopy. 2.Generalized abdominal pain, upper abdominal versus lower. 3.Renal failure, improved . 4.Urinary tract infection, which was recurrent. 5.Anemia. Hemoglobin down from 12.3 to 9.9 on this admission. 6.Family history of colon cancer in sister, but the patient never had a colonoscopy. 7.History of diabetes, chronic kidney disease. Recurrent urinary tract infections, obesity, nephrol ithiasis, arthritis, neurogenic bladder, appendectomy, cholecystectomy, hysterectomy, kidney stones, bladder re-suspension, back surgery, and right shoulder surgery with prosthesis. Recommendations: 1.Proceed with EGD. 2. therapy or Pepcid therapy since the patient has renal insufficiency. 3.Colonoscopy as an inpatient outpatient with history of history of colon cancer in her si ster and no prior colonoscopy. ELAYNE Voice ID: [id number] Report ID: [id number]
[2021-03-20 13:09] VITALS: O2SAT 97
--- NOTE | 2021-03-20 13:34 | PN ---
Date of Progress Note: 03/20/2021 Subjective: The patient was admitted with acute kidney injury, acidosis secondary to GI loss with ga stroenteritis, found to have UTI with E coli. The patient was started on bicarb drip, IV hydration. Kidney function has been started improving. The patient undergone EGD yesterday and today undergone colonoscopy. Physical Examination: Vital Signs: Blood pressure 124/47, pulse of 67, afebrile. Chest: Clear to auscultation. Heart: S1, S2. Regular. Abdomen: Soft, nontender. Extremity: No edema. Laboratory Data: WBC 5.5, H and H 9.9/30.8. Sodium 143, potassium 3.9, bicarb 23, BUN 25, creatinin e 1.9, calcium 8.3. Serum protein electrophoresis pending. TSH 5.9. Current Medications: The patient on include Levaquin 500 every 48 hours, cholestyramine, Tylenol, so dium bicarb 650 b.i.d., pantoprazole, Carafate, melatonin, KCl. Assessment And Plan: 1.Acute kidney injury secondary to prerenal, secondary to GI loss, recovered, back to baseline. I a m going to keep holding IV fluid and we will monitor the patient. 2.Acidosis secondary to renal failure and GI loss. Continue oral bicarb. 3.Urinary tract infection with Escherichia coli. Continue Levaquin dose appropriate. 4.Gastroenteritis. We will follow up with GI, status post colonoscopy today. 5.Diabetes as by primary. RACHEL Voice ID: [id number] Report ID: [id number]
[2021-03-20] MEDS: GOLYTELY 4000 ML PO SCH (14:18)
[2021-03-23 04:56] LABS: KAPPA LIGHT CHAIN, FREE SERUM 53.3 mg/L (3.3-19.4)
--- OUTSIDE RECORDS SUMMARY | 2021-03-23 10:03 | XMS REPORT | Clinical Summary ---
:1945 Author Organization [facility] Address [address] [place] [address] Care Team Providers Name Role Phone Gerri Trujillo MD Unavailable Juan Murillo MD Primary Care Provider Allergies No known active allergies Medications Medication Sig Dispensed Refills Start Date End Date Status polyethylene glycol Take 17 g by 14 each 0 12/12/2017 Active (MIRALAX) 17 g mouth daily. packetIndications: Bladder muscle dysfunction - overactive, Recurrent urinary tract infection, Chronic pain, Pyelonephritis, Nausea Additional Information Patient not taking. Reported on 02/09/2018 miconazole (MICOTIN) 2% Apply topically to 30 g 0 018 Active creamIndications: Candidiasis of affected area(s) twice skin daily. Additional Information Patient not taking. Reported on 02/09/2018 HYDROcodone-acetaminophen (NORCO) 5 Take 1 tablet by 10 tablet 0 02/18/2018 Active mg-325 mg per tabletIndications: mouth every 6 Nephrolithiasis (six) hours as needed for moderate pain. Additional Information Patient not taking. Reported on 02/18/2018 traMADol (ULTRAM) 50 mg Take 1 tablet (50 mg) 40 tablet 0 09/2017 Active tabletIndications: Renal by mouth every 6 calculus (six) hours as needed for moderate pain. Additional Information Patient not taking. Reported on 05/18/2018 sulfamethoxazole-trimethoprim Take 1 tablet by 20 tablet 0 12/2018 Active (BACTRIM DS) 800 mg-160 mg per mouth twice tabletIndications: Renal calculus daily. Begin 06/09/18. hyoscyamine sulfate (ANASPAZ) 0.125 Dissolve 1 30 tablet 0 Active mg sublingual/chewable tablet (0.125 tabletIndications: Renal calculus mg) on the tongue every 4 (four) hours as needed for bladder spasms). oxybutynin (DITROPAN) 5 mg Take 1 tablet (5 30 tablet 0 2018 Active tabletIndications: Renal calculus mg) by mouth 3 (three) times a day as needed for bladder spasms. 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 12/25/2017 Cellulitis of face 12/25/2017 Chronic kidney disease 12/04/2017 Pyelonephritis 12/04/2017 Bladder muscle dysfunction - overactive 07/24/2017 Overview: Added automatically from request for rey manrique [id number] Chronic pain 02/02/2017 Encounters Date Type Specialty Care Team Description 08/02/2020 Orders Only Infectious Diseases Kristie Matthew MD S ARS-CoV-2 vaccination after 03/19/2020 Surgical History Surgery Date Site/Laterality Comments CYSTOSCOPY W/ LASER 4x times LITHOTRIPSY APPENDECTOMY 05/11/1965 - Ruptured appendi x 05/10/1966 CERVICAL DISC SURGERY 05/11/1985 - 05/10/1986 CHOLECYSTECTOMY 42 years ago BLADDER SURGERY Augmentation abo ut 25 years ago. HYSTERECTOMY Vaginal hysterec madhavi with BSO at age 25 ELBOW SURGERY required screw i mplant. TOTAL KNEE ARTHROPLASTY bilatera l; VAGINAL DELIVERY 3x FL 04/28/2016 Back/N/A Procedure: INCIS ION FOR INCISION,IMPLANT,NEUROELEC IMPLA NTATION OF SACRAL ,SACRAL NERVE NERVE NEUROMUSCU LAR NEUROSTIMULATOR ELECTRODE ARRAY; Stage I; Surgeon: Janet rowley MD; [facility]: [facility]; Service: UROLOGY Medical devices from this surgery are in t he Implants section. FL CHG FLUOROSCOPY UP TO 1 04/28/2016 Back/N/A Proce dure: FLUOROSCOPY; HOUR PHYSICIAN/QHP TIME Surgeon: Janet Murillo MD; Lo cation: [facility]; Servic e: UROLOGY Medical devices from this surgery are in t he Implants section. FL 05/06/2016 Hip/Right Procedure: INCIS ION FOR INCISION,IMPLANT,NEUROELEC IMPLA NTATION OF SACRAL ,SACRAL NERVE NERVE NEUROMUSCU LAR NEUROSTIMULATOR ELECTRODE ARRAY STAGE II S tage 2 .; Surgeon: Janet Murillo MD; Lo cation: [facility]; Servic e: UROLOGY Medical devices from this surgery are in t he Implants section. FEMUR FRACTURE SURGERY 02/08/2017 - Right 03/10/2017 SHOULDER SURGERY 08/10/2017 Right From fall FL CYSTOSCOPY,INSERT 02/18/2018 Bladder/Bilateral Procedure : URETERAL STENT CYSTOURETHROSCOP Y WITH BILATERAL RETROG RADE URETEROPYELOGRAM S, BILATERAL URETER AL CATHETERIZATION; Surgeon: Jerod Mcguire IV, MD; Location: [facility]; Service: UROLOGY [place] CYSTO/URETEROSCOPY,[place] 03/15/2018 Bilateral Procedu re: URETER STRICT CYSTOURETHROSCOP Y AND BILATERAL URETER OSCOPY WITH LASER TREATMENT OF LEFT URETERAL STONES, PLACEMENT OF BILATERAL URE TERAL STENTS; Surgeon : Jerod Mcguire IV, MD; Location: [facility]; Servic e: UROLOGY [place] CYSTO/URETEROSCOPY,[place] 06/10/2018 Ureter/Bilateral Proced ure: URETER STRICT CYSTOURETHROSCOP Y AND URETEROSCOPY WIT H STONE EXTRACTION LEFT URETER ,URETERAL STENTS PLACEMENT.; Rey geon: Jerod Mcguire IV, MD; Location: [facility]; Service: UROLOGY Medical History Medical History Date Comments Neuropathy Obesity Used to be 600 pound s prior to bladder surgery. Personal history of kidney stones Recurrent urinary tract infection Incontinence Osteoarthritis Type 2 diabetes mellitus Fractures involving multiple body regions Family History Medical History Relation Name Comments Lung cancer Brother 1 Lung cancer Brother 2 Lung cancer Brother 3 Lung cancer Brother 4 Lung cancer Father -Head and Neck Son Relation Name Status Comments Brother 1 Brother 2 Brother 3 Brother 4 Father Son Social History Tobacco Use Types Packs/Day Years Used Date Never Smoker Smokeless Tobacco: Never Used Alcohol Use Standard Drinks/Week Comments No 0 (1 standard drink = 0.6 oz pure alcoho l) Sex Assigned at Date Recorded Not on file Obstetrics History Para Term AB IAB SAB Ectopic Multiple Living Live Births 3 3 3 Date Outcome GA Total Labor/2nd/3rd Weight Sex Delivery Anes PTL Nicole A 1 A5 Name Clin Labor Para Para Para Comments . Menarche 15. Surgical menopause at 25. OCP x1 year. Never used HRT. Denies abnormal pap smears. Last PAP >7 years a go. Mammogram >7 years ago. 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 Device Shelf Expiration Model / Identifier Date Serial / Lot Medtronic Sns Lead 28cm [id number] Implant [employer] 02/19/2020 3889-28 / Implanted: Qty: 1 on 04/28/2016 by Janet Murillo MD at [facility] / [id number] Description: Interstim 3889-28 Quadripolar Lead Kit for Sacral Nerve St imulation (SNS) Neurostimulator Medtronic - [id number] Implant Right: Hip MEDTRON IC NEURO 08/22/2017 [id number] / Implanted: Qty: 1 on 05/06/2016 by Janet Murillo MD at [facility] [id number] / Knee Knee Results Not on fileafter 03/19/2020 Insurance Payer Benefit Plan / Subscriber ID Effective Dates Phone Addre ss Type Group MEDICARE MEDICARE PART [id number] 2001-Geronimo [phone] [place] Medicare A AND B t 2 SOLUTIONS [address] [place] [address] Advance Directives Type Date Recorded Patient Pathology Secretary/Transcriptionist Explanati on Advance Directives: 12/08/2017 12:00 AM Medical Carlton regalado Medical Power of Stock Supervisor Stock Supervisor Code Status Date Activated Date Inactivated Comments Full Code 12/25/2017 6:01 PM 12/31/2017 8:26 PM Full Code 12/05/2017 3:06 AM 12/11/2017 5:46 PM Care Teams Mine Car Dispatcher Relationship Specialty Start Date End Date Gerri Trujillo MD PCP - External Referring Urology 03/21/16 [id number] [facility] [address] [place] [address] Janet Murillo MD PCP - General Urology 03/21/16 [facility] [place] [address]
--- OUTSIDE RECORDS SUMMARY | 2021-03-23 10:04 | XMS REPORT | Continuity of Care Document ---
:1945 Author Organization [facility] t Address [address] [place] [address] Care Team Providers Name Role Phone Yesenia Melgar Primary Care Physician Green LEARNING FACILITATOR Attending Clinician Ebrahim LEARNING FACILITATOR Attending Clinician EBRAHIM Attending Clinician Unavailable Doctor Unassigned, Name Attending Clinician Unavailable Vipul MEZA Attending Clinician Payers Payer Name Policy Type Policy Effective Date Expiration Date Sour ce Number MEDICARE PART A \T\ B [id number] 2001 00:00:00 MEDICAREMEDICARE PART [id number] MD Ang Alejo AND 00:00:00 [id number] [address] [place], [place] [address] [id number] Problems Condition Condition Condition Status Onset Resolution Last Treating Co mments Source Name Details Category Date Date Treatment Clinician Date Renal Renal Disease Active 2017-05 Overview: calculus calculus 0-19 Formattin And erso 00:00: g of this n 00 note might be different from the original. Added automatic ally from request for surgery [id number] 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 Overview : iasis iasis 0-02 Formattin Anderso 00:00: g of this n 00 note might be different from the original. 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 Added automatic ally from request for surgery [id number] Chronic Chronic Disease Active pain pain 9-25 Anderso 00:00: n 00 Recurrent Recurrent Disease Active Uni vers UTI UTI 5-06 ity of 00:00: [place] [address] Medical Branch Obesity Obesity Disease Active Univers (BMI (BMI 5-05 ity of 30-39.9) 30-39.9) 00:00: [place] [address] Medical Branch Pyelonephr Pyelonephr Disease Active U nivers itis itis 5-05 ity of 00:00: [place] [address] Medical Branch Allergies, Adverse Reactions, Alerts Allergy Allergy Status Severity Reaction(s) Onset Inactive Treating Comm ents Source Name Type Date Date Clinician NO KNOWN Drug Active Univers ALLERGIE Class ity of S [facility] Family History Family Member Diagnosis Comments Start Date Stop Date Source Natural son -Head and Neck MD [facility] Natural brother Lung cancer Pedro son Natural father Lung cancer MD [facility] Social History Social Habit Start Date Stop Date Quantity Comments Source Exposure to Yes [facility]-CoV-2 [facility] (event) Branch Alcohol intake 2018-06-14 2018-06-14 Current MD Katharine cee 00:00:00 00:00:00 non-drinker of alcohol (finding) Tobacco use and 2016-03-28 2016-03-28 Smokeless tobacco Ang exposure 00:00:00 00:00:00 non-user Sex [birth year] At [birth year] MD [facility] 00:00:00 00:00:00 Smoking Status Start Date Stop Date Source Never smoker [facility] acute hospital Medications Ordered Filled Start Stop Current Ordering Indication Dosage Frequency Signature Comments Components Source Medication Medication Date Date Medication? Clinician (SIG) Name Name Marcellus Germain Yes Na Melgar as [facility] Prolia Prolia Yes Na Melgar as [facility] Bactrim DS Bactrim DS 2018-0 Yes Na Melgar [address] [facility] 2[facility]14 [facility] hyoscyamine 2018- Yes Renal .125mg Dissolve 1 MD sulfate 1-31 calculus tablet Kenny o (ANASPAZ) 00:00: (0.125 mg) n 0.125 mg 00 on the sublingual/ tongue chewable every 4 tablet (four) hours as needed for bladder spasms). oxybutynin 2018-0 Yes Renal 5mg Take 1 MD (DITROPAN) 1-31 calculus tablet (5 Anderso 5 mg tablet 00:00: mg) by n 00 mouth 3 (three) times a day as needed for bladder spasms. sulfamethox 2018-0 Yes Renal 1{tbl} Take 1 M D azole-trime 1-08 calculus tablet by Anderso thoprim 00:00: mouth n (BACTRIM 00 twice DS) 800 daily. mg-160 mg Begin per tablet 06/09/18. traMADol 2017-05 Yes Renal 50mg Take 1 MD (ULTRAM) 50 1-05 calculus tablet (50 Anderso mg tablet 00:00: mg) by n 00 mouth every 6 (six) hours as needed for moderate pain. HYDROcodone 2017-05 Yes Nephrolithi 1{tbl} Take 1 MD -acetaminop 0-11 asis tablet by And erso hen (NORCO) 00:00: mouth n 5 mg-325 mg 00 every 6 per tablet (six) hours as needed for moderate pain. miconazole 2017- Yes Candidiasis Apply MD (MICOTIN) 8- of skin topically An derso 2% cream 00:00: to n 00 affected area(s) twice daily. polyethylen 2017- Yes Nausea 17g Take 17 g MD e glycol 8-04 by mouth Anderso (MIRALAX) 00:00: daily. n 17 g packet 00 ondansetron 2018-0 Yes 4mg Take 1 Univ ers 4 mg 1-24 tablet by ity of disintegrat 00:00: mouth [place] ing tablet 00 every 8 Medica l (eight) Branch hours as needed for Nausea and Vomiting (N/V). levoFLOXaci 2018-0 Yes 750mg Take 1 Uni vers n 750 mg 1-24 tablet by ity of tablet 00:00: mouth [place] 00 every 24 Medical (twenty-fo Branch ur) hours. oxybutynin 2018-0 Yes 10mg Take 1 Unive rs (DITROPAN 1-24 tablet by ity o f XL) 10 mg 00:00: mouth [place] 24 hr 00 daily. Medical tablet Branch ondansetron 2018-0 Yes 4mg Take 1 Univ ers 4 mg 1-24 tablet by ity of disintegrat 00:00: mouth [place] ing tablet 00 every 8 Medica l (eight) Branch hours as needed for Nausea and Vomiting (N/V). levoFLOXaci 2018-0 Yes 750mg Take 1 Uni vers n 750 mg 1-24 tablet by ity of tablet 00:00: mouth [place] 00 every 24 Medical (twenty-fo Branch ur) hours. oxybutynin 2018-0 Yes 10mg Take 1 Unive rs (DITROPAN 1-24 tablet by ity o f XL) 10 mg 00:00: mouth [place] 24 hr 00 daily. Medical tablet Branch ondansetron 2018-0 Yes 4mg Take 1 Univ ers 4 mg 1-24 tablet by ity of disintegrat 00:00: mouth [place] ing tablet 00 every 8 Medica l (eight) Branch hours as needed for Nausea and Vomiting (N/V). levoFLOXaci 2018-0 Yes 750mg Take 1 Uni vers n 750 mg 1-24 tablet by ity of tablet 00:00: mouth [place] 00 every 24 Medical (twenty-fo Branch ur) hours. oxybutynin 2018-0 Yes 10mg Take 1 Unive rs (DITROPAN 1-24 tablet by ity o f XL) 10 mg 00:00: mouth [place] 24 hr 00 daily. Medical tablet Branch ondansetron 2018-0 Yes 4mg Take 1 Univ ers 4 mg 1-24 tablet by ity of disintegrat 00:00: mouth [place] ing tablet 00 every 8 Medica l (eight) Branch hours as needed for Nausea and Vomiting (N/V). levoFLOXaci 2018-0 Yes 750mg Take 1 Uni vers n 750 mg 1-24 tablet by ity of tablet 00:00: mouth [place] 00 every 24 Medical (twenty-fo Branch ur) hours. oxybutynin 2018-0 Yes 10mg Take 1 Unive rs (DITROPAN 1-24 tablet by ity o f XL) 10 mg 00:00: mouth [place] 24 hr 00 daily. Medical tablet Branch ondansetron 2018-0 Yes 4mg Take 1 Univ ers 4 mg 1-24 tablet by ity of disintegrat 00:00: mouth [place] ing tablet 00 every 8 Medica l (eight) Branch hours as needed for Nausea and Vomiting (N/V). levoFLOXaci 2018-0 Yes 750mg Take 1 Uni vers n 750 mg 1-24 tablet by ity of tablet 00:00: mouth [place] 00 every 24 Medical (twenty-fo Branch ur) hours. oxybutynin 2018-0 Yes 10mg Take 1 Unive rs (DITROPAN 1-24 tablet by ity o f XL) 10 mg 00:00: mouth [place] 24 hr 00 daily. Medical tablet Branch ondansetron 2018-0 Yes 4mg Take 1 Univ ers 4 mg 1-24 tablet by ity of disintegrat 00:00: mouth [place] ing tablet 00 every 8 Medica l (eight) Branch hours as needed for Nausea and Vomiting (N/V). levoFLOXaci 2018-0 Yes 750mg Take 1 Uni vers n 750 mg 1-24 tablet by ity of tablet 00:00: mouth [place] 00 every 24 Medical (twenty-fo Branch ur) hours. oxybutynin 2017- Yes 10mg Take 1 Unive rs (DITROPAN 1-24 tablet by ity o f XL) 10 mg 00:00: mouth [place] 24 hr 00 daily. Medical tablet Branch ondansetron Yes 4mg Take 1 Univ ers 4 mg 1-24 tablet by ity of disintegrat 00:00: mouth [place] ing tablet 00 every 8 Medica l (eight) Branch hours as needed for Nausea and Vomiting (N/V). levoFLOXaci 2017- Yes 750mg Take 1 Uni vers n 750 mg 1-24 tablet by ity of tablet 00:00: mouth [place] 00 every 24 Medical (twenty-fo Branch ur) hours. oxybutynin 2017- Yes 10mg Take 1 Unive rs (DITROPAN 1-24 tablet by ity o f XL) 10 mg 00:00: mouth [place] 24 hr 00 daily. Medical tablet Branch CIPROFLOXAC 2016-05 Yes 500mg Take 1 Uni vers IN HCL 500 1-06 tablet by ity of mg tablet 00:00: mouth 2 00 (two) Medical times Branch daily. TYLENOL-COD 2016- Yes 2{tbl} Take 2 Un west EINE #3 1-06 tablets by ity of 300-30 mg 00:00: mouth [place] tablet 00 every 6 Medical (six) Branch hours as needed for Pain (scale 1-3). CIPROFLOXAC 2016- Yes 500mg Take 1 Uni vers IN HCL 500 1-06 tablet by ity of mg tablet 00:00: mouth 2 [place] 00 (two) Medical times Branch daily. TYLENOL-COD 2017- Yes 2{tbl} Take 2 Un west EINE #3 1-06 tablets by ity of 300-30 mg 00:00: mouth [place] tablet 00 every 6 Medical (six) Branch hours as needed for Pain (scale 1-3). CIPROFLOXAC 2016- Yes 500mg Take 1 Uni vers IN HCL 500 1-06 tablet by ity of mg tablet 00:00: mouth 2 [place] 00 (two) Medical times Branch daily. TYLENOL-COD 2016-05 Yes 2{tbl} Take 2 Un west EINE #3 1-06 tablets by ity of 300-30 mg 00:00: mouth [place] tablet 00 every 6 Medical (six) Branch hours as needed for Pain (scale 1-3). CIPROFLOXAC 2016-05 Yes 500mg Take 1 Uni vers IN HCL 500 1-06 tablet by ity of mg tablet 00:00: mouth 2 [place] 00 (two) Medical times Branch daily. TYLENOL-COD 2016-05 Yes 2{tbl} Take 2 Un west EINE #3 1-06 tablets by ity of 300-30 mg 00:00: mouth [place] tablet 00 every 6 Medical (six) Branch hours as needed for Pain (scale 1-3). CIPROFLOXAC 2016-05 Yes 500mg Take 1 Uni vers IN HCL 500 1-06 tablet by ity of mg tablet 00:00: mouth 2 [place] 00 (two) Medical times Branch daily. TYLENOL-COD 2016-05 Yes 2{tbl} Take 2 Un west EINE #3 1-06 tablets by ity of 300-30 mg 00:00: mouth [place] tablet 00 every 6 Medical (six) Branch hours as needed for Pain (scale 1-3). CIPROFLOXAC 2016-05 Yes 500mg Take 1 Uni vers IN HCL 500 1-06 tablet by ity of mg tablet 00:00: mouth 2 [place] 00 (two) Medical times Branch daily. TYLENOL-COD 2016-05 Yes 2{tbl} Take 2 Un west EINE #3 1-06 tablets by ity of 300-30 mg 00:00: mouth [place] tablet 00 every 6 Medical (six) Branch hours as needed for Pain (scale 1-3). CIPROFLOXAC 2016-05 Yes 500mg Take 1 Uni vers IN HCL 500 1-06 tablet by ity of mg tablet 00:00: mouth 2 [place] 00 (two) Medical times Branch daily. TYLENOL-COD 2016-05 Yes 2{tbl} Take 2 Un west EINE #3 1-06 tablets by ity of 300-30 mg 00:00: mouth [place] tablet 00 every 6 Medical (six) Branch hours as needed for Pain (scale 1-3). acetaminoph Yes 1{tbl} Take 1 Un west en-codeine 5-08 tablet by ity of 300-30 mg 00:00: mouth [place] tablet 00 every 8 Medical (eight) Branch hours as needed for Pain (scale 4-6) or Pain (scale 7-10). acetaminoph 2017-0 Yes 1{tbl} Take 1 Un west en-codeine 5-08 tablet by ity of 300-30 mg 00:00: mouth [place] tablet 00 every 8 Medical (eight) Branch hours as needed for Pain (scale 4-6) or Pain (scale 7-10). acetaminoph 2016-0 Yes 1{tbl} Take 1 Un west en-codeine 5-08 tablet by ity of 300-30 mg 00:00: mouth [place] tablet 00 every 8 Medical (eight) Branch hours as needed for Pain (scale 4-6) or Pain (scale 7-10). acetaminoph Yes 1{tbl} Take 1 Un west en-codeine 5-08 tablet by ity of 300-30 mg 00:00: mouth [place] tablet 00 every 8 Medical (eight) Branch hours as needed for Pain (scale 4-6) or Pain (scale 7-10). acetaminoph 0 Yes 1{tbl} Take 1 Un west en-codeine 5-08 tablet by ity of 300-30 mg 00:00: mouth [place] tablet 00 every 8 Medical (eight) Branch hours as needed for Pain (scale 4-6) or Pain (scale 7-10). acetaminoph Yes 1{tbl} Take 1 Un west en-codeine 5-08 tablet by ity of 300-30 mg 00:00: mouth [place] tablet 00 every 8 Medical (eight) Branch hours as needed for Pain (scale 4-6) or Pain (scale 7-10). acetaminoph Yes 1{tbl} Take 1 Un west en-codeine 5-08 tablet by ity of 300-30 mg 00:00: mouth [place] tablet 00 every 8 Medical (eight) Branch hours as needed for Pain (scale 4-6) or Pain (scale 7-10). DULoxetine 2017- Yes 30mg Take 30 mg U nivers 30 mg 4-05 by mouth. ity of capsule 00:00: [place] 00 Medical Branch HYDROcodone 2017-0 Yes 1{tbl} Take 1 Un west -acetaminop 4-05 tablet by ity of hen 10-325 00:00: mouth. [place] mg tablet 00 Medical Branch DULoxetine 2017-0 Yes 30mg Take 30 mg U nivers 30 mg 4-05 by mouth. ity of capsule 00:00: Medical Branch HYDROcodone 2017-0 Yes 1{tbl} Take 1 Un west -acetaminop 4-05 tablet by ity of hen 10-325 00:00: mouth. [place] mg tablet 00 Medical Branch DULoxetine 2017-0 Yes 30mg Take 30 mg U nivers 30 mg 4-05 by mouth. ity of capsule 00:00: Medical Branch HYDROcodone 2017-0 Yes 1{tbl} Take 1 Un west -acetaminop 4-05 tablet by ity of hen 10-325 00:00: mouth. [place] mg tablet 00 Medical Branch DULoxetine 2017-0 Yes 30mg Take 30 mg U nivers 30 mg 4-05 by mouth. ity of capsule 00:00: Medical Branch HYDROcodone 2017-0 Yes 1{tbl} Take 1 Un west -acetaminop 4-05 tablet by ity of hen 10-325 00:00: mouth. [place] mg tablet 00 Medical Branch DULoxetine 2017-0 Yes 30mg Take 30 mg U nivers 30 mg 4-05 by mouth. ity of capsule 00:00: Medical Branch HYDROcodone 2017-0 Yes 1{tbl} Take 1 Un west -acetaminop 4-05 tablet by ity of hen 10-325 00:00: mouth. [place] mg tablet 00 Medical Branch DULoxetine 2017-0 Yes 30mg Take 30 mg U nivers 30 mg 4-05 by mouth. ity of capsule 00:00: Medical Branch HYDROcodone 2017-0 Yes 1{tbl} Take 1 Un west -acetaminop 4-05 tablet by ity of hen 10-325 00:00: mouth. [place] mg tablet 00 Medical Branch DULoxetine 2017-0 Yes 30mg Take 30 mg U nivers 30 mg 4-05 by mouth. ity of capsule 00:00: Medical Branch HYDROcodone 2017-0 Yes 1{tbl} Take 1 Un west -acetaminop 4-05 tablet by ity of hen 10-325 00:00: mouth. [place] mg tablet [address] [place] [address] Pantoprazol Pantoprazol Yes Na Melgar [address] [facility] Sodium e Sodium [facility] Nystatin Nystatin Yes Na Melgar [address] [facility] affected [facility] HydrALAZINE HydrALAZINE Yes Na Melgar [address] [facility] HCl HCl with food [facility] Pyridium Pyridium Yes Na Melgar [address] [facility] Methocarbam Methocarbam Yes Na Melgar [address] [facility] Vital Signs Vital Name Observation Time Observation Value Comments Source Systolic blood 2021-01-10 14:54:00 103 mm[Hg] [facility] Diastolic blood 2021-01-10 14:54:00 73 mm[Hg] [facility] Heart rate 2021-01-10 14:54:00 90 /min [facility] Body temperature 2021-01-10 14:54:[address] [facility] Respiratory rate 2021-01-10 14:54:00 18 /min [facility] Body height 2021-01-10 14:54:00 162.6 cm [facility] Body weight 2021-01-10 14:54:00 85.73 kg [facility] BMI 2021-01-10 14:54:00 32.44 kg/m2 [facility] Oxygen saturation in 2021-01-10 14:54:00 97 /min [facility] Arterial blood by [facility] Pulse oximetry Branch Procedures This patient has no known procedures. Plan of Care Planned Activity Planned Date Details Comments Source Future Scheduled Test 1957 00:00:00 COVID-19 Vaccination MD Fry (1) [code = COVID-19 Vaccination (1)] Encounters Start End Encounter Admission Attending Care Care Encounter Source Date/Time Date/Time Type Type Clinicians Facility Department ID 2021-03-21 2021-03-21 ambulatory [facility] [id number] [facility] 2021-03-21 2021-03-21 ambulatory [facility] [id number] [facility] 2021-03-21 2021-03-21 [id number] 2021-01-10 2021-01-10 Urgent [place], Smita [facility] [id number] Univers 09:43:00 10:03:00 Nicholas [facility] [id number] ity of [place] [id number] [place] Nikolay?Blea [phone] [address] Medical Office Building 2021-01-10 2021-01-10 Outpatient Angelo [facility] [id number] Univers 09:40:00 09:40:00 RANMD ity [facility] 2021-01-10 2021-01-10 Letter Doctor RENETTA [id number] Univers 00:00:00 00:00:00 (Out) Unassigned, SHA [id number] ity of [facility] [id number] [place] as [phone] [address] 2021-01-10 2021-01-10 Letter Doctor RENETTA [id number] Univers 00:00:00 00:00:00 (Out) Unassigned, SHA [id number] ity of [facility] [id number] [place] [phone] [address] 2021-01-10 2021-01-10 Letter Doctor RENETTA [id number] Univers 00:00:00 00:00:00 (Out) Unassigned, SHA [id number] ity of [facility] [id number] [place] [id number] [address] 2020-12-18 2020-12-18 Outpatient [facility] [id number] [facility] 2020-10-16 2020-10-16 Outpatient [facility] [id number] [facility] 2020-09-12 2020-09-12 Outpatient [facility] [id number] [facility] 2020-09-05 2020-09-05 Outpatient [facility] [id number] [facility] 2020-09-03 2020-09-03 Outpatient [facility] [id number] [facility] 2020-07-23 2020-07-23 Outpatient [facility] [id number] [facility] 2020-06-28 2020-06-28 Outpatient [facility] [id number] [facility] 2020-06-04 2020-06-04 Outpatient [facility] [id number] [facility] 2020-05-25 2020-05-25 Outpatient [facility] [id number] [facility] 2020-05-24 2020-05-24 Outpatient [facility] [id number] [facility] 2020-05-09 2020-05-09 Outpatient [facility] [id number] [facility] 2020-05-09 2020-05-09 Outpatient [facility] [id number] [facility] 2020-05-08 2020-05-08 Outpatient [facility] [id number] [facility] 2020-05-07 2020-05-07 Outpatient [facility] [id number] [facility] 2020-04-23 2020-04-23 Outpatient [facility] [id number] [facility] 2020-04-18 2020-04-18 Outpatient [facility] [id number] [facility] 2019-11-18 2019-11-18 [facility] [id number] [address] 09:00:00 09:00:00 t [place] [employer] Luke s - [facility] Outpati ent Clinics 2019-06-20 2019-06-20 [facility] [id number] 09:35:00 09:35:00 t [place] Valdes[place] [employer] s - Drive [facility] Outpati ent Clinics 2019-04-04 2019-04-04 [facility] [id number] 15:33:00 15:33:00 t [place] [employer] s - Drive [facility] Outpati ent Clinics 2018-12-14 2018-12-14 [facility] [id number] 13:40:00 13:40:00 t [place] [employer] Luke s - Drive [facility] Medicine Outpati ent Clinics 2018-09-21 2018-09-21 [facility] [id number] 10:11:00 10:11:00 t [place] [employer] s - Drive [facility] Medicine Outpati ent Clinics 2018-08-18 2018-08-18 [facility] [id number] 10:46:00 10:46:00 t [place] [employer] s - Drive [facility] Medicine Outpati ent Clinics 2018-08-13 2018-08-13 [facility] [id number] 16:20:00 16:20:00 t [employer] [facility] Out[facility] Clinics 2018-06-24 2018-06-24 [facility] [id number] 09:56:00 09:56:00 t [employer] [facility] Clin[facility] 2018-05-06 2018-05-06 [facility] [id number] [facility] 08:30:00 08:30:00 Idibon [facility] 2018-04-22 2018-04-22 [facility] [id number] [facility] 10:15:00 10:15:00 t [employer] [facility] Results This patient has no known results.
[2021-03-24 06:41] LABS: Albumin, (SPE) 3.1 g/dL (3.8-4.8); Alpha-1-Globulins 0.3 g/dL (0.2-0.3); Alpha-2-Globulins 0.8 g/dL (0.5-0.9); Gamma Globulins 1.3 g/dL (0.8-1.7); INTERPRETATION REPORT
== END 2021-03-20 16:42 | disposition home health service (06) | DRG 682 ==
LOC: 2ND 17:58
PROVIDERS: ADMIT Hospitalist; ATTEND Family Medicine
PROC: 0DB68ZX Excision of Stomach, Via Natural or Artificial Opening Endoscopic, Diagnostic (ICD-10-PCS; 2021-03-19)
PROC: 0DBN8ZX Excision of Sigmoid Colon, Via Natural or Artificial Opening Endoscopic, Diagnostic (ICD-10-PCS; 2021-03-20)
PROC: 0DBM8ZX Excision of Descending Colon, Via Natural or Artificial Opening Endoscopic, Diagnostic (ICD-10-PCS; 2021-03-20)
PROC: 0W3P8ZZ Control Bleeding in Gastrointestinal Tract, Via Natural or Artificial Opening Endoscopic (ICD-10-PCS; 2021-03-20)
PROC: 0DBK8ZX Excision of Ascending Colon, Via Natural or Artificial Opening Endoscopic, Diagnostic (ICD-10-PCS; principal; 2021-03-20 09:15)
DX: N17.0 Acute kidney failure with tubular necrosis (principal); J10.00 Influenza due to other identified influenza virus with unspecified type of pneumonia; N39.0 Urinary tract infection, site not specified; E87.2 Acidosis; Z68.41 Body mass index [BMI] 40.0-44.9, adult; Z16.24 Resistance to multiple antibiotics; N18.4 Chronic kidney disease, stage 4 (severe); E66.01 Morbid (severe) obesity due to excess calories; I12.9 Hypertensive chronic kidney disease with stage 1 through stage 4 chronic kidney disease, or unspecified chronic kidney disease; E11.22 Type 2 diabetes mellitus with diabetic chronic kidney disease; K63.5 Polyp of colon; K57.90 Diverticulosis of intestine, part unspecified, without perforation or abscess without bleeding; K64.8 Other hemorrhoids; K21.9 Gastro-esophageal reflux disease without esophagitis; N20.0 Calculus of kidney; K44.9 Diaphragmatic hernia without obstruction or gangrene; E78.5 Hyperlipidemia, unspecified; K52.9 Noninfective gastroenteritis and colitis, unspecified; M47.896 Other spondylosis, lumbar region; M41.9 Scoliosis, unspecified; E86.0 Dehydration; B95.2 Enterococcus as the cause of diseases classified elsewhere; B96.20 Unspecified Escherichia coli [E. coli] as the cause of diseases classified elsewhere; Z79.4 Long term (current) use of insulin; Z79.899 Other long term (current) drug therapy; Z90.49 Acquired absence of other specified parts of digestive tract; Z79.890 Hormone replacement therapy; Z90.710 Acquired absence of both cervix and uterus; Z20.822 Contact with and (suspected) exposure to COVID-19
CPT/HCPCS: 36415; 72100; 74176; 76377; 76770; 80048; 80053; 80069; 81001; 82550; 82947; 83036; 83520; 83735; 83880; 83970; 84100; 84145; 84165; 84439; 84443; 84484; 84550; 85025; 87077; 87086; 87088; 87186; 88305; 88312; 97110; 97116; 97161; 97530; J0696; J1644; J1815; J2270; J2405; J2704; J2765; J2930; J3475; J7030; P9047; U0003